=== PATIENT | male | born 1930 | race Caucasian/White ===

== ENCOUNTER → 2016-04-26 | Outpatient (CLI) | payer MEDICARE, BC ==
[2016-04-26 09:35] LABS: Anion Gap 12 mmol/L; Blood Urea Nitrogen 16 mg/dL (9-20); Calcium 9.4 mg/dL (8.4-10.2); Carbon Dioxide 30 mmol/L (22-30); Chloride 104 mmol/L (98-107); Glucose 120 mg/dL (74-99); Non-African American GFR(MDRD) >60 (>60 ml/min/1.73 sqM); Potassium 5.2 mmol/L (3.5-5.1); Sodium 146 mmol/L (137-145)
[2016-04-26 11:04] LABS: Hemoglobin A1C 6.3 % (4.2-6.1)
== END | disposition home or self-care (01) ==
LOC: LABWHC1 08:39
PROVIDERS: ATTEND Internal Medicine
DX: E11.21 Type 2 diabetes mellitus with diabetic nephropathy (principal)
CPT/HCPCS: 36415; 80048; 83036

== ENCOUNTER → 2016-07-25 | Outpatient (CLI) | payer MEDICARE, BC ==
[2016-07-25 07:29] LABS: Anion Gap 8 mmol/L; Blood Urea Nitrogen 13 mg/dL (9-20); Calcium 9.7 mg/dL (8.4-10.2); Carbon Dioxide 33 mmol/L (22-30); Chloride 101 mmol/L (98-107); Glucose 141 mg/dL (74-99); Non-African American GFR(MDRD) >60 (>60 ml/min/1.73 sqM); Potassium 4.8 mmol/L (3.5-5.1); Sodium 142 mmol/L (137-145)
--- NOTE | 2016-07-25 09:24 | CT ---
EXAMINATION TYPE: CT chest w con DATE OF EXAM: 07/25/2016 8:08 AM COMPARISON: 07/31/2012 HISTORY: Pulmonary Nodule CT DLP: 836 mGycm, Automated exposure control for dose reduction was used. CONTRAST: Performed injected with 100 ml mL of Omnipaque 300. TECHNIQUE: Axial images were obtained at 5 mm thick sections. Reconstructed images are reviewed on [employer] computer in the coronal plane. FINDINGS: Portion of the thyroid visualized is normal. No suspicious lung nodules or focal infiltrates are present. Some minimal pleural thickening may be in the posterior right upper lung field. Series 4 image 16. No suspicious focal consolidations are evident. There is a 0.8 cm density within the mid right lung. Se alexis 4 image 30. This measures 154 Hounsfield units and can be calcified granuloma. There is some mi nimal linear opacity along the major fissure adjacent to this calcification. Series 4 image 32. Punct ate nodular density is adjacent. This measures 0.3 cm. These findings were comparison study of 013. Further follow-up of these findings is not required given the stability of greater than [address] chest can be performed for any new or clinical findings. No enlarged mediastinal or hilar adenopathy is evident. The ascending aorta diameter at the level o f the main pulmonary artery is 3.1 cm. The main pulmonary artery diameter at the bifurcation is 3.0 cm. Some coronary artery calcification is noted. Limited CT sections are obtained through the upper abdomen. Abdomen is essentially unremarkable. Gall bladder is surgically absent. The pancreas is somewhat atrophic. IMPRESSIONS: 1. Suspected calcified granuloma right midlung. This was present on the comparison study.
[2016-07-25 12:51] LABS: Hemoglobin A1C 6.7 % (4.2-6.1)
== END | disposition home or self-care (01) ==
LOC: RADCTMAIN 06:44
PROVIDERS: ATTEND Internal Medicine
DX: R91.1 Solitary pulmonary nodule (principal)
CPT/HCPCS: 80048; 83036; 71260; 36415; Q9967

== ENCOUNTER → 2016-08-02 | Outpatient (CLI) | payer MEDICARE, BC ==
--- NOTE | 2016-08-02 09:06 | XR ---
EXAMINATION TYPE: XR foot complete LT DATE OF EXAM: 08/02/2016 8:56 AM CLINICAL HISTORY: pain TECHNIQUE: Frontal, lateral and oblique images of the left foot are obtained. COMPARISON: None. FINDINGS: There is no acute fracture/dislocation evident. The joint spaces appear within normal conway its. The overlying soft tissue appears unremarkable. IMPRESSION: There is no acute fracture or dislocation. ICD 10 NO FRACTURE, INITIAL EVALUATION
== END ==
LOC: RADXRMAIN 08:33
PROVIDERS: ATTEND Internal Medicine
DX: M79.672 Pain in left foot (principal)

== ENCOUNTER → 2016-10-01 | Outpatient (CLI) | payer MEDICARE, BC ==
[2016-10-01 09:37] LABS: Blood Urea Nitrogen 12 mg/dL (9-20); Non-African American GFR(MDRD) >60 (>60 ml/min/1.73 sqM)
--- NOTE | 2016-10-01 11:31 | CT ---
EXAMINATION TYPE: CT abdomen pelvis w con DATE OF EXAM: 10/01/2016 COMPARISON: No prior CT abdomen or CT pelvis. INDICATION: Prostate CA DLP: 1658 mGycm, Automated exposure control for dose reduction was used. CONTRAST: 100 mL of Omnipaque 300. Study performed with Oral Contrast TECHNIQUE: Axial images were obtained from above the diaphragm to the pubic rami in the axial plane a t 5 mm thick sections. Reconstructed images are reviewed on the computer in the coronal plane. FINDINGS: Limited CT sections are obtained the lung bases. The lung bases are clear. Some coronary artery bertram cification is noted within the [id number]. CT ABDOMEN: Liver: Mild diffuse fatty infiltration liver. No discrete masses or cysts are evident. Spleen: Normal Pancreas: Normal Adrenal glands: The adrenal glands are normal. Gallbladder: Surgically absent Kidneys: No masses are evident. No hydronephrosis is present. Small cortical renal cyst on the post erior lateral right mid kidney measuring 1.0 cm. Delayed images were obtained through the kidneys, w hich remain unremarkable. Aorta: Vascular calcification is within the aorta. Inferior vena cava: Normal. CT PELVIS: Loops of bowel within the abdomen and pelvis are normal. There are loops of bowel which are incom pletely distended or lack oral contrast limiting their evaluation. Appendix: Normal as visualized. Urinary bladder: Normal. Genitourinary structures: Prostate appears prominent. Discrete prostate neoplasm reported on the johana ent's history is not clearly evident on CT exam. Osseous structures: No suspicious lytic or sclerotic lesions. There may be bilateral inguinal hernias containing mesenteric fat. No loops of bowel are involved. No free fluid is within the pelvis. No suspicious pelvic adenopathy is evident. IMPRESSIONS: 1. No suspicious changes to suggest metastatic disease from prostate cancer. 2. Right renal cortical cyst.
--- NOTE | 2016-10-01 14:02 | NM ---
EXAMINATION TYPE: NM bone scan whole body DATE OF EXAM: 10/01/2016 COMPARISON: CT scan 10/01/2016 HISTORY: Prostate cancer Delayed whole-body scanning was performed following the injection of mCi Tc 99m MDP. Images acquired 3 hours post injection. FINDINGS: Uptake throughout the thoracic and lumbar vertebral, appears to correlate with CT findings of hypertr ophic spur formation and degenerative disc disease. Photopenic defects involving the knees compatible with previous surgery and abnormal uptake involving both feet likely either on the basis of previous trauma or post arthritic. Faint abnormal uptake involving the hips likely post arthritic. Nonspecific uptake involving the sternoclavicular joints bilaterally. This likely is also post arthri tic. Single sclerotic area of focus involving the T10 vertebral body is nonspecific noted on CT scan appea rs to be in the region of the endplate.. IMPRESSION: 1. The findings appear most likely post arthritic or post degenerative. There is a nonspecific findin g involving the T10 vertebral body with an area of sclerosis seen on CT scan with minimal uptake nucl ear exam. This may be related to endplate changes rather than metastases and could be monitored on a short-term basis.
== END | disposition home or self-care (01) ==
LOC: RADNMMAIN 08:56
PROVIDERS: ATTEND Urology
DX: N28.1 Cyst of kidney, acquired (principal); G95.89 Other specified diseases of spinal cord; R93.8 Abnormal findings on diagnostic imaging of other specified body structures; C61 Malignant neoplasm of prostate
CPT/HCPCS: 82565; 84520; 74177; 36415; 78306; A9503; Q9967

== ENCOUNTER → 2016-10-24 | Outpatient (CLI) | payer MEDICARE, BC ==
[2016-10-24 09:47] LABS: Anion Gap 9 mmol/L; Blood Urea Nitrogen 17 mg/dL (9-20); Carbon Dioxide 33 mmol/L (22-30); Chloride 101 mmol/L (98-107); Glucose 113 mg/dL (74-99); Non-African American GFR(MDRD) >60 (>60 ml/min/1.73 sqM); Potassium 5.2 mmol/L (3.5-5.1); Sodium 143 mmol/L (137-145)
[2016-10-24 14:14] LABS: Hemoglobin A1C 6.6 % (4.2-6.1)
== END | disposition home or self-care (01) ==
LOC: LABWHC1 08:38
PROVIDERS: ATTEND Internal Medicine
DX: E11.65 Type 2 diabetes mellitus with hyperglycemia (principal)
CPT/HCPCS: 36415; 80048; 83036

== ENCOUNTER → 2017-01-22 | Outpatient (CLI) | payer MEDICARE, BC ==
[2017-01-22 10:54] LABS: Anion Gap 10 mmol/L; Blood Urea Nitrogen 15 mg/dL (9-20); Calcium 9.5 mg/dL (8.4-10.2); Carbon Dioxide 27 mmol/L (22-30); Chloride 101 mmol/L (98-107); Glucose 115 mg/dL (74-99); Non-African American GFR(MDRD) >60 (>60 ml/min/1.73 sqM); Potassium 5.5 mmol/L (3.5-5.1); Sodium 138 mmol/L (137-145)
[2017-01-22 13:43] LABS: Hemoglobin A1C 6.6 % (4.2-6.1)
== END | disposition home or self-care (01) ==
LOC: LABWHC1 09:41
PROVIDERS: ATTEND Internal Medicine
DX: E11.21 Type 2 diabetes mellitus with diabetic nephropathy (principal)
CPT/HCPCS: 36415; 80048; 83036

== ENCOUNTER 2017-04-27 10:06 | Inpatient (IN) | payer MEDICARE, BC ==
[2017-04-27] MEDS ORDERED: PANTOPRAZOLE 40 MG/10 ML VIAL IVP STA (10:25)
--- NOTE | 2017-04-27 10:40 | ED ---
General Adult HPI - General Chief complaint: GI Bleed Stated complaint: Poss GI Bleed Time Seen by Provider: 04/27/17 10:11 Source: patient, family, EMS, RN notes reviewed, old records reviewed Mode of arrival: EMS Limitations: no limitations - History of Present Illness Initial comments: Complaint and history of present illness is an 86-year-old male here with family. The patient has not been feeling well since last night. The patient noticed on 3 occasions black tarry stool. Guaiac positive at bedside. Patient doesn't past history of stomach ulcers approximately 10 years ago. He's also on Coumadin for A. fib. reports he looked very pale last night he does appear pale today. Complains of abdominal bloating. Denied vomiting. - Related Data Home Medications Medication Instructions Recorded Confirmed Budesonide [Pulmicort] 0.5 mg INHALATION BID 12/08/13 04/11/14 Cetirizine HCl 10 mg PO DAILY 12/08/13 04/11/14 Furosemide [Lasix] 40 mg PO DAILY 12/08/13 04/11/14 Metoprolol Tartrate [Lopressor] 25 mg PO BID 12/08/13 04/11/14 Simvastatin [Zocor] 80 mg PO HS 12/08/13 04/11/14 Warfarin [Coumadin] 5 mg PO SUMOTUTHSA 12/08/13 04/11/14 Montelukast [Singulair] 10 mg PO DAILY 02/27/14 04/11/14 Nitroglycerin Sl Tabs [Nitrostat] 0.4 mg SL DIRECTED 02/27/14 04/11/14 Previous Rx's Medication Instructions Recorded Azithromycin [Zithromax Z-pack] 0 mg PO DIRECTED #6 tab 04/11/14 Oseltamivir [Tamiflu] 75 mg PO Q12HR #10 cap 04/11/14 Allergies Allergy/AdvReac Type Severity Reaction Status Date / Time No Known Allergies Allergy Verified 04/11/14 13:31 Review of Systems ROS Statement: Those systems with pertinent positive or pertinent negative responses have been documented in the HPI. review of systems. Patient denies headache or visual acuity changes he is hard of hearing. Denies any chest pain or heaviness or shortness of breath though he does have history of asthma with a slight wheeze. The patient's abdomen feels bloated mild nausea no vomiting black stool guaiac positive on rectal exam. Mild peripheral pitting edema chronic leg pain. All systems were reviewed.Past medical problems include coronary artery disease patient's never had heart attack but he has had one stent placed recently treated with radiation for prostate cancer. History of hyperlipidemia, peptic ulcer disease 10 years ago. A. fib on Coumadin. Patient's surgeries include cardiac ablation, bladder surgery prostate radiation. Cholecystectomy, heart catheterization with one stent placed. Both knee replacements. Pacemaker the first one was placed and 06 and the battery was changed approximate 3 years ago.patient is a former smoker denies alcohol use. Family history noncontributory. ROS Other: All systems not noted in ROS Statement are negative. Past Medical History Past Medical History: Coronary Artery Disease (CAD), Cancer, Hyperlipidemia Additional Past Medical History / Comment(s): PUD History of Any Multi-Drug Resistant Organisms: None Reported Past Surgical History: Ablation, Bladder Surgery, Cholecystectomy, Heart Catheterization With Stent, Joint Replacement, Orthopedic Surgery, Pacemaker Additional Past Surgical History / Comment(s): pacemaker 2013, cataract Past Anesthesia/Blood Transfusion Reactions: No Reported Reaction Date of Last Stent Placement:: 2001 Past Psychological History: No Psychological Hx Reported Smoking Status: Former smoker Past Alcohol Use History: None Reported Past Drug Use History: None Reported General Exam - General Exam Comments Initial Comments: General: The patient is awake and alert, here because he feels weak, large amount of black tarry stool for the past 18 hours. Vital signs are temperature 97.7 pulse 60 respiratory rate 16 pulse ox on percent on 2 L. Blood pressure 113/53 Eye: Pupils are equal, round and reactive to light, extra-ocular movements are intact ; pale palpebral conjunctiva. No icterus. Ears, nose, mouth and throat: There are moist mucous membranes and no oral lesions. Neck: The neck is supple, there is no tenderness . Cardiovascular: There is a regular rate and rhythm. No murmur, rub or gallop is appreciated. Respiratory: faint wheezing bilaterally, patient does not complain of shortness of breath. History of asthma. Gastrointestinal: no pain with deep palpation, patient feels bloated. Rectal examination no masses palpable but the stool is tarry black and guaiac positive. Active bowel sounds. No palpable masses, no bruit. Back: There is no tenderness to palpation in the midline. There is no obvious deformity. No rashes noted. Musculoskeletal: mild pitting edema bilaterally lower extremities, Neurological: no complaint of any evidence of any neuro deficits, no focal or lateralizing findings. Skin: some bruising noted secondary to Coumadin use and generally pale. Psychiatric: denies any problems of being depressed. Limitations: no limitations Course Vital Signs 04/27/17 04/27/17 10:21 11:40 Temperature 97.7 F Pulse Rate 60 60 Respiratory 16 16 Rate Blood Pressure 113/53 133/65 O2 Sat by Pulse 100 97 Oximetry EKG Findings - EKG Comments: EKG Findings:: EKG was done and reviewed at 1013 showing ventricular pacing, rate 60. due to the pacemaker activity no other interpretation. Dr. Evans Medical Decision Making - Medical Decision Making Medical decision making; this is an 86-year-old male here with family. The patient didn't start feeling well until last night. Muscle aches and pains and black stool. Patient's past history includes chronic A. fib with ablation secondarily now with Coumadin and pacemaker. Patient had a bloated sensation in his stomach. He's had 2 large black bowel movements since last night. Guaiac positive. Significant labs show an elevated INR 7.7 which the patient is getting vitamin K IV as well as 2 units of fresh frozen plasma. His hemoglobin 7.4. Don't have any old numbers for hemoglobin but he is having 2 units typed and crossed for use. Kidney function shows BUN 16 creatinine 0.79 and GFR greater than 60. Lipase is getting fluids at this time. His influenza A was reported to be positive. He is also receiving Tamiflu's 75 mg by mouth in emergency room. Also slight wheezing so the patient is receiving DuoNeb. I discussed the findings and significance with patient and at bedside. I discussed the case with Dr. Malik on-call for Dr. pathak. patient be admitted hospital currently no beds are available in the ICU he'll be sent to telemetry. - Lab Data Result diagrams: 04/27/17 10:43 04/27/17 10:43 Lab Results 04/27/17 04/27/17 04/27/17 Range/Units 10:30 10:39 10:39 WBC (3.8-10.6) k/uL RBC (4.30-5.90) m/uL Hgb (13.0-17.5) gm/dL Hct (39.0-53.0) % MCV (80.0-100.0) fL MCH (25.0-35.0) pg MCHC (31.0-37.0) g/dL RDW (11.5-15.5) % Plt Count (150-450) k/uL Neutrophils % % Lymphocytes % % Monocytes % % Eosinophils % % Basophils % % Neutrophils # (1.3-7.7) k/uL Lymphocytes # (1.0-4.8) k/uL Monocytes # (0-1.0) k/uL Eosinophils # (0-0.7) k/uL Basophils # (0-0.2) k/uL PT (9.0-12.0) sec INR (<1.2) APTT (22.0-30.0) sec Sodium (137-145) mmol/L Potassium (3.5-5.1) mmol/L Chloride (98-107) mmol/L Carbon Dioxide (22-30) mmol/L Anion Gap mmol/L BUN (9-20) mg/dL Creatinine (0.66-1.25) mg/dL Est GFR (MDRD) Af Amer (>60 ml/min/1.73 sqM) Est GFR (MDRD) Non-Af (>60 ml/min/1.73 sqM) Glucose (74-99) mg/dL Plasma Lactic Acid Jose (0.7-2.0) mmol/L Calcium (8.4-10.2) mg/dL Total Bilirubin (0.2-1.3) mg/dL AST (17-59) U/L ALT (21-72) U/L Alkaline Phosphatase (38-126) U/L Total Creatine Kinase 58 (55-170) U/L CK-MB (CK-2) 2.2 (0.0-2.4) ng/mL CK-MB (CK-2) Rel Index 3.8 Troponin I 0.057 H* (0.000-0.034) ng/mL Total Protein (6.3-8.2) g/dL Albumin (3.5-5.0) g/dL Lipase (23-300) U/L Stool Occult Blood Positive (Negative) Blood Type O Positive Blood Type Recheck No Antibody Screen NEGATIVE Crossmatch See Detail Spec Expiration Date 04/30/2017 - 2330 04/27/17 04/27/17 04/27/17 Range/Units 10:43 10:43 10:43 WBC 12.3 H (3.8-10.6) k/uL RBC 2.42 L (4.30-5.90) m/uL Hgb 7.4 L (13.0-17.5) gm/dL Hct 23.3 L (39.0-53.0) % MCV 96.2 (80.0-100.0) fL MCH 30.5 (25.0-35.0) pg MCHC 31.7 (31.0-37.0) g/dL RDW 13.5 (11.5-15.5) % Plt Count 231 (150-450) k/uL Neutrophils % 85 % Lymphocytes % 8 % Monocytes % 4 % Eosinophils % 2 % Basophils % 0 % Neutrophils # 10.5 H (1.3-7.7) k/uL Lymphocytes # 1.0 (1.0-4.8) k/uL Monocytes # 0.4 (0-1.0) k/uL Eosinophils # 0.2 (0-0.7) k/uL Basophils # 0.0 (0-0.2) k/uL PT (9.0-12.0) sec INR (<1.2) APTT (22.0-30.0) sec Sodium 136 L (137-145) mmol/L Potassium 4.6 (3.5-5.1) mmol/L Chloride 96 L (98-107) mmol/L Carbon Dioxide 35 H (22-30) mmol/L Anion Gap 5 mmol/L BUN 60 H (9-20) mg/dL Creatinine 0.79 (0.66-1.25) mg/dL Est GFR (MDRD) Af Amer >60 (>60 ml/min/1.73 sqM) Est GFR (MDRD) Non-Af >60 (>60 ml/min/1.73 sqM) Glucose 188 H (74-99) mg/dL Plasma Lactic Acid Jose 1.2 (0.7-2.0) mmol/L Calcium 8.9 (8.4-10.2) mg/dL Total Bilirubin 0.5 (0.2-1.3) mg/dL AST 34 (17-59) U/L ALT 56 (21-72) U/L Alkaline Phosphatase 101 (38-126) U/L Total Creatine Kinase (55-170) U/L CK-MB (CK-2) (0.0-2.4) ng/mL CK-MB (CK-2) Rel Index Troponin I (0.000-0.034) ng/mL Total Protein 4.7 L (6.3-8.2) g/dL Albumin 2.6 L (3.5-5.0) g/dL Lipase 58 (23-300) U/L Stool Occult Blood (Negative) Blood Type Blood Type Recheck Antibody Screen Crossmatch Spec Expiration Date 04/27/17 Range/Units 10:43 WBC (3.8-10.6) k/uL RBC (4.30-5.90) m/uL Hgb (13.0-17.5) gm/dL Hct (39.0-53.0) % MCV (80.0-100.0) fL MCH (25.0-35.0) pg MCHC (31.0-37.0) g/dL RDW (11.5-15.5) % Plt Count (150-450) k/uL Neutrophils % % Lymphocytes % % Monocytes % % Eosinophils % % Basophils % % Neutrophils # (1.3-7.7) k/uL Lymphocytes # (1.0-4.8) k/uL Monocytes # (0-1.0) k/uL Eosinophils # (0-0.7) k/uL Basophils # (0-0.2) k/uL PT 71.5 H (9.0-12.0) sec INR 7.7 H* (<1.2) APTT 30.3 H (22.0-30.0) sec Sodium (137-145) mmol/L Potassium (3.5-5.1) mmol/L Chloride (98-107) mmol/L Carbon Dioxide (22-30) mmol/L Anion Gap mmol/L BUN (9-20) mg/dL Creatinine (0.66-1.25) mg/dL Est GFR (MDRD) Af Amer (>60 ml/min/1.73 sqM) Est GFR (MDRD) Non-Af (>60 ml/min/1.73 sqM) Glucose (74-99) mg/dL Plasma Lactic Acid Jose (0.7-2.0) mmol/L Calcium (8.4-10.2) mg/dL Total Bilirubin (0.2-1.3) mg/dL AST (17-59) U/L ALT (21-72) U/L Alkaline Phosphatase (38-126) U/L Total Creatine Kinase (55-170) U/L CK-MB (CK-2) (0.0-2.4) ng/mL CK-MB (CK-2) Rel Index Troponin I (0.000-0.034) ng/mL Total Protein (6.3-8.2) g/dL Albumin (3.5-5.0) g/dL Lipase (23-300) U/L Stool Occult Blood (Negative) Blood Type Blood Type Recheck Antibody Screen Crossmatch Spec Expiration Date Disposition Clinical Impression: Upper gastrointestinal bleed, Influenza A, Dehydration, Asthma attack, Bleeding on Coumadin Disposition: ADMITTED IP TO THIS [facility] Condition: Serious Referrals: Rodger Pathak MD [Primary Care Provider] - 1-2 days
[2017-04-27 10:56] LABS: Basophils % (A) 0 %; Eosinophils # (A) 0.2 k/uL (0-0.7); Eosinophils % (A) 2 %; HCT 23.3 % (39.0-53.0); HGB 7.4 gm/dL (13.0-17.5); Lymphocytes % (A) 8 %; MCH 30.5 pg (25.0-35.0); MCHC 31.7 g/dL (31.0-37.0); MCV 96.2 fL (80.0-100.0); Mean Platelet Volume 7.9; Monocytes # (A) 0.4 k/uL (0-1.0); Monocytes % (A) 4 %; Neutrophils # (A) 10.5 k/uL (1.3-7.7); Neutrophils % (A) 85 %; Platelet Count 231 k/uL (150-450); RBC 2.42 m/uL (4.30-5.90); RDW 13.5 % (11.5-15.5); WBC 12.3 k/uL (3.8-10.6)
[2017-04-27 11:02] LABS: Partial Thromboplastin Time 30.3 sec (22.0-30.0); Prothrombin Time 71.5 sec (9.0-12.0)
[2017-04-27 11:04] LABS: ALT 56 U/L (21-72); AST 34 U/L (17-59); Albumin 2.6 g/dL (3.5-5.0); Alkaline Phosphatase 101 U/L (38-126); Anion Gap 5 mmol/L; Blood Urea Nitrogen 60 mg/dL (9-20); Calcium 8.9 mg/dL (8.4-10.2); Carbon Dioxide 35 mmol/L (22-30); Chloride 96 mmol/L (98-107); Glucose 188 mg/dL (74-99); Lipase 58 U/L (23-300); Potassium 4.6 mmol/L (3.5-5.1); Sodium 136 mmol/L (137-145); Total Bilirubin 0.5 mg/dL (0.2-1.3); Total Protein 4.7 g/dL (6.3-8.2)
[2017-04-27 11:05] LABS: INR 7.7 (<1.2)
[2017-04-27 11:25] LABS: Creatine Kinase MB 2.2 ng/mL (0.0-2.4)
[2017-04-27] MEDS ORDERED: SODIUM CHLORIDE 0.9% 1,000 ML IV ONE (11:27)
[2017-04-27] MEDS ORDERED: PHYTONADIONE 5 MG in SODIUM CHLORIDE 0.9% 50 ML IVPB STA (11:27)
[2017-04-27 11:28] LABS: Troponin I 0.057 ng/mL (0.000-0.034)
[2017-04-27] MEDS ORDERED: IPRATROPIUM-ALBUTEROL 3 ML NEB INHALATION STA (11:52)
[2017-04-27] MEDS ORDERED: OSELTAMIVIR 75 MG CAP PO STA (11:53)
[2017-04-27] MEDS ORDERED: NALOXONE 0.4 MG/ML 1 ML VIAL IV PRN ×2 (12:04→12:38)
[2017-04-27] MEDS ORDERED: ACETAMINOPHEN TAB 325 MG TAB PO PRN (12:38)
[2017-04-27] MEDS ORDERED: ONDANSETRON 4 MG/2 ML VIAL IVP PRN (12:38)
[2017-04-27] MEDS ORDERED: traMADol 50 MG TAB PO PRN (12:38)
[2017-04-27] MEDS ORDERED: oxyCODONE-APAP 5-325MG 1 EACH TAB PO PRN (12:38)
[2017-04-27] MEDS ORDERED: predniSONE 20 MG TAB PO STA (12:44)
[2017-04-27] MEDS ORDERED: IPRATROPIUM-ALBUTEROL 3 ML NEB INHALATION PRN (12:46)
--- NOTE | 2017-04-27 12:57 | P.HPIM ---
History of Present Illness H&P Date: 04/27/17 Chief Complaint: shortness of airweakness and fatigue the patient is a 86-year-old morbidly obese male the past medical history of atrial fibrillation status post pacemaker on chronic Coumadin therapy , coronary artery disease with stenting, and asthma who presents to the ER with chief complaint of not feeling well since last night, the patient describes a mild to moderate generalized abdominal pain, reports 3 occasions of dark tarry stools, he denies any associated nausea vomiting but reports a history of constipation, he reports a history of stomach ulcers and had a bleed approximately 10 years ago. Over the last 10 days the patient has been short of breath and wheezing and [facility] and was prescribed a course of antibiotics with Levaquin and prednisone. The patient reports he was initially feeling better but began wheezing over the last 2 days. He denies any chest pain, denies subjective fevers and chills, denies any runny nose sore throat or cough. In the ER the patient was noted to be quiet positive, with a hemoglobin of 7.4 and a supratherapeutic INR of 7.7. He was recommended for admission for possible GI bleed. Past Medical History Past Medical History: Coronary Artery Disease (CAD), Cancer, Hyperlipidemia Additional Past Medical History / Comment(s): PUD History of Any Multi-Drug Resistant Organisms: None Reported Past Surgical History: Ablation, Bladder Surgery, Cholecystectomy, Heart Catheterization With Stent, Joint Replacement, Orthopedic Surgery, Pacemaker Additional Past Surgical History / Comment(s): pacemaker 2013, cataract Past Anesthesia/Blood Transfusion Reactions: No Reported Reaction Date of Last Stent Placement:: 2001 Past Psychological History: No Psychological Hx Reported Smoking Status: Former smoker Past Alcohol Use History: None Reported Past Drug Use History: None Reported - Past Family History Mother History Unknown: Yes Family Medical History: Cancer Additional Family Medical History / Comment(s): Family believes liver cancer Father History Unknown: Yes Family Medical History: Cancer Additional Family Medical History / Comment(s): Stomach cancer Medications and Allergies Home Medications Medication Instructions Recorded Confirmed Type Budesonide [Pulmicort] 0.5 mg INHALATION RT-BID 12/08/13 04/27/17 History Cetirizine HCl 10 mg PO DAILY 12/08/13 04/27/17 History Furosemide [Lasix] 40 mg PO DAILY 12/08/13 04/27/17 History Metoprolol Tartrate [Lopressor] 25 mg PO BID 12/08/13 04/27/17 History Simvastatin [Zocor] 80 mg PO HS 12/08/13 04/27/17 History Warfarin [Coumadin] 5 mg PO SUMOTUWEFR 12/08/13 04/27/17 History Nitroglycerin Sl Tabs [Nitrostat] 0.4 mg SL Q5M PRN 02/27/14 04/27/17 History Albuterol Nebulized [Ventolin 2.5 mg INHALATION RT-Q6H PRN 04/27/17 04/27/17 History Nebulized] Bicalutamide [Casodex] 50 mg PO DAILY 04/27/17 04/27/17 History Calcium Carbonate [Calcium] 600 mg PO BID 04/27/17 04/27/17 History Cholecalciferol [Vitamin D3] 400 unit PO DAILY 04/27/17 04/27/17 History Wharton-3/Dha/Epa/Fish Oil [Fish Oil 1 cap PO DAILY 04/27/17 04/27/17 History 500 mg Softgel] Warfarin [Coumadin] 2.5 mg PO THSA 04/27/17 04/27/17 History Allergies Allergy/AdvReac Type Severity Reaction Status Date / Time No Known Allergies Allergy Verified 04/27/17 12:16 Physical Exam Vitals: Vital Signs Temp Pulse Resp BP Pulse Ox 04/27/17 12:10 65 04/27/17 12:05 62 04/27/17 11:40 60 16 133/65 97 04/27/17 10:21 97.7 F 60 16 113/53 100 Intake and Output 04/26/17 04/27/17 04/27/17 22:59 06:59 14:59 Other: Weight 121.563 kg Patient Weight 04/28/17 06:59 Weight 121.563 kg Constitutional: No acute distress, conversant, pleasant Eyes: Anicteric sclerae, moist conjunctiva, no lid-lag, PERRLA ENMT: NC/AT,Oropharynx clear, no erythema, exudates Neck:Supple, FROM, no masses, or JVD, No carotid bruits; No thyromegaly Lungs: diffuse wheezes, moderate aeration, unlabored on 2 L nasal cannula Cardiovascular: Heart regular in rate and rhythm, No murmurs, gallops, or rubs no peripheral edema Abdominal:obese abdomen, Soft mildly tender on deep palpation diffusely, nom distended, no guarding, no rebound or rigidity, Normoactive bowel sounds No hepatomegaly, No splenomegaly, No palpable mass No abdominal wall hernia noted Skin: Normal temperature, tone, texture, turgor, No induration No subcutaneous nodules, No rash, lesions, No ulcers Extremities:No digital cyanosis No clubbing, Pedal pulses intact and symmetrical Radial pulses intact and symmetrical Normal gait and station, No calf tenderness Psychiatric: Alert and oriented to person, place and time, Appropriate affect Intact judgement Neuro: Muscles Strength 5/5 in all 4 extremities, Sensation to light touch grossly present throughout, Cranial nerves II-XII grossly intact. No focal sensory deficits Results CBC & Chem 7: 04/28/17 05:57 04/27/17 10:43 Labs: Abnormal Lab Results - Last 24 Hours (Table) 04/27/17 04/27/17 04/27/17 Range/Units 10:39 10:39 10:43 WBC 12.3 H (3.8-10.6) k/uL RBC 2.42 L (4.30-5.90) m/uL Hgb 7.4 L (13.0-17.5) gm/dL Hct 23.3 L (39.0-53.0) % Neutrophils # 10.5 H (1.3-7.7) k/uL PT (9.0-12.0) sec INR (<1.2) APTT (22.0-30.0) sec Sodium (137-145) mmol/L Chloride (98-107) mmol/L Carbon Dioxide (22-30) mmol/L BUN (9-20) mg/dL Glucose (74-99) mg/dL Troponin I 0.057 H* (0.000-0.034) ng/mL Total Protein (6.3-8.2) g/dL Albumin (3.5-5.0) g/dL Crossmatch See Detail 04/27/17 04/27/17 Range/Units 10:43 10:43 WBC (3.8-10.6) k/uL RBC (4.30-5.90) m/uL Hgb (13.0-17.5) gm/dL Hct (39.0-53.0) % Neutrophils # (1.3-7.7) k/uL PT 71.5 H (9.0-12.0) sec INR 7.7 H* (<1.2) APTT 30.3 H (22.0-30.0) sec Sodium 136 L (137-145) mmol/L Chloride 96 L (98-107) mmol/L Carbon Dioxide 35 H (22-30) mmol/L BUN 60 H (9-20) mg/dL Glucose 188 H (74-99) mg/dL Troponin I (0.000-0.034) ng/mL Total Protein 4.7 L (6.3-8.2) g/dL Albumin 2.6 L (3.5-5.0) g/dL Crossmatch Assessment and Plan (1) Upper gastrointestinal bleed Current Visit: Yes Status: Acute Code(s): K92.2 - GASTROINTESTINAL HEMORRHAGE, UNSPECIFIED SNOMED Code(s): 41907103 (2) Acute blood loss anemia Current Visit: Yes Status: Acute Code(s): D62 - ACUTE POSTHEMORRHAGIC ANEMIA SNOMED Code(s): 098252454 (3) Warfarin-induced coagulopathy Current Visit: Yes Status: Acute Code(s): D68.9 - COAGULATION DEFECT, UNSPECIFIED; T45.515A - ADVERSE EFFECT OF ANTICOAGULANTS, INITIAL ENCOUNTER SNOMED Code(s): 47896839 (4) Acute asthma exacerbation Current Visit: Yes Status: Acute Code(s): J45.901 - UNSPECIFIED ASTHMA WITH (ACUTE) EXACERBATION SNOMED Code(s): 621322304 (5) History of chronic atrial fibrillation Current Visit: Yes Status: Acute Code(s): Z86.79 - PERSONAL HISTORY OF OTHER DISEASES OF THE CIRCULATORY SYSTEM SNOMED Code(s): 084546634 (6) History of peptic ulcer disease Current Visit: Yes Status: Acute Code(s): Z87.11 - PERSONAL HISTORY OF PEPTIC ULCER DISEASE SNOMED Code(s): 146428355 (7) Elevated troponin Current Visit: Yes Status: Acute Code(s): R74.8 - ABNORMAL LEVELS OF OTHER SERUM ENZYMES SNOMED Code(s): 148918767 Plan: the patient is admitted anticipate a greater than 2 midnight stay for upper GI bleed and severe anemia, he is and crossed and transfused 2 units total of packed RBCs with 2 units of FFP to reverse warfarin-induced coagulopathy after being given vitamin K in the ED. we'll continue to trend his blood counts to make sure it stabilizes. GI was consulted for further recommendations, evaluate for EGD and patient with history of peptic ulcer disease, initiated on IV PPI therapy. we'll order a chest x-ray and CT abdomen and pelvis. Warfarin induced coagulopathy likely precipitated by recent antibiotic use for treatment of acute bronchitis and asthma exacerbation. We'll consult cardiology regarding patient's elevated troponin which I suspect may be due to demand ischemia from his anemia. We'll continue with steroid therapy with prednisone and scheduled and when necessary breathing treatments. Continue to monitor patient's clinical course
--- NOTE | 2017-04-27 14:13 | CT ---
EXAMINATION TYPE: CT abdomen pelvis wo con DATE OF EXAM: 04/27/2017 COMPARISON: Previous study dated 10/01/2016 HISTORY: GI bleed CT DLP: 1402 mGycm Automated exposure control for dose reduction was used. FINDINGS: There is mild dependent atelectasis at the lung bases. There is a questionable 6.8 mm nodul e in the posterior basal segment of the left lower lobe best seen on image 1. There is no pleural or pericardial fluid. The heart is mildly enlarged. There is a pacemaker in place. Within the abdomen, the gallbladder is been removed. Liver and spleen are unremarkable. Both adrenal glands are normal. There is no evidence of nephrolithiasis or hydronephrosis. The pancreas is unremarkable. There is moderate atheromatous calcification of the visualized arterial tree. The bladder is unremarkable. There are scattered diverticula in the sigmoid region without radiographic evidence of diverticulitis . The appendix is normal. Small bowel loops are normal in caliber. No free fluid and no free air is seen. There is hypertrophic spondylosis within the spine. No bony destructive lesion is seen. IMPRESSION: 1. SOLITARY, 6.8 MM LEFT LOWER LOBE PULMONARY NODULE. 2. MILD CARDIOMEGALY. 3. MINIMAL DIVERTICULOSIS OF THE SIGMOID COLON. 4. DEGENERATIVE CHANGE WITHIN THE SPINE.
[2017-04-27] MEDS: SODIUM CHLORIDE 0.9% 1,000 ML IV SCH (14:16)
[2017-04-27] MEDS: IPRATROPIUM-ALBUTEROL 3 ML NEB INHALATION SCH ×2 (14:30→19:40)
--- NOTE | 2017-04-27 14:52 | XR ---
EXAMINATION TYPE: XR chest 2V DATE OF EXAM: 04/27/2017 COMPARISON: CT chest July 25, 2016 HISTORY: Asthma and shortness of breath TECHNIQUE: Frontal and lateral views of the chest are obtained. FINDINGS: Calcified nodule right lateral mid lung is redemonstrated There is no focal air space opaci ty, pleural effusion, or pneumothorax seen. The cardiac silhouette size is enlarged with dual lead p acemaker redemonstrated. Degenerative changes in spine and both shoulders is again seen. IMPRESSION: Cardiomegaly without acute pulmonary process. No significant change from prior.
[2017-04-27 16:18] VITALS: BMI 42.0
[2017-04-27 17:33] LABS: Creatine Kinase MB 2.2 ng/mL (0.0-2.4)
[2017-04-27 17:35] LABS: Troponin I 0.063 ng/mL (0.000-0.034)
[2017-04-27] MEDS: CALCIUM CARBONATE 500 MG CHEWABLE PO SCH (18:37)
[2017-04-27] MEDS: BUDESONIDE 0.5 MG/2 ML NEBU INHALATION SCH (19:40)
[2017-04-27] MEDS: OSELTAMIVIR 75 MG CAP PO SCH (21:06)
[2017-04-27] MEDS: ATORVASTATIN 40 MG TAB PO SCH (21:06)
[2017-04-27] MEDS: METOPROLOL TARTRATE 25 MG TAB PO SCH (21:06)
[2017-04-27] MEDS: PANTOPRAZOLE 40 MG/10 ML VIAL IV SCH (21:07)
[2017-04-27 22:15] LABS: Basophils % (A) 0 %; Eosinophils % (A) 0 %; HCT 23.8 % (39.0-53.0); HGB 7.6 gm/dL (13.0-17.5); Lymphocytes # (A) 0.3 k/uL (1.0-4.8); Lymphocytes % (A) 3 %; MCH 30.4 pg (25.0-35.0); MCV 95.1 fL (80.0-100.0); Mean Platelet Volume 8.7; Monocytes # (A) 0.2 k/uL (0-1.0); Monocytes % (A) 2 %; Neutrophils # (A) 9.2 k/uL (1.3-7.7); Neutrophils % (A) 94 %; Platelet Count 151 k/uL (150-450); RDW 14.7 % (11.5-15.5); WBC 9.8 k/uL (3.8-10.6)
[2017-04-27 22:59] LABS: Creatine Kinase MB 1.8 ng/mL (0.0-2.4)
[2017-04-27 23:03] LABS: Troponin I 0.053 ng/mL (0.000-0.034)
[2017-04-28 06:27] LABS: Anisocytosis Slight; Basophils % (A) 0 %; Eosinophils % (A) 0 %; HCT 23.1 % (39.0-53.0); HGB 7.3 gm/dL (13.0-17.5); Hypochromasia Slight; Lymphocytes # (A) 0.6 k/uL (1.0-4.8); Lymphocytes % (A) 6 %; MCHC 31.5 g/dL (31.0-37.0); Monocytes # (A) 0.4 k/uL (0-1.0); Monocytes % (A) 3 %; Neutrophils # (A) 9.5 k/uL (1.3-7.7); Neutrophils % (A) 90 %; Platelet Count 165 k/uL (150-450); RBC 2.43 m/uL (4.30-5.90); RDW 16.2 % (11.5-15.5); WBC 10.6 k/uL (3.8-10.6)
[2017-04-28 06:28] LABS: INR 1.4 (<1.2); Prothrombin Time 13.2 sec (9.0-12.0)
[2017-04-28] MEDS: CALCIUM CARBONATE 500 MG CHEWABLE PO SCH ×2 (06:58→17:48)
[2017-04-28] MEDS: SODIUM CHLORIDE 0.9% 1,000 ML IV SCH ×3 (07:04→23:47)
[2017-04-28] MEDS ORDERED: FUROSEMIDE 10 MG/ML 2 ML VIAL IV ONE (07:12)
[2017-04-28] MEDS: BUDESONIDE 0.5 MG/2 ML NEBU INHALATION SCH ×2 (08:00→21:03)
[2017-04-28] MEDS: IPRATROPIUM-ALBUTEROL 3 ML NEB INHALATION SCH ×4 (08:00→21:03)
[2017-04-28] MEDS ORDERED: PANTOPRAZOLE 40 MG/10 ML VIAL IV SCH (09:00)
[2017-04-28] MEDS: predniSONE 20 MG TAB PO SCH (09:11)
[2017-04-28] MEDS: BICALUTAMIDE 50 MG TAB PO SCH (09:11)
[2017-04-28] MEDS: PANTOPRAZOLE 40 MG/10 ML VIAL IV SCH ×2 (09:11→21:02)
[2017-04-28] MEDS: FUROSEMIDE 40 MG TAB PO SCH (09:11)
[2017-04-28] MEDS: CHOLECALCIFEROL 400 UNIT TAB PO SCH (09:11)
[2017-04-28] MEDS: METOPROLOL TARTRATE 25 MG TAB PO SCH ×2 (09:11→21:02)
[2017-04-28] MEDS: LORATADINE 10 MG TAB PO SCH (09:12)
--- NOTE | 2017-04-28 11:26 | P.PN ---
Subjective Progress Note Date: 04/28/17 The patient reports feeling much better today, eating sandwiches entered the room. Patient instructed to stop eating, apparently nursing decided to give the patient this morning. The patient received 2 units of packed RBCs and hemoglobin only up to 7.3. Patient hemodynamically stable Objective - Vital Signs Vital signs: Vital Signs Temp 96.9 F L 04/28/17 10:19 Pulse 63 04/28/17 10:19 Resp 12 04/28/17 10:19 BP 152/69 04/28/17 10:19 Pulse Ox 96 04/28/17 10:19 Intake & Output 04/27/17 04/28/17 04/28/17 18:59 06:59 18:59 Intake Total 1288 310 480 Output Total 150 4 Balance 1138 306 480 Weight 121.563 kg 123.1 kg Intake: Oral 480 480 Blood Product 808 310 0 Ffp 24 Cp2d Unit 199 [id number] Ffp 24 Cpd Unit 299 [id number] Rc As-1 Unit 0 310 [id number] Rc Pheresis As-3 Unit 0 [id number] Rc Pheresis As-3 Unit 310 [id number] Output: Urine 150 Urine/Stool Mix 4 Other: Voiding Method Toilet Toilet # Voids 1 1 # Bowel Movements 1 1 - Exam Constitutional: No acute distress, conversant, pleasant Eyes: Anicteric sclerae, moist conjunctiva, no lid-lag, PERRLA ENMT: NC/AT,Oropharynx clear, no erythema, exudates Neck:Supple, FROM, no masses, or JVD, No carotid bruits; No thyromegaly Lungs: Clear to auscultation, Clear to percussion, Normal respiratory effort, no accessory muscle use Cardiovascular: Heart regular in rate and rhythm, No murmurs, gallops, or rubs no peripheral edema Abdominal: Soft Nontender, nom distended, no guarding, no rebound or rigidity, Normoactive bowel sounds No hepatomegaly, No splenomegaly, No palpable mass No abdominal wall hernia noted Skin: Normal temperature, tone, texture, turgor, No induration No subcutaneous nodules, No rash, lesions, No ulcers Extremities:No digital cyanosis No clubbing, Pedal pulses intact and symmetrical Radial pulses intact and symmetrical Normal gait and station, No calf tenderness Psychiatric: Alert and oriented to person, place and time, Appropriate affect Intact judgement Neuro: Muscles Strength 5/5 in all 4 extremities, Sensation to light touch grossly present throughout, Cranial nerves II-XII grossly intact. No focal sensory deficits - Labs CBC & Chem 7: 04/28/17 05:57 04/27/17 10:43 Labs: Abnormal Lab Results - Last 24 Hours (Table) 04/27/17 04/27/17 04/27/17 Range/Units 10:39 10:39 16:46 RBC (4.30-5.90) m/uL Hgb (13.0-17.5) gm/dL Hct (39.0-53.0) % RDW (11.5-15.5) % Neutrophils # (1.3-7.7) k/uL Lymphocytes # (1.0-4.8) k/uL PT (9.0-12.0) sec INR (<1.2) Troponin I 0.057 H* 0.063 H* (0.000-0.034) ng/mL Crossmatch See Detail 04/27/17 04/27/17 04/28/17 Range/Units 22:00 22:00 05:57 RBC 2.50 L (4.30-5.90) m/uL Hgb 7.6 L (13.0-17.5) gm/dL Hct 23.8 L (39.0-53.0) % RDW (11.5-15.5) % Neutrophils # 9.2 H (1.3-7.7) k/uL Lymphocytes # 0.3 L (1.0-4.8) k/uL PT 13.2 H (9.0-12.0) sec INR 1.4 H (<1.2) Troponin I 0.053 H* (0.000-0.034) ng/mL Crossmatch 04/28/17 Range/Units 05:57 RBC 2.43 L (4.30-5.90) m/uL Hgb 7.3 L (13.0-17.5) gm/dL Hct 23.1 L (39.0-53.0) % RDW 16.2 H (11.5-15.5) % Neutrophils # 9.5 H (1.3-7.7) k/uL Lymphocytes # 0.6 L (1.0-4.8) k/uL PT (9.0-12.0) sec INR (<1.2) Troponin I (0.000-0.034) ng/mL Crossmatch Assessment and Plan (1) Upper gastrointestinal bleed Narrative/Plan: * Continue with nothing by mouth status * Status post 2 units packed RBCs hemoglobin only at 7.3g we'll order 2 more units today and recheck his CBC * Hemodynamically stable, INR much improved today after receiving 2 units of FFP going from 7.7-1.7 * Continue with PPI therapy and IV fluids * GI consulted Dr. Kerr following Current Visit: Yes Status: Acute Code(s): K92.2 - GASTROINTESTINAL HEMORRHAGE, UNSPECIFIED SNOMED Code(s): 04054699 (2) Acute blood loss anemia Narrative/Plan: * Treatment as above Current Visit: Yes Status: Acute Code(s): D62 - ACUTE POSTHEMORRHAGIC ANEMIA SNOMED Code(s): 847069118 (3) Warfarin-induced coagulopathy Narrative/Plan: * Treatment as above Current Visit: Yes Status: Acute Code(s): D68.9 - COAGULATION DEFECT, UNSPECIFIED; T45.515A - ADVERSE EFFECT OF ANTICOAGULANTS, INITIAL ENCOUNTER SNOMED Code(s): 42629316 (4) Acute asthma exacerbation Narrative/Plan: * Continue with prednisone and breathing treatments Current Visit: Yes Status: Acute Code(s): J45.901 - UNSPECIFIED ASTHMA WITH (ACUTE) EXACERBATION SNOMED Code(s): 145963883 (5) History of chronic atrial fibrillation Current Visit: Yes Status: Acute Code(s): Z86.79 - PERSONAL HISTORY OF OTHER DISEASES OF THE CIRCULATORY SYSTEM SNOMED Code(s): 638560940 (6) History of peptic ulcer disease Current Visit: Yes Status: Acute Code(s): Z87.11 - PERSONAL HISTORY OF PEPTIC ULCER DISEASE SNOMED Code(s): 312040433 (7) Elevated troponin Narrative/Plan: * Cardiology consultation due elevated troponins, suspect this may be demand ischemia due to being severely anemic with acute GI bleed Current Visit: Yes Status: Acute Code(s): R74.8 - ABNORMAL LEVELS OF OTHER SERUM ENZYMES SNOMED Code(s): 228524988
--- NOTE | 2017-04-28 13:05 | CONS ---
CONSULTATION ATTENDING: Dr. Pathak Mr. Griffith is an 86-year-old male with a known history of heart disease, status post stenting, history of permanent pacemaker implantation, and chronic persistent atrial fibrillation, who presented with evidence of lower GI bleeding with dark tarry stool. The patient had recently underwent radiation therapy for prostate cancer. For the last few days he has noted dark tarry stool and came into the emergency room and subsequently admitted. He was dyspneic. He had no chest pain. No dizziness. He has some peripheral edema that is chronic. No clear PND nor orthopnea. He has chronic dyspnea on exertion with no significant changes. On presentation, his troponin was minimally elevated, but he had no associated symptoms. MEDICATION: His medications at home included Coumadin, metoprolol tartrate 25 mg twice a day, Lasix 40 mg daily. Simvastatin 80 mg daily. Pulmicort, fish oil, Ventolin, Casodex, calcium, vitamin, and Nitrostat. His coronary risk factors are remarkable for hyperlipidemia and hypertension. He is a nonsmoker. REVIEW OF SYSTEMS: RESPIRATORY SYSTEM: He has history of bronchial asthma and had recent exacerbation. GI SYSTEM: He has prior history of peptic ulcer disease and prior bleeding few years ago. SYSTEM: He had history of prostate cancer, has been followed by Dr. Vogt and has received hormonal treatment as well as radiation. NERVOUS SYSTEM: No history of seizure. PHYSICAL EXAMINATION: He is an 86-year-old male, alert, oriented, in no apparent distress. Blood pressure running in the one teens to 140s with a heart in 60s. HEAD: Normocephalic. EYES: Sclerae anicteric. NECK: Good upstroke. No bruit. LUNGS: With mild decrease in the breath sounds. No wheezes. HEART: Irregular regular, S1, S2. No S3 with systolic murmur heard at the base. No diastolic murmur. No rub. ABDOMEN: Soft, nontender, obese. EXTREMITIES: Trace to 1+ edema bilaterally. LAB DATA: Revealed on admission, hemoglobin of 7.4. His INR was 7.7, BUN and creatinine 16 and 0.79. Troponin 0.057, 0.063 and 0.053. EKG reveals atrial fibrillation with a pacemaker activity. Chest x-ray revealed no evidence of infiltrate. IMPRESSION: 1. Evidence of GI bleeding with coagulopathy related to the Coumadin. The bleeding could be exacerbated from the recent radiation therapy for his prostate cancer. 2. Chronic atrial fibrillation. He was anticoagulated in the past. 3. Status post permanent pacemaker implantation. 4. Mild troponin elevation most likely related to a type 2 event. There is no evidence of primary ischemic event. 5. Status post stenting, stable. 6. History of hyperlipidemia. 7. History of prostate cancer. RECOMMENDATION: From the cardiac standpoint, the patient has been resumed on his medication. His anticoagulation is on hold. He had a recent echocardiogram and stress test done in the office and will obtain those tomorrow. Otherwise, we will continue present therapy. At this time, I see no evidence to suggest active ischemic event. Thank you for this consult. We will follow with you. JOSESITOL / IJN: [id number] /
[2017-04-28 17:32] LABS: Anisocytosis Slight; Basophils % (A) 0 %; Eosinophils % (A) 0 %; HCT 31.1 % (39.0-53.0); Hypochromasia Slight; Lymphocytes # (A) 0.6 k/uL (1.0-4.8); Lymphocytes % (A) 5 %; MCH 29.4 pg (25.0-35.0); MCHC 30.8 g/dL (31.0-37.0); MCV 95.3 fL (80.0-100.0); Mean Platelet Volume 8.4; Monocytes # (A) 0.2 k/uL (0-1.0); Monocytes % (A) 2 %; Neutrophils # (A) 10.5 k/uL (1.3-7.7); Neutrophils % (A) 92 %; Platelet Count 167 k/uL (150-450); Poikilocytosis Slight; RBC 3.26 m/uL (4.30-5.90); RDW 17.1 % (11.5-15.5); WBC 11.5 k/uL (3.8-10.6)
[2017-04-28] MEDS ORDERED: ZOLPIDEM 10 MG TAB PO PRN (17:53)
[2017-04-28] MEDS: OSELTAMIVIR 75 MG CAP PO SCH (20:49)
[2017-04-28] MEDS: ATORVASTATIN 40 MG TAB PO SCH (21:02)
[2017-04-28 22:22] LABS: HGB 9.6 gm/dL (13.0-17.5)
[2017-04-29] MEDS ORDERED: LORazepam 2 MG/ML INJ IV PRN ×2 (02:15→02:17)
[2017-04-29] MEDS: SODIUM CHLORIDE 0.9% 1,000 ML IV SCH ×2 (06:08→15:17)
[2017-04-29 06:42] LABS: Anisocytosis Slight; Basophils % (A) 0 %; Eosinophils % (A) 0 %; HCT 27.9 % (39.0-53.0); HGB 9.3 gm/dL (13.0-17.5); Hypochromasia Slight; Lymphocytes # (A) 0.5 k/uL (1.0-4.8); Lymphocytes % (A) 5 %; MCH 31.1 pg (25.0-35.0); MCHC 33.3 g/dL (31.0-37.0); MCV 93.5 fL (80.0-100.0); Monocytes # (A) 0.4 k/uL (0-1.0); Monocytes % (A) 3 %; Neutrophils # (A) 9.5 k/uL (1.3-7.7); Neutrophils % (A) 90 %; Platelet Count 187 k/uL (150-450); RBC 2.98 m/uL (4.30-5.90); RDW 17.6 % (11.5-15.5); WBC 10.5 k/uL (3.8-10.6)
[2017-04-29] MEDS: CALCIUM CARBONATE 500 MG CHEWABLE PO SCH ×2 (06:43→17:50)
[2017-04-29 06:51] LABS: INR 1.6 (<1.2); Prothrombin Time 14.6 sec (9.0-12.0)
[2017-04-29 06:53] LABS: Anion Gap 8 mmol/L; Blood Urea Nitrogen 26 mg/dL (9-20); Calcium 9.2 mg/dL (8.4-10.2); Carbon Dioxide 29 mmol/L (22-30); Chloride 102 mmol/L (98-107); Glucose 187 mg/dL (74-99); Sodium 139 mmol/L (137-145)
--- NOTE | 2017-04-29 07:37 | P.CONS ---
History of Present Illness - Reason for Consult Consult date: 04/28/17 GI bleeding - History of Present Illness The patient is an 86-year-old male who presented to the emergency room with the complaint of not feeling well. He reported passing through the dark bowel movements which in the emergency room tested occult positive for blood. The patient is on Coumadin and was found to have supratherapeutic INR level. He was admitted for GI bleeding and anemia. Patient has history of peptic ulcer disease. Review of Systems 12 point review of systems is, otherwise, not revealing. Past Medical History Past Medical History: Atrial Fibrillation, Asthma, Coronary Artery Disease (CAD) , Cancer, Hyperlipidemia, Sleep Apnea/CPAP/BIPAP Additional Past Medical History / Comment(s): PUD, Prostate CA diagnosed in, last radiation therapy in January/pt has gone through 44 treatments. Pt has CPAP machine at home but not always compliant at home. History of Any Multi-Drug Resistant Organisms: None Reported Past Surgical History: Ablation, Bladder Surgery, Cholecystectomy, Heart Catheterization With Stent, Joint Replacement, Orthopedic Surgery, Pacemaker Additional Past Surgical History / Comment(s): pacemaker 2013, bilateral cataract removal, bilateral knee replacement, rotor cuff left surgery Jan 2007 Past Anesthesia/Blood Transfusion Reactions: No Reported Reaction Date of Last Stent Placement:: 2001 Type of Cardiac Device: Unknown Device Placement Date:: 2013 Past Psychological History: No Psychological Hx Reported Smoking Status: Former smoker Past Alcohol Use History: None Reported Past Drug Use History: None Reported - Past Family History Mother History Unknown: Yes Family Medical History: Cancer Additional Family Medical History / Comment(s): Family believes liver cancer Father History Unknown: Yes Family Medical History: Cancer Additional Family Medical History / Comment(s): Stomach cancer Medications and Allergies Home Medications Medication Instructions Recorded Confirmed Type Budesonide [Pulmicort] 0.5 mg INHALATION RT-BID 12/08/13 04/27/17 History Cetirizine HCl 10 mg PO DAILY 12/08/13 04/27/17 History Furosemide [Lasix] 40 mg PO DAILY 12/08/13 04/27/17 History Metoprolol Tartrate [Lopressor] 25 mg PO BID 12/08/13 04/27/17 History Simvastatin [Zocor] 80 mg PO HS 12/08/13 04/27/17 History Warfarin [Coumadin] 5 mg PO SUMOTUWEFR 12/08/13 04/27/17 History Nitroglycerin Sl Tabs [Nitrostat] 0.4 mg SL Q5M PRN 02/27/14 04/27/17 History Albuterol Nebulized [Ventolin 2.5 mg INHALATION RT-Q6H PRN 04/27/17 04/27/17 History Nebulized] Bicalutamide [Casodex] 50 mg PO DAILY 04/27/17 04/27/17 History Calcium Carbonate [Calcium] 600 mg PO BID 04/27/17 04/27/17 History Cholecalciferol [Vitamin D3] 400 unit PO DAILY 04/27/17 04/27/17 History [place]-3/Dha/Epa/Fish Oil [Fish Oil 1 cap PO DAILY 04/27/17 04/27/17 History 500 mg Softgel] Warfarin [Coumadin] 2.5 mg PO THSA 04/27/17 04/27/17 History Allergies Allergy/AdvReac Type Severity Reaction Status Date / Time zolpidem [From Ambien] AdvReac Hallucinati Verified 04/29/17 07:16 ons Physical Exam Vitals: Vital Signs Temp Pulse Pulse Resp BP BP Pulse Ox 04/28/17 09:49 97 F L 60 12 116/58 97 04/28/17 09:39 97.5 F L 60 16 135/62 95 04/28/17 09:10 12 04/28/17 08:18 64 04/28/17 08:03 60 04/28/17 04:10 97.9 F 61 18 110/63 95 04/27/17 23:40 96.3 F L 62 18 107/53 96 04/27/17 20:50 96.1 F L 67 20 125/87 99 04/27/17 20:45 96.1 F L 67 18 125/87 99 04/27/17 20:03 62 04/27/17 19:44 62 04/27/17 18:29 97.4 F L 60 16 116/53 95 04/27/17 17:59 97.4 F L 60 16 100/51 96 04/27/17 17:49 97.5 F L 60 16 121/70 100 04/27/17 16:55 97.5 F L 60 16 121/70 100 04/27/17 16:00 97.1 F L 65 16 125/48 100 04/27/17 15:34 97.6 F 64 16 141/63 100 04/27/17 15:04 97.6 F 63 16 138/65 97 04/27/17 14:54 97.9 F 60 16 127/57 98 04/27/17 14:44 97.8 F 60 16 127/63 98 04/27/17 14:36 61 04/27/17 14:31 63 04/27/17 14:14 97.4 F L 65 16 118/54 99 04/27/17 14:04 60 18 109/58 99 04/27/17 13:55 97.7 F 63 18 119/58 96 04/27/17 13:23 97.5 F L 62 18 133/63 98 04/27/17 12:53 97.4 F L 60 16 149/63 100 04/27/17 12:43 97.1 F L 60 18 123/58 98 04/27/17 12:10 65 04/27/17 12:05 62 04/27/17 11:40 60 16 133/65 97 Intake and Output 04/27/17 04/28/17 04/28/17 22:59 06:59 14:59 Intake Total 1100 480 Output Total 151 3 Balance 949 -3 480 Intake: Oral 480 480 Blood Product 620 0 Ffp 24 Cp2d Unit 0 [id number] Rc As-1 Unit 310 [id number] Rc Pheresis As-3 Unit 0 [id number] Rc Pheresis As-3 Unit 310 [id number] Output: Urine 150 Urine/Stool Mix 1 3 Other: Voiding Method Toilet Toilet Toilet # Voids 1 # Bowel Movements 1 Weight 121.563 kg 123.1 kg General: Appeared stated age, very pleasant, in no acute distress Head and neck: Normocephalic and atraumatic. Conjunctivae pink and sclerae not icteric. Mucous membranes moist and pink. No masses in the neck or tracheal shifts Lungs: Clear to auscultation with no dullness to percussion Heart: Irregular, no abnormal sounds, murmurs, gallops or friction rubs Abdomen: Soft, no masses, organomegalies or tenderness, bowel sounds present Extremities: No clubbing, cyanosis or edema Neurologic: Alert and oriented 3. Cranial nerves grossly intact. No gross sensory or motor abnormalities Results CBC & Chem 7: 04/29/17 05:58 04/29/17 05:58 Labs: Abnormal Lab Results - Last 24 Hours (Table) 04/27/17 04/27/17 04/27/17 Range/Units 10:39 10:39 10:43 WBC 12.3 H (3.8-10.6) k/uL RBC 2.42 L (4.30-5.90) m/uL Hgb 7.4 L (13.0-17.5) gm/dL Hct 23.3 L (39.0-53.0) % RDW (11.5-15.5) % Neutrophils # 10.5 H (1.3-7.7) k/uL Lymphocytes # (1.0-4.8) k/uL PT (9.0-12.0) sec INR (<1.2) APTT (22.0-30.0) sec Sodium (137-145) mmol/L Chloride (98-107) mmol/L Carbon Dioxide (22-30) mmol/L BUN (9-20) mg/dL Glucose (74-99) mg/dL Troponin I 0.057 H* (0.000-0.034) ng/mL Total Protein (6.3-8.2) g/dL Albumin (3.5-5.0) g/dL Crossmatch See Detail 04/27/17 04/27/17 04/27/17 Range/Units 10:43 10:43 16:46 WBC (3.8-10.6) k/uL RBC (4.30-5.90) m/uL Hgb (13.0-17.5) gm/dL Hct (39.0-53.0) % RDW (11.5-15.5) % Neutrophils # (1.3-7.7) k/uL Lymphocytes # (1.0-4.8) k/uL PT 71.5 H (9.0-12.0) sec INR 7.7 H* (<1.2) APTT 30.3 H (22.0-30.0) sec Sodium 136 L (137-145) mmol/L Chloride 96 L (98-107) mmol/L Carbon Dioxide 35 H (22-30) mmol/L BUN 60 H (9-20) mg/dL Glucose 188 H (74-99) mg/dL Troponin I 0.063 H* (0.000-0.034) ng/mL Total Protein 4.7 L (6.3-8.2) g/dL Albumin 2.6 L (3.5-5.0) g/dL Crossmatch 04/27/17 04/27/17 04/28/17 Range/Units 22:00 22:00 05:57 WBC (3.8-10.6) k/uL RBC 2.50 L (4.30-5.90) m/uL Hgb 7.6 L (13.0-17.5) gm/dL Hct 23.8 L (39.0-53.0) % RDW (11.5-15.5) % Neutrophils # 9.2 H (1.3-7.7) k/uL Lymphocytes # 0.3 L (1.0-4.8) k/uL PT 13.2 H (9.0-12.0) sec INR 1.4 H (<1.2) APTT (22.0-30.0) sec Sodium (137-145) mmol/L Chloride (98-107) mmol/L Carbon Dioxide (22-30) mmol/L BUN (9-20) mg/dL Glucose (74-99) mg/dL Troponin I 0.053 H* (0.000-0.034) ng/mL Total Protein (6.3-8.2) g/dL Albumin (3.5-5.0) g/dL Crossmatch 04/28/17 Range/Units 05:57 WBC (3.8-10.6) k/uL RBC 2.43 L (4.30-5.90) m/uL Hgb 7.3 L (13.0-17.5) gm/dL Hct 23.1 L (39.0-53.0) % RDW 16.2 H (11.5-15.5) % Neutrophils # 9.5 H (1.3-7.7) k/uL Lymphocytes # 0.6 L (1.0-4.8) k/uL PT (9.0-12.0) sec INR (<1.2) APTT (22.0-30.0) sec Sodium (137-145) mmol/L Chloride (98-107) mmol/L Carbon Dioxide (22-30) mmol/L BUN (9-20) mg/dL Glucose (74-99) mg/dL Troponin I (0.000-0.034) ng/mL Total Protein (6.3-8.2) g/dL Albumin (3.5-5.0) g/dL Crossmatch Assessment and Plan Assessment: GI bleeding and anemia likely related to an upper GI source made worse with coagulopathy. His INR is now corrected to 1.4. Plan: Agree with her current management. Since he was given breakfast this morning inadvertently, I would proceed with his upper endoscopy tomorrow morning. Further plans based on the findings.
[2017-04-29] MEDS: BUDESONIDE 0.5 MG/2 ML NEBU INHALATION SCH ×2 (08:23→19:43)
[2017-04-29] MEDS: IPRATROPIUM-ALBUTEROL 3 ML NEB INHALATION SCH ×4 (08:23→19:43)
[2017-04-29] MEDS: PANTOPRAZOLE 40 MG/10 ML VIAL IV SCH ×2 (09:12→21:49)
--- NOTE | 2017-04-29 09:12 | P.PN ---
Subjective Progress Note Date: 04/29/17 Principal diagnosis: GI bleed this 86 year old male with a past medical history of atrial fibrillation status post pacemaker on chronic Coumadin therapy, coronary artery disease with stenting, and asthmawho presented to the ER with complaints of dark tarry stools. In the ER he underwent an extensive evaluation. On arrival his vital signs were within normal limits. Initial laboratory analysis revealed a significant anemia with a hemoglobin of 7.6 and an elevated INR of 7.7.he was made nothing by mouth and started on IV Protonix. He was admitted to the selective care unit for further monitoring. He was seen by cardiology who feels that his slight troponin release was secondary to demand ischemia. He's been seen by GI who was concerned for possible ulcer. Plans were made for EGD on the morning of 04/28 however the patient inadvertently ate and this had to be delayed. He was given a dose of Ambien on the evening of 04/28 and had significant hallucinations and agitation with this. Plan is for EGD 04/29. Patient seen and examined at bedside. He is now alert and oriented 3 but still intermittently confused. He denies any chest pain, nausea, vomiting, or shortness of breath. He denies any recurrent dark tarry stools. is at bedside and was made aware of the plan of care. We did discuss that with anesthesia on top of his adverse reaction to Ambien last night he may be more confused again after anesthesia. She is aware of this, and would like to proceed with EGD if GI is okay with this. Objective - Vital Signs Vital signs: Vital Signs Temp 97.4 F L 04/29/17 08:00 Pulse 82 04/29/17 08:39 Resp 16 04/29/17 08:00 BP 136/63 04/29/17 08:00 Pulse Ox 96 04/29/17 08:00 Intake & Output 04/28/17 04/29/17 04/29/17 18:59 06:59 18:59 Intake Total 1760 Output Total 500 500 Balance 1260 -500 Intake: Oral 1200 Blood Product 560 Rc Cpda-1 Unit 250 [id number] Rc Pheresis As-3 Unit 310 [id number] Output: Urine 500 500 Other: Voiding Method Toilet Urinal # Voids 1 1 # Bowel Movements 1 - Exam General: non toxic, no distress, appears at stated age Derm: warm, dry Head: atraumatic, normocephalic, symmetric Eyes: EOMI, no lid lag, anicteric sclera Mouth: no lip lesion, mucus membranes moist Cardiovascular: S1S2 reg, no murmur, positive posterior tibial pulse bilateral, Lungs: CTA bilateral, no rhonchi, no rales , no accessory muscle use Abdominal: soft, nontender to palpation, no guarding, no appreciable organomegaly Ext: no gross muscle atrophy, no edema, no contractures Neuro: CN II-XI grossly intact, no focal neuro deficits Psych: Alert, oriented, but ocnfused at times, appropriate affect - Labs CBC & Chem 7: 04/29/17 12:22 04/29/17 05:58 Labs: Abnormal Lab Results - Last 24 Hours (Table) 04/27/17 04/28/17 04/29/17 Range/Units 10:39 17:17 05:58 WBC 11.5 H (3.8-10.6) k/uL RBC 3.26 L (4.30-5.90) m/uL Hgb 9.6 L D (13.0-17.5) gm/dL Hct 31.1 L (39.0-53.0) % MCHC 30.8 L (31.0-37.0) g/dL RDW 17.1 H (11.5-15.5) % Neutrophils # 10.5 H (1.3-7.7) k/uL Lymphocytes # 0.6 L (1.0-4.8) k/uL PT 14.6 H (9.0-12.0) sec INR 1.6 H (<1.2) BUN (9-20) mg/dL Glucose (74-99) mg/dL Crossmatch See Detail 04/29/17 04/29/17 Range/Units 05:58 05:58 WBC (3.8-10.6) k/uL RBC 2.98 L (4.30-5.90) m/uL Hgb 9.3 L (13.0-17.5) gm/dL Hct 27.9 L (39.0-53.0) % MCHC (31.0-37.0) g/dL RDW 17.6 H (11.5-15.5) % Neutrophils # 9.5 H (1.3-7.7) k/uL Lymphocytes # 0.5 L (1.0-4.8) k/uL PT (9.0-12.0) sec INR (<1.2) BUN 26 H (9-20) mg/dL Glucose 187 H (74-99) mg/dL Crossmatch Assessment and Plan Assessment: Acute toxic encephalopathy, improving - due to ambien dose - avoid medication in the future - supportive care Acute lower GI bleed - S/P 4 untis of pRBC - INR improved - EGD today without definitive source of bleeding. - GI recs Acute symptomatic anemia - HgB stable - follow CBC daily - will need further iron studies once further from transfusion Prostate Ca - s/p radiation Coumadin Coagulopathy - follow INR - stay of anticoagulation for the time being Acute asthma exacerbation - steroids - bronchodilators Chronic A. Fib - tele - lopressor Hx of peptic ulcer disease - PPI Elevated troponin - stress induced - cardio recs appreciated - no further testing necessary DVT prophylaxis: SCDs Discussed with: Patient, family, nursing Anticipated discharge: [address]: Home A total of 35 minutes was spent on the care of this complex patient more than 50 % of the time was spent in counseling and care coordination.
[2017-04-29 13:00] LABS: Anisocytosis Slight; HGB 8.8 gm/dL (13.0-17.5); Hypochromasia Slight; MCH 29.9 pg (25.0-35.0); MCHC 31.3 g/dL (31.0-37.0); MCV 95.7 fL (80.0-100.0); Macrocytosis Slight; Mean Platelet Volume 7.7; Platelet Count 161 k/uL (150-450); RBC 2.93 m/uL (4.30-5.90); RDW 17.8 % (11.5-15.5)
[2017-04-29] MEDS ORDERED: PROPOFOL 10 MG/ML 20 ML VIAL IV ONE (13:24)
[2017-04-29] MEDS ORDERED: KETAMINE 10 MG/ML 20 ML VIAL ONE (13:24)
[2017-04-29] MEDS ORDERED: LIDOCAINE 1% INJ 10MG/ML (20 ML MDV) ONE (13:24)
[2017-04-29] MEDS ORDERED: IV FLUID CONTINUATION 600 ML IV ONE (13:34)
--- NOTE | 2017-04-29 13:35 | P.PN ---
Subjective Progress Note Date: 04/29/17 Principal diagnosis: GI bleed This is an 86-year-old gentleman with history of coronary artery disease and prior PCI, prior pacemaker implantation, chronic persistent atrial fibrillation , hyperlipidemia, hypertension, who presented to the hospital with lower GI bleeding and dark tarry stools. Patient had recently underwent radiation therapy for prostate cancer. His anticoagulation was placed on hold. He was seen and examined today, is scheduled to undergo endoscopy. Objective - Vital Signs Vital signs: Vital Signs Temp 97.2 F L 04/29/17 12:00 Pulse 78 04/29/17 12:31 Resp 16 04/29/17 12:00 BP 128/59 04/29/17 12:00 Pulse Ox 95 04/29/17 12:00 Intake & Output 04/28/17 04/29/17 04/29/17 18:59 06:59 18:59 Intake Total 1760 300 Output Total 500 500 Balance 1260 -500 300 Intake: Intake, IV Titration 300 Amount Sodium Chloride 0.9% 1, 300 000 ml @ 100 mls/hr IV . Q10H [facility] Rx#:[id number] Oral 1200 Blood Product 560 Rc Cpda-1 Unit 250 [id number] Rc Pheresis As-3 Unit 310 [id number] Output: Urine 500 500 Other: Voiding Method Toilet Urinal # Voids 1 1 1 # Bowel Movements 1 - Exam PHYSICAL EXAMINATION: HEENT: Head is atraumatic, normocephalic. Pupils equal, round. Neck is supple. There is no elevated jugular venous pressure. HEART EXAMINATION: Heart S1 and S2 irregularly irregular a systolic murmur is heard. CHEST EXAMINATION: Lungs are clear to auscultation and precussion. No chest wall tenderness is noted on palpation or with deep breathing. ABDOMEN: Soft, nontender. Bowel sounds are heard. No organomegaly noted. EXTREMITIES: 2+ peripheral pulses with no evidence of peripheral edema and no calf tenderness noted. NEUROLOGIC patient is awake, alert and oriented -3. . - Labs CBC & Chem 7: 04/29/17 05:58 04/29/17 05:58 Labs: Abnormal Lab Results - Last 24 Hours (Table) 04/27/17 04/28/17 04/29/17 Range/Units 10:39 17:17 05:58 WBC 11.5 H (3.8-10.6) k/uL RBC 3.26 L (4.30-5.90) m/uL Hgb 9.6 L D (13.0-17.5) gm/dL Hct 31.1 L (39.0-53.0) % MCHC 30.8 L (31.0-37.0) g/dL RDW 17.1 H (11.5-15.5) % Neutrophils # 10.5 H (1.3-7.7) k/uL Lymphocytes # 0.6 L (1.0-4.8) k/uL PT 14.6 H (9.0-12.0) sec INR 1.6 H (<1.2) BUN (9-20) mg/dL Glucose (74-99) mg/dL Crossmatch See Detail 04/29/17 04/29/17 Range/Units 05:58 05:58 WBC (3.8-10.6) k/uL RBC 2.98 L (4.30-5.90) m/uL Hgb 9.3 L (13.0-17.5) gm/dL Hct 27.9 L (39.0-53.0) % MCHC (31.0-37.0) g/dL RDW 17.6 H (11.5-15.5) % Neutrophils # 9.5 H (1.3-7.7) k/uL Lymphocytes # 0.5 L (1.0-4.8) k/uL PT (9.0-12.0) sec INR (<1.2) BUN 26 H (9-20) mg/dL Glucose 187 H (74-99) mg/dL Crossmatch Assessment and Plan Plan: Assessment and plan #1 evidence of GI bleeding with coagulopathy related to Coumadin. Bleeding could be exacerbated from recent radiation for his prostate cancer #2 chronic persistent atrial fibrillation #3 status post pacemaker implantation #4 hypertension #5 hyperlipidemia #6 Coronary artery disease with prior PCI #7 history of prostate cancer #8 mild troponin abnormality, likely secondary to type II event Plan We will continue to hold the patient's anticoagulation. Await results of EGD and further recommendations from GI service. DNP note has been reviewed, I agree with a documented findings and plan of care. Patient was seen and examined.
--- NOTE | 2017-04-29 14:27 | P.PCN ---
Date of Procedure: 04/29/17 Procedure(s) Performed: Procedure: Esophagogastroduodenoscopy Preoperative diagnosis: GI bleeding and anemia. Postoperative diagnosis: 1. Hiatal hernia with no obvious esophagitis or complicated reflux disease. 2. No abnormalities in the stomach and duodenum or any evidence of active bleeding. Preparation and sedation: Was provided by anesthesia. Brief clinical history: The patient is an 86-year-old male who presented to the emergency room with the complaint of not feeling well. He reported passing three dark bowel movements which in the emergency room tested occult positive for blood. The patient is on Coumadin and was found to have supratherapeutic INR level at 7.7. The patient was on antibiotics for bronchitis/pneumonia and its possible that that has affected his INR as per his . Today his INR is 1.6. His last hemoglobin was 7.3 and he has been transfused. His hemoglobin today is 8.8. Patient has history of peptic ulcer disease. This evaluation is to assess for peptic ulcer disease or other pathology. The details are summarized in the history and physical and dictated consultations and progress notes. Procedure: With the patient on his left lateral decubitus position and after informed consent and adequate sedation, I passed the Olympus-GIF 160 video upper endoscope through the cricopharyngeus down the esophagus. GE junction was around 40-41 cm from the incisors and there was a small sliding hiatal hernia. The esophagus did not show any obvious esophagitis or complicated reflux disease. There were no mucosal tears, varices or bleeding. The endoscope was then passed into the stomach which was insufflated with air and inspected in detail including the retroflex view in the cardia. No obvious abnormalities or bleeding was noted. Pyloric channel, duodenal bulb, post bulbar area and descending duodenum appeared within normal limits. No evidence of bleeding was noted on this exam today. No biopsies were indicated. The patient tolerated the procedure well. Plan: The patient was reassured and I discussed the findings with his . Will allow diet as tolerated. I did not schedule lower endoscopy at this time as the patient has had 2 prior colonoscopies in the past and is unlikely that we are dealing with a colonic source of bleeding at this time. I will discuss with you and would be happy to see the patient after discharge and consider colonoscopy if needed.
[2017-04-29] MEDS: CHOLECALCIFEROL 400 UNIT TAB PO SCH (15:16)
[2017-04-29] MEDS: FUROSEMIDE 40 MG TAB PO SCH (15:16)
[2017-04-29] MEDS: predniSONE 20 MG TAB PO SCH (15:16)
[2017-04-29] MEDS: METOPROLOL TARTRATE 25 MG TAB PO SCH ×2 (15:16→21:49)
[2017-04-29] MEDS: LORATADINE 10 MG TAB PO SCH (15:16)
[2017-04-29] MEDS: BICALUTAMIDE 50 MG TAB PO SCH (15:16)
[2017-04-29 16:12] LABS: Anisocytosis Slight; Basophils % (A) 0 %; Eosinophils # (A) 0.1 k/uL (0-0.7); Eosinophils % (A) 2 %; HCT 30.1 % (39.0-53.0); HGB 9.7 gm/dL (13.0-17.5); Hypochromasia Slight; Lymphocytes # (A) 0.8 k/uL (1.0-4.8); Lymphocytes % (A) 8 %; MCH 30.3 pg (25.0-35.0); MCHC 32.3 g/dL (31.0-37.0); MCV 93.9 fL (80.0-100.0); Mean Platelet Volume 7.9; Monocytes # (A) 0.3 k/uL (0-1.0); Monocytes % (A) 4 %; Neutrophils # (A) 8.4 k/uL (1.3-7.7); Neutrophils % (A) 86 %; Platelet Count 186 k/uL (150-450); RDW 17.7 % (11.5-15.5); WBC 9.8 k/uL (3.8-10.6)
[2017-04-29] MEDS: ATORVASTATIN 40 MG TAB PO SCH (21:49)
[2017-04-30] MEDS: SODIUM CHLORIDE 0.9% 1,000 ML IV SCH (04:28)
[2017-04-30 07:55] VITALS: BP 144/79; TEMP 97
[2017-04-30] MEDS: BUDESONIDE 0.5 MG/2 ML NEBU INHALATION SCH (08:03)
[2017-04-30] MEDS: IPRATROPIUM-ALBUTEROL 3 ML NEB INHALATION SCH ×2 (08:03→12:08)
[2017-04-30 08:08] VITALS: RESP 16
[2017-04-30 08:20] VITALS: PULSE 72
[2017-04-30 09:10] LABS: Anisocytosis Slight; HCT 27.8 % (39.0-53.0); HGB 8.9 gm/dL (13.0-17.5); Hypochromasia Slight; MCH 30.1 pg (25.0-35.0); MCHC 31.9 g/dL (31.0-37.0); MCV 94.6 fL (80.0-100.0); Mean Platelet Volume 7.9; Platelet Count 161 k/uL (150-450); RBC 2.94 m/uL (4.30-5.90); RDW 17.5 % (11.5-15.5); WBC 11.7 k/uL (3.8-10.6)
[2017-04-30 09:28] LABS: INR 1.7 (<1.2); Prothrombin Time 15.9 sec (9.0-12.0)
[2017-04-30] MEDS: predniSONE 20 MG TAB PO SCH (09:29)
[2017-04-30] MEDS: LORATADINE 10 MG TAB PO SCH (09:30)
[2017-04-30] MEDS: CALCIUM CARBONATE 500 MG CHEWABLE PO SCH (09:30)
[2017-04-30] MEDS: BICALUTAMIDE 50 MG TAB PO SCH (09:30)
[2017-04-30 09:31] LABS: ALT 54 U/L (21-72); AST 31 U/L (17-59); Albumin 3.1 g/dL (3.5-5.0); Alkaline Phosphatase 150 U/L (38-126); Anion Gap 7 mmol/L; Blood Urea Nitrogen 20 mg/dL (9-20); Calcium 9.1 mg/dL (8.4-10.2); Carbon Dioxide 30 mmol/L (22-30); Chloride 101 mmol/L (98-107); Glucose 225 mg/dL (74-99); Potassium 4.5 mmol/L (3.5-5.1); Sodium 138 mmol/L (137-145); Total Bilirubin 0.8 mg/dL (0.2-1.3); Total Protein 5.4 g/dL (6.3-8.2)
[2017-04-30] MEDS: FUROSEMIDE 40 MG TAB PO SCH (09:31)
[2017-04-30] MEDS: METOPROLOL TARTRATE 25 MG TAB PO SCH (09:31)
[2017-04-30] MEDS: PANTOPRAZOLE 40 MG/10 ML VIAL IV SCH (09:33)
--- NOTE | 2017-04-30 10:30 | P.DS ---
Providers Date of admission: 04/27/17 12:04 Expected date of discharge: 04/30/17 Attending physician: Omero Maynard MD Consults: 04/28/17 11:12 Consult Physician Routine Consulting Provider: Iva Salvador Consult Reason/Comments: Elevated troponin Do you want consulting provider notified?: Yes Primary care physician: Rodger Pathak - Discharge Diagnosis(es) (1) GI bleed Status: Acute (2) Acute blood loss anemia Status: Acute (3) Elevated troponin Status: Acute (4) Acute encephalopathy Status: Acute (5) Acute asthma exacerbation Status: Acute (6) Bleeding on Coumadin Status: Acute (7) History of chronic atrial fibrillation Status: Acute Hospital Course: Patient is an 86 year old male with a past medical history of atrial fibrillation status post pacemaker on chronic Coumadin therapy, coronary artery disease with stenting, and asthma who presented to the ER with complaints of dark tarry stools. In the ER he underwent an extensive evaluation. On arrival his vital signs were within normal limits. Initial laboratory analysis revealed a significant anemia with a hemoglobin of 7.6 and an elevated INR of 7.7. He was transfused 2 units of pRBC and 1 units of FFP. He was made nothing by mouth and started on IV Protonix. He was admitted to the selective care unit for further monitoring. He was seen by cardiology who feels that his slight troponin release was secondary to demand ischemia and did not necessitate further evaluation at this point in time. His hemoglobin remain unchanged after 2 units of blood and an additional 2 units were ordered. He was seen by GI who was concerned for possible ulcer. Plans were made for EGD on the morning of 04/28 however the patient inadvertently ate and this had to be delayed. He was given a dose of Ambien on the evening of 04/28 and had significant hallucinations and agitation, which self resolved. He underwent EGD on 04/29 which showed hiatal hernia but no source of bleeding. His hemoglobin remained stable and his INR was stable at 1.7. He had been on levaquin when his INR elevated. His hemoglobin remained stable and he was able to tolerate a diet. He was determined stable for discharge home. He will follow-up with Dr. Kerr on 05/13 to ensure no recurrent bleeding and that he is not having severe constipation. He will follow-up with Dr. Bose on 05/07 and have his INR drawn there. He will resume his coumadin at 2.5 mg on 05/01 and 05/02. He will then resume his prior regiment of Coumadin 5 mg daily wit the exception of and Saturday when he will take 2.5 mg. His INR will be obtained on Saturday at 05/03 at the cardiology office. he will also complete a prednisone taper as an outpatient for his acute exacerbation of asthma. Patient seen and examined at bedside.he denies any chest pain, shortness of breath, nausea, or vomiting. He isn't tolerating his diet. He has not had a bowel movement in the last couple days. He does complain of slight swelling in his bilateral hands. at bedside and all questions answered. We did discuss that if he has recurrent bleeding he may need a colonoscopy for possible capsule endoscopy as an outpatient. He is aware of the importance of following up with Dr. Rothman. We also had a long discussion regarding the fact that his INR likely elevated due to Levaquin use. I've told him to remain vigilant that if he is prescribed this medication again as he may need frequent INR checks. Vital signs reviewed and stable. General: non toxic, no distress, appears at stated age Derm: warm, dry Head: atraumatic, normocephalic, symmetric Eyes: EOMI, no lid lag, anicteric sclera Mouth: no lip lesion, mucus membranes moist Cardiovascular: S1S2 reg, no murmur, positive posterior tibial pulse bilateral, Lungs: CTA bilateral, no rhonchi, no rales , no accessory muscle use Abdominal: soft, nontender to palpation, no guarding, no appreciable organomegaly Ext: no gross muscle atrophy, no edema, no contractures Neuro: CN II-XI grossly intact, no focal neuro deficits Psych: Alert, oriented, appropriate affect A total of 45 minutes of time were spent preparing this complex discharge summary . Pertinent Studies: CT abdomen and pelvis-solitary 6.8 mm left lower lobe pulmonary nodule, mild cardiomegaly, mild diverticulosis Procedures: EGD 04/30 hiatal hernia with no obvious esophagitis or complicated reflux disease , no abnormalities in the stomach or to watch him Patient Condition at Discharge: Serious Plan - Discharge Summary Discharge Rx Participant: Yes New Discharge Prescriptions: New predniSONE 0 mg PO DIRECTED #20 tab Continue Budesonide [Pulmicort] 0.5 mg INHALATION RT-BID Warfarin [Coumadin] 5 mg PO SUMOTUWEFR Simvastatin [Zocor] 80 mg PO HS Metoprolol Tartrate [Lopressor] 25 mg PO BID Furosemide [Lasix] 40 mg PO DAILY Cetirizine HCl 10 mg PO DAILY Nitroglycerin Sl Tabs [Nitrostat] 0.4 mg SL Q5M PRN PRN Reason: Chest Pain Cholecalciferol [Vitamin D3] 400 unit PO DAILY Calcium Carbonate [Calcium] 600 mg PO BID Bicalutamide [Casodex] 50 mg PO DAILY Albuterol Nebulized [Ventolin Nebulized] 2.5 mg INHALATION RT-Q6H PRN PRN Reason: Shortness Of Breath [place]-3/Dha/Epa/Fish Oil [Fish Oil 500 mg Softgel] 1 cap PO DAILY Warfarin [Coumadin] 2.5 mg PO THSA Discharge Medication List Budesonide [Pulmicort] 0.5 mg INHALATION RT-BID 12/08/13 [History] Cetirizine HCl 10 mg PO DAILY 12/08/13 [History] Furosemide [Lasix] 40 mg PO DAILY 12/08/13 [History] Metoprolol Tartrate [Lopressor] 25 mg PO BID 12/08/13 [History] Simvastatin [Zocor] 80 mg PO HS 12/08/13 [History] Warfarin [Coumadin] 5 mg PO SUMOTUWEFR 12/08/13 [History] Nitroglycerin Sl Tabs [Nitrostat] 0.4 mg SL Q5M PRN 02/27/14 [History] Albuterol Nebulized [Ventolin Nebulized] 2.5 mg INHALATION RT-Q6H PRN 04/27/17 [ History] Bicalutamide [Casodex] 50 mg PO DAILY 04/27/17 [History] Calcium Carbonate [Calcium] 600 mg PO BID 04/27/17 [History] Cholecalciferol [Vitamin D3] 400 unit PO DAILY 04/27/17 [History] [place]-3/Dha/Epa/Fish Oil [Fish Oil 500 mg Softgel] 1 cap PO DAILY 04/27/17 [ History] Warfarin [Coumadin] 2.5 mg PO THSA 04/27/17 [History] predniSONE 0 mg PO DIRECTED #20 tab 04/30/17 [Rx] Follow up Appointment(s)/Referral(s): Len Kerr MD [STAFF PHYSICIAN] - 05/13/17 3:00 pm Rodger Pathak MD [Primary Care Provider] - 05/07/17 11:00 am Edvin Bose MD [STAFF PHYSICIAN] - 05/07/17 2:30 pm (follow up on INR level) Ambulatory/Diagnostic Orders: Prothrombin Time INR [LAB.AMB] Location: Determined By Patient Patient Instructions/Handouts: Hiatal Hernia (DC), Hypercoagulation (DC) Activity/Diet/Wound Care/Special Instructions: Heart health diet Activity as tolerated Please take coumadin 2.5 mg 05/01 and and 2.5 mg 05/02 and resume your normal schedule Discharge Disposition: HOME SELF-CARE
[2017-04-30] MEDS ORDERED: WARFARIN 5 MG TAB PO SCH (18:00)
[2017-05-02] MEDS ORDERED: WARFARIN 2.5 MG TAB PO SCH (18:00)
== END 2017-04-30 12:28 | disposition home or self-care (01) | DRG 377 ==
LOC: EC 10:06 → 6SEL 12:04 → 4MS4W 04-29 21:21
PROVIDERS: ADMIT Family Medicine; ATTEND Family Medicine
PROC: 30233K1 Transfusion of Nonautologous Frozen Plasma into Peripheral Vein, Percutaneous Approach (ICD-10-PCS; principal; 2017-04-27)
PROC: 30233N1 Transfusion of Nonautologous Red Blood Cells into Peripheral Vein, Percutaneous Approach (ICD-10-PCS; 2017-04-27)
PROC: 0DJ08ZZ Inspection of Upper Intestinal Tract, Via Natural or Artificial Opening Endoscopic (ICD-10-PCS; 2017-04-29)
DX: K92.2 Gastrointestinal hemorrhage, unspecified (principal); G92 Toxic encephalopathy; D68.32 Hemorrhagic disorder due to extrinsic circulating anticoagulants; I48.1 Persistent atrial fibrillation; J45.901 Unspecified asthma with (acute) exacerbation; E66.01 Morbid (severe) obesity due to excess calories; D62 Acute posthemorrhagic anemia; Z68.41 Body mass index [BMI] 40.0-44.9, adult; J20.9 Acute bronchitis, unspecified; T45.515A Adverse effect of anticoagulants, initial encounter; I25.10 Atherosclerotic heart disease of native coronary artery without angina pectoris; I10 Essential (primary) hypertension; K44.9 Diaphragmatic hernia without obstruction or gangrene; T42.6X5A Adverse effect of other antiepileptic and sedative-hypnotic drugs, initial encounter; G47.30 Sleep apnea, unspecified; E78.5 Hyperlipidemia, unspecified; Z79.01 Long term (current) use of anticoagulants; K59.00 Constipation, unspecified; Z79.51 Long term (current) use of inhaled steroids; Z79.899 Other long term (current) drug therapy; Z92.3 Personal history of irradiation; Z85.46 Personal history of malignant neoplasm of prostate; Z87.11 Personal history of peptic ulcer disease; Z95.0 Presence of cardiac pacemaker; Z95.5 Presence of coronary angioplasty implant and graft; Z90.49 Acquired absence of other specified parts of digestive tract; Z96.653 Presence of artificial knee joint, bilateral; Z98.42 Cataract extraction status, left eye; Z98.41 Cataract extraction status, right eye; Z87.891 Personal history of nicotine dependence; Z88.8 Allergy status to other drugs, medicaments and biological substances; Y92.230 Patient room in hospital as the place of occurrence of the external cause; Y92.009 Unspecified place in unspecified non-institutional (private) residence as the place of occurrence of the external cause; Z80.0 Family history of malignant neoplasm of digestive organs
CPT/HCPCS: 36415; 43239; 71046; 74176; 80048; 80053; 82272; 82550; 82553; 83605; 83690; 84484; 85025; 85027; 85610; 85730; 86850; 86900; 86901; 86920; 93005; 94640; 94760; 96361; 96365; 96375; 99285

== ENCOUNTER → 2017-05-07 | Outpatient (CLI) | payer MEDICARE, BC ==
[2017-05-07 14:59] LABS: INR 2.9 (<1.2); Prothrombin Time 26.1 sec (9.0-12.0)
== END | disposition home or self-care (01) ==
LOC: LABWHC1 14:17
PROVIDERS: ATTEND Internal Medicine Cardiovascular Disease
DX: I48.2 Chronic atrial fibrillation (principal)
CPT/HCPCS: 36415; 85610

== ENCOUNTER → 2017-05-16 | Outpatient (CLI) | payer MEDICARE, BC ==
[2017-05-16 10:39] LABS: Anion Gap 10 mmol/L; Blood Urea Nitrogen 13 mg/dL (9-20); Calcium 9.4 mg/dL (8.4-10.2); Carbon Dioxide 30 mmol/L (22-30); Chloride 98 mmol/L (98-107); Glucose 202 mg/dL (74-99); HCT 35.1 % (39.0-53.0); Hypochromasia Slight; MCH 30.3 pg (25.0-35.0); MCHC 31.3 g/dL (31.0-37.0); MCV 96.7 fL (80.0-100.0); Mean Platelet Volume 6.8; Platelet Count 246 k/uL (150-450); Potassium 4.4 mmol/L (3.5-5.1); RBC 3.63 m/uL (4.30-5.90); RDW 14.6 % (11.5-15.5); Sodium 138 mmol/L (137-145); WBC 5.4 k/uL (3.8-10.6)
== END | disposition home or self-care (01) ==
LOC: LABWHC1 10:00
PROVIDERS: ATTEND Internal Medicine Cardiovascular Disease
DX: I50.9 Heart failure, unspecified (principal)
CPT/HCPCS: 36415; 80048; 85027

== ENCOUNTER → 2017-10-14 | Outpatient (CLI) | payer MEDICARE, BC ==
[2017-10-14 07:50] LABS: INR 1.3 (<1.2); Prothrombin Time 12.1 sec (9.0-12.0)
== END | disposition home or self-care (01) ==
LOC: LABWHC1 07:18
PROVIDERS: ATTEND Dentist Oral and Maxillofacial Surgery
DX: D68.9 Coagulation defect, unspecified (principal)
CPT/HCPCS: 36415; 85610

== ENCOUNTER 2019-01-24 17:57 | Emergency (ER) | payer MEDICARE, BC ==
[2019-01-24 18:12] VITALS: RESP 18
[2019-01-24] MEDS ORDERED: LIDOCAINE 1% INJ 10MG/ML (20 ML MDV) SQ STA (18:20)
[2019-01-24] MEDS ORDERED: DIPH,PERTUS(ACELL)TETVAC-LF 0.5 ML VIAL IM ONE (18:21)
--- NOTE | 2019-01-24 18:24 | ED ---
General Adult HPI - General Chief complaint: Wound/Laceration Stated complaint: L Leg Injury Time Seen by Provider: 01/24/19 18:01 Source: patient, EMS Mode of arrival: EMS Limitations: no limitations - History of Present Illness Initial comments: Patient presents to the ED by ambulance for evaluation with his and son-in-law at bedside. Patient states that the hitch of his trailer accidentally lacerated his left henriquez just prior to arrival to the ED today. Patient states that he is on warfarin anticoagulation therapy. Patient denies any other injury or site of pain. Patient denies chest pain, dyspnea, dizziness, nausea or vomiting, focal neuro deficit, or any other symptoms or complaints. Patient states that he is unsure of his last tetanus shot. - Related Data Home Medications Medication Instructions Recorded Confirmed Budesonide [Pulmicort] 0.5 mg INHALATION RT-BID 12/08/13 01/24/19 Cetirizine HCl 10 mg PO DAILY 12/08/13 01/24/19 Furosemide [Lasix] 40 mg PO DAILY 12/08/13 01/24/19 Metoprolol Tartrate [Lopressor] 25 mg PO BID 12/08/13 01/24/19 Simvastatin [Zocor] 80 mg PO HS 12/08/13 01/24/19 Warfarin [Coumadin] 5 mg PO MOFRSA 12/08/13 01/24/19 Nitroglycerin Sl Tabs [Nitrostat] 0.4 mg SL Q5M PRN 02/27/14 01/24/19 Albuterol Nebulized [Ventolin 2.5 mg INHALATION RT-QID PRN 04/27/17 01/24/19 Nebulized] Calcium Carbonate [Calcium] 600 mg PO BID 04/27/17 01/24/19 [place]-3/Dha/Epa/Fish Oil [Fish Oil 1 cap PO DAILY 04/27/17 01/24/19 500 mg Softgel] Montelukast [Singulair] 10 mg PO DAILY 01/24/19 01/24/19 Spironolactone [Aldactone] 12.5 mg PO DAILY 01/24/19 01/24/19 Warfarin [Coumadin] 2.5 mg PO SUTUWETH 01/24/19 01/24/19 Previous Rx's Medication Instructions Recorded Cephalexin [Keflex] 500 mg PO QID #40 cap 01/24/19 Hydrocodone/Acetaminophen [[place] 1 each PO Q4HR PRN #12 tab 01/24/19 5-325] Allergies Allergy/AdvReac Type Severity Reaction Status Date / Time zolpidem [From Ambien] AdvReac Hallucinati Verified 01/24/19 18:43 ons Review of Systems ROS Statement: Those systems with pertinent positive or pertinent negative responses have been documented in the HPI. ROS Other: All systems not noted in ROS Statement are negative. Past Medical History Past Medical History: Atrial Fibrillation, Asthma, Coronary Artery Disease (CAD), Cancer, Hyperlipidemia, Sleep Apnea/CPAP/BIPAP Additional Past Medical History / Comment(s): PUD, Prostate CA diagnosed in, last radiation therapy in January/pt has gone through 44 treatments. Pt has CPAP machine at home but not always compliant at home. History of Any Multi-Drug Resistant Organisms: None Reported Past Surgical History: Ablation, Bladder Surgery, Cholecystectomy, Heart Catheterization With Stent, Joint Replacement, Orthopedic Surgery, Pacemaker Additional Past Surgical History / Comment(s): pacemaker 2013, bilateral cataract removal, bilateral knee replacement, rotor cuff left surgery Jan 2007 Past Anesthesia/Blood Transfusion Reactions: No Reported Reaction Date of Last Stent Placement:: 2001 Type of Cardiac Device: Unknown Device Placement Date:: 2013 Past Psychological History: No Psychological Hx Reported Smoking Status: Former smoker Past Alcohol Use History: None Reported Past Drug Use History: None Reported - Past Family History Mother History Unknown: Yes Family Medical History: Cancer Additional Family Medical History / Comment(s): Family believes liver cancer Father History Unknown: Yes Family Medical History: Cancer Additional Family Medical History / Comment(s): Stomach cancer General Exam Limitations: no limitations General appearance: alert, in no apparent distress Head exam: Present: atraumatic, normocephalic Eye exam: Present: normal appearance, EOMI ENT exam: Present: mucous membranes moist Respiratory exam: Present: normal lung sounds bilaterally. Absent: respiratory distress, wheezes, rales, rhonchi Cardiovascular Exam: Present: regular rate, normal rhythm, normal heart sounds, other (Normal left dorsalis pedis pulse) GI/Abdominal exam: Present: soft. Absent: tenderness Extremities exam: Present: other (A 7 cm flap laceration is noted to the patient's left anterior henriquez with the apex pointing superiorly; the laceration extends down to the fascial layer; there is no active bleeding noted at this time; patient is neurovascularly intact in his left lower extremity distal to the laceration; no deformity is appreciated) Neurological exam: Present: alert, oriented X3. Absent: motor sensory deficit Psychiatric exam: Present: normal affect, normal mood Skin exam: Present: warm, dry, normal color Course Vital Signs 01/24/19 01/24/19 18:07 20:37 Temperature 97.2 F L 98 F Pulse Rate 60 74 Respiratory 18 18 Rate Blood Pressure 124/80 133/77 O2 Sat by Pulse 97 98 Oximetry Procedures - Laceration Laceration #1 Consent Obtained: verbal consent Indication: laceration Site: other (left anterior henriquez) Description: flap Depth: simple, single layer Anesthetic Used: lidocaine 1% Anesthesia Technique: local infiltration Amount (mls): 5 Pre-repair: irrigated extensively, deep structures intact Type of Sutures: nylon Size of Sutures: 4-0 Number of Sutures: 18 Technique: simple, interrupted Patient Tolerated Procedure: well, no complications Medical Decision Making - Medical Decision Making Patient's laceration was repaired myself in the ED. Patient's left tib/fib x- rays are negative. Will discharge patient home with his family at this time with a prescription for a ten-day course of Keflex, as well as a few pills of [place] for his pain. - Lab Data Result diagrams: 01/24/19 18:20 Lab Results 01/24/19 01/24/19 Range/Units 18:20 18:20 WBC 7.4 (3.8-10.6) k/uL RBC 3.52 L (4.30-5.90) m/uL Hgb 10.6 L (13.0-17.5) gm/dL Hct 34.0 L (39.0-53.0) % MCV 96.7 (80.0-100.0) fL MCH 30.2 (25.0-35.0) pg MCHC 31.3 (31.0-37.0) g/dL RDW 13.4 (11.5-15.5) % Plt Count 194 (150-450) k/uL Neutrophils % 84 % Lymphocytes % 9 % Monocytes % 5 % Eosinophils % 1 % Basophils % 0 % Neutrophils # 6.3 (1.3-7.7) k/uL Lymphocytes # 0.7 L (1.0-4.8) k/uL Monocytes # 0.4 (0-1.0) k/uL Eosinophils # 0.1 (0-0.7) k/uL Basophils # 0.0 (0-0.2) k/uL PT 27.7 H (9.0-12.0) sec INR 2.9 H (<1.2) - Radiology Data Radiology results: image reviewed (Left tib/fib x-rays are negative) Disposition Clinical Impression: Laceration of left lower extremity Disposition: HOME SELF-CARE Condition: Stable Instructions (If sedation given, give patient instructions): Laceration (ED) Additional Instructions: Return to the ER immediately should you develop new or worsening pain, a fever, shortness of breath, feeling dizzy or faint, drainage of pus from your wound, redness around her wound, excessive bleeding from your wound, or new or worsening symptoms. Follow up closely with your primary care provider, and in 2 weeks for suture removal. Is patient prescribed a controlled substance at d/c from ED?: Yes Referrals: Rodger Pathak MD [Primary Care Provider] - 1-2 days Time of Disposition: 21:32
[2019-01-24 18:31] LABS: Basophils % (A) 0 %; Eosinophils # (A) 0.1 k/uL (0-0.7); Eosinophils % (A) 1 %; HGB 10.6 gm/dL (13.0-17.5); Lymphocytes # (A) 0.7 k/uL (1.0-4.8); Lymphocytes % (A) 9 %; MCH 30.2 pg (25.0-35.0); MCHC 31.3 g/dL (31.0-37.0); MCV 96.7 fL (80.0-100.0); Mean Platelet Volume 6.7; Monocytes # (A) 0.4 k/uL (0-1.0); Monocytes % (A) 5 %; Neutrophils # (A) 6.3 k/uL (1.3-7.7); Neutrophils % (A) 84 %; Platelet Count 194 k/uL (150-450); RBC 3.52 m/uL (4.30-5.90); RDW 13.4 % (11.5-15.5); WBC 7.4 k/uL (3.8-10.6)
[2019-01-24 18:45] LABS: INR 2.9 (<1.2); Prothrombin Time 27.7 sec (9.0-12.0)
[2019-01-24] MEDS ORDERED: CEPHALEXIN 500 MG CAP PO STA (20:26)
[2019-01-24 20:38] VITALS: BP 133/77; PULSE 74; TEMP 98
--- NOTE | 2019-01-24 21:15 | XR ---
EXAMINATION TYPE: XR tibia fibula LT DATE OF EXAM: 01/24/2019 COMPARISON: NONE HISTORY: Laceration. Pain TECHNIQUE: 4 views FINDINGS: There are plantar and Achilles calcaneal spurs. I see no fracture nor dislocation. There is left knee prosthesis. Components appear in good position. There is vascular calcification. IMPRESSION: No acute abnormality of the left tibia and fibula.
== END 2019-01-24 22:10 | disposition home or self-care (01) ==
LOC: EC 17:57
DX: S81.812A Laceration without foreign body, left lower leg, initial encounter (principal); Z23 Encounter for immunization; I48.91 Unspecified atrial fibrillation; I25.10 Atherosclerotic heart disease of native coronary artery without angina pectoris; G47.30 Sleep apnea, unspecified; J45.909 Unspecified asthma, uncomplicated; E78.5 Hyperlipidemia, unspecified; Z79.01 Long term (current) use of anticoagulants; Z79.51 Long term (current) use of inhaled steroids; Z79.899 Other long term (current) drug therapy; Z88.8 Allergy status to other drugs, medicaments and biological substances; Z95.0 Presence of cardiac pacemaker; Z95.5 Presence of coronary angioplasty implant and graft; Z96.653 Presence of artificial knee joint, bilateral; Z87.891 Personal history of nicotine dependence; Z85.46 Personal history of malignant neoplasm of prostate; Z92.3 Personal history of irradiation; W20.8XXA Other cause of strike by thrown, projected or falling object, initial encounter
CPT/HCPCS: 36415; 85025; 85610; 73590; 90715; 99284; 12002; 90471; J2001

== ENCOUNTER 2019-01-25 14:00 | Emergency (ER) | payer MEDICARE, BC ==
[2019-01-25 14:08] VITALS: RESP 18
[2019-01-25] MEDS ORDERED: LIDOCAINE 1%-EPI 1:100,000 20 ML VIAL SQ STA (14:49)
--- NOTE | 2019-01-25 14:59 | ED ---
Wound/Laceration HPI - General Chief Complaint: Wound/Laceration Stated Complaint: lac-revisit Time Seen by Provider: 01/25/19 14:45 Source: patient, family, EMS, RN notes reviewed Mode of arrival: EMS Limitations: no limitations - History of Present Illness Initial Comments: 88-year-old male presents emergency Department chief complaint of left leg lac eration. Patient states it was closed last night in the emergency Department but he states it started bleeding. Patient states that he did not take his Coumadin last night or today. Patient's INR was 2.9 yesterday. He denies feeling lightheaded, dizzy, chest pain or shortness of breath. Patient was just concerned as to bleeding and was advised to return the emergency Department. - Related Data Home Medications Medication Instructions Recorded Confirmed Budesonide [Pulmicort] 0.5 mg INHALATION RT-BID 12/08/13 01/24/19 Cetirizine HCl 10 mg PO DAILY 12/08/13 01/24/19 Furosemide [Lasix] 40 mg PO DAILY 12/08/13 01/24/19 Metoprolol Tartrate [Lopressor] 25 mg PO BID 12/08/13 01/24/19 Simvastatin [Zocor] 80 mg PO HS 12/08/13 01/24/19 Warfarin [Coumadin] 5 mg PO MOFRSA 12/08/13 01/24/19 Nitroglycerin Sl Tabs [Nitrostat] 0.4 mg SL Q5M PRN 02/27/14 01/24/19 Albuterol Nebulized [Ventolin 2.5 mg INHALATION RT-QID PRN 04/27/17 01/24/19 Nebulized] Calcium Carbonate [Calcium] 600 mg PO BID 04/27/17 01/24/19 [place]-3/Dha/Epa/Fish Oil [Fish Oil 1 cap PO DAILY 04/27/17 01/24/19 500 mg Softgel] Montelukast [Singulair] 10 mg PO DAILY 01/24/19 01/24/19 Spironolactone [Aldactone] 12.5 mg PO DAILY 01/24/19 01/24/19 Warfarin [Coumadin] 2.5 mg PO SUTUWETH 01/24/19 01/24/19 Previous Rx's Medication Instructions Recorded Cephalexin [Keflex] 500 mg PO QID #40 cap 01/24/19 Hydrocodone/Acetaminophen [[place] 1 each PO Q4HR PRN #12 tab 01/24/19 5-325] Allergies Allergy/AdvReac Type Severity Reaction Status Date / Time zolpidem [From Ambien] AdvReac Hallucinati Verified 01/25/19 14:08 ons Review of Systems ROS Statement: Those systems with pertinent positive or pertinent negative responses have been documented in the HPI. ROS Other: All systems not noted in ROS Statement are negative. Past Medical History Past Medical History: Atrial Fibrillation, Asthma, Coronary Artery Disease (CAD), Cancer, Hyperlipidemia, Sleep Apnea/CPAP/BIPAP Additional Past Medical History / Comment(s): PUD, Prostate CA diagnosed in, last radiation therapy in January/pt has gone through 44 treatments. Pt has CPAP machine at home but not always compliant at home. History of Any Multi-Drug Resistant Organisms: None Reported Past Surgical History: Ablation, Bladder Surgery, Cholecystectomy, Heart Catheterization With Stent, Joint Replacement, Orthopedic Surgery, Pacemaker Additional Past Surgical History / Comment(s): pacemaker 2013, bilateral cataract removal, bilateral knee replacement, rotor cuff left surgery Jan 2007 Past Anesthesia/Blood Transfusion Reactions: No Reported Reaction Date of Last Stent Placement:: 2001 Type of Cardiac Device: Unknown Device Placement Date:: 2013 Past Psychological History: No Psychological Hx Reported Smoking Status: Former smoker Past Alcohol Use History: None Reported Past Drug Use History: None Reported - Past Family History Mother History Unknown: Yes Family Medical History: Cancer Additional Family Medical History / Comment(s): Family believes liver cancer Father History Unknown: Yes Family Medical History: Cancer Additional Family Medical History / Comment(s): Stomach cancer General Exam Limitations: no limitations General appearance: alert, in no apparent distress Respiratory exam: Present: normal lung sounds bilaterally. Absent: respiratory distress, wheezes, rales, rhonchi, stridor Cardiovascular Exam: Present: regular rate, normal rhythm, normal heart sounds. Absent: systolic murmur, diastolic murmur, rubs, gallop, clicks Extremities exam: Present: other (Left lower extremity there is extensive laceration with sutures in place as a mild ooze noted to lateral portion) Course Vital Signs 01/25/19 14:03 Temperature 96.4 F L Pulse Rate 61 Respiratory 18 Rate Blood Pressure 131/64 O2 Sat by Pulse 96 Oximetry Procedures - Laceration Laceration #1 Indication: laceration Size (cm): 8 Description: irregular Depth: simple, single layer Anesthetic Used: lidocaine 1%, with epi Anesthesia Technique: local infiltration Amount (mls): 8 Type of Sutures: nylon Size of Sutures: 4-0 Number of Sutures: 3 (3 sutures were added to the laceration site) Medical Decision Making - Medical Decision Making Patient did have noted continued bleeding upon reevaluation. Area was injected with lidocaine with epinephrine, 3 sutures were placed patient had minimal bleeding after family comfortable with being discharged with pressure dressing and return parameters were discussed. Disposition Clinical Impression: Laceration, Encounter for wound re-check Disposition: HOME SELF-CARE Condition: Stable Instructions (If sedation given, give patient instructions): Laceration (ED) Additional Instructions: Please return to the Emergency Department if symptoms worsen or any other concerns. Is patient prescribed a controlled substance at d/c from ED?: No Referrals: Rodger Pathak MD [Primary Care Provider] - 1-2 days Time of Disposition: 15:48
[2019-01-25 16:01] VITALS: BP 128/66; PULSE 65; TEMP 97
== END 2019-01-25 16:07 | disposition home or self-care (01) ==
LOC: EC 14:00
DX: Z48.01 Encounter for change or removal of surgical wound dressing (principal); S81.812D Laceration without foreign body, left lower leg, subsequent encounter; I48.91 Unspecified atrial fibrillation; J45.909 Unspecified asthma, uncomplicated; I25.10 Atherosclerotic heart disease of native coronary artery without angina pectoris; E78.5 Hyperlipidemia, unspecified; G47.30 Sleep apnea, unspecified; Z79.01 Long term (current) use of anticoagulants; Z79.51 Long term (current) use of inhaled steroids; Z79.899 Other long term (current) drug therapy; Z88.8 Allergy status to other drugs, medicaments and biological substances; Z87.891 Personal history of nicotine dependence; Z95.0 Presence of cardiac pacemaker; Z95.5 Presence of coronary angioplasty implant and graft; Z96.653 Presence of artificial knee joint, bilateral; Z85.46 Personal history of malignant neoplasm of prostate; Z92.3 Personal history of irradiation; X58.XXXD Exposure to other specified factors, subsequent encounter; Y92.009 Unspecified place in unspecified non-institutional (private) residence as the place of occurrence of the external cause
CPT/HCPCS: 12004; 99283

== ENCOUNTER 2019-06-22 10:47 | Inpatient (IN) | payer MEDICARE, BC ==
--- NOTE | 2019-06-22 11:14 | ED ---
General Adult HPI - General Chief complaint: Dizziness Stated complaint: dizziness/lightheaded Time Seen by Provider: 06/22/19 10:50 Source: patient, EMS, RN notes reviewed, old records reviewed Mode of arrival: EMS Limitations: no limitations - History of Present Illness Initial comments: This is an 89-year-old male who presents emergency Department feeling weak and lightheaded patient states for one month. Patient states he also had black stools on and off for the last month. Patient states he recently had a colonoscopy on and they did not find anything. Patient states the weakness and lightheadedness continuously decided come to the emergency department. Patient states he also is mildly short of breath per patient denies any headache patient denies any numbness or focal weakness. Patient denies any chest pain palpitations. Patient denies any abdominal pain patient denies nausea vomiting or diarrhea patient denies any recent injury or fall. Patient denies any increased want to the legs. - Related Data Home Medications Medication Instructions Recorded Confirmed Budesonide [Pulmicort] 0.5 mg INHALATION RT-BID 12/08/13 06/22/19 Cetirizine HCl 10 mg PO DAILY PRN 12/08/13 06/22/19 Furosemide [Lasix] 40 mg PO DAILY 12/08/13 06/22/19 Metoprolol Tartrate [Lopressor] 25 mg PO BID 12/08/13 06/22/19 Simvastatin [Zocor] 80 mg PO HS 12/08/13 06/22/19 Warfarin [Coumadin] 5 mg PO MOWEFRSA 12/08/13 06/22/19 Nitroglycerin Sl Tabs [Nitrostat] 0.4 mg SL Q5M PRN 02/27/14 06/22/19 Albuterol Nebulized [Ventolin 2.5 mg INHALATION RT-QID PRN 04/27/17 06/22/19 Nebulized] Calcium Carbonate [Calcium] 600 mg PO BID 04/27/17 06/22/19 [place]-3/Dha/Epa/Fish Oil [Fish Oil 1 cap PO DAILY 04/27/17 06/22/19 500 mg Softgel] Montelukast [Singulair] 10 mg PO DAILY 01/24/19 06/22/19 Spironolactone [Aldactone] 12.5 mg PO DAILY 01/24/19 06/22/19 Warfarin [Coumadin] 2.5 mg PO SUTUTH 01/24/19 06/22/19 Benralizumab [Fasenra] 30 mg SQ Q60D 06/22/19 06/22/19 Omeprazole [PriLOSEC] 40 mg PO DAILY 06/22/19 06/22/19 Pantoprazole Sodium [Protonix] 40 mg PO DAILY 06/22/19 06/22/19 Allergies Allergy/AdvReac Type Severity Reaction Status Date / Time zolpidem [From Ambien] AdvReac Hallucinati Verified 06/22/19 12:49 ons Review of Systems ROS Statement: Those systems with pertinent positive or pertinent negative responses have been documented in the HPI. ROS Other: All systems not noted in ROS Statement are negative. Past Medical History Past Medical History: Atrial Fibrillation, Asthma, Coronary Artery Disease (CAD), Cancer, Hyperlipidemia, Sleep Apnea/CPAP/BIPAP Additional Past Medical History / Comment(s): PUD, Prostate CA diagnosed in, last radiation therapy in January/pt has gone through 44 treatments. Pt has CPAP machine at home but not always compliant at home. History of Any Multi-Drug Resistant Organisms: None Reported Past Surgical History: Ablation, Bladder Surgery, Cholecystectomy, Heart Catheterization With Stent, Joint Replacement, Orthopedic Surgery, Pacemaker Additional Past Surgical History / Comment(s): pacemaker 2013, bilateral cataract removal, bilateral knee replacement, rotor cuff left surgery Jan 2007 Past Anesthesia/Blood Transfusion Reactions: No Reported Reaction Date of Last Stent Placement:: 2001 Type of Cardiac Device: Unknown Device Placement Date:: 2013 Past Psychological History: No Psychological Hx Reported Smoking Status: Former smoker Past Alcohol Use History: None Reported Past Drug Use History: None Reported - Past Family History Mother History Unknown: Yes Family Medical History: Cancer Additional Family Medical History / Comment(s): Family believes liver cancer Father History Unknown: Yes Family Medical History: Cancer Additional Family Medical History / Comment(s): Stomach cancer General Exam - General Exam Comments Initial Comments: GENERAL: Patient is well-developed and well-nourished. Patient is nontoxic and well- hydrated and is in mild distress. ENT: Neck is soft and supple. No significant lymphadenopathy is noted. Oropharynx is clear. Moist mucous membranes. Neck has full range of motion without eliciting any pain. EYES: The sclera were anicteric and conjunctiva were pink and moist. Extraocular movements were intact and pupils were equal round and reactive to light. Eyelids were unremarkable. PULMONARY: Unlabored respirations. Good breath sounds bilaterally. No audible rales rhonchi or wheezing was noted. CARDIOVASCULAR: There is a regular rate and rhythm without any murmurs gallops or rubs. ABDOMEN: Soft and nontender with normal bowel sounds. SKIN: Skin is clear with no lesions or rashes and otherwise unremarkable. RECTAL: Stool on rectal exam was dark NEUROLOGIC: Patient is alert and oriented x3. Cranial nerves II through XII are grossly intact. Motor and sensory are also intact. Normal speech, volume and content. Symmetrical smile. MUSCULOSKELETAL: Normal extremities with adequate strength and full range of motion. No lower extremity swelling or edema. No calf tenderness. LYMPHATICS: No significant lymphadenopathy is noted PSYCHIATRIC: Normal psychiatric evaluation. Limitations: no limitations Course Vital Signs 06/22/19 06/22/19 06/22/19 10:49 11:01 11:43 Temperature 98.0 F Pulse Rate 60 74 Respiratory 16 22 18 Rate Blood Pressure 121/47 164/73 O2 Sat by Pulse 97 98 Oximetry 06/22/19 12:35 Temperature Pulse Rate 59 L Respiratory 18 Rate Blood Pressure 142/86 O2 Sat by Pulse 96 Oximetry Medical Decision Making - Medical Decision Making EKG shows a ventricular paced rhythm at 61 bpm QRS is 200 QT interval 5:30 QTC is 533. Patient's got a paced rhythm Chest x-ray shows no acute abnormality. I spoke with Dr. Perez he agreed to admit the patient admitted the patient I consult to GI. I continued repeating CBCs every 6 hours. I give the patient vitamin K because of his elevated INR and the fact that he is still on Coumadin. - Lab Data Result diagrams: 06/22/19 11:04 06/22/19 11:04 Lab Results 06/22/19 06/22/19 06/22/19 Range/Units 11:04 11:04 11:04 WBC 5.9 (3.8-10.6) k/uL RBC 2.41 L (4.30-5.90) m/uL Hgb 7.2 L D (13.0-17.5) gm/dL Hct 23.1 L (39.0-53.0) % MCV 95.7 (80.0-100.0) fL MCH 29.9 (25.0-35.0) pg MCHC 31.3 (31.0-37.0) g/dL RDW 15.3 (11.5-15.5) % Plt Count 267 (150-450) k/uL Neutrophils % 73 % Lymphocytes % 15 % Monocytes % 9 % Eosinophils % 0 % Basophils % 0 % Neutrophils # 4.3 (1.3-7.7) k/uL Lymphocytes # 0.9 L (1.0-4.8) k/uL Monocytes # 0.5 (0-1.0) k/uL Eosinophils # 0.0 (0-0.7) k/uL Basophils # 0.0 (0-0.2) k/uL Hypochromasia Moderate PT (9.0-12.0) sec INR (<1.2) APTT (22.0-30.0) sec Sodium (137-145) mmol/L Potassium (3.5-5.1) mmol/L Chloride (98-107) mmol/L Carbon Dioxide (22-30) mmol/L Anion Gap mmol/L BUN (9-20) mg/dL Creatinine (0.66-1.25) mg/dL Est GFR (CKD-EPI)AfAm (>60 ml/min/1.73 sqM) Est GFR (CKD-EPI)NonAf (>60 ml/min/1.73 sqM) Glucose (74-99) mg/dL Calcium (8.4-10.2) mg/dL Total Bilirubin (0.2-1.3) mg/dL AST (17-59) U/L ALT (4-49) U/L Alkaline Phosphatase (38-126) U/L Troponin I (0.000-0.034) ng/mL Total Protein (6.3-8.2) g/dL Albumin (3.5-5.0) g/dL Stool Occult Blood Positive (Negative) Blood Type O Positive Blood Type Recheck O Pos Bld Type Recheck Status No Antibody Screen NEGATIVE Spec Expiration Date 06/25/2019 - 230306/22/19 06/22/19 06/22/19 Range/Units 11:04 11:04 11:04 WBC (3.8-10.6) k/uL RBC (4.30-5.90) m/uL Hgb (13.0-17.5) gm/dL Hct (39.0-53.0) % MCV (80.0-100.0) fL MCH (25.0-35.0) pg MCHC (31.0-37.0) g/dL RDW (11.5-15.5) % Plt Count (150-450) k/uL Neutrophils % % Lymphocytes % % Monocytes % % Eosinophils % % Basophils % % Neutrophils # (1.3-7.7) k/uL Lymphocytes # (1.0-4.8) k/uL Monocytes # (0-1.0) k/uL Eosinophils # (0-0.7) k/uL Basophils # (0-0.2) k/uL Hypochromasia PT 16.8 H (9.0-12.0) sec INR 1.7 H (<1.2) APTT 24.9 (22.0-30.0) sec Sodium 138 (137-145) mmol/L Potassium 3.9 (3.5-5.1) mmol/L Chloride 101 (98-107) mmol/L Carbon Dioxide 29 (22-30) mmol/L Anion Gap 8 mmol/L BUN 22 H (9-20) mg/dL Creatinine 1.24 (0.66-1.25) mg/dL Est GFR (CKD-EPI)AfAm 60 (>60 ml/min/1.73 sqM) Est GFR (CKD-EPI)NonAf 52 (>60 ml/min/1.73 sqM) Glucose 171 H (74-99) mg/dL Calcium 8.9 (8.4-10.2) mg/dL Total Bilirubin 0.6 (0.2-1.3) mg/dL AST 25 (17-59) U/L ALT 10 (4-49) U/L Alkaline Phosphatase 93 (38-126) U/L Troponin I 0.065 H* (0.000-0.034) ng/mL Total Protein 5.9 L (6.3-8.2) g/dL Albumin 3.6 (3.5-5.0) g/dL Stool Occult Blood (Negative) Blood Type Blood Type Recheck Bld Type Recheck Status Antibody Screen Spec Expiration Date Critical Care Time Critical Care Time: Yes Total Critical Care Time: 35 Disposition Clinical Impression: GI bleed, Anemia Disposition: ADMITTED IP TO THIS HOSP Referrals: Rodger Pathak MD [Primary Care Provider] - 1-2 days Time of Disposition: 13:09
[2019-06-22 11:35] LABS: Albumin 3.6 g/dL (3.5-5.0); Calcium 8.9 mg/dL (8.4-10.2); Potassium 3.9 mmol/L (3.5-5.1); Total Bilirubin 0.6 mg/dL (0.2-1.3); Total Protein 5.9 g/dL (6.3-8.2)
[2019-06-22 11:38] LABS: Basophils % (A) 0 %; Eosinophils % (A) 0 %; HCT 23.1 % (39.0-53.0); Hypochromasia Moderate; Lymphocytes # (A) 0.9 k/uL (1.0-4.8); Lymphocytes % (A) 15 %; MCH 29.9 pg (25.0-35.0); MCHC 31.3 g/dL (31.0-37.0); MCV 95.7 fL (80.0-100.0); Mean Platelet Volume 7.6; Monocytes # (A) 0.5 k/uL (0-1.0); Monocytes % (A) 9 %; Neutrophils # (A) 4.3 k/uL (1.3-7.7); Neutrophils % (A) 73 %; Platelet Count 267 k/uL (150-450); RBC 2.41 m/uL (4.30-5.90); RDW 15.3 % (11.5-15.5); WBC 5.9 k/uL (3.8-10.6)
[2019-06-22 11:40] LABS: HGB 7.2 gm/dL (13.0-17.5)
[2019-06-22 12:00] LABS: INR 1.7 (<1.2); Partial Thromboplastin Time 24.9 sec (22.0-30.0); Prothrombin Time 16.8 sec (9.0-12.0)
[2019-06-22] MEDS ORDERED: SODIUM CHLORIDE 0.9% 1,000 ML IV ONE (13:10)
[2019-06-22] MEDS ORDERED: PHYTONADIONE ORAL 5 MG/5 ML ORAL.SYRG PO STA (13:11)
[2019-06-22] MEDS ORDERED: NALOXONE 0.4 MG/ML 1 ML VIAL IV PRN (15:00)
[2019-06-22] MEDS ORDERED: NITROGLYCERIN SL TABS 0.4 MG TAB SUBLINGUAL PRN (15:05)
[2019-06-22] MEDS ORDERED: LORATADINE 10 MG TAB PO PRN (15:05)
--- NOTE | 2019-06-22 15:13 | P.HPIM ---
History of Present Illness H&P Date: 06/22/19 Chief Complaint: GI bleeding 89-year-old male with hx of asthma, afib on coumadin, CAD s/p stenting, GI bleeding who presents to ER because of feeling weak and lightheaded for one month. Patient states he has been having black stools for the last month. Patient states he recently had an EGD on and they did not find anything. Patient is also feeling mildly short of breath. No headache, fevers, chills, no numbness or focal weakness. Patient denies any chest pain or palpitations. Patient denies any abdominal pain. No nausea, vomiting or diarrhea patient denies any recent injury or fall. In the emergency department his hemoglobin was found to be low at 7.2, INR was elevated at 1.7. He continues to take Coumadin for A. fib. He received 5 mg of vitamin K in the emergency department. Due to suspected GI bleeding he was admitted to the hospital for further evaluation and management. Review of Systems Complete review of system performed, pertinent positives per HPI, otherwise negative Past Medical History Past Medical History: Atrial Fibrillation, Asthma, Coronary Artery Disease (CAD), Cancer, Hyperlipidemia, Sleep Apnea/CPAP/BIPAP Additional Past Medical History / Comment(s): PUD, Prostate CA diagnosed in, last radiation therapy in January/pt has gone through 44 treatments. Pt has CPAP machine at home but not always compliant at home. History of Any Multi-Drug Resistant Organisms: None Reported Past Surgical History: Ablation, Bladder Surgery, Cholecystectomy, Heart Catheterization With Stent, Joint Replacement, Orthopedic Surgery, Pacemaker Additional Past Surgical History / Comment(s): pacemaker 2013, bilateral cataract removal, bilateral knee replacement, rotor cuff left surgery Jan 2007 Past Anesthesia/Blood Transfusion Reactions: No Reported Reaction Date of Last Stent Placement:: 2001 Type of Cardiac Device: Unknown Device Placement Date:: 2013 Past Psychological History: No Psychological Hx Reported Smoking Status: Former smoker Past Alcohol Use History: None Reported Past Drug Use History: None Reported - Past Family History Mother History Unknown: Yes Family Medical History: Cancer Additional Family Medical History / Comment(s): Family believes liver cancer Father History Unknown: Yes Family Medical History: Cancer Additional Family Medical History / Comment(s): Stomach cancer Medications and Allergies Home Medications Medication Instructions Recorded Confirmed Type Budesonide [Pulmicort] 0.5 mg INHALATION RT-BID 12/08/13 06/22/19 History Cetirizine HCl 10 mg PO DAILY PRN 12/08/13 06/22/19 History Furosemide [Lasix] 40 mg PO DAILY 12/08/13 06/22/19 History Metoprolol Tartrate [Lopressor] 25 mg PO BID 12/08/13 06/22/19 History Simvastatin [Zocor] 80 mg PO HS 12/08/13 06/22/19 History Warfarin [Coumadin] 5 mg PO MOWEFRSA 12/08/13 06/22/19 History Nitroglycerin Sl Tabs [Nitrostat] 0.4 mg SL Q5M PRN 02/27/14 06/22/19 History Albuterol Nebulized [Ventolin 2.5 mg INHALATION RT-QID PRN 04/27/17 06/22/19 History Nebulized] Calcium Carbonate [Calcium] 600 mg PO BID 04/27/17 06/22/19 History [place]-3/Dha/Epa/Fish Oil [Fish Oil 1 cap PO DAILY 04/27/17 06/22/19 History 500 mg Softgel] Montelukast [Singulair] 10 mg PO DAILY 01/24/19 06/22/19 History Spironolactone [Aldactone] 12.5 mg PO DAILY 01/24/19 06/22/19 History Warfarin [Coumadin] 2.5 mg PO SUTUTH 01/24/19 06/22/19 History Benralizumab [Fasenra] 30 mg SQ Q60D 06/22/19 06/22/19 History Omeprazole [PriLOSEC] 40 mg PO DAILY 06/22/19 06/22/19 History Pantoprazole Sodium [Protonix] 40 mg PO DAILY 06/22/19 06/22/19 History Allergies Allergy/AdvReac Type Severity Reaction Status Date / Time zolpidem [From Ambien] AdvReac Hallucinati Verified 06/22/19 12:49 ons Physical Exam Vitals: Vital Signs Temp Pulse Resp BP Pulse Ox 06/22/19 13:28 62 18 116/55 100 06/22/19 12:35 59 L 18 142/86 96 06/22/19 11:43 74 18 164/73 98 06/22/19 11:01 22 06/22/19 10:49 98.0 F 60 16 121/47 97 Intake and Output 06/21/19 06/22/19 06/22/19 22:59 06:59 14:59 Other: Weight 120.202 kg Constitutional: No acute distress, conversant, pleasant. Looks pale Eyes:Anicteric sclerae, moist conjunctiva, no lid-lag, PERRLA, ENMT: Oropharynx clear, no erythema, exudates Neck: Supple, FROM, no masses, or JVD, No carotid bruits, No thyromegaly Lungs: Clear to auscultation, Clear to percussion, Normal respiratory effort, no accessory muscle use Cardiovascular: Heart regular in rate and rhythm, No murmurs, gallops, or rubs, No peripheral edema Abdominal: Soft, slightly tender in the lower abdomen, no guarding, rebound or rigidity, Normoactive bowel sounds, No hepatomegaly, No splenomegaly, No palpable mass Skin: Normal temperature, tone, texture, turgor, no induration, No subcutaneous nodules, No rash, lesions, No ulcers Extremities: No digital cyanosis, No clubbing, Pedal pulses intact and symmetrical, Radial pulses intact and symmetrical, No calf tenderness Psychiatric: Alert and oriented to person, place and time, appropriate affect, intact judgement Neuro: Muscles Strength 5/5 in all 4 extremities, Sensation to light touch grossly present throughout, Cranial nerves II-XII grossly intact, no focal sensory deficits Results CBC & Chem 7: 06/22/19 11:04 06/22/19 11:04 Labs: Abnormal Lab Results - Last 24 Hours (Table) 06/22/19 06/22/19 06/22/19 Range/Units 11:04 11:04 11:04 RBC 2.41 L (4.30-5.90) m/uL Hgb 7.2 L D (13.0-17.5) gm/dL Hct 23.1 L (39.0-53.0) % Lymphocytes # 0.9 L (1.0-4.8) k/uL PT 16.8 H (9.0-12.0) sec INR 1.7 H (<1.2) BUN 22 H (9-20) mg/dL Glucose 171 H (74-99) mg/dL Troponin I (0.000-0.034) ng/mL Total Protein 5.9 L (6.3-8.2) g/dL 06/22/19 Range/Units 11:04 RBC (4.30-5.90) m/uL Hgb (13.0-17.5) gm/dL Hct (39.0-53.0) % Lymphocytes # (1.0-4.8) k/uL PT (9.0-12.0) sec INR (<1.2) BUN (9-20) mg/dL Glucose (74-99) mg/dL Troponin I 0.065 H* (0.000-0.034) ng/mL Total Protein (6.3-8.2) g/dL Assessment and Plan Plan: GI bleeding EGD done recently, did not find any source of bleeding GI consult for colonoscopy Nothing by mouth Protonix twice a day Transfuse 1 unit of blood Watch CBC Atrial fibrillation Hold Coumadin due to above Chronic Asthma, Coronary Artery Disease (CAD), Hyperlipidemia, Sleep Apnea/CPAP/BIPAP All stable Resume meds Expected length of stay more than 2 midnights Patient will be admitted as inpatient
[2019-06-22] MEDS ORDERED: BENRALIZUMAB 30 MG SQ SCH (15:15)
[2019-06-22] MEDS ORDERED: BISACODYL 5 MG TABLET.DR PO STA (15:36)
[2019-06-22] MEDS ORDERED: PEG 3350-NA SULF,BICARB,CL/KCL 4,000 ML BOTTLE PO ONE (17:00)
[2019-06-22] MEDS: FUROSEMIDE 40 MG TAB PO SCH (19:55)
[2019-06-22] MEDS: PANTOPRAZOLE 40 MG TABLET PO SCH (19:56)
[2019-06-22] MEDS: METOPROLOL TARTRATE 25 MG TAB PO SCH (20:53)
[2019-06-22] MEDS: ATORVASTATIN 40 MG TAB PO SCH (20:53)
[2019-06-22] MEDS: CALCIUM CARBONATE 500 MG CHEWABLE PO SCH (20:53)
[2019-06-22] MEDS: ALBUTEROL NEBULIZED 2.5 MG/3 ML INHALATION PRN (20:56)
[2019-06-22] MEDS: BUDESONIDE 0.5 MG/2 ML NEBU INHALATION SCH (20:56)
[2019-06-22] MEDS ORDERED: PANTOPRAZOLE 40 MG/10 ML VIAL IVP SCH (21:00)
[2019-06-22 23:21] LABS: HCT 26.3 % (39.0-53.0); HGB 8.1 gm/dL (13.0-17.5); Hypochromasia Marked; MCH 29.6 pg (25.0-35.0); MCHC 30.8 g/dL (31.0-37.0); MCV 96.2 fL (80.0-100.0); Mean Platelet Volume 7.4; Platelet Count 259 k/uL (150-450); RBC 2.73 m/uL (4.30-5.90); RDW 14.9 % (11.5-15.5); WBC 6.9 k/uL (3.8-10.6)
[2019-06-23] MEDS: PANTOPRAZOLE 40 MG TABLET PO SCH ×2 (06:47→18:14)
[2019-06-23] MEDS ORDERED: MAGNESIUM CITRATE 296 ML BOTTLE PO STA (06:51)
--- NOTE | 2019-06-23 07:03 | P.CONS ---
History of Present Illness - Reason for Consult Consult date: 06/22/19 Anemia Requesting physician: Abdulaziz Huerta - Chief Complaint Dizzy, lightheaded - History of Present Illness 89-year-old male with a medical history significant for asthma, atrial fibrillation on Coumadin therapy, coronary artery disease status post stenting in the past, who presented to the hospital due to concerns over dizziness, weakness and dark stool. The patient reports symptoms of dizziness and lightheadedness occurring over the past 4 weeks. He reports associated black stools over the past few days. Upon review of the electronic medical record the patient had a hemoglobin noted to be over 9 in the past few weeks and on presentation was found to be 7.2. Patient had an elevated INR at 1.7 and is on current therapy for his atrial fibrillation. He denies any abdominal pain or change in frequency or caliber of bowel movements but has noted black tarry bowel movements as stated. He previously went EGD on 05/2018 significant for esophagitis and had a colonoscopy in 2013 which was normal. Stool testing was positive for blood on presentation. Review of Systems REVIEW OF SYSTEMS: CONSTITUTIONAL: Denies any fevers, chills, weight change or fatigue. CARDIOVASCULAR: Denies any chest pain, palpitations high or low blood pressures RESPIRATORY: Denies any shortness of breath, hemoptysis or cough. GENITOURINARY: No dysuria or hematuria. MUSCULOSKELETAL: No focal weakness reported. SKIN: Denies any new rashes or lesions, jaundice or pallor. PSYCHIATRIC: Denies any depression or anxiety. NEUROLOGY: Denies headache, denies any new focal deficits. EARS/NOSE/THROAT: No recent hearing change, but does have chronic hearing loss at the baseline with no congestion, nasal discharge or sore throat. EYES: No pain in eyes, discharge or change in vision. GASTROINTESTINAL: As per HPI. Past Medical History Past Medical History: Atrial Fibrillation, Asthma, Coronary Artery Disease (CAD), Cancer, Chest Pain / Angina, Pneumonia, Sleep Apnea/CPAP/BIPAP Additional Past Medical History / Comment(s): PUD, lower GI bleed, anemia, pancreatitis onece many years ago, bronchitis, ALPESH does not use device-falls off all the time, prostate cancer with 44 radiation treatments-completed Jan 2018, arthritis bilateral shoulders/arms, finger cramping, History of Any Multi-Drug Resistant Organisms: None Reported Past Surgical History: Ablation, Bladder Surgery, Cholecystectomy, Heart Catheterization, Heart Catheterization With Stent, Joint Replacement, Orthopedic Surgery, Pacemaker Additional Past Surgical History / Comment(s): 06/18/19 EGD at [facility], colonoscopy last one 2013, bilateral total knee arthroplasties, L rotator cuff surgery, 2005 pacemaker and gen change in 2013. Past Anesthesia/Blood Transfusion Reactions: No Reported Reaction Additional Past Anesthesia/Blood Transfusion Reaction / Comm: Pt has received blood in past without reaction. Date of Last Stent Placement:: 2001 Type of Cardiac Device: Unknown Device Placement Date:: 2005 inserted/2013 gen change. Past Psychological History: No Psychological Hx Reported Additional Psychological History / Comment(s): Pt resides with his spouse of 60 yrs. He was in the [employer]. He uses no assistive devices. He drives. He has a nebulizer. Smoking Status: Former smoker Past Alcohol Use History: None Reported Additional Past Alcohol Use History / Comment(s): Pt started smoking in 1951 and quit in the . He drank alcohol socially but quit that in the 1970s too. Past Drug Use History: None Reported - Past Family History Mother History Unknown: Yes Family Medical History: Cancer Additional Family Medical History / Comment(s): Family believes liver cancer Father History Unknown: Yes Family Medical History: Cancer Additional Family Medical History / Comment(s): Stomach cancer Medications and Allergies Home Medications Medication Instructions Recorded Confirmed Type Budesonide [Pulmicort] 0.5 mg INHALATION RT-BID 12/08/13 06/22/19 History Cetirizine HCl 10 mg PO DAILY PRN 12/08/13 06/22/19 History Furosemide [Lasix] 40 mg PO DAILY 12/08/13 06/22/19 History Metoprolol Tartrate [Lopressor] 25 mg PO BID 12/08/13 06/22/19 History Simvastatin [Zocor] 80 mg PO HS 12/08/13 06/22/19 History Warfarin [Coumadin] 5 mg PO MOWEFRSA 12/08/13 06/22/19 History Nitroglycerin Sl Tabs [Nitrostat] 0.4 mg SL Q5M PRN 02/27/14 06/22/19 History Albuterol Nebulized [Ventolin 2.5 mg INHALATION RT-QID PRN 04/27/17 06/22/19 History Nebulized] Calcium Carbonate [Calcium] 600 mg PO BID 04/27/17 06/22/19 History [place]-3/Dha/Epa/Fish Oil [Fish Oil 1 cap PO DAILY 04/27/17 06/22/19 History 500 mg Softgel] Montelukast [Singulair] 10 mg PO DAILY 01/24/19 06/22/19 History Spironolactone [Aldactone] 12.5 mg PO DAILY 01/24/19 06/22/19 History Warfarin [Coumadin] 2.5 mg PO SUTUTH 01/24/19 06/22/19 History Benralizumab [Fasenra] 30 mg SQ Q60D 06/22/19 06/22/19 History Omeprazole [PriLOSEC] 40 mg PO DAILY 06/22/19 06/22/19 History Pantoprazole Sodium [Protonix] 40 mg PO DAILY 06/22/19 06/22/19 History Allergies Allergy/AdvReac Type Severity Reaction Status Date / Time zolpidem [From Ambien] AdvReac Hallucinati Verified 06/22/19 12:49 ons Physical Exam Vitals: Vital Signs Temp Pulse Resp BP Pulse Ox 06/22/19 13:28 62 18 116/55 100 06/22/19 12:35 59 L 18 142/86 96 06/22/19 11:43 74 18 164/73 98 06/22/19 11:01 22 06/22/19 10:49 98.0 F 60 16 121/47 97 Intake and Output 06/22/19 06/22/19 06/22/19 06:59 14:59 22:59 Other: Weight 120.202 kg On physical examination, patient appears comfortable in no apparent distress. HEAD: Normocephalic, atraumatic. EYES: No scleral icterus. No conjunctival injection. MOUTH: No lesions, tongue midline. NECK: Trachea midline, no gross abnormalities. CHEST: Clear to auscultation with no wheezing or rhonchi appreciated. HEART: Regular rate and rhythm. ABDOMEN: Soft, obese. Bowel sounds are positive. No organomegaly. No guarding or rigidity. EXTREMITIES: No pedal edema. SKIN: No rashes, no jaundice. NEUROLOGIC: Alert and oriented x3. No focal deficits. Results CBC & Chem 7: 06/22/19 23:01 06/22/19 11:04 Labs: Abnormal Lab Results - Last 24 Hours (Table) 06/22/19 06/22/19 06/22/19 Range/Units 11:04 11:04 11:04 RBC 2.41 L (4.30-5.90) m/uL Hgb 7.2 L D (13.0-17.5) gm/dL Hct 23.1 L (39.0-53.0) % Lymphocytes # 0.9 L (1.0-4.8) k/uL PT 16.8 H (9.0-12.0) sec INR 1.7 H (<1.2) BUN (9-20) mg/dL Glucose (74-99) mg/dL Troponin I (0.000-0.034) ng/mL Total Protein (6.3-8.2) g/dL Crossmatch See Detail 06/22/19 06/22/19 Range/Units 11:04 11:04 RBC (4.30-5.90) m/uL Hgb (13.0-17.5) gm/dL Hct (39.0-53.0) % Lymphocytes # (1.0-4.8) k/uL PT (9.0-12.0) sec INR (<1.2) BUN 22 H (9-20) mg/dL Glucose 171 H (74-99) mg/dL Troponin I 0.065 H* (0.000-0.034) ng/mL Total Protein 5.9 L (6.3-8.2) g/dL Crossmatch Assessment and Plan (1) GI bleed Narrative/Plan: 89-year-old male who presents to the hospital due to dizziness, weakness for the past 4 weeks with associated dark-colored stool. Patient has a known history of atrial fibrillation on Coumadin therapy. He previously underwent endoscopic evaluation on 05/2018 with findings of esophagitis and has previous history of peptic ulcer disease. Colonoscopy in 2013 was normal. Stool testing on presentation was significant for occult blood. The patient had a 2 g drop in hemoglobin over the past few weeks. He denies any change in the caliber of stool. Unknown etiology of symptoms maybe related to upper GI bleed with differential including peptic ulcer disease, AVM, esophagitis/gastritis or other etiology, small bowel bleed or other etiology. Current Visit: Yes Status: Acute Code(s): K92.2 - GASTROINTESTINAL HEMORRHAGE, UNSPECIFIED SNOMED Code(s): 30190078 (2) Acute blood loss anemia Current Visit: No Status: Acute Code(s): D62 - ACUTE POSTHEMORRHAGIC ANEMIA SNOMED Code(s): 394991676 Plan: Supportive care Okay for liquid diet Nothing by mouth after midnight Bowel prep ordered Plan for EGD and colonoscopy with possible video capsule endoscopy tomorrow for further investigation Continue to hold anticoagulation therapy Vitamin K given in the emergency department Will plan to recheck INR Continue Protonix twice a day Thank you for allowing us to participate in the care of the patient we will continue to follow
[2019-06-23 07:10] LABS: HCT 24.8 % (39.0-53.0); HGB 7.7 gm/dL (13.0-17.5); Hypochromasia Moderate; MCH 29.9 pg (25.0-35.0); MCHC 31.2 g/dL (31.0-37.0); Mean Platelet Volume 7.5; Platelet Count 231 k/uL (150-450); RBC 2.58 m/uL (4.30-5.90); RDW 15.1 % (11.5-15.5); WBC 6.2 k/uL (3.8-10.6)
[2019-06-23] MEDS: ALBUTEROL NEBULIZED 2.5 MG/3 ML INHALATION PRN ×2 (07:11→20:39)
[2019-06-23] MEDS: BUDESONIDE 0.5 MG/2 ML NEBU INHALATION SCH ×2 (07:11→20:38)
[2019-06-23 07:23] LABS: Calcium 9.1 mg/dL (8.4-10.2); Magnesium 1.6 mg/dL (1.6-2.3); Phosphorus 3.3 mg/dL (2.5-4.5); Potassium 4.2 mmol/L (3.5-5.1)
[2019-06-23 08:18] LABS: INR 1.3 (<1.2); Prothrombin Time 13.4 sec (9.0-12.0)
[2019-06-23] MEDS: FUROSEMIDE 40 MG TAB PO SCH (09:15)
[2019-06-23] MEDS: CALCIUM CARBONATE 500 MG CHEWABLE PO SCH ×2 (09:15→20:47)
[2019-06-23] MEDS: METOPROLOL TARTRATE 25 MG TAB PO SCH ×2 (09:15→20:47)
[2019-06-23] MEDS: MONTELUKAST 10 MG TAB PO SCH (09:15)
[2019-06-23] MEDS: SPIRONOLACTONE 25 MG TAB PO SCH (09:15)
[2019-06-23] MEDS ORDERED: LIDOCAINE 1% INJ 10MG/ML (20 ML MDV) ONE (11:50)
[2019-06-23] MEDS ORDERED: PROPOFOL 10 MG/ML 20 ML VIAL IV ONE (11:50)
[2019-06-23] MEDS ORDERED: IV FLUID CONTINUATION 1,000 ML IV ONE (11:53)
[2019-06-23] MEDS ORDERED: SODIUM CHLORIDE 0.9% 500 ML 500 ML IV ONE ×2 (12:46)
--- NOTE | 2019-06-23 13:07 | P.PCN ---
Date of Procedure: 06/23/19 Description of Procedure: Brief history: 89-year-old male with a medical history significant for asthma, atrial fibrillation on Coumadin therapy, coronary artery disease status post stenting in the past, who presented to the hospital due to concerns over dizziness, weakness and dark stool. The patient reports symptoms of dizziness and lightheadedness occurring over the past 4 weeks. He reports associated black stools over the past few days. Upon review of the electronic medical record the patient had a hemoglobin noted to be over 9 in the past few weeks and on presentation was found to be 7.2. Patient had an elevated INR at 1.7 and is on current therapy for his atrial fibrillation. He denies any abdominal pain or change in frequency or caliber of bowel movements but has noted black tarry bowel movements as stated. He previously went EGD on 05/2018 significant for esophagitis and had a colonoscopy in 2013 which was normal. Stool testing was positive for blood on presentation. Procedure performed: Esophagogastroduodenoscopy with biopsy Colonoscopy with polypectomy Estimated blood loss: Minimal. Preoperative diagnosis: Anemia of acute blood loss, melena Anesthesia: MAC Procedure: After informed consent was obtained from the patient was brought into the end oscopy unit and IV sedation was administered by anesthesia under continuous monitoring. Initially upper endoscopy was done. The Olympus GF 190 video endoscope was inserted into the mouth and esophagus intubated without any difficulty and was gradually advanced into the stomach and duodenum and carefully examined. The bulb and second part of the duodenum grossly normal, however biopsies were taken of the second portion of the duodenum to rule out celiac sprue. There is also a nonbleeding 3 mm ulcer in the duodenal bulb without high risk stigmata for rebleeding. The scope was then withdrawn into the stomach adequately insufflated with air and upon careful examination the antrum and body, cardia and fundus appeared normal, with biopsies taken of the antrum and body to rule out Helicobacter pylori. The scope was then withdrawn into the esophagus. The GE junction was located at 42 cm to the incisors and appeared somewhat irregular with a 2 cm hiatal hernia noted. It appeared regul ar with no erythema erosions or ulcerations. Rest of the esophagus appeared normal. Patient tolerated the procedure well. At this time the patient continued to remain sedation. Initial digital rectal examination was normal, nonthrombosed external hemorrhoids. Olympus CF 190 video colonoscope was then inserted into the rectum and gradually advanced to the cecum without any difficulty. Careful examination was performed as the scope was gradually being withdrawn. The prep was excellent. The cecum, ascending colon, transverse colon, descending colon, sigmoid colon and rectum appeared normal. Diminutive 2 mm ascending colon polyp removed with cold forcep polypectomy. Retroflexion was performed in the rectum and no lesions were noted, low-grade internal hemorrhoids noted. Patient tolerated the procedure well. Impression: 1. Small nonbleeding duodenal bulb ulcer without high-risk stigmata for rebleeding. Biopsies of the duodenum, antrum and body. Small hiatal hernia. 2. Diminutive ascending colon polyp removed with cold forceps. Low-grade internal hemorrhoids and nonthrombosed external hemorrhoids. Recommendations: Findings of this examination were discussed with the patient as well as his and daughter. Okay to resume diet. Okay to resume medications. Hold Coumadin for an additional 48 hours. Patient should remain on Protonix 40 mg twice daily. No plans for video capsule endoscopy at this time, however if further fall in bleeding will consider at that time.
--- NOTE | 2019-06-23 20:05 | P.PN ---
Subjective Progress Note Date: 06/23/19 (delayed charting seen at 1500) Principal diagnosis: GI bleed Patient is an 89-year-old male with past medical history of atrial fibrillation on Coumadin therapy, coronary artery disease status post stenting, prior GI bleed secondary to peptic ulcer disease due to medications, and asthma who presented to the emergency department secondary to dizziness, weakness, and dark stools. On arrival to the ER he was noted to have anemia with a hemoglobin of 7.2. Initial troponin was positive at 0.65 and was felt to be secondary to his anemia. His INR was subtherapeutic at 1.7. His initial vital signs were within normal limits. He is admitted for further monitoring of his GI bleed. He received 5 mg of oral vitamin K. He received 1 unit of packed red blood cells. His hemoglobin increased to 8.1. Of note he had recently been at [facility] secondary to dark stools and had an EGD done which showed gastritis but no active bleeding. GI was consulted. His INR normalized to 1.3. He underwent EGD and colonoscopy which showed a duodenal ulcer without any evidence of active bleeding. His troponins remained flat and was thought to be reflective of his anemia. He was taken off of his Coumadin. Patient seen and examined at bedside with family present. He complains of feeling slightly bloated and distended. He denies any chest pain, shortness breath, nausea, or vomiting. Of note he has had several recent episodes of falling and dizziness. He reports easy bruising and bleeding secondary to Coumadin use. This is his third episode of GI bleed since starting Coumadin approximately 10 years ago. He reports that he was noted to have some bleeding at [facility] and had an EGD which didn't show any active bleeding. He states he restarted his Coumadin therapy and noted black stools within 24-48 hours of restarting his Coumadin. We had a lengthy discussion about benefits and risks of anticoagulation. Objective - Vital Signs Vital signs: Vital Signs Temp 97.6 F 06/23/19 15:15 Pulse 62 06/23/19 17:45 Resp 16 06/23/19 17:35 BP 139/57 06/23/19 17:45 Pulse Ox 94 L 06/23/19 17:35 Intake & Output 06/23/19 06/23/19 06/24/19 06:59 18:59 06:59 Intake Total 850 Output Total 300 Balance 550 Weight 123.8 kg Intake: IV 370 Invasive Line 1 20 Oral 480 Output: Urine 300 Other: Voiding Method Bedside Commode Bedside Commode # Voids 120 # Bowel Movements 7 2 - Exam General: non toxic, no distress, appears at stated age Derm: warm, dry Head: atraumatic, normocephalic, symmetric Eyes: EOMI, no lid lag, anicteric sclera Mouth: no lip lesion, mucus membranes moist Cardiovascular: S1S2 irreg, no murmur, positive posterior tibial pulse bilateral, Lungs: CTA bilateral, no rhonchi, no rales , no accessory muscle use Abdominal: soft, nontender to palpation, no guarding, no appreciable organomegaly Ext: no gross muscle atrophy, no edema, no contractures Neuro: CN II-XI grossly intact, no focal neuro deficits Psych: Alert, oriented, appropriate affect - Labs CBC & Chem 7: 06/23/19 05:53 06/23/19 05:53 Labs: Abnormal Lab Results - Last 24 Hours (Table) 06/22/19 06/22/19 06/22/19 Range/Units 11:04 23:01 23:01 RBC 2.73 L (4.30-5.90) m/uL Hgb 8.1 L (13.0-17.5) gm/dL Hct 26.3 L (39.0-53.0) % MCHC 30.8 L (31.0-37.0) g/dL PT (9.0-12.0) sec INR (<1.2) Glucose (74-99) mg/dL Troponin I 0.072 H* (0.000-0.034) ng/mL Crossmatch See Detail 06/23/19 06/23/19 06/23/19 Range/Units 05:53 05:53 07:53 RBC 2.58 L (4.30-5.90) m/uL Hgb 7.7 L (13.0-17.5) gm/dL Hct 24.8 L (39.0-53.0) % MCHC (31.0-37.0) g/dL PT 13.4 H (9.0-12.0) sec INR 1.3 H (<1.2) Glucose 142 H (74-99) mg/dL Troponin I (0.000-0.034) ng/mL Crossmatch Assessment and Plan Assessment: Acute blood loss anemia secondary to GI bleed likely due to duodenal ulcer -GI recommendations appreciated: Off anticoagulation for another 48 hours at a minimum, twice a day PPI -Follow CBC -CHADS VASc 3, HAS BLED 3: out patient discussion with Dr. Mijares about continued anticoagulation, patient denies hx of CHF P. A fib - tele - off coumadin due to bleeding - continue BB Elevated troponin due to anemia - Acute event ruled out ASCAD - lopressor, statin Morbid obesity - structured outpatient weight loss DVT prophylaxis: SCDs Discussed with: patient and family Anticipated discharge: 1-[address]: home A total of 45 minutes was spent on the care of this complex patient more than 50% of the time was spent in counseling and care coordination.
[2019-06-23] MEDS: ATORVASTATIN 40 MG TAB PO SCH (20:47)
[2019-06-24 06:06] LABS: HCT 25.2 % (39.0-53.0); HGB 7.8 gm/dL (13.0-17.5); Hypochromasia Marked; MCH 29.5 pg (25.0-35.0); MCHC 30.8 g/dL (31.0-37.0); MCV 95.8 fL (80.0-100.0); Mean Platelet Volume 7.9; Platelet Count 245 k/uL (150-450); RBC 2.63 m/uL (4.30-5.90); WBC 6.2 k/uL (3.8-10.6)
[2019-06-24 06:24] LABS: Calcium 9.4 mg/dL (8.4-10.2); Potassium 4.2 mmol/L (3.5-5.1)
[2019-06-24] MEDS: PANTOPRAZOLE 40 MG TABLET PO SCH ×2 (06:52→16:48)
[2019-06-24] MEDS: ALBUTEROL NEBULIZED 2.5 MG/3 ML INHALATION PRN ×2 (07:25→20:52)
[2019-06-24] MEDS: BUDESONIDE 0.5 MG/2 ML NEBU INHALATION SCH ×2 (07:25→20:52)
[2019-06-24] MEDS: SPIRONOLACTONE 25 MG TAB PO SCH (08:06)
[2019-06-24] MEDS: METOPROLOL TARTRATE 25 MG TAB PO SCH ×2 (08:06→20:57)
[2019-06-24] MEDS: FUROSEMIDE 40 MG TAB PO SCH (08:06)
[2019-06-24] MEDS: MONTELUKAST 10 MG TAB PO SCH (08:06)
[2019-06-24] MEDS: CALCIUM CARBONATE 500 MG CHEWABLE PO SCH ×2 (08:09→20:57)
[2019-06-24] MEDS ORDERED: FUROSEMIDE 10 MG/ML 4 ML VIAL IV STA (08:52)
[2019-06-24] MEDS ORDERED: SENNOSIDES 8.6 MG TAB PO PRN (08:57)
[2019-06-24] MEDS ORDERED: SODIUM FERRIC GLUCONAT-SUCROSE 125 MG in SODIUM CHLORIDE 0.9% 100 ML IVPB ONE (09:00)
--- NOTE | 2019-06-24 15:36 | P.PN ---
Subjective Progress Note Date: 06/24/19 (delayed charting seen at 0900 and 1410) Principal diagnosis: GI bleed Patient is an 89-year-old male with past medical history of atrial fibrillation on Coumadin therapy, coronary artery disease status post stenting, prior GI bleed secondary to peptic ulcer disease due to medications, and asthma who presented to the emergency department secondary to dizziness, weakness, and dark stools. On arrival to the ER he was noted to have anemia with a hemoglobin of 7.2. Initial troponin was positive at 0.65 and was felt to be secondary to his anemia. His INR was subtherapeutic at 1.7. His initial vital signs were within normal limits. He is admitted for further monitoring of his GI bleed. He received 5 mg of oral vitamin K. He received 1 unit of packed red blood cells. His hemoglobin increased to 8.1. Of note he had recently been at [facility] secondary to dark stools and had an EGD done which showed gastritis but no active bleeding. GI was consulted. His INR normalized to 1.3. He underwent EGD and colonoscopy which showed a duodenal ulcer without any evidence of active bleeding. His troponins remained flat and was thought to be reflective of his anemia. He was taken off of his Coumadin. He will stay off coumadin for 7 days and follow with cardiology associates for his coumadin dosing. Patient seen and examined at bedside with family present. He states that his dizziness is resolved. Having shortness of breath was worse with exertion. Reports worsening lower extremity edema. No nausea or vomiting. No bowel movement today. No chest pain. Objective - Vital Signs Vital signs: Vital Signs Temp 97.6 F 06/24/19 12:07 Pulse 64 06/24/19 12:07 Resp 18 06/24/19 12:07 BP 122/67 06/24/19 12:07 Pulse Ox 97 06/24/19 12:07 Intake & Output 06/23/19 06/24/19 06/24/19 18:59 06:59 18:59 Intake Total 850 480 Output Total 300 650 Balance 550 -650 480 Weight 125 kg Intake: IV 370 20 Invasive Line 1 20 20 Oral 480 460 Output: Urine 300 650 Other: Voiding Method Bedside Commode Bedside Commode Bedside Commode # Voids 120 2 # Bowel Movements 2 - Exam General: non toxic, no distress, appears at stated age, obese Derm: Multiple areas of ecchymoses in various stages of healing warm, dry Head: atraumatic, normocephalic, symmetric Eyes: EOMI, no lid lag, anicteric sclera Mouth: no lip lesion, mucus membranes moist Cardiovascular: S1S2 irreg, no murmur, positive posterior tibial pulse bilateral, Lungs: CTA bilateral, no rhonchi, no rales , no accessory muscle use Abdominal: soft, nontender to palpation, no guarding, no appreciable organomegaly Ext: no gross muscle atrophy, 2+ edema, no contractures Neuro: CN II-XI grossly intact, no focal neuro deficits Psych: Alert, oriented, appropriate affect - Labs CBC & Chem 7: 06/24/19 05:44 06/24/19 05:44 Labs: Abnormal Lab Results - Last 24 Hours (Table) 06/24/19 06/24/19 Range/Units 05:44 05:44 RBC 2.63 L (4.30-5.90) m/uL Hgb 7.8 L (13.0-17.5) gm/dL Hct 25.2 L (39.0-53.0) % MCHC 30.8 L (31.0-37.0) g/dL Sodium 134 L (137-145) mmol/L Glucose 150 H (74-99) mg/dL Assessment and Plan Assessment: Acute blood loss anemia with iron deficiency anemia secondary to GI bleed likely due to duodenal ulcer -GI recommendations appreciated: Off anticoagulation for another 48 hours at a minimum ( I am recommending 7 days (resuming 06/29/19) as patient was taken off for 48 hours recently and then had bleeding start again), twice a day PPI -Follow CBC -CHADS VASc 3, HAS BLED 3: out patient discussion with Dr. Quarles about continued anticoagulation, patient denies hx of CHF - IV FE X 1 and then oral QOD Constipation - miralax at home Fluid overload - IV lasix X 2 today, if improved then continue on orals -Likely due to missing his lasix and aldactone for 2 days. P. A fib - tele - off coumadin due to bleeding - continue BB Elevated troponin due to anemia - Acute event ruled out ASCAD - lopressor, statin Morbid obesity - structured outpatient weight loss DVT prophylaxis: SCDs Discussed with: patient and family Anticipated discharge: in AM Anticipated discharge place: home, patient refused home health A total of 25 minutes was spent on the care of this complex patient more than 50% of the time was spent in counseling and care coordination. r
[2019-06-24] MEDS: POLYETHYLENE GLYCOL 3350 17 GM POWD.PACK PO SCH (16:48)
[2019-06-24] MEDS ORDERED: FUROSEMIDE 10 MG/ML 4 ML VIAL IV ONE (17:00)
--- NOTE | 2019-06-24 18:46 | P.PN ---
Subjective Progress Note Date: 06/24/19 Principal diagnosis: Anemia acute blood loss, duodenal ulcer Patient is seen lying in bed reporting he tolerated his diet. No signs or symptoms of GI bleeding. No abdominal pain. Objective - Vital Signs Vital signs: Vital Signs Temp 97.7 F 06/24/19 15:20 Pulse 64 06/24/19 15:45 Resp 18 06/24/19 15:45 BP 103/50 06/24/19 15:20 Pulse Ox 96 06/24/19 15:20 Intake & Output 06/23/19 06/24/19 06/24/19 18:59 06:59 18:59 Intake Total 850 1700 Output Total 300 650 800 Balance 550 -650 900 Weight 125 kg Intake: IV 370 120 Invasive Line 1 20 20 Sodium Ferric Gluconat- 100 Sucrose 125 mg In Sodium Chloride 0.9% 100 ml @ 100 mls/hr IVPB ONCE ONE Rx#:[id number] Oral 480 1580 Output: Urine 300 650 800 Other: Voiding Method Bedside Commode Bedside Commode Bedside Commode # Voids 120 2 # Bowel Movements 2 - Exam On physical examination, patient appears comfortable in no apparent distress. HEAD: Normocephalic, atraumatic. EYES: No scleral icterus. No conjunctival injection. MOUTH: No lesions, tongue midline. NECK: Trachea midline, no gross abnormalities. ABDOMEN: Soft, obese. Bowel sounds are positive. No organomegaly. No guarding or rigidity. EXTREMITIES: No pedal edema. SKIN: No rashes, no jaundice. NEUROLOGIC: Alert and oriented. - Labs CBC & Chem 7: 06/24/19 05:44 06/24/19 05:44 Labs: Abnormal Lab Results - Last 24 Hours (Table) 06/24/19 06/24/19 Range/Units 05:44 05:44 RBC 2.63 L (4.30-5.90) m/uL Hgb 7.8 L (13.0-17.5) gm/dL Hct 25.2 L (39.0-53.0) % MCHC 30.8 L (31.0-37.0) g/dL Sodium 134 L (137-145) mmol/L Glucose 150 H (74-99) mg/dL Assessment and Plan (1) GI bleed Narrative/Plan: 89-year-old male who presents to the hospital due to dizziness, weakness for the past 4 weeks with associated dark-colored stool. Patient has a known history of atrial fibrillation on Coumadin therapy. He previously underwent endoscopic evaluation on 05/2018 with findings of esophagitis and has previous history of peptic ulcer disease. Colonoscopy in 2013 was normal. Stool testing on presentation was significant for occult blood. The patient had a 2 g drop in hemoglobin over the past few weeks. He denies any change in the caliber of stool. EGD and colonoscopy performed yesterday with findings of a nonbleeding duodenal ulcer, diverticulosis, small polyp which was resected and hemorrhoids. Current Visit: Yes Status: Acute Code(s): K92.2 - GASTROINTESTINAL HEMORRHAGE, UNSPECIFIED SNOMED Code(s): 91612939 (2) Acute blood loss anemia Current Visit: No Status: Acute Code(s): D62 - ACUTE POSTHEMORRHAGIC ANEMIA SNOMED Code(s): 645095250 Plan: Supportive care Okay for diet as tolerated EGD and colonoscopy Continue to hold anticoagulation therapy, with the plan for patient follow-up in one week with cardiology to discuss anticoagulation therapy Continue Protonix twice a day Thank you for allowing us to participate in the care of the patient, the GI service will stand by, please call us back with any questions or concerns
[2019-06-24] MEDS: ATORVASTATIN 40 MG TAB PO SCH (20:57)
[2019-06-25 05:24] VITALS: BP 126/52; RESP 16; TEMP 97.5
[2019-06-25] MEDS: BUDESONIDE 0.5 MG/2 ML NEBU INHALATION SCH (08:32)
[2019-06-25 08:46] VITALS: PULSE 69
[2019-06-25] MEDS ORDERED: FUROSEMIDE 10 MG/ML 4 ML VIAL IV STA (09:12)
[2019-06-25] MEDS: SPIRONOLACTONE 25 MG TAB PO SCH (09:18)
[2019-06-25] MEDS: METOPROLOL TARTRATE 25 MG TAB PO SCH (09:18)
[2019-06-25] MEDS: CALCIUM CARBONATE 500 MG CHEWABLE PO SCH (09:18)
[2019-06-25] MEDS: MONTELUKAST 10 MG TAB PO SCH (09:18)
[2019-06-25] MEDS: PANTOPRAZOLE 40 MG TABLET PO SCH (09:19)
[2019-06-25] MEDS: FUROSEMIDE 40 MG TAB PO SCH (09:19)
[2019-06-25] MEDS: POLYETHYLENE GLYCOL 3350 17 GM POWD.PACK PO SCH (09:20)
[2019-06-25 10:14] LABS: HGB 7.7 gm/dL (13.0-17.5); Hypochromasia Moderate; MCH 29.6 pg (25.0-35.0); MCHC 30.7 g/dL (31.0-37.0); MCV 96.3 fL (80.0-100.0); Mean Platelet Volume 7.4; Platelet Count 217 k/uL (150-450); RBC 2.59 m/uL (4.30-5.90); RDW 15.3 % (11.5-15.5); WBC 5.8 k/uL (3.8-10.6)
[2019-06-25 10:24] LABS: Calcium 9.3 mg/dL (8.4-10.2); Magnesium 1.8 mg/dL (1.6-2.3)
[2019-06-25 10:37] LABS: Prothrombin Time 10.1 sec (9.0-12.0)
--- NOTE | 2019-06-25 10:42 | P.DS ---
Providers Date of admission: 06/22/19 15:00 Expected date of discharge: 06/25/19 Attending physician: Abdulaziz Huerta MD Primary care physician: Rodger Pathak Hospital Course: Discharge Diagnosis: Acute blood loss anemia superimposed on iron deficiency anemia GI bleed Duodenal ulcer Constipation Fluid overload due to treatment Elevated troponin due to acute blood loss anemia ASCAD Morbid obesity BMI 43.2 Hospital Course: Patient is an 89-year-old male with past medical history of atrial fibrillation on Coumadin therapy, coronary artery disease status post stenting, prior GI bleed secondary to peptic ulcer disease due to medications, and asthma who presented to the emergency department secondary to dizziness, weakness, and dark stools. On arrival to the ER he was noted to have anemia with a hemoglobin of 7.2. Initial troponin was positive at 0.65 and was felt to be secondary to his anemia. His INR was subtherapeutic at 1.7. His initial vital signs were within normal limits. He is admitted for further monitoring of his GI bleed. He received 5 mg of oral vitamin K. He received 1 unit of packed red blood cells. His hemoglobin increased to 8.1. Of note he had recently been at [facility] secondary to dark stools and had an EGD done which showed gastritis but no active bleeding. GI was consulted. His INR normalized to 1.3. He underwent EGD and colonoscopy which showed a duodenal ulcer without any evidence of active bleeding. His troponins remained flat and was thought to be reflective of his anemia. He was taken off of his Coumadin. He will stay off coumadin for 7 days and follow with cardiology associates for his coumadin dosing. He was found to have iron deficeincy anemia and was given one dose of IV iron, he will take oral iron everyother day. He did develop some fluid overload as he did not have his oral diuretics while NPO, this resolved with IV lasix. He was tolerating a diet and hemoglobin was stable he was determined stable for dishcarge. Follow with Dr. Pathak or Samia, Follow with Dr. Dave Recommneded repeat Ferritin in [address] [facility] cardiology as to if benefits>risks of coumadin Repeat CBC in 5 days Resume coumadin on 06/29/2019 and INR draw on 07/01/2019 Patient seen and examined at bedside. Feeling better, dizziness resolved, SOB resolved, edema improved, no blood in stool. Vital signs reviewed and stable. General: non toxic, no distress, appears at stated age Derm: warm, dry Head: atraumatic, normocephalic, symmetric Eyes: EOMI, no lid lag, anicteric sclera Mouth: no lip lesion, mucus membranes moist Cardiovascular: S1S2 reg, no murmur, positive posterior tibial pulse bilateral, Lungs: CTA bilateral, no rhonchi, no rales , no accessory muscle use Abdominal: soft, nontender to palpation, no guarding, no appreciable organomegaly Ext: no gross muscle atrophy, no edema, no contractures Neuro: CN II-XI grossly intact, no focal neuro deficits Psych: Alert, oriented, appropriate affect A total of 35 minutes of time were spent preparing this complex discharge summary . Patient Condition at Discharge: Stable Plan - Discharge Summary Discharge Rx Participant: No New Discharge Prescriptions: New Polyethylene Glycol 3350 [Miralax] 17 gm PO DAILY powd.pack Pantoprazole [Protonix] 40 mg PO AC-BID #180 tablet. Ferrous Sulfate [Slow Release Iron] 250 mg PO DIRECTED #30 tablet.er Continue Budesonide [Pulmicort] 0.5 mg INHALATION RT-BID Simvastatin [Zocor] 80 mg PO HS Metoprolol Tartrate [Lopressor] 25 mg PO BID Furosemide [Lasix] 40 mg PO DAILY Cetirizine HCl 10 mg PO DAILY PRN PRN Reason: Allergy Symptoms Nitroglycerin Sl Tabs [Nitrostat] 0.4 mg SL Q5M PRN PRN Reason: Chest Pain Calcium Carbonate [Calcium] 600 mg PO BID Albuterol Nebulized [Ventolin Nebulized] 2.5 mg INHALATION RT-QID PRN PRN Reason: Shortness Of Breath Gurdon-3/Dha/Epa/Fish Oil [Fish Oil 500 mg Softgel] 1 cap PO DAILY Montelukast [Singulair] 10 mg PO DAILY Warfarin [Coumadin] 2.5 mg PO SUTUTH Spironolactone [Aldactone] 12.5 mg PO DAILY Benralizumab [Fasenra] 30 mg SQ Q60D Warfarin [Coumadin] 5 mg PO MOWEFRSA #0 Discontinued Pantoprazole Sodium [Protonix] 40 mg PO DAILY Omeprazole [PriLOSEC] 40 mg PO DAILY Discharge Medication List Budesonide [Pulmicort] 0.5 mg INHALATION RT-BID 12/08/13 [History] Cetirizine HCl 10 mg PO DAILY PRN 12/08/13 [History] Furosemide [Lasix] 40 mg PO DAILY 12/08/13 [History] Metoprolol Tartrate [Lopressor] 25 mg PO BID 12/08/13 [History] Simvastatin [Zocor] 80 mg PO HS 12/08/13 [History] Nitroglycerin Sl Tabs [Nitrostat] 0.4 mg SL Q5M PRN 02/27/14 [History] Albuterol Nebulized [Ventolin Nebulized] 2.5 mg INHALATION RT-QID PRN 04/27/17 [History] Calcium Carbonate [Calcium] 600 mg PO BID 04/27/17 [History] Gurdon-3/Dha/Epa/Fish Oil [Fish Oil 500 mg Softgel] 1 cap PO DAILY 04/27/17 [History] Montelukast [Singulair] 10 mg PO DAILY 01/24/19 [History] Spironolactone [Aldactone] 12.5 mg PO DAILY 01/24/19 [History] Warfarin [Coumadin] 2.5 mg PO SUTUTH 01/24/19 [History] Benralizumab [Fasenra] 30 mg SQ Q60D 06/22/19 [History] Ferrous Sulfate [Slow Release Iron] 250 mg PO DIRECTED #30 tablet.er 06/25/19 [Rx] Pantoprazole [Protonix] 40 mg PO AC-BID #180 tablet.dr 06/25/19 [Rx] Polyethylene Glycol 3350 [Miralax] 17 gm PO DAILY powd.pack 06/25/19 [Rx] Warfarin [Coumadin] 5 mg PO MOWEFRSA #0 06/25/19 [Rx] Follow up Appointment(s)/Referral(s): Rodger Pathak MD [Primary Care Provider] - 1-2 days Edvin Bose MD [STAFF PHYSICIAN] - 1 Week Nikhil Crawford MD [STAFF PHYSICIAN] - As Needed Ambulatory/Diagnostic Orders: Complete Blood Count w/diff [LAB.AMB] Time Frame: 5 Days, Location: None Selected Activity/Diet/Wound Care/Special Instructions: Activity: as tolerated Diet: heart healthy Special Instructions: INR on 07/01/19 Restart Coumadin on 06/29/19 Monitor stools for recurrent bleeding Iron every other day Over the counter Miralax as needed for constipation Discharge Disposition: HOME SELF-CARE
--- NOTE | 2019-06-29 08:19 | CDI ---
Documentation Clarification Form Date: 06/29/19 From: María Green Phone: If you have a question about this query, please contact Molly Carney, [employer]cery [employer] at [phone] between 8am and 5pm. Admit Date: 06/22/19 Discharge Date: 06/25/19 Patient Name: TAMEKA LUNA Visit Number: [id number] ATTENTION: The Clinical Documentation Specialists (CDI) and [facility] Coding Staff appreciate your assistance in clarifying documentation. Please respond to the clarification below the line at the bottom and electronically sign. The CDI & [facility] Coding staff will review the response and follow-up if needed. Please note: Queries are made part of the Legal Health Record. If you have any questions, please contact the author of this message via ITS. Dear Dr. Ann Mckeon, P. A fib was documented in your 06/22 & 06/23 progress notes. History/Risk Factors: GI bleeding, morbid obesity, hiatal hernia, ALPESH Clinical Indicators: EKG- ventricular paced rhythm at 61 bpm QRS is 200 QT interval 530 QTC is 533. Treatment: On Coumadin for atrial fibrillation. In your opinion, what is P. A fib? Paroxysmal Persistent Other explanation of clinical findings Unable to determine (no explanation for clinical findings) Paroxysmal a fib as listed in progress note MTDD
== END 2019-06-25 11:40 | disposition home or self-care (01) | DRG 378 ==
LOC: EC 10:47 → 3SCARD 13:22 → OBSVTOIN 15:00 → 3SCARD 19:52 → 5NMEDONC 06-24 19:14
PROVIDERS: ADMIT Internal Medicine; ATTEND Internal Medicine
PROC: 30233N1 Transfusion of Nonautologous Red Blood Cells into Peripheral Vein, Percutaneous Approach (ICD-10-PCS; 2019-06-22)
PROC: 0DBK8ZX Excision of Ascending Colon, Via Natural or Artificial Opening Endoscopic, Diagnostic (ICD-10-PCS; principal; 2019-06-23 07:30)
PROC: 0DB98ZX Excision of Duodenum, Via Natural or Artificial Opening Endoscopic, Diagnostic (ICD-10-PCS; principal; 2019-06-23 07:30)
PROC: 0DB78ZX Excision of Stomach, Pylorus, Via Natural or Artificial Opening Endoscopic, Diagnostic (ICD-10-PCS; principal; 2019-06-23 07:30)
DX: K26.4 Chronic or unspecified duodenal ulcer with hemorrhage (principal); D62 Acute posthemorrhagic anemia; D68.32 Hemorrhagic disorder due to extrinsic circulating anticoagulants; Z68.41 Body mass index [BMI] 40.0-44.9, adult; I48.0 Paroxysmal atrial fibrillation; E78.5 Hyperlipidemia, unspecified; E66.01 Morbid (severe) obesity due to excess calories; E87.70 Fluid overload, unspecified; K44.9 Diaphragmatic hernia without obstruction or gangrene; K64.4 Residual hemorrhoidal skin tags; K64.8 Other hemorrhoids; J45.909 Unspecified asthma, uncomplicated; G47.33 Obstructive sleep apnea (adult) (pediatric); K63.5 Polyp of colon; R23.3 Spontaneous ecchymoses; T45.515A Adverse effect of anticoagulants, initial encounter; R29.6 Repeated falls; K59.00 Constipation, unspecified; K57.90 Diverticulosis of intestine, part unspecified, without perforation or abscess without bleeding; I25.10 Atherosclerotic heart disease of native coronary artery without angina pectoris; R79.89 Other specified abnormal findings of blood chemistry; Z79.01 Long term (current) use of anticoagulants; Z79.51 Long term (current) use of inhaled steroids; Z79.899 Other long term (current) drug therapy; Z99.89 Dependence on other enabling machines and devices; Z87.11 Personal history of peptic ulcer disease; Z85.46 Personal history of malignant neoplasm of prostate; Z92.3 Personal history of irradiation; Z90.49 Acquired absence of other specified parts of digestive tract; Z95.5 Presence of coronary angioplasty implant and graft; Z95.0 Presence of cardiac pacemaker; Z96.653 Presence of artificial knee joint, bilateral; Z87.891 Personal history of nicotine dependence; Z87.19 Personal history of other diseases of the digestive system; Z87.01 Personal history of pneumonia (recurrent); Z98.890 Other specified postprocedural states; Z98.42 Cataract extraction status, left eye; Z98.41 Cataract extraction status, right eye; Z88.8 Allergy status to other drugs, medicaments and biological substances; Z80.0 Family history of malignant neoplasm of digestive organs
CPT/HCPCS: 36415; 36430; 43239; 45380; 80048; 80053; 82272; 82728; 83735; 84100; 84484; 85025; 85027; 85610; 85730; 86850; 86900; 86901; 86920; 88305; 93005; 94640; 96360; 96361; 99291

== ENCOUNTER → 2019-07-03 | Outpatient (CLI) | payer MEDICARE, BC ==
[2019-07-03 13:16] LABS: HCT 27.2 % (39.0-53.0); HGB 8.4 gm/dL (13.0-17.5); Hypochromasia Marked; MCH 29.9 pg (25.0-35.0); MCHC 30.8 g/dL (31.0-37.0); MCV 97.1 fL (80.0-100.0); Mean Platelet Volume 7.5; Platelet Count 269 k/uL (150-450); RDW 14.9 % (11.5-15.5); WBC 6.1 k/uL (3.8-10.6)
[2019-07-03 19:56] LABS: African American GFR (CKD) 62.6 (60.0-200.0); Anion Gap 7.2 mmol/L (4.00-12.00); BUN/Creat Ratio 15.83 Ratio (12.00-20.00); Calcium 9.5 mg/dL (8.7-10.3); Carbon Dioxide 33.8 mmol/L (21.6-31.8)
== END | disposition home or self-care (01) ==
LOC: LABWHC1 11:48
PROVIDERS: ATTEND Internal Medicine Cardiovascular Disease
DX: I50.9 Heart failure, unspecified (principal)
CPT/HCPCS: 36415; 80048; 85027

== ENCOUNTER 2019-07-06 16:22 | Inpatient (IN) | payer MEDICARE, BC ==
[2019-07-06] MEDS ORDERED: FUROSEMIDE 10 MG/ML 4 ML VIAL IV STA (16:41)
--- NOTE | 2019-07-06 16:53 | ED ---
General Adult HPI - General Source: patient, RN notes reviewed, old records reviewed Mode of arrival: ambulatory Limitations: no limitations <Augustin Lezama - Last Filed: 07/06/19 18:03> <Augustin Jones - Last Filed: 07/06/19 20:25> - General Chief complaint: Shortness of Breath Stated complaint: fluid retention/SOB Time Seen by Provider: 07/06/19 16:30 - History of Present Illness Initial comments: This is an 89-year-old male who presents emergency Department stating he has a past medical history significant for asthma and CHF. Patient states he has had quite a bit of swelling into his legs as well as his abdomen. Patient states his difficulty breathing is been on and off. Patient states yesterday he felt fine but this morning he woke up he is having hard time breathing and continued throughout the day. Patient decided come to the emergency department this time. Patient denies any fever chills or cough. Patient denies any chest pain or palpitations. Patient denies lightheadedness or dizziness. Patient states he has had abdominal pain intermittently since she's been discharged from the hospital. Patient denies any nausea or vomiting. (Augustin Lezama) - Related Data Home Medications Medication Instructions Recorded Confirmed Budesonide [Pulmicort] 0.5 mg INHALATION RT-BID 12/08/13 07/06/19 Cetirizine HCl 10 mg PO DAILY 12/08/13 07/06/19 Furosemide [Lasix] 40 mg PO DAILY 12/08/13 07/06/19 Metoprolol Tartrate [Lopressor] 25 mg PO BID 12/08/13 07/06/19 Simvastatin [Zocor] 80 mg PO HS 12/08/13 07/06/19 Nitroglycerin Sl Tabs [Nitrostat] 0.4 mg SL Q5M PRN 02/27/14 07/06/19 Albuterol Nebulized [Ventolin 2.5 mg INHALATION RT-QID PRN 04/27/17 07/06/19 Nebulized] Calcium Carbonate [Calcium] 600 mg PO BID 04/27/17 07/06/19 [place]-3/Dha/Epa/Fish Oil [Fish Oil 1 cap PO DAILY 04/27/17 07/06/19 500 mg Softgel] Montelukast [Singulair] 10 mg PO DAILY 10/05/19 03/16/20 Spironolactone [Aldactone] 12.5 mg PO DAILY 01/24/19 07/06/19 Benralizumab [Fasenra] 30 mg SQ Q60D 06/22/19 07/06/19 Aspirin EC [Ecotrin Low Dose] 81 mg PO HS 07/06/19 07/06/19 Ferrous Sulfate [Slow Release Iron] 250 mg PO Q48H 07/06/19 07/06/19 Metolazone [Zaroxolyn] 2.5 mg PO FR 07/06/19 07/06/19 Potassium Chloride ER [K-Dur 10] 10 meq PO DAILY 07/06/19 07/06/19 Previous Rx's Medication Instructions Recorded Pantoprazole [Protonix] 40 mg PO AC-BID #180 tablet. 06/25/19 Polyethylene Glycol 3350 [Miralax] 17 gm PO DAILY powd.pack 06/25/19 Allergies Allergy/AdvReac Type Severity Reaction Status Date / Time zolpidem [From Ambien] AdvReac Hallucinati Verified 07/06/19 17:39 ons Review of Systems ROS Other: All systems not noted in ROS Statement are negative. <Augustin Lezama - Last Filed: 07/06/19 18:03> ROS Other: All systems not noted in ROS Statement are negative. <Augustin Jones - Last Filed: 07/06/19 20:25> ROS Statement: Those systems with pertinent positive or pertinent negative responses have been documented in the HPI. Past Medical History Past Medical History: Atrial Fibrillation, Asthma, Coronary Artery Disease (CAD), Cancer, Chest Pain / Angina, Pneumonia, Sleep Apnea/CPAP/BIPAP Additional Past Medical History / Comment(s): PUD, lower GI bleed, anemia, pancreatitis onece many years ago, bronchitis, ALPESH does not use device-falls off all the time, prostate cancer with 44 radiation treatments-completed Jan 2018, arthritis bilateral shoulders/arms, finger cramping, History of Any Multi-Drug Resistant Organisms: None Reported Past Surgical History: Ablation, Bladder Surgery, Cholecystectomy, Heart Catheterization, Heart Catheterization With Stent, Joint Replacement, Orthopedic Surgery, Pacemaker Additional Past Surgical History / Comment(s): 06/18/19 EGD at [facility], colonoscopy last one 2013, bilateral total knee arthroplasties, L rotator cuff surgery, 2006 pacemaker and gen change in 2013. Past Anesthesia/Blood Transfusion Reactions: No Reported Reaction Additional Past Anesthesia/Blood Transfusion Reaction / Comment(s): Pt has received blood in past without reaction. Date of Last Stent Placement:: 2001 Type of Cardiac Device: Unknown Device Placement Date:: 2005 inserted/2013 gen change. Past Psychological History: No Psychological Hx Reported Smoking Status: Former smoker Past Alcohol Use History: None Reported Past Drug Use History: None Reported - Past Family History Mother History Unknown: Yes Family Medical History: Cancer Additional Family Medical History / Comment(s): Family believes liver cancer Father History Unknown: Yes Family Medical History: Cancer Additional Family Medical History / Comment(s): Stomach cancer <Augustin Lezama - Last Filed: 07/06/19 18:03> General Exam Limitations: no limitations <Augustin Lezama - Last Filed: 07/06/19 18:03> General appearance: alert, in no apparent distress Head exam: Present: atraumatic, normocephalic, normal inspection Eye exam: Present: normal appearance, PERRL, EOMI. Absent: scleral icterus, conjunctival injection, periorbital swelling ENT exam: Present: normal exam, mucous membranes moist Neck exam: Present: normal inspection. Absent: tenderness, meningismus, lymphadenopathy Respiratory exam: Present: normal lung sounds bilaterally. Absent: respiratory distress, wheezes, rales, rhonchi, stridor Cardiovascular Exam: Present: regular rate, normal rhythm, normal heart sounds. Absent: systolic murmur, diastolic murmur, rubs, gallop, clicks GI/Abdominal exam: Present: soft, normal bowel sounds. Absent: distended, tenderness, guarding, rebound, rigid Extremities exam: Present: normal inspection, full ROM, normal capillary refill. Absent: tenderness, pedal edema, joint swelling, calf tenderness Back exam: Present: normal inspection Neurological exam: Present: alert, oriented X3, CN II-XII intact Psychiatric exam: Present: normal affect, normal mood Skin exam: Present: warm, dry, intact, normal color. Absent: rash <Augustin Jones - Last Filed: 07/06/19 20:25> - General Exam Comments Initial Comments: GENERAL: Patient is well-developed and well-nourished. Patient is nontoxic and well- hydrated and is in mild distress. ENT: Neck is soft and supple. No significant lymphadenopathy is noted. Oropharynx is clear. Moist mucous membranes. Neck has full range of motion without eliciting any pain. EYES: The sclera were anicteric and conjunctiva were pink and moist. Extraocular movements were intact and pupils were equal round and reactive to light. Eyelids were unremarkable. PULMONARY: Patient is crackles bilateral bases as well as some expiratory wheezing. CARDIOVASCULAR: There is a regular rate and rhythm without any murmurs gallops or rubs. ABDOMEN: Soft and nontender with normal bowel sounds. No palpable organomegaly was note d. There is no palpable pulsatile mass. SKIN: Skin is clear with no lesions or rashes and otherwise unremarkable. NEUROLOGIC: Patient is alert and oriented x3. Cranial nerves II through XII are grossly intact. Motor and sensory are also intact. Normal speech, volume and content. Symmetrical smile. MUSCULOSKELETAL: Normal extremities with adequate strength and full range of motion. 2+ edema bilaterally LYMPHATICS: No significant lymphadenopathy is noted PSYCHIATRIC: Normal psychiatric evaluation. (Augustin Lezama) Course <Augustin Jones - Last Filed: 07/06/19 20:25> Vital Signs 07/06/19 07/06/19 07/06/19 16:30 18:04 18:11 Temperature 98.2 F Pulse Rate 62 62 60 Respiratory 20 18 Rate Blood Pressure 155/73 124/56 O2 Sat by Pulse 100 99 Oximetry 07/06/19 07/06/19 18:29 19:28 Temperature Pulse Rate 60 59 L Respiratory 22 Rate Blood Pressure 126/57 O2 Sat by Pulse 95 Oximetry - Reevaluation(s) Reevaluation #1: 07/06/19 20:24 Patient remains not feeling well (Augustin Jones) Reevaluation #2: 07/06/19 20:24 Patient states he significantly short of breath (Augustin Jones) Reevaluation #3: 07/06/19 20:24 Patient does still have abdominal pain, patient is informed of results, question s answered, (Augustin Jones) Medical Decision Making - Lab Data Result diagrams: 07/06/19 17:06 07/06/19 17:06 <Augustin Lezama - Last Filed: 07/06/19 18:03> - Lab Data Result diagrams: 07/06/19 17:06 07/06/19 17:06 - Radiology Data Radiology results: report reviewed (Chest x-ray is negative for significant acute disease as well as CT of abdomen and pelvis potential medical little pleural effusion), image reviewed <Augustin Jones - Last Filed: 07/06/19 20:25> - Medical Decision Making EKG shows a paced rhythm at 61 bpm QRS 180 QT intervals 502 QTC is 505. Patient come into the room at 6:00, his abdominal pain and returned. (Augustin Lezama) 89 male presents here for evaluation of abdominal pain. It is shortness of breath mild CHF, anasarca type pain. CT otherwise negative. Patient will be admitted for diuresis and pain control (Augustin Jones) - Lab Data Lab Results 07/06/19 07/06/19 07/06/19 Range/Units 17:06 17:06 17:06 WBC 4.8 (3.8-10.6) k/uL RBC 2.84 L (4.30-5.90) m/uL Hgb 8.4 L (13.0-17.5) gm/dL Hct 26.8 L (39.0-53.0) % MCV 94.4 (80.0-100.0) fL MCH 29.5 (25.0-35.0) pg MCHC 31.3 (31.0-37.0) g/dL RDW 14.8 (11.5-15.5) % Plt Count 268 (150-450) k/uL Neutrophils % 75 % Lymphocytes % 12 % Monocytes % 9 % Eosinophils % 0 % Basophils % 0 % Neutrophils # 3.6 (1.3-7.7) k/uL Lymphocytes # 0.6 L (1.0-4.8) k/uL Monocytes # 0.4 (0-1.0) k/uL Eosinophils # 0.0 (0-0.7) k/uL Basophils # 0.0 (0-0.2) k/uL Hypochromasia Moderate PT 11.0 (9.0-12.0) sec INR 1.1 (<1.2) APTT 23.9 (22.0-30.0) sec Sodium 134 L (137-145) mmol/L Potassium 4.1 (3.5-5.1) mmol/L Chloride 94 L (98-107) mmol/L Carbon Dioxide 32 H (22-30) mmol/L Anion Gap 8 mmol/L BUN 21 H (9-20) mg/dL Creatinine 1.18 (0.66-1.25) mg/dL Est GFR (CKD-EPI)AfAm 64 (>60 ml/min/1.73 sqM) Est GFR (CKD-EPI)NonAf 55 (>60 ml/min/1.73 sqM) Glucose 144 H (74-99) mg/dL Plasma Lactic Acid Jose (0.7-2.0) mmol/L Calcium 9.3 (8.4-10.2) mg/dL Total Bilirubin 0.7 (0.2-1.3) mg/dL AST 29 (17-59) U/L ALT 11 (4-49) U/L Alkaline Phosphatase 126 (38-126) U/L Troponin I (0.000-0.034) ng/mL NT-Pro-B Natriuret Pep pg/mL Total Protein 6.4 (6.3-8.2) g/dL Albumin 4.0 (3.5-5.0) g/dL 07/06/19 07/06/19 07/06/19 Range/Units 17:06 17:06 17:06 WBC (3.8-10.6) k/uL RBC (4.30-5.90) m/uL Hgb (13.0-17.5) gm/dL Hct (39.0-53.0) % MCV (80.0-100.0) fL MCH (25.0-35.0) pg MCHC (31.0-37.0) g/dL RDW (11.5-15.5) % Plt Count (150-450) k/uL Neutrophils % % Lymphocytes % % Monocytes % % Eosinophils % % Basophils % % Neutrophils # (1.3-7.7) k/uL Lymphocytes # (1.0-4.8) k/uL Monocytes # (0-1.0) k/uL Eosinophils # (0-0.7) k/uL Basophils # (0-0.2) k/uL Hypochromasia PT (9.0-12.0) sec INR (<1.2) APTT (22.0-30.0) sec Sodium (137-145) mmol/L Potassium (3.5-5.1) mmol/L Chloride (98-107) mmol/L Carbon Dioxide (22-30) mmol/L Anion Gap mmol/L BUN (9-20) mg/dL Creatinine (0.66-1.25) mg/dL Est GFR (CKD-EPI)AfAm (>60 ml/min/1.73 sqM) Est GFR (CKD-EPI)NonAf (>60 ml/min/1.73 sqM) Glucose (74-99) mg/dL Plasma Lactic Acid Jose 1.2 (0.7-2.0) mmol/L Calcium (8.4-10.2) mg/dL Total Bilirubin (0.2-1.3) mg/dL AST (17-59) U/L ALT (4-49) U/L Alkaline Phosphatase (38-126) U/L Troponin I 0.053 H* (0.000-0.034) ng/mL NT-Pro-B Natriuret Pep 1480 pg/mL Total Protein (6.3-8.2) g/dL Albumin (3.5-5.0) g/dL Disposition <Augustin Lezama - Last Filed: 07/06/19 18:03> Is patient prescribed a controlled substance at d/c from ED?: No <Augustin Jones - Last Filed: 07/06/19 20:25> Clinical Impression: Congestive heart failure, Pleural effusion, Asthma attack, Abdominal pain Disposition: ADMITTED IP TO THIS HOSP Condition: Good Referrals: Rodger Pathak MD [Primary Care Provider] - 1-2 days
[2019-07-06 17:20] LABS: Basophils % (A) 0 %; Eosinophils % (A) 0 %; HCT 26.8 % (39.0-53.0); HGB 8.4 gm/dL (13.0-17.5); Hypochromasia Moderate; Lymphocytes # (A) 0.6 k/uL (1.0-4.8); Lymphocytes % (A) 12 %; MCH 29.5 pg (25.0-35.0); MCHC 31.3 g/dL (31.0-37.0); MCV 94.4 fL (80.0-100.0); Mean Platelet Volume 7.5; Monocytes # (A) 0.4 k/uL (0-1.0); Monocytes % (A) 9 %; Neutrophils # (A) 3.6 k/uL (1.3-7.7); Neutrophils % (A) 75 %; Platelet Count 268 k/uL (150-450); RBC 2.84 m/uL (4.30-5.90); RDW 14.8 % (11.5-15.5); WBC 4.8 k/uL (3.8-10.6)
[2019-07-06 17:38] LABS: Calcium 9.3 mg/dL (8.4-10.2); Potassium 4.1 mmol/L (3.5-5.1); Total Bilirubin 0.7 mg/dL (0.2-1.3); Total Protein 6.4 g/dL (6.3-8.2)
[2019-07-06 17:43] LABS: INR 1.1 (<1.2); Partial Thromboplastin Time 23.9 sec (22.0-30.0)
--- NOTE | 2019-07-06 17:43 | XR ---
EXAMINATION TYPE: XR chest 2V DATE OF EXAM: 07/06/2019 COMPARISON: April 27, 2017 HISTORY: Difficulty breathing TECHNIQUE: FINDINGS: Heart is normal. Lungs are clear of infiltrate. There is calcified granuloma in the right m iddle lobe. There is no pleural effusion. There is a left axillary pacemaker. Bony thorax is intact. There is spurring in the lower thoracic spine. IMPRESSION: No active cardiopulmonary disease. No change.
[2019-07-06] MEDS ORDERED: IPRATROPIUM-ALBUTEROL 3 ML NEB INHALATION STA ×2 (18:04→20:25)
[2019-07-06] MEDS ORDERED: HYDROmorphone 0.5 MG/0.5 ML SYRINGE IVP STA (18:10)
--- NOTE | 2019-07-06 19:09 | CT ---
EXAMINATION TYPE: CT abdomen pelvis w con DATE OF EXAM: 07/06/2019 COMPARISON: 04/27/2017 HISTORY: Abdominal and pelvic pain. CT DLP: 3134.4. mGycm Automated exposure control for dose reduction was used. CONTRAST: Performed with IV Contrast, patient injected with 100ml mL of Isovue 300. There are small pleural effusions. There is patchy atelectasis at the lung bases. Heart is enlarged. There is no pericardial effusion. There are clips from cholecystectomy. Liver spleen stomach pancreas appear normal. Bile ducts are not dilated. There is no adrenal mass. Kidneys show satisfactory contrast opacification. There is no hydronephrosi s. There is 1 cm cortical cyst upper pole right kidney. Ureters are not dilated. There is no retroper itoneal adenopathy. Bladder distends smoothly. There is no inguinal hernia. There is no free fluid in the pelvis. Appendix is normal. There is no mesenteric edema. There is no ascites or free air. There is no sign of a bowel obstructio n. Lumbar spine is intact. Bony pelvis appears intact. IMPRESSION: Small pleural effusions are new compared to old exam. Mild cardiomegaly unchanged. Atelectasis at the lung bases increased compared to old exam. No acute abnormality within the abdomen and pelvis.
[2019-07-06] MEDS ORDERED: MORPHINE SULFATE 4 MG/ML SYRINGE IVP PRN (20:23)
[2019-07-06 20:30] LABS: Appearance,Urine Clear (Clear); Bilirubin,Urine Negative (Negative); Blood,Urine Negative (Negative); Color,Urine Light Yellow; Glucose,Urine (UA) Negative (Negative); Ketones,Urine Negative (Negative); Leukocyte Esterase,Urine Negative (Negative); Nitrite,Urine Negative (Negative); Protein,Urine Negative (Negative); Urobilinogen,Urine <2.0 mg/dL (<2.0)
[2019-07-07] MEDS: FUROSEMIDE 10 MG/ML 4 ML VIAL IV SCH ×4 (00:21→23:37)
--- NOTE | 2019-07-07 01:47 | P.HPIM ---
History of Present Illness H&P Date: 07/07/19 The patient is an 89-year-old male with a PMH of CAD s/p stent, chronic anemia, pacemaker placement, CHF (unknown type), and Afib (previously on Coumadin, stopped due to GIB), and asthma presented to the ED w/ complaints of fluid overload. The patient notes that he has noticed worsening evita LE edema on-going for the past few days to weeks. He notes that the fluid had been gradually increasing despite compliance with his diet and medications. He also reports a diffuse abdominal discomfort which he attributes to the excessive fluid collection which has been making it difficult for him to move about. She reports gaining a total of 40-50 pounds since his previous admission. He reports some shortness of breath along. He denied chest discomfort, fever, chills, chest pain, diarrhea, nausea, vomiting, or dizziness. He underwent an extensive evaluation in the emergency room with an EKG showing a paced rhythm, chest x-ray unremarkable, CT abdomen and pelvis showing small bilateral pleural effusions, laboratory evaluation showing UA unremarkable, lactate 1.2, troponin 0.053, BNP 1480, WBC count 4.8, hemoglobin 8.4, sodium 134, potassium 4.1, BUN 21, and a creatinine of 1.18. Review of Systems Pertinent positives and negatives as discussed in HPI, a complete review of systems was performed and all other systems are negative. Past Medical History Past Medical History: Atrial Fibrillation, Asthma, Coronary Artery Disease (CAD), Cancer, Chest Pain / Angina, Pneumonia, Sleep Apnea/CPAP/BIPAP Additional Past Medical History / Comment(s): PUD, lower GI bleed, anemia, pancreatitis onece many years ago, bronchitis, ALPESH does not use device-falls off all the time, prostate cancer with 44 radiation treatments-completed Jan 2018, arthritis bilateral shoulders/arms, finger cramping, History of Any Multi-Drug Resistant Organisms: None Reported Past Surgical History: Ablation, Bladder Surgery, Cholecystectomy, Heart Catheterization, Heart Catheterization With Stent, Joint Replacement, Orthopedic Surgery, Pacemaker Additional Past Surgical History / Comment(s): 06/18/19 EGD at [facility], colonoscopy last one 2013, bilateral total knee arthroplasties, L rotator cuff surgery, 2006 pacemaker and gen change in 2013. Past Anesthesia/Blood Transfusion Reactions: No Reported Reaction Additional Past Anesthesia/Blood Transfusion Reaction / Comment(s): Pt has received blood in past without reaction. Date of Last Stent Placement:: 2001 Type of Cardiac Device: Unknown Device Placement Date:: 2005 inserted/2013 gen change. Past Psychological History: No Psychological Hx Reported Smoking Status: Former smoker Past Alcohol Use History: None Reported Past Drug Use History: None Reported - Past Family History Mother History Unknown: Yes Family Medical History: Cancer Additional Family Medical History / Comment(s): Family believes liver cancer Father History Unknown: Yes Family Medical History: Cancer Additional Family Medical History / Comment(s): Stomach cancer Medications and Allergies Home Medications Medication Instructions Recorded Confirmed Type Budesonide [Pulmicort] 0.5 mg INHALATION RT-BID 12/08/13 07/06/19 History Cetirizine HCl 10 mg PO DAILY 12/08/13 07/06/19 History Furosemide [Lasix] 40 mg PO DAILY 12/08/13 07/06/19 History Metoprolol Tartrate [Lopressor] 25 mg PO BID 12/08/13 07/06/19 History Simvastatin [Zocor] 80 mg PO HS 12/08/13 07/06/19 History Nitroglycerin Sl Tabs [Nitrostat] 0.4 mg SL Q5M PRN 02/27/14 07/06/19 History Albuterol Nebulized [Ventolin 2.5 mg INHALATION RT-QID PRN 04/27/17 07/06/19 History Nebulized] Calcium Carbonate [Calcium] 600 mg PO BID 04/27/17 07/06/19 History [place]-3/Dha/Epa/Fish Oil [Fish Oil 1 cap PO DAILY 04/27/17 07/06/19 History 500 mg Softgel] Montelukast [Singulair] 10 mg PO DAILY 01/24/19 07/06/19 History Spironolactone [Aldactone] 12.5 mg PO DAILY 01/24/19 07/06/19 History Benralizumab [Fasenra] 30 mg SQ Q60D 06/22/19 07/06/19 History Pantoprazole [Protonix] 40 mg PO AC-BID #180 tablet. 06/25/19 07/06/19 Rx Polyethylene Glycol 3350 [Miralax] 17 gm PO DAILY powd.pack 06/25/19 07/06/19 Rx Aspirin EC [Ecotrin Low Dose] 81 mg PO HS 07/06/19 07/06/19 History Ferrous Sulfate [Slow Release Iron] 250 mg PO Q48H 07/06/19 07/06/19 History Metolazone [Zaroxolyn] 2.5 mg PO FR 07/06/19 07/06/19 History Potassium Chloride ER [K-Dur 10] 10 meq PO DAILY 07/06/19 07/06/19 History Allergies Allergy/AdvReac Type Severity Reaction Status Date / Time zolpidem [From Ambien] AdvReac Hallucinati Verified 07/06/19 17:39 ons Physical Exam Vitals: Vital Signs Temp Pulse Resp BP Pulse Ox 07/06/19 22:31 676 H 16 129/87 99 07/06/19 20:30 58 L 16 126/57 97 07/06/19 19:28 59 L 22 126/57 95 07/06/19 19:00 59 L 16 124/56 96 07/06/19 18:29 60 07/06/19 18:11 60 07/06/19 18:04 62 18 124/56 99 07/06/19 16:30 98.2 F 62 20 155/73 100 Intake and Output 07/06/19 07/06/19 07/07/19 14:59 22:59 06:59 Other: Weight 130.635 kg General: non toxic, no distress, appears at stated age, morbidly obese Derm: no unusual rashes/lesions no unusual ecchymoses, warm, dry Head: atraumatic, normocephalic, symmetric Eyes: EOMI, no lid lag, anicteric sclera, pupils equal round reactive to light ENT: Nose and ears atraumatic, no thrush, no pharyngeal erythema Neck: No thyromegaly, no cervical lymphadenopathy, trachea midline, supple Mouth: no lip lesion, mucus membranes moist Cardiovascular: S1S2 reg, no murmur, positive posterior tibial pulse bilateral, 2+ bilateral lower extremity pitting edema extending to abdomen, capillary refill less than 2 seconds Lungs: Bilateral rales with wheezing appreciated, no rhonchi appreciated, no accessory muscle use Abdominal: soft, nontender to palpation, no guarding, no appreciable organomegaly, normal bowel sounds Ext: no gross muscle atrophy, muscle strength 4 out of 5 in all 4 extremities grossly, no contractures, Neuro: CN II-XI grossly intact, light touch intact all 4 extremities, finger to nose within normal limits, Psych: Alert, oriented, appropriate affect Results CBC & Chem 7: 07/06/19 17:06 07/06/19 17:06 Labs: Abnormal Lab Results - Last 24 Hours (Table) 07/06/19 07/06/19 07/06/19 Range/Units 17:06 17:06 17:06 RBC 2.84 L (4.30-5.90) m/uL Hgb 8.4 L (13.0-17.5) gm/dL Hct 26.8 L (39.0-53.0) % Lymphocytes # 0.6 L (1.0-4.8) k/uL Sodium 134 L (137-145) mmol/L Chloride 94 L (98-107) mmol/L Carbon Dioxide 32 H (22-30) mmol/L BUN 21 H (9-20) mg/dL Glucose 144 H (74-99) mg/dL Troponin I 0.053 H* (0.000-0.034) ng/mL Assessment and Plan Plan: Shortness of breath secondary to Acute CHF exacerbation vs Asthma exacerbation -Echocardiogram -Cardiology consult -Continue with Lasix 40 mg IV push every 8 hourly -Intake and output -Daily weights -Monitor BMP -C/w Duonebs -Troponin elevation - at baseline. Monitor for now Chronic conditions: Chronic anemia, CAD, Afib, HTN, HLD -C/w home meds DVT prophylaxis -Heparin subq The patient is admitted with an anticipated greater than 2 midnight stay for evaluation of CHF exacerbation CODE STATUS: Full Code Discussed with: Patient Anticipated discharge date: 2-[address]: Home A total of 40 minutes was spent on the care of this complex patient more than 50% of the time was spent in counseling and care coordination.
[2019-07-07] MEDS: PANTOPRAZOLE 40 MG TABLET PO SCH ×2 (06:27→17:44)
[2019-07-07] MEDS: MONTELUKAST 10 MG TAB PO SCH (08:19)
[2019-07-07] MEDS: CALCIUM CARBONATE 500 MG CHEWABLE PO SCH ×2 (08:19→20:09)
[2019-07-07] MEDS: HEPARIN SODIUM,PORCINE 5,000 UNIT/ML 1 ML VIAL SQ SCH ×3 (08:19→23:37)
[2019-07-07] MEDS: METOPROLOL TARTRATE 25 MG TAB PO SCH ×2 (08:21→20:09)
[2019-07-07] MEDS ORDERED: SPIRONOLACTONE 25 MG TAB PO SCH (09:00)
[2019-07-07] MEDS: IPRATROPIUM-ALBUTEROL 3 ML NEB INHALATION PRN (09:23)
[2019-07-07] MEDS: BUDESONIDE 0.5 MG/2 ML NEBU INHALATION SCH ×2 (09:23→20:13)
[2019-07-07] MEDS ORDERED: SPIRONOLACTONE 25 MG TAB PO ONE (10:30)
--- NOTE | 2019-07-07 10:45 | CONS ---
CONSULTATION Mr. Griffith is an 89-year-old gentleman who is seen for the cardiac evaluation. The patient's electronic medical records and lab tests were reviewed. This patient came to the hospital with a complaint that he has been having swelling in his legs as well is abdomen with the difficulty in breathing. Patient denies any definite orthopnea or PND, cough with expectoration or chest pain, fever and chills. The patient was seen in the emergency room, had a CT scan of the abdomen which did not show any significant abnormality. No ascites was noted. There was a minimal pleural effusion. The patient has a known history of chronic atrial fibrillation, history of permanent pacemaker. He was recently admitted in the hospital with low hemoglobin and who was treated, underwent an upper GI endoscopy. Patient was found to have a peptic ulcer disease as well as the polyp on the colon which was removed. Patient's Coumadin was discontinued. He does have a past history of GI bleed with Coumadin. Since the discharge from the hospital patient denies any black stools. HOME MEDICATIONS: Include Pulmicort, cetirizine, Lasix 40 mg daily, Lopressor 25 mg b.i.d., Zocor 80 mg daily, calcium, Aldactone 12.5 mg daily, Ecotrin, Zaroxolyn 2.5 mg per oral on Saturday and potassium chloride once a day. PAST MEDICAL HISTORY: Includes a history of stable CAD with a prior history of a stent placement, history of asthma, history of prostate cancer. Past history of ablation, permanent pacemaker, cholecystectomy, orthopedic surgery, and joint replacement. PHYSICAL EXAMINATION: At present reveals 89-year-old obesely-built gentleman who does not appear to be in any acute distress at present. Patient's blood pressure is 107/52 mmHg, heart rate is 60 per minute. HEENT examination is negative. Neck is supple. There is no significant increase in jugular venous pressure. First and second heart sounds are normal. Lungs reveal bilateral scattered rhonchi. Abdomen is distended, but there is no evidence of fluid by CT scan. Extremities there is a 2+ pedal edema. Chest x-ray does not show any significant left ventricular failure. The patient's proBNP level is only 14 80. Patient had 3 troponin which are identical without any significant rise and fall suggestive of chronic myocardial injury. FINAL IMPRESSION: 1. This patient is admitted with a swelling in the legs and abdomen. This could be secondary to venous insufficiency or right-sided heart failure. There is no evidence of any significant pulmonary hypertension by echocardiogram, LV systolic function is 45%-50%. 2. History of chronic atrial fibrillation. 3. Mildly elevated troponin suggestive of chronic myocardial injury without definite evidence of any type 1 myocardial infarction. RECOMMENDATIONS: We recommend to continue the Lasix 40 mg q.8 hourly and Aldactone 25 mg b.i.d. Further adjustment in the diuretic regimen can be made per as necessary. I would recommend to discontinue aspirin and consider treating the patient is with Eliquis 2.5 mg b.i.d. in view of that there is a lower incidence of GI bleed with Eliquis as compared. MMODL / IJN: [id number] /
--- NOTE | 2019-07-07 12:33 | P.PN ---
Subjective Progress Note Date: 07/07/19 Principal diagnosis: CHF exacerbation Patient was seen and examined. No acute events overnight. Patient reports considerable improvement in his breathing continues to complain of shortness of breath especially with exertion. He also reports improvement in his lower extremity edema. He denies any chest pain or palpitations. No nausea or vomiting. No fever or chills. Objective - Vital Signs Vital signs: Vital Signs Temp 97.8 F 07/07/19 11:39 Pulse 68 07/07/19 11:39 Resp 18 07/07/19 11:39 BP 134/74 07/07/19 11:39 Pulse Ox 96 07/07/19 11:39 Intake & Output 07/06/19 07/07/19 07/07/19 18:59 06:59 18:59 Intake Total 460 Output Total 250 400 Balance -250 60 Weight 130.635 kg 129 kg 129 kg Intake: Oral 460 Output: Urine 250 400 Other: Voiding Method Toilet Toilet # Voids 1 - Exam General: [non toxic], [no distress], [appears at stated age] Derm: [warm], [dry] Head: [atraumatic], [normocephalic], [symmetric] Eyes: [EOMI], [no lid lag], [anicteric sclera] Mouth: [no lip lesion], [mucus membranes moist] Cardiovascular: [S1S2 reg], [no murmur], [positive DP pulse bilateral], Lungs: [Decreased breath sounds bilateral], [Rales bilaterally] , [no accessory muscle use] Abdominal: [soft], [ nontender to palpation], [no guarding], [no appreciable organomegaly] Ext: [no gross muscle atrophy], [1+ bilateral lower extremity edema], [no contractures] Neuro: [no focal neuro deficits] Psych: [Alert], [oriented], [appropriate affect] - Labs CBC & Chem 7: 07/06/19 17:06 07/06/19 17:06 Labs: Abnormal Lab Results - Last 24 Hours (Table) 07/06/19 07/06/19 07/06/19 Range/Units 17:06 17:06 17:06 RBC 2.84 L (4.30-5.90) m/uL Hgb 8.4 L (13.0-17.5) gm/dL Hct 26.8 L (39.0-53.0) % Lymphocytes # 0.6 L (1.0-4.8) k/uL Sodium 134 L (137-145) mmol/L Chloride 94 L (98-107) mmol/L Carbon Dioxide 32 H (22-30) mmol/L BUN 21 H (9-20) mg/dL Glucose 144 H (74-99) mg/dL Troponin I 0.053 H* (0.000-0.034) ng/mL 07/06/19 07/07/19 Range/Units 23:49 04:54 RBC (4.30-5.90) m/uL Hgb (13.0-17.5) gm/dL Hct (39.0-53.0) % Lymphocytes # (1.0-4.8) k/uL Sodium (137-145) mmol/L Chloride (98-107) mmol/L Carbon Dioxide (22-30) mmol/L BUN (9-20) mg/dL Glucose (74-99) mg/dL Troponin I 0.060 H* 0.059 H* (0.000-0.034) ng/mL Assessment and Plan Assessment: Acute on chronic CHF exacerbation Troponin elevation with history of CAD Hypochloremic metabolic alkalosis Chronic anemia Atrial fibrillation Hypertension Patient has shown considerable improvement in his breathing with Lasix IV diuresis. He has lost about 1 kg so far. Plans: Continue Lasix 40 mg IV 3 times a day. Strict intake and output takes. Daily weights. Follow cardiology recommendations. Follow-up echocardiogram. Continue metoprolol. Continue Aldactone. Troponin 0.053, 0.06, 0.059 with EKG showing electronic ventricular pacemaker. Likely troponin leak from CHF. Plans: ACS ruled out. Continue aspirin and Lipitor. Continue beta lucian. Telemetry monitoring. Follow cardiology recommendations. Chloride 94, bicarbonate 32. Likely related to forced diuresis. Plans: Repeat BMP tomorrow morning. Hemoglobin 8.4, normocytic. Appears at baseline. No signs of bleeding. Likely from GI bleed from previous admissions. Plans: Transfuse if hemoglobin less than 7. Daily CBC. Patient will need to follow-up with his PCP for further workup of his anemia. Plans: Continue metoprolol. No anticoagulation due to GI bleed. BP 134/74. Plans: Continue antihypertensive medication. Monitor vitals, adjust medications as necessary. [Patient admitted for CHF exacerbation. Cardiology following. Patient is pending clinical improvement. Likely DC in 1-2 days.]
--- NOTE | 2019-07-07 13:00 | ECHOF ---
Referral Reason:chest pain MEASUREMENTS -------- HEIGHT: 167.6 cm WEIGHT: 128.8 kg BP: RVIDd: 4.6 cm (< 3.3) IVSd: 0.9 cm (0.6 - 1.1) LVIDd: 5.6 cm (3.9 - 5.3) LVPWd: 1.1 cm (0.6 - 1.1) IVSs: 1.6 cm LVIDs: 2.9 cm LVPWs: 1.5 cm Ao Diam: 2.9 cm (2.0 - 3.7) AV Cusp: 1.9 cm (1.5 - 2.6) LA Diam: 4.0 cm (2.7 - 3.8) MV EXCURSION: 14.447 mm (> 18.000) MV EF SLOPE: 109 mm/s (70 - 150) EPSS: 0.9 cm MV E Norberto: 1.13 m/s MV DecT: 290 ms MV A Norberto: 0.22 m/s MV E/A Ratio: 5.21 RAP: 5.00 mmHg RVSP: 39.38 mmHg FINDINGS -------- Paced rhythm. This was a technically difficult study with suboptimal views. The left ventricular size is normal. Left ventricular wall thickness is normal. Overall left vent ricular systolic function is mildly impaired with, an EF between 45 - 50 %. Left ventricular fillim g pressure cannot be estimated due to paced rhythm. The right ventricle is severely enlarged. The left atrial size is normal. The right atrium was not well visualized. 5.0mg of Lumason was utilized for enhancement of images The aortic valve was not well visualized. The mitral valve is normal. Mild mitral regurgitation is present. The tricuspid valve appears structurally normal. Mild tricuspid regurgitation present. There is m ild pulmonary hypertension. The right ventricular systolic pressure, as measured by Doppler, is 39. 38mmHg. There is no pulmonic regurgitation present. The aortic root size is normal. IVC Not well visulized. There is no pericardial effusion. CONCLUSIONS -------- 1. Paced rhythm. 2. This was a technically difficult study with suboptimal views. 3. The left ventricular size is normal. 4. Left ventricular wall thickness is normal. 5. Overall left ventricular systolic function is mildly impaired with, an EF between 45 - 50 %. 6. Left ventricular fillimg pressure cannot be estimated due to paced rhythm. 7. The right ventricle is severely enlarged. 8. The left atrial size is normal. 9. The right atrium was not well visualized. 10. 5.0mg of Lumason was utilized for enhancement of images 11. The aortic valve was not well visualized. 12. The mitral valve is normal. 13. Mild mitral regurgitation is present. 14. The tricuspid valve appears structurally normal. 15. Mild tricuspid regurgitation present. 16. There is mild pulmonary hypertension. 17. The right ventricular systolic pressure, as measured by Doppler, is 39.38mmHg. 18. There is no pulmonic regurgitation present. 19. The aortic root size is normal. 20. IVC Not well visulized. 21. There is no pericardial effusion. MACHINIST HELPER MARINE: Marie Easley RDCS
[2019-07-07] MEDS: SPIRONOLACTONE 25 MG TAB PO SCH (20:09)
[2019-07-07] MEDS: ATORVASTATIN 40 MG TAB PO SCH (20:09)
[2019-07-07] MEDS ORDERED: ASPIRIN 81 MG PO SCH (21:00)
[2019-07-08] MEDS: PANTOPRAZOLE 40 MG TABLET PO SCH ×2 (06:47→17:00)
[2019-07-08] MEDS: BUDESONIDE 0.5 MG/2 ML NEBU INHALATION SCH ×2 (07:40→20:48)
[2019-07-08] MEDS: IPRATROPIUM-ALBUTEROL 3 ML NEB INHALATION PRN ×2 (07:40→20:48)
[2019-07-08] MEDS ORDERED: FERROUS SULFATE 250 MG PO SCH (09:00)
[2019-07-08] MEDS: METOPROLOL TARTRATE 25 MG TAB PO SCH ×2 (09:31→20:21)
[2019-07-08] MEDS: MONTELUKAST 10 MG TAB PO SCH (09:31)
[2019-07-08] MEDS: CALCIUM CARBONATE 500 MG CHEWABLE PO SCH ×2 (09:31→20:21)
[2019-07-08] MEDS: SPIRONOLACTONE 25 MG TAB PO SCH ×2 (09:31→20:21)
[2019-07-08] MEDS: HEPARIN SODIUM,PORCINE 5,000 UNIT/ML 1 ML VIAL SQ SCH (09:32)
[2019-07-08] MEDS: FUROSEMIDE 10 MG/ML 4 ML VIAL IV SCH ×3 (09:32→22:47)
--- NOTE | 2019-07-08 11:27 | CDI ---
Documentation Clarification Form Date: 07/08/2019 10:57:30 AM From: Verónica Rojas RN CCDS Admit Date: 07/06/2019 08:24:00 PM Patient Name: Garrett Griffith Visit Number: [id number] Discharge Date: ATTENTION: The Clinical Documentation Specialists (CDI) and [facility] Coding Staff appreciate your assistance in clarifying documentation. Please respond to the clarification below the line at the bottom and electronically sign. The CDI & [facility] Coding staff will review the response and follow-up if needed. Please note: Queries are made part of the Legal Health Record. If you have any questions, please contact the author of this message via ITS. Dr. Betty Garcia The patient was admitted for CHF exacerbation per 07/06 progress note by attending. History/Risk Factors: 89-year-old male presents to the ED with bilateral lower extremity edema worsening over the past few weeks. Medical history CAD, Anemia, CHF unknown type and Afib Clinical Indicators: Per Cardiology consult 07/06 This patient is admitted with a swelling in the legs and abdomen. This could be secondary to venous insufficiency or right sided heart failure. VS/Pulse OX: 07/05 155/73 62 98.2 20 100% ra BNP: 07/05 46836 Echocardiogram Results: 07/06 Overall left ventricular systolic Chest X Ray: 07/05 no active cardiopulmonary disease Treatment: 07/05 Lasix 80mg Iv x1, 07/06 Lasix Iv 40mg Q 8 Hrs , Aldactone 12.5mg po x1, Aldactone 25mg Bid Camille, Lopressor 25mg po Bid Camille, In your professional opinion, can you please clarify the acuity and type of CHF if known? Acute on Chronic Systolic Heart Failure Acute on Chronic Diastolic Heart Failure Acute on Chronic Systolic & Diastolic Heart Failure Unable to Determine Other, please specify (Last Revision: July 2017) 07/08 Cardiology Progress Note Right sided heart failure, diastolic acute on chronic. karla AGARWAL
[2019-07-08] MEDS: APIXABAN 2.5 MG TABLET PO SCH ×2 (12:03→20:21)
[2019-07-08] MEDS ORDERED: BENZOCAINE/MENTHOL LOZENG 1 EACH LOZENGE MUCOUS MEM PRN (13:23)
[2019-07-08] MEDS ORDERED: POLYETHYLENE GLYCOL 3350 17 GM POWD.PACK PO STA (13:23)
[2019-07-08] MEDS ORDERED: BENZOCAINE/MENTHOL LOZENG 1 EACH LOZENGE MUCOUS MEM STA (13:23)
--- NOTE | 2019-07-08 14:14 | P.PN ---
Subjective Progress Note Date: 07/08/19 Principal diagnosis: CHF exacerbation Patient was seen and examined. No acute events overnight. Patient reports considerable improvement in his breathing since admission. He also reports improvement in his lower extremity edema but still persistent. Patient complains of constipation last bowel movement was 5 days ago. He denies any chest pain or palpitations. No nausea or vomiting. No fever or chills. Objective - Vital Signs Vital signs: Vital Signs Temp 98.4 F 07/08/19 12:00 Pulse 77 07/08/19 12:00 Resp 18 07/08/19 12:00 BP 117/60 07/08/19 12:00 Pulse Ox 91 L 07/08/19 12:00 Intake & Output 07/07/19 07/08/19 07/08/19 18:59 06:59 18:59 Intake Total 1180 240 480 Output Total 1350 1350 Balance -170 -1110 480 Weight 129 kg 128 kg Intake: Oral 1180 240 480 Output: Urine 1350 1350 Other: Voiding Method Toilet Toilet Toilet # Voids 1 1 # Bowel Movements 0 - Exam General: [non toxic], [no distress], [appears at stated age] Derm: [warm], [dry] Head: [atraumatic], [normocephalic], [symmetric] Eyes: [EOMI], [no lid lag], [anicteric sclera] Mouth: [no lip lesion], [mucus membranes moist] Cardiovascular: [S1S2 reg], [no murmur], [positive DP pulse bilateral], Lungs: [Decreased breath sounds bilateral], [Rales at the bases improved from yesterday] , [no accessory muscle use] Abdominal: [soft], [ nontender to palpation], [no guarding], [no appreciable organomegaly] Ext: [no gross muscle atrophy], [1+ bilateral lower extremity edema], [no contractures] Neuro: [no focal neuro deficits] Psych: [Alert], [oriented], [appropriate affect] - Labs CBC & Chem 7: 07/06/19 17:06 07/06/19 17:06 Assessment and Plan Assessment: Acute on chronic CHF exacerbation Troponin elevation with history of CAD Constipation Chronic anemia Atrial fibrillation Hypertension Patient has shown considerable improvement in his breathing with Lasix IV diuresis. He has lost about 2 kg so far. Echocardiogram shows EF 45-50%. Plans: Continue Lasix 40 mg IV 3 times a day. Strict intake and output takes. Daily weights. Follow cardiology recommendations. Continue metoprolol. Continue A ldactone. Troponin 0.053, 0.06, 0.059 with EKG showing electronic ventricular pacemaker. Likely troponin leak from CHF. Plans: ACS ruled out. Continue aspirin and Lipitor. Continue beta lucian. Telemetry monitoring. Follow cardiology recommendations. CT AP unrevealing. Plans: Miralax today. Hemoglobin 8.4, normocytic. Appears at baseline. No signs of bleeding. Likely from GI bleed from previous admissions. Plans: Transfuse if hemoglobin less than 7. Daily CBC. Patient will need to follow-up with his PCP for further workup of his anemia. Plans: Continue metoprolol. No anticoagulation due to GI bleed. BP 117/60. Plans: Continue antihypertensive medication. Monitor vitals, adjust medications as necessary. [Patient admitted for CHF exacerbation. Cardiology following. Patient is pending clinical improvement. Transition to oral lasix tomorrow. Repeat CBC and BMP ordered for today. Likely DC in 1-2 days.]
--- NOTE | 2019-07-08 14:23 | P.PN ---
Subjective Progress Note Date: 07/08/19 Is an 89-year-old gentleman presented to the hospital with bilateral lower extremity edema as well as swelling in his abdomen. He was seen in consultation yesterday by Dr. VC Garcia. Echocardiogram with Doppler study was performed which revealed a severely enlarged and right ventricle, ejection fraction 45- 50%. Blood pressure 117/60 with a heart rate in the 70s, 91% on room air. Patient states that his breathing overall is significantly improved, there is improvement in his lower extremity edema but he still persists to have significant edema. Objective - Vital Signs Vital signs: Vital Signs Temp 98.4 F 07/08/19 12:00 Pulse 77 07/08/19 12:00 Resp 18 07/08/19 12:00 BP 117/60 07/08/19 12:00 Pulse Ox 91 L 07/08/19 12:00 Intake & Output 07/07/19 07/08/19 07/08/19 18:59 06:59 18:59 Intake Total 1180 240 480 Output Total 1350 1350 Balance -170 -1110 480 Weight 129 kg 128 kg Intake: Oral 1180 240 480 Output: Urine 1350 1350 Other: Voiding Method Toilet Toilet Toilet # Voids 1 1 # Bowel Movements 0 - Exam PHYSICAL EXAMINATION: GENERAL: 72-year-old gentleman in no acute distress at the time of my examination HEENT: Head is atraumatic, normocephalic. Pupils equal, round. Sclera anicteric. Conjunctiva are clear. Mucous membranes of the mouth are moist. Neck is supple. There is no elevated jugular venous pressure. No carotid bruit is heard. HEART EXAMINATION: Heart S1, S2 irregularly irregular . No murmur or gallop heard. CHEST EXAMINATION: Lungs reveal fine rales to the bases bilaterally. ABDOMEN: Soft, obese, nontender. Bowel sounds are heard. No organomegaly noted. EXTREMITIES: 2+ peripheral pulses with evidence of peripheral edema and no calf tenderness noted. NEUROLOGIC patient is awake, alert and oriented 3 . - Labs CBC & Chem 7: 07/06/19 17:06 07/06/19 17:06 Assessment and Plan Plan: Assessment and plan #1 bilateral lower extremity edema as well as swelling in the abdomen, could be secondary to venous insufficiency and right-sided heart failure, diastolic acute on chronic. #2 chronic persistent atrial fibrillation #3 mildly elevated troponins suggestive of myocardial injury, no evidence of GA Plan We will continue current dose of Lasix, we will also start the patient on Eliqui s 2.5 mg one tablet by mouth twice a day today. DNP note has been reviewed, I agree with a documented findings and plan of care. Patient was seen and examined.
[2019-07-08 14:53] LABS: Calcium 9.8 mg/dL (8.4-10.2); Potassium 3.9 mmol/L (3.5-5.1)
[2019-07-08 15:04] LABS: Basophils % (A) 0 %; Eosinophils % (A) 0 %; HCT 26.4 % (39.0-53.0); HGB 8.2 gm/dL (13.0-17.5); Hypochromasia Moderate; Lymphocytes # (A) 0.7 k/uL (1.0-4.8); Lymphocytes % (A) 15 %; MCH 29.6 pg (25.0-35.0); MCHC 31.2 g/dL (31.0-37.0); MCV 94.9 fL (80.0-100.0); Mean Platelet Volume 7.5; Monocytes # (A) 0.5 k/uL (0-1.0); Monocytes % (A) 11 %; Neutrophils # (A) 3.3 k/uL (1.3-7.7); Neutrophils % (A) 71 %; Platelet Count 281 k/uL (150-450); RBC 2.78 m/uL (4.30-5.90); RDW 14.8 % (11.5-15.5); WBC 4.7 k/uL (3.8-10.6)
[2019-07-08] MEDS: ATORVASTATIN 40 MG TAB PO SCH (20:21)
[2019-07-09] MEDS: PANTOPRAZOLE 40 MG TABLET PO SCH ×2 (06:29→17:24)
[2019-07-09] MEDS: BUDESONIDE 0.5 MG/2 ML NEBU INHALATION SCH ×2 (07:06→19:36)
[2019-07-09] MEDS: IPRATROPIUM-ALBUTEROL 3 ML NEB INHALATION PRN ×2 (07:06→19:36)
[2019-07-09] MEDS: CALCIUM CARBONATE 500 MG CHEWABLE PO SCH ×2 (08:54→20:19)
[2019-07-09] MEDS: FUROSEMIDE 10 MG/ML 4 ML VIAL IV SCH (08:54)
[2019-07-09] MEDS: METOPROLOL TARTRATE 25 MG TAB PO SCH ×2 (08:54→20:19)
[2019-07-09] MEDS: SPIRONOLACTONE 25 MG TAB PO SCH ×2 (08:54→20:19)
[2019-07-09] MEDS: MONTELUKAST 10 MG TAB PO SCH (08:54)
[2019-07-09] MEDS: APIXABAN 2.5 MG TABLET PO SCH ×2 (08:54→20:18)
--- NOTE | 2019-07-09 09:43 | XR ---
EXAMINATION TYPE: XR chest 1V portable DATE OF EXAM: 07/09/2019 CLINICAL HISTORY: Difficulty breathing progress study. TECHNIQUE: Single AP portable upright view of the chest is obtained. COMPARISON: Chest x-ray from 3 days earlier and older studies. FINDINGS: Overlying EKG leads are redemonstrated. Persistent mild cardiomegaly with dual lead pacema ker and atherosclerotic thoracic aorta. No new suspicious focal airspace opacity, pleural effusion, o r pneumothorax seen bilaterally. Stable calcified nodule or granuloma right mid to lower lung lateral ly. Osseous structures are intact. IMPRESSION: Overall stable findings, mild cardiomegaly without acute pulmonary process
--- NOTE | 2019-07-09 11:34 | PN ---
PROGRESS NOTE This patient is primarily admitted with bilateral swelling in the legs as well as abdominal swelling. There was no evidence of any ascites. There is no evidence of any significant left ventricular failure. Left ventricular systolic function is normal. The patient has responded to the IV Lasix and Zaroxolyn. His blood pressure now is 121/46 mmHg. Denies any orthopnea or PND. First and second heart sounds are normal. Lungs are clear to auscultation and percussion. Swelling in the legs is improved. We will discontinue IV Lasix and start the patient on Demadex 20 mg b.i.d. Continue the rest of the medications. The patient can be discharged in next 24 hours. MMODL / IJN: [id number] /
--- NOTE | 2019-07-09 12:03 | P.PN ---
Subjective Progress Note Date: 07/09/19 Is an 89-year-old gentleman presented to the hospital with bilateral lower extremity edema as well as swelling in his abdomen. He was seen in consultation yesterday by Dr. VC Garcia. Echocardiogram with Doppler study was performed which revealed a severely enlarged and right ventricle, ejection fraction 45- 50%. Blood pressure 117/60 with a heart rate in the 70s, 91% on room air. Patient states that his breathing overall is significantly improved, there is improvement in his lower extremity edema but he still persists to have significant edema. 07/09/2019 Patient seen and examined this morning, continues to feel better overall. Creatinine up to 1.4 today. Edema improving significantly. Blood pressure 120/50 with a heart rate in the 60s, 95% on room air. White blood cell count 4.7, hemoglobin 8.2, platelet count 281. Sodium 134, potassium 3.9, 37 BUN with creatinine of 1.4. Objective - Vital Signs Vital signs: Vital Signs Temp 98.0 F 07/09/19 03:27 Pulse 60 07/09/19 07:20 Resp 20 07/09/19 03:28 BP 121/46 07/09/19 03:27 Pulse Ox 95 07/09/19 03:27 Intake & Output 07/08/19 07/09/19 07/09/19 18:59 06:59 18:59 Intake Total 720 160 540 Output Total 1200 1200 200 Balance -480 -1040 340 Weight 126.5 kg Intake: IV 10 Invasive Line 1 10 Oral 720 150 540 Output: Urine 1200 1200 200 Other: Voiding Method Toilet Toilet # Voids 0 1 # Bowel Movements 1 - Exam PHYSICAL EXAMINATION: GENERAL: 72-year-old gentleman in no acute distress at the time of my examination HEENT: Head is atraumatic, normocephalic. Pupils equal, round. Sclera anicteric. Conjunctiva are clear. Mucous membranes of the mouth are moist. Neck is supple. There is no elevated jugular venous pressure. No carotid br uit is heard. HEART EXAMINATION: Heart S1, S2 irregularly irregular . No murmur or gallop heard. CHEST EXAMINATION: Lungs reveal fine rales to the bases bilaterally. ABDOMEN: Soft, obese, nontender. Bowel sounds are heard. No organomegaly noted. EXTREMITIES: 2+ peripheral pulses with 1-2 evidence of peripheral edema and no calf tenderness noted. NEUROLOGIC patient is awake, alert and oriented 3 . - Labs CBC & Chem 7: 07/08/19 14:23 07/08/19 14:23 Labs: Abnormal Lab Results - Last 24 Hours (Table) 07/08/19 07/08/19 Range/Units 14:23 14:23 RBC 2.78 L (4.30-5.90) m/uL Hgb 8.2 L (13.0-17.5) gm/dL Hct 26.4 L (39.0-53.0) % Lymphocytes # 0.7 L (1.0-4.8) k/uL Sodium 134 L (137-145) mmol/L Chloride 91 L (98-107) mmol/L Carbon Dioxide 36 H (22-30) mmol/L BUN 37 H (9-20) mg/dL Creatinine 1.43 H (0.66-1.25) mg/dL Glucose 125 H (74-99) mg/dL Assessment and Plan Plan: Assessment and plan #1 bilateral lower extremity edema as well as swelling in the abdomen, could be secondary to venous insufficiency and right-sided heart failure, diastolic acute on chronic. #2 chronic persistent atrial fibrillation #3 mildly elevated troponins suggestive of myocardial injury, no evidence of CA Plan We will decrease the IV Lasix to 40 mg IV daily, check lytes BUN and creatinine in the morning. DNP note has been reviewed, I agree with a documented findings and plan of care. Patient was seen and examined.
[2019-07-09] MEDS ORDERED: BISACODYL 10 MG SUPP RECTAL STA (12:08)
--- NOTE | 2019-07-09 12:14 | P.PN ---
Subjective Progress Note Date: 07/09/19 Principal diagnosis: CHF exacerbation Patient was seen and examined. No acute events overnight. Patient reports considerable improvement in his breathing since admission. He also reports improvement in his lower extremity edema but still persistent. Patient complains of constipation last bowel movement was 5 days ago, given MiraLAX yesterday with no relief, requesting suppository. He denies any chest pain or palpitations. No nausea or vomiting. No fever or chills. Case was discussed with his and daughter via phone this morning. Objective - Vital Signs Vital signs: Vital Signs Temp 98.0 F 07/09/19 03:27 Pulse 60 07/09/19 07:20 Resp 20 07/09/19 03:28 BP 121/46 07/09/19 03:27 Pulse Ox 95 07/09/19 03:27 Intake & Output 07/08/19 07/09/19 07/09/19 18:59 06:59 18:59 Intake Total 720 160 540 Output Total 1200 1200 200 Balance -480 -1040 340 Weight 126.5 kg Intake: IV 10 Invasive Line 1 10 Oral 720 150 540 Output: Urine 1200 1200 200 Other: Voiding Method Toilet Toilet # Voids 0 1 # Bowel Movements 1 - Exam General: [non toxic], [no distress], [appears at stated age] Derm: [warm], [dry] Head: [atraumatic], [normocephalic], [symmetric] Eyes: [EOMI], [no lid lag], [anicteric sclera] Mouth: [no lip lesion], [mucus membranes moist] Cardiovascular: [S1S2 reg], [no murmur], [positive DP pulse bilateral], Lungs: [Decreased breath sounds bilateral], [Rales bilaterally slightly worsened from yesterday] , [no accessory muscle use] Abdominal: [soft], [ nontender to palpation], [no guarding], [no appreciable organomegaly] Ext: [no gross muscle atrophy], [1+ bilateral lower extremity edema], [no contractures] Neuro: [no focal neuro deficits] Psych: [Alert], [oriented], [appropriate affect] - Labs CBC & Chem 7: 07/08/19 14:23 07/08/19 14:23 Labs: Abnormal Lab Results - Last 24 Hours (Table) 07/08/19 07/08/19 Range/Units 14:23 14:23 RBC 2.78 L (4.30-5.90) m/uL Hgb 8.2 L (13.0-17.5) gm/dL Hct 26.4 L (39.0-53.0) % Lymphocytes # 0.7 L (1.0-4.8) k/uL Sodium 134 L (137-145) mmol/L Chloride 91 L (98-107) mmol/L Carbon Dioxide 36 H (22-30) mmol/L BUN 37 H (9-20) mg/dL Creatinine 1.43 H (0.66-1.25) mg/dL Glucose 125 H (74-99) mg/dL Assessment and Plan Assessment: Acute on chronic CHF exacerbation Troponin elevation with history of CAD Acute kidney injury Constipation Chronic anemia Atrial fibrillation Hypertension Patient has shown considerable improvement in his breathing with Lasix IV diuresis. He has lost about 4 kg so far. Echocardiogram shows EF 45-50%. Plans: Lasix changed from TID dosing to 40 mg IV daily. Strict intake and output takes. Daily weights. Follow cardiology recommendations. Continue metoprolol. Continue Aldactone. Troponin 0.053, 0.06, 0.059 with EKG showing electronic ventricular pacemaker. Likely troponin leak from CHF. Plans: ACS ruled out. Continue aspirin and Lipitor. Continue beta lucian. Telemetry monitoring. Follow cardiology recommendations. Creatinine elevation likely from forced diuresis. Plans: Decreased Lasix. Repeat BMP tomorrow morning. Avoid nephrotoxins. CT AP unrevealing. Plans: Dulcolax suppository today. Hemoglobin 8.2, normocytic. Appears at baseline. No signs of bleeding. Likely from GI bleed from previous admissions. Plans: Transfuse if hemoglobin less than 7. Daily CBC. Patient will need to follow-up with his PCP for further workup of his anemia. Plans: Continue metoprolol. No anticoagulation due to GI bleed. BP 121/46. Plans: Continue antihypertensive medication. Monitor vitals, adjust medications as necessary. [Patient admitted for CHF exacerbation. Cardiology following. Patient is pending clinical improvement. Transition to oral lasix tomorrow. Likely DC in 1-2 days.]
[2019-07-09] MEDS: ATORVASTATIN 40 MG TAB PO SCH (20:18)
[2019-07-10] MEDS: PANTOPRAZOLE 40 MG TABLET PO SCH (05:59)
[2019-07-10] MEDS: IPRATROPIUM-ALBUTEROL 3 ML NEB INHALATION PRN (07:25)
[2019-07-10] MEDS: BUDESONIDE 0.5 MG/2 ML NEBU INHALATION SCH (07:25)
[2019-07-10] MEDS: SPIRONOLACTONE 25 MG TAB PO SCH (08:47)
[2019-07-10] MEDS: CALCIUM CARBONATE 500 MG CHEWABLE PO SCH (08:47)
[2019-07-10] MEDS: MONTELUKAST 10 MG TAB PO SCH (08:47)
[2019-07-10] MEDS: APIXABAN 2.5 MG TABLET PO SCH (08:47)
[2019-07-10] MEDS: METOPROLOL TARTRATE 25 MG TAB PO SCH (08:48)
[2019-07-10] MEDS ORDERED: FUROSEMIDE 10 MG/ML 4 ML VIAL IV SCH (09:00)
[2019-07-10] MEDS ORDERED: METOLAZONE 2.5 MG TAB PO SCH (09:00)
[2019-07-10 11:42] VITALS: BMI 45.3
[2019-07-10 11:45] VITALS: BP 107/47; PULSE 96; RESP 20; TEMP 97.6
--- NOTE | 2019-07-10 12:01 | P.DS ---
Providers Date of admission: 07/06/19 20:24 Expected date of discharge: 07/10/19 Attending physician: Ciara Sherwood MD Consults: 07/07/19 01:43 Consult Physician Routine Consulting Provider: Wayne France Consult Reason/Comments: CHF Do you want consulting provider notified?: Yes Primary care physician: [facility] Course: The patient is an 89-year-old male with a PMH of CAD s/p stent, chronic anemia, pacemaker placement, CHF (unknown type), and Afib (previously on Coumadin, stopped due to GIB), and asthma presented to the ED w/ complaints of fluid overload. He underwent an extensive evaluation in the emergency room with an EKG showing a paced rhythm, chest x-ray unremarkable, CT abdomen and pelvis showing small bilateral pleural effusions, laboratory evaluation showing UA unremarkable, lactate 1.2, troponin 0.053, BNP 1480, WBC count 4.8, hemoglobin 8.4, sodium 134, potassium 4.1, BUN 21, and a creatinine of 1.18. Patient symptoms were consistent with CHF exacerbation. He was initially diuresed with Lasix 40 mg IV 3 times a day. Cardiology was consulted and recommended echocardiogram. Echocardiogram showed EF of 45-50%. He was placed on strict intake and output along with daily weights. He was continued on metoprolol and Aldactone. He was noted to have elevated troponins of 0.053, 0.06 and 0.059 with EKG showing electronic ventricular pacemaker. This is thought to be related to troponin leak from CHF. Acute coronary syndrome was ruled out. Patient was continued on aspirin and Lipitor. Patient had worsening of his creatinine to 1.43 on discharge. This is likely related to forced diuresis. Patient was seen and examined. No acute events overnight. Patient reports bowel movement yesterday. He denies any chest pain, shortness of breath or palpitations. No nausea or vomiting. No fever or chills. General: [non toxic], [no distress], [appears at stated age] Derm: [warm], [dry] Head: [atraumatic], [normocephalic], [symmetric] Eyes: [EOMI], [no lid lag], [anicteric sclera] Mouth: [no lip lesion], [mucus membranes moist] Cardiovascular: [S1S2 reg], [no murmur], [positive DP pulse bilateral], Lungs: [Decreased breath sounds bilateral], [no rales or crackles] , [no accessory muscle use] Abdominal: [soft], [ nontender to palpation], [no guarding], [no appreciable organomegaly] Ext: [no gross muscle atrophy], [1+ bilateral lower extremity edema], [no contractures] Neuro: [no focal neuro deficits] Psych: [Alert], [oriented], [appropriate affect] Acute on chronic CHF exacerbation Troponin elevation with history of CAD Acute kidney injury Constipation Chronic anemia Atrial fibrillation Hypertension Patient has shown considerable improvement in his breathing with Lasix IV diuresis. He has lost about 4 kg so far but gained 1 kg overnight. Echocardiogram shows EF 45-50%. Plans: Lasix changed from TID dosing to 40 mg IV daily. Strict intake and output takes. Daily weights. Follow cardiology recommendations. Continue metoprolol. Continue Aldactone. Troponin 0.053, 0.06, 0.059 with EKG showing electronic ventricular pacemaker. Likely troponin leak from CHF. Plans: ACS ruled out. Continue aspirin and Lipitor. Continue beta lucian. Telemetry monitoring. Follow cardiology recommendations. Creatinine elevation likely from forced diuresis. Plans: Decreased Lasix. Rep eat BMP tomorrow morning. Avoid nephrotoxins. CT AP unrevealing. Plans: Dulcolax suppository today. Hemoglobin 8.2, normocytic. Appears at baseline. No signs of bleeding. Likely from GI bleed from previous admissions. Plans: Transfuse if hemoglobin less than 7. Daily CBC. Patient will need to follow-up with his PCP for further workup of his anemia. Plans: Continue metoprolol. No anticoagulation due to GI bleed. BP 107/47. Plans: Continue antihypertensive medication. Monitor vitals, adjust medications as necessary. [Patient admitted for CHF exacerbation. Cardiology following. Patient is pending clinical improvement. Transition to oral lasix as per cardiology recommendation. Likely DC today or tomorrow.] Pertinent Studies: Chest x-ray, CT abdomen and pelvis, echocardiogram Patient Condition at Discharge: Stable Plan - Discharge Summary New Discharge Prescriptions: New Spironolactone [Aldactone] 25 mg PO BID #60 tablet Apixaban [Eliquis] 2.5 mg PO BID #60 tablet Furosemide [Lasix] 40 mg PO BID #60 tablet Continue Budesonide [Pulmicort] 0.5 mg INHALATION RT-BID Simvastatin [Zocor] 80 mg PO HS Metoprolol Tartrate [Lopressor] 25 mg PO BID Cetirizine HCl 10 mg PO DAILY Nitroglycerin Sl Tabs [Nitrostat] 0.4 mg SL Q5M PRN PRN Reason: Chest Pain Calcium Carbonate [Calcium] 600 mg PO BID Albuterol Nebulized [Ventolin Nebulized] 2.5 mg INHALATION RT-QID PRN PRN Reason: Shortness Of Breath [place]-3/Dha/Epa/Fish Oil [Fish Oil 500 mg Softgel] 1 cap PO DAILY Montelukast [Singulair] 10 mg PO DAILY Benralizumab [Fasenra] 30 mg SQ Q60D Polyethylene Glycol 3350 [Miralax] 17 gm PO DAILY powd.pack Pantoprazole [Protonix] 40 mg PO AC-BID #180 tablet.dr Potassium Chloride ER [K-Dur 10] 10 meq PO DAILY Metolazone [Zaroxolyn] 2.5 mg PO FR Ferrous Sulfate [Slow Release Iron] 250 mg PO Q48H Aspirin EC [Ecotrin Low Dose] 81 mg PO HS Discontinued Furosemide [Lasix] 40 mg PO DAILY Spironolactone [Aldactone] 12.5 mg PO DAILY Discharge Medication List Budesonide [Pulmicort] 0.5 mg INHALATION RT-BID 12/08/13 [History] Cetirizine HCl 10 mg PO DAILY 12/08/13 [History] Metoprolol Tartrate [Lopressor] 25 mg PO BID 12/08/13 [History] Simvastatin [Zocor] 80 mg PO HS 12/08/13 [History] Nitroglycerin Sl Tabs [Nitrostat] 0.4 mg SL Q5M PRN 02/27/14 [History] Albuterol Nebulized [Ventolin Nebulized] 2.5 mg INHALATION RT-QID PRN 04/27/17 [History] Calcium Carbonate [Calcium] 600 mg PO BID 04/27/17 [History] [place]-3/Dha/Epa/Fish Oil [Fish Oil 500 mg Softgel] 1 cap PO DAILY 04/27/17 [History] Montelukast [Singulair] 10 mg PO DAILY 01/24/19 [History] Benralizumab [Fasenra] 30 mg SQ Q60D 06/22/19 [History] Pantoprazole [Protonix] 40 mg PO AC-BID #180 tablet.dr 06/25/19 [Rx] Polyethylene Glycol 3350 [Miralax] 17 gm PO DAILY powd.pack 06/25/19 [Rx] Aspirin EC [Ecotrin Low Dose] 81 mg PO HS 07/06/19 [History] Ferrous Sulfate [Slow Release Iron] 250 mg PO Q48H 07/06/19 [History] Metolazone [Zaroxolyn] 2.5 mg PO FR 07/06/19 [History] Potassium Chloride ER [K-Dur 10] 10 meq PO DAILY 07/06/19 [History] Apixaban [Eliquis] 2.5 mg PO BID #60 tablet 07/10/19 [Rx] Furosemide [Lasix] 40 mg PO BID #60 tablet 07/10/19 [Rx] Spironolactone [Aldactone] 25 mg PO BID #60 tablet 07/10/19 [Rx] Follow up Appointment(s)/Referral(s): [facility], [NON-STAFF] - Rodger Pathak MD [Primary Care Provider] - 1-2 days Betty Garcia MD [STAFF PHYSICIAN] - 1 Week Activity/Diet/Wound Care/Special Instructions: Diet: Low-salt Follow-up PCP within 3 days of discharge. Follow-up with cardiology within 1 week of discharge. Take all medications as advised. Discharge Disposition: HOME SELF-CARE
--- NOTE | 2019-07-14 08:05 | CDI ---
Documentation Clarification Form Date: 07/14/19 From: Sarah Langley Phone: If you have a question about this query, please contact Molly Carney, Mri Manager at [phone] between 8am and 5pm. Admit Date: 07/06/19 Discharge Date:07/10/19 Patient Name: Garrett Griffith Visit Number: [id number] ATTENTION: The Clinical Documentation Specialists (CDI) and [facility] Coding Staff appreciate your assistance in clarifying documentation. Please respond to the clarification below the line at the bottom and electronically sign. The CDI & [facility] Coding staff will review the response and follow-up if needed. Please note: Queries are made part of the Legal Health Record. If you have any questions, please contact the author of this message via ITS. Dear Dr. Sherwood Patient presented with troponin of: 0.053, 0.060, 0.059 Patient history/risk factors: CHF, hypertension, chronic anemia Clinical indicators: Shortness of breath, fluid overload, abdominal pain Treatment: IV Lasix 80 mg once, then 40 mg q 8 hr Consult: Cardiology documented mildly elevated troponins suggestive of myocardial injury, no evidence of OH. In your professional opinion, can you please specify the diagnosis, if any, indicated by the above clinical indicators and treatment? CHF, diastolic acute exacerbation OH type II Other, please specify Unable to determine MTDD
--- NOTE | 2019-07-15 15:09 | CDI ---
Documentation Clarification Form Date: 07/15/19 From: Sarah Langley Phone: If you have a question about this query, please contact Molly Carney, Solar Project Coordination Specialist at [phone] between 8am and 5pm. Admit Date: 07/06/19 Discharge Date:07/10/19 Patient Name: Garrett Griffith Visit Number: [id number] ATTENTION: The Clinical Documentation Specialists (CDI) and [facility] Coding Staff appreciate your assistance in clarifying documentation. Please respond to the clarification below the line at the bottom and electronically sign. The CDI & [facility] Coding staff will review the response and follow-up if needed. Please note: Queries are made part of the Legal Health Record. If you have any questions, please contact the author of this message via ITS. Dear Dr. Sherwood Patient presented with troponin of: 0.053, 0.060, 0.059 Patient history/risk factors: CHF, hypertension, chronic anemia Clinical indicators: Shortness of breath, fluid overload, abdominal pain Treatment: IV Lasix 80 mg once, then 40 mg q 8 hr Consult: Cardiology documented mildly elevated troponins suggestive of myocardial injury, no evidence of NE. In your professional opinion, can you please clarify the clinical significance of the Troponins? Type II NE secondary to demand ischemia in the setting of CHF exacerbation Type II NE secondary to demand ischemia due to (please specify) Other, please specify Unable to determine MTDD
== END 2019-07-10 15:35 | disposition home health service (06) | DRG 292 ==
LOC: EC 16:22 → 3SCARD 20:24
PROVIDERS: ADMIT Internal Medicine; ATTEND Internal Medicine
DX: I11.0 Hypertensive heart disease with heart failure (principal); E87.3 Alkalosis; I48.19 Other persistent atrial fibrillation; N17.9 Acute kidney failure, unspecified; I50.33 Acute on chronic diastolic (congestive) heart failure; D50.0 Iron deficiency anemia secondary to blood loss (chronic); E87.8 Other disorders of electrolyte and fluid balance, not elsewhere classified; I25.10 Atherosclerotic heart disease of native coronary artery without angina pectoris; K27.9 Peptic ulcer, site unspecified, unspecified as acute or chronic, without hemorrhage or perforation; K59.00 Constipation, unspecified; G47.33 Obstructive sleep apnea (adult) (pediatric); M19.012 Primary osteoarthritis, left shoulder; M19.011 Primary osteoarthritis, right shoulder; E78.5 Hyperlipidemia, unspecified; I87.2 Venous insufficiency (chronic) (peripheral); J45.909 Unspecified asthma, uncomplicated; Z79.51 Long term (current) use of inhaled steroids; Z79.899 Other long term (current) drug therapy; Z79.82 Long term (current) use of aspirin; Z88.8 Allergy status to other drugs, medicaments and biological substances; Z96.653 Presence of artificial knee joint, bilateral; Z95.5 Presence of coronary angioplasty implant and graft; Z95.0 Presence of cardiac pacemaker; Z87.891 Personal history of nicotine dependence; Z85.46 Personal history of malignant neoplasm of prostate; Z90.49 Acquired absence of other specified parts of digestive tract; Z92.3 Personal history of irradiation; Z86.010 Personal history of colon polyps; Z87.01 Personal history of pneumonia (recurrent); Z80.0 Family history of malignant neoplasm of digestive organs
CPT/HCPCS: 36415; 71045; 71046; 74177; 80048; 80053; 81003; 83605; 83880; 84484; 85025; 85610; 85730; 93005; 93306; 94640; 96374; 96375; 99285

== ENCOUNTER 2020-05-08 14:24 | Observation (INO) | payer MEDICARE, BC ==
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
[2020-05-08 15:16] LABS: Basophils % (A) 0 %; Eosinophils % (A) 0 %; HCT 30.2 % (39.0-53.0); HGB 10.2 gm/dL (13.0-17.5); Lymphocytes # (A) 0.8 k/uL (1.0-4.8); Lymphocytes % (A) 13 %; MCH 31.3 pg (25.0-35.0); MCHC 33.6 g/dL (31.0-37.0); MCV 93.2 fL (80.0-100.0); Mean Platelet Volume 7.2; Monocytes # (A) 0.5 k/uL (0-1.0); Monocytes % (A) 8 %; Neutrophils # (A) 4.6 k/uL (1.3-7.7); Neutrophils % (A) 77 %; Platelet Count 240 k/uL (150-450); RBC 3.24 m/uL (4.30-5.90); RDW 13.5 % (11.5-15.5)
[2020-05-08 15:24] LABS: Partial Thromboplastin Time 23.2 sec (22.0-30.0); Prothrombin Time 10.7 sec (9.0-12.0)
[2020-05-08 15:26] LABS: Albumin 3.6 g/dL (3.5-5.0); Calcium 9.5 mg/dL (8.4-10.2); Potassium 3.9 mmol/L (3.5-5.1); Total Bilirubin 0.6 mg/dL (0.2-1.3); Total Protein 6.3 g/dL (6.3-8.2)
--- NOTE | 2020-05-08 16:42 | CT ---
EXAMINATION TYPE: CT brain wo con DATE OF EXAM: 05/08/2020 COMPARISON: 10/10/2009. HISTORY: headache, dizziness CT DLP: 1036 mGycm Automated exposure control for dose reduction was used. FINDINGS: There is no acute intracranial hemorrhage, midline shift or hydrocephalus. The white matter is grossl y preserved. The paranasal sinuses and mastoid sinuses are adequately aerated. The calvarium is intac t. IMPRESSION: NO ACUTE INTRACRANIAL ABNORMALITY.
--- NOTE | 2020-05-08 16:49 | CT ---
EXAMINATION TYPE: CT angio head neck DATE OF EXAM: 05/08/2020 HISTORY: headache, dizziness COMPARISON: None available. CT DLP: 872 mGycm. Automated Exposure Control for Dose Reduction was Utilized. TECHNIQUE: CTA scan of the neck is performed with IV Contrast, patient injected with 65 mL of Isovue 370, axial images are obtained, coronal and sagittal reformatted images are reviewed. Three-D recons tructed images are created on an independent workstation and reviewed. FINDINGS: Carotid/Vascular Structures: No significant stenosis, occlusion, aneurysm or rupture. Mild less than 50% stenosis of the right proximal ICA. No dominant left vertebral artery is seen. Otherwise the vert ebrobasilar and cerebral vasculature are unremarkable. Other: None. IMPRESSION: No significant abnormality is seen.
--- NOTE | 2020-05-08 16:51 | XR ---
EXAMINATION TYPE: XR chest 2V DATE OF EXAM: 05/08/2020 COMPARISON: 07/09/2019. HISTORY: Altered mental status. TECHNIQUE: Frontal and lateral views of the chest are obtained. FINDINGS: There is no focal air space opacity, pleural effusion, or pneumothorax seen. The cardiac silhouette size is within normal limits. Left AICD seen. There is stable 6 mm nodule overlying the r ight lower lung. The osseous structures are intact. IMPRESSION: No acute cardiopulmonary process.
[2020-05-08] MEDS ORDERED: ASPIRIN 325 MG TAB PO STA (17:26)
[2020-05-08] MEDS ORDERED: ASPIRIN 81 MG PO STA (17:45)
[2020-05-08] MEDS ORDERED: NALOXONE 0.4 MG/ML 1 ML VIAL IV PRN (18:04)
[2020-05-08] MEDS: HEPARIN SODIUM,PORCINE 5,000 UNIT/ML 1 ML VIAL SQ SCH (20:21)
[2020-05-08] MEDS: DOCUSATE 100 MG CAP PO SCH (20:21)
[2020-05-08] MEDS: PANTOPRAZOLE 40 MG TABLET PO SCH (20:21)
[2020-05-08] MEDS: METOPROLOL TARTRATE 25 MG TAB PO SCH (20:21)
[2020-05-08] MEDS: FUROSEMIDE 40 MG TAB PO SCH (20:21)
[2020-05-09] MEDS: PANTOPRAZOLE 40 MG TABLET PO SCH ×2 (06:27→16:25)
[2020-05-09 07:31] LABS: Calcium 9.8 mg/dL (8.4-10.2); Potassium 4.4 mmol/L (3.5-5.1)
[2020-05-09 07:33] LABS: Basophils % (A) 0 %; Eosinophils % (A) 0 %; HGB 10.5 gm/dL (13.0-17.5); Lymphocytes % (A) 19 %; MCH 31.1 pg (25.0-35.0); MCHC 32.8 g/dL (31.0-37.0); Mean Platelet Volume 6.9; Monocytes # (A) 0.5 k/uL (0-1.0); Monocytes % (A) 10 %; Neutrophils # (A) 3.5 k/uL (1.3-7.7); Neutrophils % (A) 68 %; Platelet Count 253 k/uL (150-450); RBC 3.37 m/uL (4.30-5.90); RDW 13.4 % (11.5-15.5); WBC 5.2 k/uL (3.8-10.6)
[2020-05-09] MEDS: BUDESONIDE 0.5 MG/2 ML NEBU INHALATION SCH ×2 (07:39→20:18)
[2020-05-09] MEDS: POTASSIUM CHLORIDE ER 10 MEQ TAB.ER.PRT PO SCH (08:42)
[2020-05-09] MEDS: FUROSEMIDE 40 MG TAB PO SCH ×2 (08:42→16:25)
[2020-05-09] MEDS: MONTELUKAST 10 MG TAB PO SCH (08:42)
[2020-05-09] MEDS: METOPROLOL TARTRATE 25 MG TAB PO SCH ×2 (08:42→20:22)
[2020-05-09] MEDS: allopurinoL 100 MG TAB PO SCH (08:42)
[2020-05-09] MEDS: HEPARIN SODIUM,PORCINE 5,000 UNIT/ML 1 ML VIAL SQ SCH (08:43)
[2020-05-09] MEDS: DOCUSATE 100 MG CAP PO SCH ×2 (08:43→20:21)
[2020-05-09] MEDS ORDERED: ASPIRIN 81 MG PO SCH (09:00)
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
--- NOTE | 2020-05-09 11:30 | ECHOF ---
Referral Reason:CVA MEASUREMENTS -------- HEIGHT: 170.2 cm WEIGHT: 112.0 kg BP: 124/61 RVIDd: 3.2 cm (< 3.3) IVSd: 1.1 cm (0.6 - 1.1) LVIDd: 5.0 cm (3.9 - 5.3) LVPWd: 1.2 cm (0.6 - 1.1) IVSs: 1.6 cm LVIDs: 3.8 cm LVPWs: 1.6 cm Ao Diam: 3.6 cm (2.0 - 3.7) AV Cusp: 1.8 cm (1.5 - 2.6) LA Diam: 4.4 cm (2.7 - 3.8) MV EXCURSION: 13.601 mm (> 18.000) MV EF SLOPE: 76 mm/s (70 - 150) EPSS: 1.4 cm MV E Norberto: 0.68 m/s MV DecT: 309 ms MV A Norberto: 0.22 m/s MV E/A Ratio: 3.11 RAP: 5.00 mmHg RVSP: 21.84 mmHg FINDINGS -------- AICD This was a technically difficult study with suboptimal views. The left ventricular size is normal. There is mild concentric left ventricular hypertrophy. Overa ll left ventricular systolic function is low-normal with, an EF between 50 - 55 %. The right ventricle is normal in size. The left atrial size is normal. The right atrial size is normal. Lumason used The aortic valve was not well visualized. The mitral valve was not well visualized. There is trace mitral regurgitation. The tricuspid valve was not well visualized. Mild tricuspid regurgitation present. Right ventricu lar systolic pressure is normal at < 35 mmHg. The pulmonic valve was not well visualized. The aortic root size is normal. IVC Not well visulized. There is no pericardial effusion. CONCLUSIONS -------- 1. AICD 2. There is mild concentric left ventricular hypertrophy. 3. Overall left ventricular systolic function is low-normal with, an EF between 50 - 55 %. 4. There is trace mitral regurgitation. 5. Mild tricuspid regurgitation present. 6. There is no pericardial effusion. TANNING SALON ATTENDANT: Marie Easley RDCS
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
--- NOTE | 2020-05-09 14:52 | P.CRDCN ---
History of Present Illness Consult date: 05/09/20 History of present illness: CHIEF COMPLAINT: Elevated troponin HISTORY OF PRESENT ILLNESS: This is a 89-year-old male with a past medical history significant for chronic atrial fibrillation, coronary artery disease with previous PCI, asthma, pacemaker insertion, and GI bleed. Patient follows in the office with Dr. Bose. We have been asked to see the patient in consultation for elevated troponin. Patient is currently admitted to the hospital secondary to TIA. Patient has a history of chronic atrial fibrillation. Patient has refused anticoagulation in the past due to apparent GI bleeding. He used to be prescribed Coumadin. Patient denies any chest pain or pressure. He reports mild shortness of breath which he is states is his baseline. Denies dizziness or lightheadedness. He states all of his neurological symptoms have resolved. DIAGNOSTICS: EKG reveals ventricular paced rhythm Chest xray negative for acute process Laboratory data: WBC 5.2. Hemoglobin 10.5. Platelet count 253. Sodium 138. Potassium 4.4. BUN 24. Creatinine 1.18. Troponin 0.060. 0.081. 0.100. Current home cardiac medications include Zocor 80 mg daily, metoprolol 25 mg twice a day, Lasix 40 mg twice a day, aspirin 162 mg daily Echocardiogram completed revealing ejection fraction 50-55%, mild tricuspid regurgitation and trace mitral regurgitation REVIEW OF SYSTEMS: At the time of my exam: CONSTITUTIONAL: Denies fever or chills. HEENT: Denies blurred vision, vision changes, or eye pain. Denies hemoptysis CARDIOVASCULAR: Denies chest pain, orthopnea, PND or palpitations RESPIRATORY: No shortness of breath. GASTROINTESTINAL: Denies abdominal pain. Denies nausea or vomiting. HEMATOLOGIC: Denies bleeding disorders. GENITOURINARY: Denies any blood in urine. SKIN: Denies pruitis. Denies rash. PHYSICAL EXAM: VITAL SIGNS: Reviewed. GENERAL: Well-developed in no acute distress. HEENT: Head is normocephalic. Pupils are equal, round. Sclerae anicteric. Mucous membranes of the mouth are moist. Neck supple. No JVD or thyromegaly LUNGS: Respirations even and unlabored. Lungs diminished. HEART: Irregular rate and rhythm. S1 and S2 heard. ABDOMEN: Soft. Nondistended. Nontender. EXTREMITIES: Normal range of motion. No clubbing or cyanosis. Peripheral pulses intact. Trace bilateral lower extremity edema NEUROLOGIC: Awake and alert. Oriented x 3. ASSESSMENT: TIA Chronic persistent atrial fibrillation History of GI bleeding Coronary artery disease with previous PCI History of permanent pacemaker insertion History of diastolic congestive heart failure, currently euvolemic, EF 50-55% Abnormal troponins, no evidence of acute coronary syndrome PLAN: Continue current cardiac medications Will trial Eliquis 5mg PO BID Decrease aspirin to 81mg Neurology following Will further discuss with patient possibility of Watchmann procedure Further recommendations pending patient course Nurse practitioner note has been reviewed by physician. Signing provider agrees with the documented findings, assessment, and plan of care. Past Medical History Past Medical History: Atrial Fibrillation, Asthma, Coronary Artery Disease (CAD), Cancer, Chest Pain / Angina, Pneumonia, Sleep Apnea/CPAP/BIPAP Additional Past Medical History / Comment(s): PUD, lower GI bleed, anemia, pancreatitis onece many years ago, bronchitis, ALPESH does not use device-falls off all the time, prostate cancer with 44 radiation treatments-completed Jan 2018, arthritis bilateral shoulders/arms, finger cramping, Gout History of Any Multi-Drug Resistant Organisms: None Reported Past Surgical History: Ablation, Bladder Surgery, Cholecystectomy, Heart Catheterization, Heart Catheterization With Stent, Joint Replacement, Orthopedic Surgery, Pacemaker Additional Past Surgical History / Comment(s): 06/18/19 EGD at [facility], colonoscopy last one 2013, bilateral total knee arthroplasties, L rotator cuff surgery, 2005 pacemaker and gen change in 2013. Past Anesthesia/Blood Transfusion Reactions: No Reported Reaction Additional Past Anesthesia/Blood Transfusion Reaction / Comment(s): Pt has received blood in past without reaction. Date of Last Stent Placement:: 2001 Type of Cardiac Device: Unknown Device Placement Date:: 2005 inserted/2013 gen change. Past Psychological History: No Psychological Hx Reported Smoking Status: Former smoker Past Alcohol Use History: None Reported Past Drug Use History: None Reported - Past Family History Mother History Unknown: Yes Family Medical History: Cancer Additional Family Medical History / Comment(s): Family believes liver cancer Father History Unknown: Yes Family Medical History: Cancer Additional Family Medical History / Comment(s): Stomach cancer Medications and Allergies Home Medications Medication Instructions Recorded Confirmed Type Budesonide [Pulmicort] 0.5 mg INHALATION RT-BID 12/08/13 05/08/20 History Simvastatin [Zocor] 80 mg PO HS 12/08/13 05/08/20 History Montelukast [Singulair] 10 mg PO DAILY 01/24/19 05/08/20 History Aspirin EC [Ecotrin Low Dose] 162 mg PO DAILY 07/06/19 05/08/20 History Potassium Chloride ER [K-Dur 10] 10 meq PO DAILY 07/06/19 05/08/20 History Furosemide [Lasix] 40 mg PO BID #60 tablet 07/10/19 05/08/20 Rx Allopurinol [Zyloprim] 100 mg PO DAILY 05/08/20 05/08/20 History Cholecalciferol (Vitamin D3) 125 mcg PO BID 05/08/20 05/08/20 History [Vitamin D3 (5000 units)] Docusate [Colace] 100 mg PO BID 05/08/20 05/08/20 History Inulin/Chromium Picolinate [Fiber 1 tab PO DAILY 05/08/20 05/08/20 History Gummies Chew] Metoprolol Tartrate [Lopressor] 25 mg PO BID 05/08/20 05/08/20 History Pantoprazole [Protonix] 40 mg PO BID 05/08/20 05/08/20 History Apixaban [Eliquis] 5 mg PO BID #60 tab 05/09/20 Rx Allergies Allergy/AdvReac Type Severity Reaction Status Date / Time zolpidem [From Ambien] AdvReac Hallucinati Verified 05/08/20 15:30 ons Physical Exam Vitals: Vital Signs Temp Pulse Pulse Resp BP BP Pulse Ox 05/09/20 12:15 60 17 115/55 95 05/09/20 08:15 97.6 F 60 18 124/61 96 05/09/20 07:48 60 05/09/20 07:39 60 96 05/09/20 03:51 98.0 F 67 18 128/60 96 05/09/20 02:00 70 18 05/08/20 23:21 97.9 F 70 18 145/66 95 05/08/20 20:00 97.6 F 61 18 139/66 98 05/08/20 18:00 70 17 146/64 98 Intake and Output 05/08/20 05/09/20 05/09/20 22:59 06:59 14:59 Intake Total 10 480 Balance 10 480 Intake: IV 10 0.9 10 Oral 480 Other: Voiding Method Toilet Toilet # Voids 1 2 Weight 114.305 kg 112.4 kg Results 05/09/20 06:53 05/09/20 06:53 Cardiac Enzymes 05/08/20 05/08/20 05/08/20 Range/Units 15:03 15:03 19:03 AST 26 (17-59) U/L Troponin I 0.060 H* 0.081 H* (0.000-0.034) ng/mL 05/08/20 Range/Units 22:10 AST (17-59) U/L Troponin I 0.100 H* (0.000-0.034) ng/mL Coagulation 05/08/20 Range/Units 15:03 PT 10.7 (9.0-12.0) sec APTT 23.2 (22.0-30.0) sec Lipids 05/09/20 Range/Units 06:53 Triglycerides 86 (<150) mg/dL Cholesterol 118 (<200) mg/dL HDL Cholesterol 44 (40-60) mg/dL CBC 05/08/20 05/09/20 Range/Units 15:03 06:53 WBC 6.0 5.2 (3.8-10.6) k/uL RBC 3.24 L 3.37 L (4.30-5.90) m/uL Hgb 10.2 L 10.5 L (13.0-17.5) gm/dL Hct 30.2 L 32.0 L (39.0-53.0) % Plt Count 240 253 (150-450) k/uL Comprehensive Metabolic Panel 05/08/20 05/09/20 Range/Units 15:03 06:53 Sodium 136 L 138 (137-145) mmol/L Potassium 3.9 4.4 (3.5-5.1) mmol/L Chloride 100 98 (98-107) mmol/L Carbon Dioxide 31 H 35 H (22-30) mmol/L BUN 23 H 24 H (9-20) mg/dL Creatinine 1.17 1.18 (0.66-1.25) mg/dL Glucose 153 H 141 H (74-99) mg/dL Calcium 9.5 9.8 (8.4-10.2) mg/dL AST 26 (17-59) U/L ALT 10 (4-49) U/L Alkaline Phosphatase 139 H (38-126) U/L Total Protein 6.3 (6.3-8.2) g/dL Albumin 3.6 (3.5-5.0) g/dL Current Medications Generic Name Dose Route Start Last Admin Trade Name Freq PRN Reason Stop Dose Admin Allopurinol 100 mg 05/09/20 09:00 05/09/20 08:42 Allopurinol 100 Mg Tab PO 100 mg DAILY PRIYANK Administration Apixaban 5 mg 05/09/20 21:00 Apixaban 5 Mg Tab PO BID PRIYANK Aspirin 81 mg 05/10/20 09:00 Aspirin 81 Mg PO DAILY PRIYANK Atorvastatin Calcium 40 mg 05/09/20 21:00 Atorvastatin 40 Mg Tab PO HS PRIYANK Budesonide 0.5 mg 05/09/20 08:00 05/09/20 07:39 Budesonide 0.5 Mg/2 Ml Nebu INHALATION 0.5 mg RT-BID PRIYANK Administration Docusate Sodium 100 mg 05/08/20 21:00 05/09/20 08:43 Docusate 100 Mg Cap PO 100 mg BID PRIYANK Administration Furosemide 40 mg 05/08/20 21:00 05/09/20 08:42 Furosemide 40 Mg Tab PO 40 mg BID@0900,1600 PRIYANK Administration Metoprolol Tartrate 25 mg 05/08/20 21:00 05/09/20 08:42 Metoprolol Tartrate 25 Mg Tab PO 25 mg BID PRIYANK Administration Montelukast Sodium 10 mg 05/09/20 09:00 05/09/20 08:42 Montelukast 10 Mg Tab PO 10 mg DAILY PRIYANK Administration Naloxone HCl 0.2 mg 05/08/20 18:04 Naloxone 0.4 Mg/Ml 1 Ml Vial IV Q2M PRN Opioid Reversal Pantoprazole Sodium 40 mg 05/08/20 21:00 05/09/20 06:27 Pantoprazole 40 Mg Tablet PO 40 mg AC-BID PRIYANK Administration Potassium Chloride 10 meq 05/09/20 09:00 05/09/20 08:42 Potassium Chloride Er 10 Meq Tab.Er.Prt PO 10 meq DAILY PRIYANK Administration Intake and Output 05/08/20 05/09/20 05/09/20 22:59 06:59 14:59 Intake Total 10 480 Balance 10 480 Intake: IV 10 0.9 10 Oral 480 Other: Voiding Method Toilet Toilet # Voids 1 2 Weight 114.305 kg 112.4 kg 05/09/20 06:53 05/09/20 06:53
--- NOTE | 2020-05-09 16:33 | EEG ---
ELECTROENCEPHALOGRAM REPORT DATE OF SERVICE: 05/09/2020 CLINICAL HISTORY: This is an 89-year-old gentleman that presented to the emergency department with confusion and left facial weakness. The video EEG is obtained to evaluate for seizure and epileptiform activity. RELEVANT MEDICATION: The patient is not on any antiepileptic drugs. EEG TYPE: A routine 21 channel EEG is performed with video using the 10/20 electrode placement system. DESCRIPTION: Wakefulness, drowsiness and stage II sleep are obtained. During wakefulness, there is a posterior dominant rhythm of low to moderate voltage, reactive, well modulated, of 7- 8 hertz activity. During drowsiness there is slowing and attenuation of the background activity. During stage II sleep, there are sleep spindles and K complexes. INTERICTAL AND ICTAL: None. ACTIVATION PROCEDURE: Photic stimulation did not evoke a posterior driving response. Hyperventilation is not performed. CLINICAL INTERPRETATION: This is a normal routine EEG. There are no focal slowing, epileptiform discharges or seizure during the study. Clinical correlation is recommended. MMMONO / SALINAN: [id number] / [id number]
[2020-05-09] MEDS: APIXABAN 5 MG TAB PO SCH (20:21)
[2020-05-09] MEDS ORDERED: ATORVASTATIN 40 MG TAB PO SCH (21:00)
[2020-05-10] MEDS: PANTOPRAZOLE 40 MG TABLET PO SCH (06:30)
[2020-05-10] MEDS: BUDESONIDE 0.5 MG/2 ML NEBU INHALATION SCH (07:45)
[2020-05-10] MEDS: allopurinoL 100 MG TAB PO SCH (08:38)
[2020-05-10] MEDS: DOCUSATE 100 MG CAP PO SCH (08:38)
[2020-05-10] MEDS: MONTELUKAST 10 MG TAB PO SCH (08:38)
[2020-05-10] MEDS: APIXABAN 5 MG TAB PO SCH (08:38)
[2020-05-10] MEDS: FUROSEMIDE 40 MG TAB PO SCH (08:38)
[2020-05-10] MEDS: METOPROLOL TARTRATE 25 MG TAB PO SCH (08:38)
[2020-05-10] MEDS: POTASSIUM CHLORIDE ER 10 MEQ TAB.ER.PRT PO SCH (08:40)
[2020-05-10] MEDS ORDERED: ASPIRIN 81 MG PO SCH (09:00)
--- NOTE | 2020-05-10 10:02 | CT ---
EXAMINATION TYPE: CT brain wo con DATE OF EXAM: 05/10/2020 COMPARISON: 05/08/2020 INDICATION: Transient episode of Lt facial droop DLP: 1107.4 mGycm, Automated exposure control for dose reduction was used. CONTRAST: None CT of the brain is performed utilizing 3 mm thick sections through the posterior fossa and 3 mm thick sections through the remaining calvarium. Study is performed within 24 hours of arrival to the hosp ital. No abnormal hyperdensity is present to suggest an acute intracranial hemorrhage. No mass lesion is evident. No acute infarcts are evident. Mild periventricular white matter hypodensity is present, likely on th e basis of mild chronic white matter ischemic type changes. No significant interval changes evident. Ventricles and sulci are appropriate for the patient age. Paranasal sinuses and mastoid air cells within the [id number] are clear. IMPRESSIONS: 1. Mild periventricular white matter ischemic type changes.
--- NOTE | 2020-05-10 10:15 | P.DS ---
Providers Date of admission: 05/08/20 18:07 Attending physician: Anirudh Garibay MD Consults: 05/08/20 18:06 Consult Physician Urgent Consulting Provider: Maria Alejandra Ferguson Consult Reason/Comments: acute transient encephalopathy, suspected tia Do you want consulting provider notified?: Yes 05/09/20 09:41 Consult Physician Routine Consulting Provider: Edvin Bose Consult Reason/Comments: Elevated troponin Do you want consulting provider notified?: Yes Primary care physician: [facility] Course: 89-year-old pleasant gentleman came in with the complaints of confusion transient lasted about 20-25 minutes with along with weakness on the left side of the body which resolved in about 25 minutes. Patient was driving during that time. The asked him to get out of the vehicle and she started driving because of his confusion and weakness patient did have left-sided facial droop as well. Patient had the an episode of lightheadedness about couple weeks ago but does have history of atrial fibrillation not on any anti-correlation because of her 3 episodes of GI bleed in the past patient takes aspirin. Patient denied any fever chills nausea vomiting. Patient had a CT angios the head as well as CT of the head, both of those did not show any significant acute abnormality. Patient had an echocardiogram in the past showed EF of around 45-50% this echo was more than a year ago. Patient does have a pacemaker because of which unfortunately we cannot get an MRI. Patient denied any chest pain EKG did not show any acute ST-T wave changes patient has newly elevated troponins of 0.06 0.08 and 0.1 perspective he. Patient has mildly elevated creatinine appears to be his baseline and is 1.1 05/10/2020 Patient is clinically doing well patient was resumed on Eliquis patient is a good candidate for a probably watchman procedure which will be discussed by cardiology with the patient. Patient was instructed the. We'll of course and called his PCP and cardiology if he starts bleeding. Repeat CT only showed mild periventricular white matter ischemic changes. PHYSICAL EXAMINATION: GENERAL: The patient is alert and oriented x3, not in any acute distress. Obese. HEENT: Pupils are round and equally reacting to light. EOMI. No scleral icterus. No conjunctival pallor. Normocephalic, atraumatic. No pharyngeal erythema. No thyromegaly. CARDIOVASCULAR: S1 and S2 present. No murmurs, rubs, or gallops. PULMONARY: Chest is clear to auscultation, no wheezing or crackles. ABDOMEN: Soft, nontender, nondistended, normoactive bowel sounds. No palpable organomegaly. MUSCULOSKELETAL: No joint swelling or deformity. EXTREMITIES: No cyanosis, clubbing, or pedal edema. NEUROLOGICAL: Gross neurological examination did not reveal any focal deficits. SKIN: No rashes. Assessment and Plan Plan: --Transit ischemic attack: Neurology evaluated the patient all the workup is negative patient LDL is well under control patient is on simvastatin which will be continued patient will be continued on 81 mg of aspirin patient was started back on Eliquis. EEG did not show any significant abnormality. 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 fib presently rate controlled - coronary artery disease -sleep apnea on CPAP machine -Coronary artery disease -Asthma without any acute exacerbation Patient Condition at Discharge: Stable Plan - Discharge Summary Discharge Rx Participant: No New Discharge Prescriptions: New Apixaban [Eliquis] 5 mg PO BID #60 tab Metoprolol Tartrate [Lopressor] 25 mg PO BID tab Continue Budesonide [Pulmicort] 0.5 mg INHALATION RT-BID Simvastatin [Zocor] 80 mg PO HS Montelukast [Singulair] 10 mg PO DAILY Potassium Chloride ER [K-Dur 10] 10 meq PO DAILY Aspirin EC [Ecotrin Low Dose] 162 mg PO DAILY Furosemide [Lasix] 40 mg PO BID #60 tablet Allopurinol [Zyloprim] 100 mg PO DAILY Cholecalciferol (Vitamin D3) [Vitamin D3 (5000 units)] 125 mcg PO BID Docusate [Colace] 100 mg PO BID Inulin/Chromium Picolinate [Fiber Gummies Chew] 1 tab PO DAILY Pantoprazole [Protonix] 40 mg PO BID Discontinued Metoprolol Tartrate [Lopressor] 25 mg PO BID Discharge Medication List Budesonide [Pulmicort] 0.5 mg INHALATION RT-BID 12/08/13 [History] Simvastatin [Zocor] 80 mg PO HS 12/08/13 [History] Montelukast [Singulair] 10 mg PO DAILY 01/24/19 [History] Aspirin EC [Ecotrin Low Dose] 162 mg PO DAILY 07/06/19 [History] Potassium Chloride ER [K-Dur 10] 10 meq PO DAILY 07/06/19 [History] Furosemide [Lasix] 40 mg PO BID #60 tablet 07/10/19 [Rx] Allopurinol [Zyloprim] 100 mg PO DAILY 05/08/20 [History] Cholecalciferol (Vitamin D3) [Vitamin D3 (5000 units)] 125 mcg PO BID 05/08/20 [History] Docusate [Colace] 100 mg PO BID 05/08/20 [History] Inulin/Chromium Picolinate [Fiber Gummies Chew] 1 tab PO DAILY 05/08/20 [History] Pantoprazole [Protonix] 40 mg PO BID 05/08/20 [History] Apixaban [Eliquis] 5 mg PO BID #60 tab 05/09/20 [Rx] Metoprolol Tartrate [Lopressor] 25 mg PO BID tab 05/10/20 [Rx] Follow up Appointment(s)/Referral(s): Silverio Dodd MD [Primary Care Provider] - 3 Days Discharge Disposition: HOME SELF-CARE
--- NOTE | 2020-05-10 11:22 | P.PN ---
Subjective Progress Note Date: 05/10/20 She was seen at bedside and he stated that he is doing well today. He has no further episode of left facial weakness or weakness over the left side that. He denies having any further episodes of confusion. Per the patientis he is at baseline. Objective - Vital Signs Vital signs: Vital Signs Temp 97.8 F 05/10/20 08:35 Pulse 60 05/10/20 08:35 Resp 16 05/10/20 08:35 BP 116/55 05/10/20 08:35 Pulse Ox 92 L 05/10/20 08:35 Intake & Output 05/09/20 05/10/20 05/10/20 18:59 06:59 18:59 Intake Total 720 10 240 Balance 720 10 240 Weight 112.7 kg Intake: IV 10 0.9 10 Oral 720 240 Other: Voiding Method Toilet Toilet # Voids 3 1 - Exam GENERAL: The patient is lying in bed and is not in acute distress. NEUROLOGICAL: Higher mental function: The patient is awake, alert, oriented to self, place and time. Patient is following commands. No aphasia and no neglect. Cranial nerves: The pupils are round, equal and reactive to light and accommodation. Visual george are full to confrontation throughout. Extraocular movement is intact no nystagmus is noted. Facial sensation is normal to touch throughout. The facial strength is normal throughout. Hearing is normal bilaterally to hand rub. Tongue is midline and moved [id number] without any difficulty. No dysarthria is noted. Shoulder shrug is normal bilaterally. Motor: The strength is 5 over 5 throughout. Normal tone and bulk. Cerebellum: Normal finger to nose bilaterally. Sensation: Sensation is normal to touch throughout. Reflexes (right/left): 2+ throughout. Plantars are downgoing bilaterally. - Labs CBC & Chem 7: 05/09/20 06:53 05/09/20 06:53 Assessment and Plan Assessment: This is an 89-year-old woman that presented emergency department on 05/08/2020 for an episode of altered mental status. According to the the patient crossed stop sign and then he was behaving erratically. Was felt that the patient possibly had a left facial droop that resolved. He had is that an episode where he had a change of mentation about a month ago and was slow to respond and the episode lasted possibly 10 minutes but did not seek any medical attention. Transient encephalopathy with left facial droop and left upper extremity weakness seems possibly due to Transient ischemic attack especially with history of Atrial fibrillation Elevated troponin History of atrial fibrillation not on anticoagulation because of the peptic ulcer disease with bleeding Past post pacemaker (according to patient had it placed 10-15 years ago). History of GI bleed from peptic ulcer disease (he said had GI bleed while on Coumadin in the past) History of peptic ulcer disease History of coronary artery disease Plan: CT of the head is reported as no acute intracranial abnormality. CT angiography of the head and neck was reported as no significant abnormality is seen. It is in the bodies reported as mild less than 50% stenosis of the right proximal ICA. Routine EEG on 05/09/2020: Was normal. There are no focal slowing, ablative from discharges or seizure on the EEG. TSH: 1.74 (normal). Vitamin B12: 331 (which is considered low normal). Therefore I started the patient on vitamin B12 1000 g daily. Folate level is pending. 2-D echo: Was reported as AICD at. There is mild concentric left ventricular hypertrophy. Ejection fraction between 50-55%. Left atrial size is normal. Lipid panel: Triglyceride is 86, cholesterol is 118, LDL is a 57 and HDL is 44. MRI of the brain cannot be done because of the patient history of a AICD. [address] of the head that today was done to make sure there is no acute changes or subacute changes that was not picked up on the initial CT of the head: Reported as mild periventricular white matter ischemic type changes. Patient was started on the Eliquis 5 mg 1 tablet twice a day because the patient history of the atrial fibrillation and the likely episode of transient ischemic attack and this episode. He is in agreement of starting anticoagulation and he knows there is a risk of a bleed even with a history of peptic ulcer disease. Patient is also on aspirin 81 mg daily. Continue Lipitor 40 mg daily for secondary stroke prophylaxis. Phyical therapy is consulted. Regarding the elevated troponin will defer the management to the cardiology team. Discharge the patient needs to follow-up with outpatient neurologist within 1-2 weeks. DEFER the rest of medical management to the primary team. The plan was discussed with the primary team. There is no further neurological workup needed at this time. Jerrell Rico MD Neuro-Hospitalist Time with Patient: Less than 30
[2020-05-10] MEDS ORDERED: CYANOCOBALAMIN 500 MCG TAB PO SCH (11:30)
[2020-05-10 11:48] VITALS: BP 107/57; PULSE 63; RESP 15; TEMP 97.2
--- NOTE | 2020-05-10 13:59 | P.PN ---
Subjective Progress Note Date: 05/10/20 CHIEF COMPLAINT: Elevated troponin HISTORY OF PRESENT ILLNESS: 05/09/2020 This is a 89-year-old male with a past medical history significant for chronic atrial fibrillation, coronary artery disease with previous PCI, asthma, pacemaker insertion, and GI bleed. Patient follows in the office with Dr. Bose. We have been asked to see the patient in consultation for elevated troponin. Patient is currently admitted to the hospital secondary to TIA. Patient has a history of chronic atrial fibrillation. Patient has refused anticoagulation in the past due to apparent GI bleeding. He used to be prescribed Coumadin. Patient denies any chest pain or pressure. He reports mild shortness of breath which he is states is his baseline. Denies dizziness or li ghtheadedness. He states all of his neurological symptoms have resolved. Echocardiogram completed revealing ejection fraction 50-55%, mild tricuspid regurgitation and trace mitral regurgitation 05/10/2020 Patient examined this morning the bedside. Patient has been started on Eliquis. No bleeding noted thus far. He denies chest pain or pressure. No shortness of breath. He denies any weakness or neurological symptoms. PHYSICAL EXAM: VITAL SIGNS: Reviewed. GENERAL: Well-developed in no acute distress. HEENT: Head is normocephalic. Pupils are equal, round. Sclerae anicteric. Mucous membranes of the mouth are moist. Neck supple. No JVD or thyromegaly LUNGS: Respirations even and unlabored. Lungs diminished. HEART: Irregular rate and rhythm. S1 and S2 heard. ABDOMEN: Soft. Nondistended. Nontender. EXTREMITIES: Normal range of motion. No clubbing or cyanosis. Peripheral pulses intact. Trace bilateral lower extremity edema NEUROLOGIC: Awake and alert. Oriented x 3. ASSESSMENT: TIA Chronic persistent atrial fibrillation History of GI bleeding Coronary artery disease with previous PCI History of permanent pacemaker insertion History of diastolic congestive heart failure, currently euvolemic, EF 50-55% Abnormal troponins, no evidence of acute coronary syndrome PLAN: Continue current cardiac medications Patient is stable for discharge home today from a cardiac perspective He is to follow up outpatient with Nurse practitioner note has been reviewed by physician. Signing provider agrees with the documented findings, assessment, and plan of care. Objective - Vital Signs Vital signs: Vital Signs Temp 97.2 F L 05/10/20 11:47 Pulse 63 05/10/20 11:47 Resp 15 05/10/20 11:47 BP 107/57 05/10/20 11:47 Pulse Ox 93 L 05/10/20 11:47 Intake & Output 05/09/20 05/10/20 05/10/20 18:59 06:59 18:59 Intake Total 720 10 240 Balance 720 10 240 Weight 112.7 kg Intake: IV 10 0.9 10 Oral 720 240 Other: Voiding Method Toilet Toilet # Voids 3 1 - Labs CBC & Chem 7: 05/09/20 06:53 05/09/20 06:53 Labs: Abnormal Lab Results - Last 24 Hours (Table) 05/09/20 Range/Units 06:53 RBC Folate 889 H (280 - 791) ng/mL
== END 2020-05-10 13:37 | disposition home or self-care (01) ==
LOC: EC 14:24 → 3SCARD 18:07
PROVIDERS: ADMIT Internal Medicine; ATTEND Internal Medicine
DX: G93.49 Other encephalopathy (principal); R29.810 Facial weakness; R53.1 Weakness; R47.01 Aphasia; I48.20 Chronic atrial fibrillation, unspecified; I25.10 Atherosclerotic heart disease of native coronary artery without angina pectoris; I13.0 Hypertensive heart and chronic kidney disease with heart failure and stage 1 through stage 4 chronic kidney disease, or unspecified chronic kidney disease; N18.2 Chronic kidney disease, stage 2 (mild); I50.32 Chronic diastolic (congestive) heart failure; I65.21 Occlusion and stenosis of right carotid artery; I08.1 Rheumatic disorders of both mitral and tricuspid valves; I49.3 Ventricular premature depolarization; Z95.0 Presence of cardiac pacemaker; M10.9 Gout, unspecified; J45.909 Unspecified asthma, uncomplicated; G47.33 Obstructive sleep apnea (adult) (pediatric); Z99.89 Dependence on other enabling machines and devices; Z91.19 Patient's noncompliance with other medical treatment and regimen; Z85.46 Personal history of malignant neoplasm of prostate; Z87.01 Personal history of pneumonia (recurrent); Z87.19 Personal history of other diseases of the digestive system; D64.9 Anemia, unspecified; Z92.3 Personal history of irradiation; Z87.11 Personal history of peptic ulcer disease; Z90.49 Acquired absence of other specified parts of digestive tract; Z95.5 Presence of coronary angioplasty implant and graft; Z96.653 Presence of artificial knee joint, bilateral; Z98.890 Other specified postprocedural states; Z87.891 Personal history of nicotine dependence; Z80.0 Family history of malignant neoplasm of digestive organs; Z79.82 Long term (current) use of aspirin; Z79.01 Long term (current) use of anticoagulants; Z79.51 Long term (current) use of inhaled steroids; Z79.899 Other long term (current) drug therapy; Z88.8 Allergy status to other drugs, medicaments and biological substances
CPT/HCPCS: 96372 ×2; 99285; 36415; 94640 ×3; 94760; 95816; 93005; 97161; 82747; 80053; 80048; 80061; 84443; 82607; 84484; 85025 ×2; 85610; 85730; 71046; 70496; 70450 ×2; 70498; G0378 ×3; C8929; J1644 ×2; Q9950; Q9967; 93306

== ENCOUNTER 2020-05-19 13:31 | Inpatient (IN) | payer MEDICARE, BC ==
[2020-05-19] MEDS ORDERED: PANTOPRAZOLE 40 MG/10 ML VIAL IVP STA (13:40)
--- NOTE | 2020-05-19 14:12 | ED ---
General Adult HPI - General Chief complaint: GI Bleed Stated complaint: dark stool Time Seen by Provider: 05/19/20 13:40 Source: patient, RN notes reviewed, old records reviewed Mode of arrival: wheelchair Limitations: no limitations - History of Present Illness Initial comments: 82-year-old male history of recent CVA, recently started on Eliquis, presenting for evaluation of fatigue, and dark stool. He has remote history of peptic ulcer disease. He states over the past one week his stools have become progressively more dark. He is feeling fatigued and has exertional dyspnea. No fever. No significant abdominal pain. No central chest pain. - Related Data Home Medications Medication Instructions Recorded Confirmed Budesonide [Pulmicort] 0.5 mg INHALATION RT-BID 12/08/13 05/08/20 Simvastatin [Zocor] 80 mg PO HS 12/08/13 05/08/20 Montelukast [Singulair] 10 mg PO DAILY 01/24/19 05/08/20 Aspirin EC [Ecotrin Low Dose] 162 mg PO DAILY 07/06/19 05/08/20 Potassium Chloride ER [K-Dur 10] 10 meq PO DAILY 07/06/19 05/08/20 Allopurinol [Zyloprim] 100 mg PO DAILY 05/08/20 05/08/20 Cholecalciferol (Vitamin D3) 125 mcg PO BID 05/08/20 05/08/20 [Vitamin D3 (5000 Iu)] Docusate [Colace] 100 mg PO BID 05/08/20 05/08/20 Inulin/Chromium Picolinate [Fiber 1 tab PO DAILY 05/08/20 05/08/20 Gummies Chew] Pantoprazole [Protonix] 40 mg PO BID 05/08/20 05/08/20 Previous Rx's Medication Instructions Recorded Furosemide [Lasix] 40 mg PO BID #60 tablet 07/10/19 Apixaban [Eliquis] 5 mg PO BID #60 tab 05/09/20 Cyanocobalamin [Vitamin B-12] 1,000 mcg PO DAILY #30 tab 05/10/20 Metoprolol Tartrate [Lopressor] 25 mg PO BID tab 05/10/20 Allergies Allergy/AdvReac Type Severity Reaction Status Date / Time zolpidem [From Ambien] AdvReac Hallucinati Verified 05/19/20 13:37 ons Review of Systems ROS Statement: Those systems with pertinent positive or pertinent negative responses have been documented in the HPI. ROS Other: All systems not noted in ROS Statement are negative. Past Medical History Past Medical History: Atrial Fibrillation, Asthma, Coronary Artery Disease (CAD), Cancer, Chest Pain / Angina, CVA/TIA, Pneumonia, Sleep Apnea/CPAP/BIPAP Additional Past Medical History / Comment(s): PUD, lower GI bleed, anemia, pancreatitis onece many years ago, bronchitis, ALPESH does not use device-falls off all the time, prostate cancer with 44 radiation treatments-completed Jan 2018, arthritis bilateral shoulders/arms, finger cramping, Gout History of Any Multi-Drug Resistant Organisms: None Reported Past Surgical History: Ablation, Bladder Surgery, Cholecystectomy, Heart Catheterization, Heart Catheterization With Stent, Joint Replacement, Orthopedic Surgery, Pacemaker Additional Past Surgical History / Comment(s): 06/18/19 EGD at [facility], colonoscopy last one 2013, bilateral total knee arthroplasties, L rotator cuff surgery, 2005 pacemaker and gen change in 2013. Past Anesthesia/Blood Transfusion Reactions: No Reported Reaction Additional Past Anesthesia/Blood Transfusion Reaction / Comment(s): Pt has received blood in past without reaction. Date of Last Stent Placement:: 2001 Type of Cardiac Device: Unknown Device Placement Date:: 2005 inserted/2013 gen change. Past Psychological History: No Psychological Hx Reported Smoking Status: Former smoker Past Alcohol Use History: None Reported Past Drug Use History: None Reported - Past Family History Mother History Unknown: Yes Family Medical History: Cancer Additional Family Medical History / Comment(s): Family believes liver cancer Father History Unknown: Yes Family Medical History: Cancer Additional Family Medical History / Comment(s): Stomach cancer General Exam Limitations: no limitations General appearance: alert, in no apparent distress Head exam: Present: atraumatic, normocephalic Eye exam: Present: normal appearance, PERRL ENT exam: Present: normal exam Neck exam: Present: normal inspection. Absent: tenderness, meningismus Respiratory exam: Present: normal lung sounds bilaterally. Absent: respiratory distress, wheezes Cardiovascular Exam: Present: regular rate, normal rhythm GI/Abdominal exam: Present: soft. Absent: distended, tenderness, guarding, rebound Extremities exam: Present: normal capillary refill. Absent: pedal edema Neurological exam: Present: alert, oriented X3, CN II-XII intact. Absent: motor sensory deficit Psychiatric exam: Present: normal affect, normal mood Skin exam: Present: pallor Course Vital Signs 05/19/20 13:37 Temperature 97.7 F Pulse Rate 60 Respiratory 18 Rate Blood Pressure 148/63 O2 Sat by Pulse 98 Oximetry EKG Findings - EKG Comments: EKG Findings:: EKG: Paced rhythm, rate of 87, QRS duration 190, QTC 644. Medical Decision Making - Medical Decision Making 89-year-old presenting with fatigue, concern for GI bleed. The patient is antic oagulated with history of recent CVA. He has had melanotic stool for approximately one week. This is heme occult positive. Hemoglobin is 9.9 which is down trending but relatively stable for this patient. He started on Protonix in the emergency department. I did discuss case with [facility], who will admit. - Lab Data Result diagrams: 05/19/20 13:40 05/19/20 13:40 Lab Results 05/19/20 05/19/20 05/19/20 Range/Units 13:40 13:40 13:40 WBC 6.4 (3.8-10.6) k/uL RBC 3.20 L (4.30-5.90) m/uL Hgb 9.9 L (13.0-17.5) gm/dL Hct 30.0 L (39.0-53.0) % MCV 94.0 (80.0-100.0) fL MCH 30.9 (25.0-35.0) pg MCHC 32.9 (31.0-37.0) g/dL RDW 13.6 (11.5-15.5) % Plt Count 254 (150-450) k/uL MPV 7.2 Neutrophils % 75 % Lymphocytes % 17 % Monocytes % 7 % Eosinophils % 0 % Basophils % 0 % Neutrophils # 4.7 (1.3-7.7) k/uL Lymphocytes # 1.1 (1.0-4.8) k/uL Monocytes # 0.4 (0-1.0) k/uL Eosinophils # 0.0 (0-0.7) k/uL Basophils # 0.0 (0-0.2) k/uL PT 11.3 (9.0-12.0) sec INR 1.1 (<1.2) APTT 24.4 (22.0-30.0) sec Sodium 137 (137-145) mmol/L Potassium 3.8 (3.5-5.1) mmol/L Chloride 100 (98-107) mmol/L Carbon Dioxide 30 (22-30) mmol/L Anion Gap 7 mmol/L BUN 44 H (9-20) mg/dL Creatinine 1.15 (0.66-1.25) mg/dL Est GFR (CKD-EPI)AfAm 66 (>60 ml/min/1.73 sqM) Est GFR (CKD-EPI)NonAf 57 (>60 ml/min/1.73 sqM) Glucose 205 H (74-99) mg/dL Plasma Lactic Acid Jose (0.7-2.0) mmol/L Calcium 9.7 (8.4-10.2) mg/dL Magnesium 1.6 (1.6-2.3) mg/dL Total Bilirubin 0.7 (0.2-1.3) mg/dL AST 29 (17-59) U/L ALT 13 (4-49) U/L Alkaline Phosphatase 136 H (38-126) U/L Total Protein 6.7 (6.3-8.2) g/dL Albumin 3.8 (3.5-5.0) g/dL Stool Occult Blood (Negative) Blood Type Blood Type Recheck Bld Type Recheck Status Antibody Screen Spec Expiration Date 05/19/20 05/19/20 05/19/20 Range/Units 13:40 13:41 14:05 WBC (3.8-10.6) k/uL RBC (4.30-5.90) m/uL Hgb (13.0-17.5) gm/dL Hct (39.0-53.0) % MCV (80.0-100.0) fL MCH (25.0-35.0) pg MCHC (31.0-37.0) g/dL RDW (11.5-15.5) % Plt Count (150-450) k/uL MPV Neutrophils % % Lymphocytes % % Monocytes % % Eosinophils % % Basophils % % Neutrophils # (1.3-7.7) k/uL Lymphocytes # (1.0-4.8) k/uL Monocytes # (0-1.0) k/uL Eosinophils # (0-0.7) k/uL Basophils # (0-0.2) k/uL PT (9.0-12.0) sec INR (<1.2) APTT (22.0-30.0) sec Sodium (137-145) mmol/L Potassium (3.5-5.1) mmol/L Chloride (98-107) mmol/L Carbon Dioxide (22-30) mmol/L Anion Gap mmol/L BUN (9-20) mg/dL Creatinine (0.66-1.25) mg/dL Est GFR (CKD-EPI)AfAm (>60 ml/min/1.73 sqM) Est GFR (CKD-EPI)NonAf (>60 ml/min/1.73 sqM) Glucose (74-99) mg/dL Plasma Lactic Acid Jose 2.0 (0.7-2.0) mmol/L Calcium (8.4-10.2) mg/dL Magnesium (1.6-2.3) mg/dL Total Bilirubin (0.2-1.3) mg/dL AST (17-59) U/L ALT (4-49) U/L Alkaline Phosphatase (38-126) U/L Total Protein (6.3-8.2) g/dL Albumin (3.5-5.0) g/dL Stool Occult Blood Positive (Negative) Blood Type O Positive Blood Type Recheck O Pos Bld Type Recheck Status No Antibody Screen NEGATIVE Spec Expiration Date 05/22/2020 - 2304 Disposition Clinical Impression: Melena, Acute blood loss anemia, GI bleed Disposition: ADMITTED IP TO THIS [facility] Condition: Stable Is patient prescribed a controlled substance at d/c from ED?: No Referrals: Silverio Dodd MD [Primary Care Provider] - 1-2 days Decision to Admit Reason: Admit from EC Decision Date: 05/19/20 Decision Time: 15:21
[2020-05-19 14:25] LABS: Basophils % (A) 0 %; Eosinophils % (A) 0 %; HGB 9.9 gm/dL (13.0-17.5); Lymphocytes # (A) 1.1 k/uL (1.0-4.8); Lymphocytes % (A) 17 %; MCH 30.9 pg (25.0-35.0); MCHC 32.9 g/dL (31.0-37.0); Mean Platelet Volume 7.2; Monocytes # (A) 0.4 k/uL (0-1.0); Monocytes % (A) 7 %; Neutrophils # (A) 4.7 k/uL (1.3-7.7); Neutrophils % (A) 75 %; Platelet Count 254 k/uL (150-450); RDW 13.6 % (11.5-15.5); WBC 6.4 k/uL (3.8-10.6)
[2020-05-19 14:38] LABS: Albumin 3.8 g/dL (3.5-5.0); Calcium 9.7 mg/dL (8.4-10.2); Magnesium 1.6 mg/dL (1.6-2.3); Potassium 3.8 mmol/L (3.5-5.1); Total Bilirubin 0.7 mg/dL (0.2-1.3); Total Protein 6.7 g/dL (6.3-8.2)
[2020-05-19 14:43] LABS: INR 1.1 (<1.2); Partial Thromboplastin Time 24.4 sec (22.0-30.0); Prothrombin Time 11.3 sec (9.0-12.0)
[2020-05-19] MEDS ORDERED: ACETAMINOPHEN TAB 325 MG TAB PO PRN (15:18)
[2020-05-19] MEDS ORDERED: NALOXONE 0.4 MG/ML 1 ML VIAL IV PRN (15:18)
[2020-05-19] MEDS: SODIUM CHLORIDE 0.9% 1,000 ML IV SCH (19:34)
[2020-05-19] MEDS: PANTOPRAZOLE 40 MG/10 ML VIAL IVP SCH (20:00)
[2020-05-19 20:38] LABS: Basophils % (A) 0 %; Eosinophils % (A) 0 %; HCT 29.1 % (39.0-53.0); HGB 9.4 gm/dL (13.0-17.5); Lymphocytes # (A) 1.1 k/uL (1.0-4.8); Lymphocytes % (A) 17 %; MCH 30.7 pg (25.0-35.0); MCHC 32.1 g/dL (31.0-37.0); MCV 95.6 fL (80.0-100.0); Mean Platelet Volume 7.2; Monocytes # (A) 0.5 k/uL (0-1.0); Monocytes % (A) 8 %; Neutrophils # (A) 4.7 k/uL (1.3-7.7); Neutrophils % (A) 73 %; Platelet Count 261 k/uL (150-450); RBC 3.05 m/uL (4.30-5.90); RDW 13.9 % (11.5-15.5); WBC 6.4 k/uL (3.8-10.6)
[2020-05-20] MEDS: SODIUM CHLORIDE 0.9% 1,000 ML IV SCH ×2 (05:15→19:12)
[2020-05-20] MEDS: PANTOPRAZOLE 40 MG/10 ML VIAL IVP SCH ×2 (07:49→20:02)
[2020-05-20 11:01] LABS: Basophils % (A) 0 %; Eosinophils % (A) 0 %; HCT 27.7 % (39.0-53.0); HGB 8.9 gm/dL (13.0-17.5); Lymphocytes # (A) 1.1 k/uL (1.0-4.8); Lymphocytes % (A) 19 %; MCH 30.7 pg (25.0-35.0); MCHC 32.3 g/dL (31.0-37.0); Mean Platelet Volume 7.3; Monocytes # (A) 0.4 k/uL (0-1.0); Monocytes % (A) 7 %; Neutrophils # (A) 4.1 k/uL (1.3-7.7); Neutrophils % (A) 72 %; Platelet Count 228 k/uL (150-450); RBC 2.91 m/uL (4.30-5.90); RDW 13.6 % (11.5-15.5); WBC 5.6 k/uL (3.8-10.6)
--- NOTE | 2020-05-20 14:30 | XR ---
EXAMINATION TYPE: XR chest 1V portable DATE OF EXAM: 05/20/2020 COMPARISON: 05/08/2020 HISTORY: Shortness of breath TECHNIQUE: Frontal and lateral views of the chest are obtained. FINDINGS: Scattered senescent parenchymal changes noted. Hyperinflation compatible with COPD. No evidence for infiltrate. No evidence for atelectasis. Heart size is stable. Mediastinal structures are stable and grossly unremarkable. No evidence for hilar prominence. Degenerative changes dorsal spine. IMPRESSION: 1. No evidence for acute pulmonary disease.
--- NOTE | 2020-05-20 16:00 | HP ---
HISTORY AND PHYSICAL DATE OF SERVICE: 05/20/2020. CHIEF COMPLAINT: Gastrointestinal bleed. HISTORY OF PRESENT ILLNESS: This 89-year-old gentleman with a past medical history of multiple medical issues, including atrial fibrillation, asthma, CAD, history of CVA, TIA, history of sleep apnea, also had history of bleeding ulcer also. Apparently the patient had multiple episodes of GI bleed previously. The patient was recently started on Eliquis after CVA. The patient is complaining of some fatigue and dark colored stools. The patient also complaining about some brown stools initially and the patient came to [facility] and admitted for further evaluation and treatment. Hemoglobin is found to be 9.9 on admission, currently 8.8. The previous hemoglobin was up to 10.5. There is no history of any fever, rigors. No history of headache, loss of consciousness, or seizures at this time. The patient had a TIA, but then workup was negative recently. PAST MEDICAL HISTORY: Atrial fibrillation, asthma, CAD, history of chest pain, CVA, TIA, pneumonia, peptic ulcer disease, lower GI bleed, bladder surgery. MEDICATIONS: Medications are: 1. Zocor. 2. K-Dur. 3. Protonix. 4. Singulair. 5. Lopressor. 6. Fiber. 7. Lasix. 8. Colace. 9. Vitamin B-12. 10.Vitamin D3. 11.Pulmicort. 12.Ecotrin, low dose. 13.Eliquis. 14.Zyloprim. ALLERGIES: AMBIEN. FAMILY HISTORY: History of liver cancer in the family. SOCIAL HISTORY: Previous history of smoking. No history of current smoking or alcohol intake. REVIEW OF SYSTEMS: ENT: Diminished hearing and diminished vision. CARDIOVASCULAR SYSTEM: No angina or palpitations. RESPIRATORY SYSTEM: As mentioned earlier. GI: As mentioned earlier. : No dysuria. NERVOUS SYSTEM: As mentioned earlier. ALLERGY/IMMUNOLOGY: Asthma, hayfever. MUSCULOSKELETAL: As mentioned earlier. HEMATOLOGY/ONCOLOGY: No history of anemia. ENDOCRINE: As mentioned earlier. CONSTITUTIONAL: As mentioned earlier. DERMATOLOGY: Negative. RHEUMATOLOGY: Negative. PSYCHIATRY: As mentioned earlier. PHYSICAL EXAMINATION: The patient is alert and oriented x3. Pulse 80, blood pressure 150/88, respiration 15, temperature 98.8, pulse ox 98% on room air. HEENT: Conjunctivae normal. NECK: No jugular venous distention. CARDIOVASCULAR: S1, S2 muffled. RESPIRATORY: Breath sounds diminished at the bases. A few scattered rhonchi and crackles. ABDOMEN: Soft, nontender. No mass palpable. LEGS: No edema, no swelling. NERVOUS SYSTEM: Higher functions as mentioned earlier. Moves all 4 limbs. No focal motor or sensory deficits. LYMPHATICS: No lymphadenopathy of the neck, axillae or groin. SKIN: No ulcer, rash or bleeding. JOINTS: No active deforming arthropathy. LABS: Labs are at this time show WBC 5.6, hemoglobin is 8.9. ASSESSMENT: 1. Acute upper gastrointestinal bleed with acute blood loss anemia. 3. History of previous peptic ulcer disease. 4. Recently started on Eliquis. 5. History of recent transient ischemic attack. 6. History of atrial fibrillation, chronic. 7. History of asthma. 8. History of coronary artery disease. 9. History of chest pain, angina. 10.History of cerebrovascular accident, transient ischemic attack. 11.History of pneumonia. 12.History of sleep apnea. 13.History of peptic ulcer disease. 14.History of pancreatitis. 15.History of bronchitis. 16.History of obstructive sleep apnea. 17.History of prostate cancer with 44 radiation treatments. 18.History of degenerative joint disease. 19.History of gout. 20.History of cardiac ablation. 21.History of coronary artery disease, stent. 22.History of pacemaker. 23.Obesity with body mass index 37.7. 24.Remote history of nicotine dependence. 25.FULL CODE. RECOMMENDATIONS AND DISCUSSION: This 89-year-old gentleman who presented with multiple complex medical issues, we will monitor the patient closely, continue the current medications, continue symptomatic treatment. Otherwise at this time I would recommend hold the antiplatelet agent Eliquis and serial H and H q.6. Transfuse if the hemoglobin less than 7. Otherwise, gastroenterology consultation for possible endoscopes including EGD, colonoscope. Prognosis guarded because of multiple complex medical issues. Further recommendations to follow. A copy of dictation forwarded to Dr. Dodd who is the primary physician. MMMONO / SALINAN: [id number] / MTDD
[2020-05-20] MEDS: BUDESONIDE 0.5 MG/2 ML NEBU INHALATION SCH (18:54)
[2020-05-20] MEDS: CHOLECALCIFEROL 25 MCG (1000 IU) TABLET PO SCH (20:03)
[2020-05-20] MEDS: METOPROLOL TARTRATE 25 MG TAB PO SCH (20:03)
[2020-05-20] MEDS: ATORVASTATIN 40 MG TAB PO SCH (20:03)
[2020-05-20] MEDS: FUROSEMIDE 40 MG TAB PO SCH (20:03)
[2020-05-21 05:11] LABS: Basophils % (A) 0 %; Eosinophils % (A) 0 %; HCT 26.9 % (39.0-53.0); HGB 8.7 gm/dL (13.0-17.5); Hypochromasia Slight; Lymphocytes # (A) 1.5 k/uL (1.0-4.8); Lymphocytes % (A) 23 %; MCH 30.8 pg (25.0-35.0); MCHC 32.2 g/dL (31.0-37.0); MCV 95.4 fL (80.0-100.0); Mean Platelet Volume 7.5; Monocytes # (A) 0.4 k/uL (0-1.0); Monocytes % (A) 7 %; Neutrophils # (A) 4.4 k/uL (1.3-7.7); Neutrophils % (A) 68 %; Platelet Count 258 k/uL (150-450); RBC 2.82 m/uL (4.30-5.90); RDW 13.8 % (11.5-15.5); WBC 6.5 k/uL (3.8-10.6)
[2020-05-21] MEDS: BUDESONIDE 0.5 MG/2 ML NEBU INHALATION SCH ×2 (07:34→19:46)
--- NOTE | 2020-05-21 09:05 | P.CONS ---
History of Present Illness - Reason for Consult Consult date: 05/20/20 Melena, GI bleed Requesting physician: Steve Wilson - Chief Complaint Fatigue and dark-colored stool - History of Present Illness 89-year-old male with multiple medical comorbidities including coronary artery disease, atrial fibrillation, history of CVA/TIA, ALPESH, prior peptic ulcer disease who presented to the hospital with complaints of fatigue and dark- colored stool. The patient was recently admitted for evaluation of CVA/TIA one week ago and is on Eliquis therapy. Patient reports dark-colored stool over the past 3 days. He describes the stool as black with spots. Previously the patient had a history of peptic ulcer disease with EGD in 05/2018 showing esophagitis and colonoscopy in 2013 which was normal. He underwent repeat EGD and colonoscopy in 06/23/2019 with EGD significant for a duodenal bulb ulcer without bleeding and a small hiatal hernia and colonoscopy at that time significant for ascending colon polyp with low-grade internal hemorrhoids and n onthrombosed external hemorrhoids. He denies any further dark colored stool this morning. He is denying any abdominal pain, nausea or vomiting at this time. Hemoglobin which was depressed at 8.9 down from 10.5 previously. Stool testing was positive for occult blood. Review of Systems REVIEW OF SYSTEMS: CONSTITUTIONAL: Denies any fevers, chills, weight change , however he does report some fatigue on presentation. CARDIOVASCULAR: Denies any chest pain, palpitations high or low blood pressures, he does have a history of atrial fibrillation. RESPIRATORY: Denies any shortness of breath, hemoptysis or cough, however she did report some exertional dyspnea. GENITOURINARY: No dysuria or hematuria. MUSCULOSKELETAL: No weakness reported. SKIN: Denies any new rashes or lesions, jaundice or pallor. PSYCHIATRIC: Denies any depression or anxiety. NEUROLOGY: Denies headache, denies any new focal deficits. EARS/NOSE/THROAT: No recent hearing change, congestion, nasal discharge or sore throat. EYES: No pain in eyes, discharge or change in vision. GASTROINTESTINAL: As per HPI. Past Medical History Past Medical History: Atrial Fibrillation, Asthma, Coronary Artery Disease (CAD), Cancer, Chest Pain / Angina, CVA/TIA, Pneumonia, Sleep Apnea/CPAP/BIPAP Additional Past Medical History / Comment(s): PUD, lower GI bleed, anemia, pancreatitis onece many years ago, bronchitis, ALPESH does not use device-falls off all the time, prostate cancer with 44 radiation treatments-completed Jan 2018, arthritis bilateral shoulders/arms, finger cramping, Gout History of Any Multi-Drug Resistant Organisms: None Reported Past Surgical History: Ablation, Bladder Surgery, Cholecystectomy, Heart Catheterization, Heart Catheterization With Stent, Joint Replacement, Orthopedic Surgery, Pacemaker Additional Past Surgical History / Comment(s): 06/18/19 EGD at [facility], colonoscopy last one 2013, bilateral total knee arthroplasties, L rotator cuff surgery, 2005 pacemaker and gen change in 2013. Past Anesthesia/Blood Transfusion Reactions: No Reported Reaction Additional Past Anesthesia/Blood Transfusion Reaction / Comm: Pt has received blood in past without reaction. Date of Last Stent Placement:: 2001 Type of Cardiac Device: Unknown Device Placement Date:: 2005 inserted/2013 gen change. Past Psychological History: No Psychological Hx Reported Additional Psychological History / Comment(s): Pt resides with his spouse of 60 yrs. He was in the [employer]. He uses no assistive devices. He drives. He has a nebulizer. Smoking Status: Former smoker Past Alcohol Use History: None Reported Additional Past Alcohol Use History / Comment(s): Pt started smoking in 1951 and quit in the 1970s. He drank alcohol socially but quit that in the 1970s too. Past Drug Use History: None Reported - Past Family History Mother History Unknown: Yes Family Medical History: Cancer Additional Family Medical History / Comment(s): Family believes liver cancer Father History Unknown: Yes Family Medical History: Cancer Additional Family Medical History / Comment(s): Stomach cancer Medications and Allergies Home Medications Medication Instructions Recorded Confirmed Type Budesonide [Pulmicort] 0.5 mg INHALATION RT-BID 12/08/13 05/19/20 History Simvastatin [Zocor] 80 mg PO HS 12/08/13 05/19/20 History Montelukast [Singulair] 10 mg PO DAILY 01/24/19 05/19/20 History Aspirin EC [Ecotrin Low Dose] 162 mg PO DAILY 07/06/19 05/19/20 History Potassium Chloride ER [K-Dur 10] 10 meq PO DAILY 07/06/19 05/19/20 History Furosemide [Lasix] 40 mg PO BID #60 tablet 07/10/19 05/19/20 Rx Allopurinol [Zyloprim] 100 mg PO DAILY 05/08/20 05/19/20 History Cholecalciferol (Vitamin D3) 125 mcg PO BID 05/08/20 05/19/20 History [Vitamin D3 (5000 Iu)] Docusate [Colace] 100 mg PO BID 05/08/20 05/19/20 History Inulin/Chromium Picolinate [Fiber 1 tab PO DAILY 05/08/20 05/19/20 History Gummies Chew] Pantoprazole [Protonix] 40 mg PO BID 05/08/20 05/19/20 History Apixaban [Eliquis] 5 mg PO BID #60 tab 05/09/20 05/19/20 Rx Cyanocobalamin [Vitamin B-12] 1,000 mcg PO DAILY #30 tab 05/10/20 05/19/20 Rx Metoprolol Tartrate [Lopressor] 25 mg PO BID tab 05/10/20 05/19/20 Rx Allergies Allergy/AdvReac Type Severity Reaction Status Date / Time zolpidem [From Ambien] AdvReac Hallucinati Verified 05/19/20 15:37 ons Physical Exam Vitals: Vital Signs Temp Pulse Resp BP Pulse Ox 05/20/20 12:59 98.8 F 80 15 150/88 98 05/20/20 05:19 20 05/20/20 05:00 97.8 F 58 L 127/59 96 05/19/20 19:21 97.8 F 60 20 130/64 99 05/19/20 19:20 20 Intake and Output 05/20/20 05/20/20 05/20/20 06:59 14:59 22:59 Intake Total 900 1630 Balance 900 1630 Intake: Intake, IV Titration 900 850 Amount Sodium Chloride 0.9% 1, 900 850 000 ml @ 50 mls/hr IV . Q20H [facility] Rx#:[id number] Oral 780 Other: Voiding Method Toilet Urinal # Voids 3 4 On physical examination, patient appears comfortable in no apparent distress. HEAD: Normocephalic, atraumatic. EYES: No scleral icterus. No conjunctival injection. MOUTH: No lesions, tongue midline. NECK: Trachea midline, no gross abnormalities. CHEST: Decreased air entry in all lung george. HEART: S1-S2 appreciate. ABDOMEN: Soft, obese, nontender to palpation. Bowel sounds are positive. No organomegaly. No guarding or rigidity. EXTREMITIES: No pedal edema. SKIN: No rashes, no jaundice. NEUROLOGIC: Alert and oriented to person and place. Results CBC & Chem 7: 05/21/20 04:48 05/19/20 13:40 Labs: Abnormal Lab Results - Last 24 Hours (Table) 05/19/20 05/20/20 Range/Units 20:02 10:35 RBC 3.05 L 2.91 L (4.30-5.90) m/uL Hgb 9.4 L 8.9 L (13.0-17.5) gm/dL Hct 29.1 L 27.7 L (39.0-53.0) % Chest x-ray: report reviewed (No evidence of acute pulmonary disease) Assessment and Plan (1) Melena Narrative/Plan: 82-year-old male presenting to the hospital with complaints of fatigue some exertional dyspnea and melanotic stool. The patient has multiple medical comorbidities and is on anticoagulation therapy. He is had extensive endoscopic evaluation in the past with prior EGD in 05/2018 showing esophagitis and colonoscopy and EGD on 06/23/2019 significant for a duodenal bulb ulcer without evidence of bleeding and a small hiatal hernia and polypectomy and low-grade internal and external hemorrhoids on colonoscopy. The patient has 3 days of dark-colored stool after recent hospitalization. He denies any abdominal pain. Unclear etiology, concern is for upper GI bleed with differential including esophagitis, gastritis, peptic ulcer disease, AVM, Dieulafoy lesion or other etiology. Current Visit: Yes Status: Acute Code(s): K92.1 - MELENA SNOMED Code(s): 8657109 (2) GI bleed Current Visit: Yes Status: Acute Code(s): K92.2 - GASTROINTESTINAL HEMORRHAGE, UNSPECIFIED SNOMED Code(s): 56199461 (3) History of peptic ulcer disease Current Visit: No Status: Acute Code(s): Z87.11 - PERSONAL HISTORY OF PEPTIC ULCER DISEASE SNOMED Code(s): 650213159 Plan: Supportive care Clear liquid diet Nothing by mouth after midnight Continue to monitor hemoglobin and hematocrit and transfuse as needed Continue monitor CBC, BMP, LFTs NSAID avoidance Hold anticoagulation therapy for now Plan for EGD tomorrow for further evaluation Thank you for allowing us to participate in the care of the patient
[2020-05-21 09:30] LABS: African American GFR (CKD) 56.5 (60.0-200.0); Anion Gap 5.7 mmol/L (4.00-12.00); BUN/Creat Ratio 29.23 Ratio (12.00-20.00); Calcium 9.9 mg/dL (8.7-10.3); Carbon Dioxide 30.3 mmol/L (21.6-31.8); Non-African American GFR(CKD) 48.7 (60.0-200.0); Potassium 4.6 mmol/L (3.5-5.5)
[2020-05-21] MEDS ORDERED: LIDOCAINE 1% INJ 10MG/ML (20 ML MDV) ONE (10:03)
[2020-05-21] MEDS ORDERED: PROPOFOL 10 MG/ML 20 ML VIAL IV ONE (10:03)
[2020-05-21] MEDS ORDERED: IV FLUID CONTINUATION 1,000 ML IV ONE ×2 (10:06)
--- NOTE | 2020-05-21 10:29 | P.PCN ---
Date of Procedure: 05/21/20 Description of Procedure: BRIEF HISTORY: 89-year-old male with multiple medical comorbidities including coronary artery disease, atrial fibrillation, history of CVA/TIA, ALPEHS, prior peptic ulcer disease who presented to the hospital with complaints of fatigue and dark- colored stool. The patient was recently admitted for evaluation of CVA/TIA one week ago and is on Eliquis therapy. Patient reports dark-colored stool over the past 3 days. He describes the stool as black with spots. Previously the patient had a history of peptic ulcer disease with EGD in 05/2018 showing esophagitis. He underwent repeat EGD and colonoscopy in 06/23/2019 with EGD significant for a duodenal bulb ulcer without bleeding and a small hiatal hernia and colonoscopy at that time significant for ascending colon polyp with low- grade internal hemorrhoids and nonthrombosed external hemorrhoids. He denies any further dark colored stool this morning. He is denying any abdominal pain, nausea or vomiting at this time. Hemoglobin which was depressed at 8.9 down from 10.5 previously. Stool testing was positive for occult blood. PROCEDURE PERFORMED: Esophagogastroduodenoscopy with biopsy. PREOPERATIVE DIAGNOSIS: Melena, anemia. ESTIMATED BLOOD LOSS: Minimal. IV sedation per anesthesia. PROCEDURE: After informed consent was obtained, the patient was brought into the endoscopy unit. IV sedation was administered by Anesthesia under continuous monitoring. Initially the Olympus GIF-190 video endoscope was inserted into the mouth. Esophagus intubated without any difficulty. It was gradually advanced into the stomach and duodenum and carefully examined. The bulb and the second part of the duodenum appeared normal, with biopsies taken. The scope at this time was withdrawn to the stomach, adequately insufflated with air, and upon careful examination, mucosa of the antrum, body, cardia and the fundus appeared normal, except for some mild punctate erythema in the antrum and body suggestive of mild gastritis with biopsies taken. The scope was then withdrawn into the esophagus. The GE junction was located at 41 cm from the incisors, with a 2 cm hiatal hernia noted. The esophagus appeared normal, except for 4 cm of Cummings's- appearing mucosa which was salmon-colored in the distal esophagus and biopsied. There were no erosions or ulcerations seen and the patient tolerated the procedure well. IMPRESSION: 1. Mild gastritis. 2. 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 3. Small hiatal hernia. 4. Biopsies of the antrum and body, duodenum and lower esophagus. 5. No active bleeding, old blood or pathology to explain melena RECOMMENDATIONS: The findings of this examination were discussed with the patient . Okay for liquid diet, advance as tolerated. Continue to monitor hemoglobin and hematocrit and transfuse as needed. Continue to hold anticoagulation therapy for now if hemoglobin stable and no more symptoms tomorrow okay to resume. Continue PPI therapy. Await pathology from biopsies.
[2020-05-21] MEDS: allopurinoL 100 MG TAB PO SCH (11:17)
[2020-05-21] MEDS: CYANOCOBALAMIN 500 MCG TAB PO SCH (11:18)
[2020-05-21] MEDS: FUROSEMIDE 40 MG TAB PO SCH ×2 (11:18→20:16)
[2020-05-21] MEDS: CHOLECALCIFEROL 25 MCG (1000 IU) TABLET PO SCH ×2 (11:18→20:08)
[2020-05-21] MEDS: METOPROLOL TARTRATE 25 MG TAB PO SCH ×2 (11:18→20:16)
[2020-05-21] MEDS: PANTOPRAZOLE 40 MG/10 ML VIAL IVP SCH ×2 (11:19→20:08)
[2020-05-21] MEDS: POTASSIUM CHLORIDE ER 10 MEQ TAB.ER.PRT PO SCH (11:19)
[2020-05-21] MEDS: MONTELUKAST 10 MG TAB PO SCH (11:19)
[2020-05-21] MEDS: IPRATROPIUM-ALBUTEROL 3 ML NEB INHALATION SCH ×3 (11:38→19:46)
--- NOTE | 2020-05-21 11:44 | XR ---
EXAMINATION TYPE: XR chest 1V portable DATE OF EXAM: 05/21/2020 COMPARISON: Chest x-ray 05/20/2020 and 04/27/2017, CT chest 07/25/2016 HISTORY: Shortness of breath TECHNIQUE: Single frontal view of the chest is obtained. FINDINGS: There is interval change. Generators present in left pectoral region, there are leads in r ight atrium and ventricle, technique is apical lordotic, surgical clip present in the right upper lob e. Oval nodular density in the right mid lung is stable. There is no evident pneumothorax or pleural effusion. Cardiac mediastinal silhouette is stable, heart is borderline enlarged possibly due to tech nique. Aorta is dense. IMPRESSION: Stable findings. No acute abnormality. Stable calcified granuloma right upper lobe.
[2020-05-21] MEDS: SODIUM CHLORIDE 0.9% 1,000 ML IV SCH (16:07)
--- NOTE | 2020-05-21 19:28 | PN ---
PROGRESS NOTE DATE OF SERVICE: 05/21/2020 This 89-year-old gentleman who was admitted with lower gastrointestinal bleed, is being closely monitored. Patient has significant blood loss anemia at this time. The patient also complains of wheezing at this time. Dr. Crawford performed EGD today which showed multiple findings including mild gastritis, 4 cm Cummings's esophagus, hiatal hernia. Biopsy was done. No active bleeding was noted. The patient being closely monitored. Please also note the patient had apparently multiple episodes of bleeding duodenal ulcer. At this time, patient is off anticoagulation. A chest x-ray was ordered personally by me and reviewed by me personally. It showed some increased bronchovascular markings, but no evidence of any obvious evidence of CHF at this time. No chest pain. No palpitations. PAST MEDICAL HISTORY: Reviewed. REVIEW OF SYSTEMS: CARDIOVASCULAR: No angina. RESPIRATION as mentioned earlier. GI mentioned earlier. : No dysuria. NERVOUS SYSTEM: No numbness or weakness. CURRENT MEDICATIONS: Reviewed and include: Tylenol, Lipitor, Pulmicort, vitamin B12, Lasix, Singulair, Narcan, Protonix, K-Dur. Doses reviewed. PHYSICAL EXAM: Patient is alert, oriented x3. Pulse 65. Blood pressure 121/48, respiration 16, temperature 98.9, pulse ox 97% on room air. HEENT is conjunctivae normal. NECK: No JVD. CARDIOVASCULAR: S1, S2 muffled. RESPIRATION: Breath sounds diminished in the bases. A few scattered rhonchi and crackles. ABDOMEN: Soft, nontender. LEGS are no edema. No swelling. NERVOUS SYSTEM: No focal deficits. LAB: Hemoglobin 8.7. X-ray noted. ASSESSMENT: 1. Acute upper gastrointestinal bleeding with acute blood loss anemia possibly from gastritis. 2. History of previous peptic ulcer disease. 3. Recently started on Eliquis. 4. Possible bronchial asthma, acute exacerbation. 5. History of recent transient ischemic attack. 6. Atrial fibrillation, chronic. 7. History of asthma. 8. History of coronary artery disease. 9. History of chest pain, angina. 10.History of cerebrovascular accident, transient ischemic attack. 11.History of pneumonia. 12.History of sleep apnea. 13.History of peptic ulcer disease. 14.History of pancreatitis. 15.History of bronchitis. 16.History of obstructive sleep apnea. 17.History of prostate cancer with 44 radiation treatments. 18.History of degenerative joint disease. 19.History of gout. 20.History of cardiac ablation. 21.History of coronary artery disease/stent. 22.History of pacemaker. 23.Obesity with body mass index of 37.7. 24.Remote history of nicotine dependence. 25.FULL CODE. RECOMMENDATIONS AND DISCUSSION: I recommend to continue current medications, management and symptomatic treatment. Otherwise I would recommend cautious IV fluid administration. Otherwise, IV fluids may be cut to 50 mL and once the patient is taking progressive amount of fluid, it may be stopped. Otherwise, I would recommend DuoNeb at this time. Continue the rest of medication. Monitor hemoglobin closely. Gastroenterology input appreciated. Continue with proton pump inhibitors. Guarded prognosis because of multiple complex medical issues and further recommendations to follow. MMELENOL / IJN: [id number] /
[2020-05-21] MEDS: ATORVASTATIN 40 MG TAB PO SCH (20:08)
[2020-05-22 05:11] LABS: Basophils % (A) 0 %; Eosinophils % (A) 0 %; HCT 24.9 % (39.0-53.0); HGB 8.1 gm/dL (13.0-17.5); Hypochromasia Slight; Lymphocytes # (A) 0.9 k/uL (1.0-4.8); Lymphocytes % (A) 16 %; MCHC 32.3 g/dL (31.0-37.0); Mean Platelet Volume 7.3; Monocytes # (A) 0.4 k/uL (0-1.0); Monocytes % (A) 7 %; Neutrophils # (A) 4.3 k/uL (1.3-7.7); Neutrophils % (A) 75 %; Platelet Count 232 k/uL (150-450); RDW 13.6 % (11.5-15.5); WBC 5.8 k/uL (3.8-10.6)
[2020-05-22] MEDS: BUDESONIDE 0.5 MG/2 ML NEBU INHALATION SCH ×2 (07:12→20:30)
[2020-05-22] MEDS: IPRATROPIUM-ALBUTEROL 3 ML NEB INHALATION SCH ×4 (07:12→20:30)
[2020-05-22] MEDS: POTASSIUM CHLORIDE ER 10 MEQ TAB.ER.PRT PO SCH (07:58)
[2020-05-22] MEDS: allopurinoL 100 MG TAB PO SCH (07:59)
[2020-05-22] MEDS: CHOLECALCIFEROL 25 MCG (1000 IU) TABLET PO SCH ×2 (07:59→20:20)
[2020-05-22] MEDS: PANTOPRAZOLE 40 MG/10 ML VIAL IVP SCH ×2 (07:59→20:22)
[2020-05-22] MEDS: CYANOCOBALAMIN 500 MCG TAB PO SCH (07:59)
[2020-05-22] MEDS: MONTELUKAST 10 MG TAB PO SCH (07:59)
[2020-05-22] MEDS: FUROSEMIDE 40 MG TAB PO SCH ×2 (07:59→20:22)
[2020-05-22] MEDS: METOPROLOL TARTRATE 25 MG TAB PO SCH ×2 (07:59→20:21)
[2020-05-22 09:57] LABS: African American GFR (CKD) 62.2 (60.0-200.0); Anion Gap 8.4 mmol/L (4.00-12.00); BUN/Creat Ratio 25.83 Ratio (12.00-20.00); Calcium 9.4 mg/dL (8.7-10.3); Carbon Dioxide 28.6 mmol/L (21.6-31.8); Non-African American GFR(CKD) 53.7 (60.0-200.0); Potassium 3.7 mmol/L (3.5-5.5)
[2020-05-22] MEDS: SODIUM CHLORIDE 0.9% 1,000 ML IV SCH ×2 (14:27→15:37)
[2020-05-22] MEDS: IOPAMIDOL CONTRAST (ORAL USE) VIAL PO PRN ×2 (14:28→15:37)
--- NOTE | 2020-05-22 15:51 | PN ---
PROGRESS NOTE DATE OF SERVICE: 05/22/2020 This 89-year-old gentleman who was admitted with lower gastrointestinal bleeding also had upper endoscopy, showed possibly Cummings's esophagus as well as gastritis. Patient is being treated symptomatically. Patient also had acute asthma exacerbation. The patient also had melenic stool last night. Hemoglobin is 8.1. Please note that hemoglobin was 9.9 at the time of admission. The previous hemoglobin was in the teens previously. Gastroenterology following the patient closely. PAST MEDICAL HISTORY: Reviewed. REVIEW OF SYSTEMS: CARDIOVASCULAR SYSTEM: No angina. RESPIRATION: Mild shortness of breath. no dysuria. GI patient also complaining of mild diffuse abdominal pain. CURRENT MEDICATIONS: Reviewed and include: Tylenol, DuoNeb, Zyloprim, Lipitor, Pulmicort, vitamin D3, Lasix. Doses reviewed, metoprolol. PHYSICAL EXAM: Patient is alert, oriented x3. Pulse 65. Blood pressure 119/51. Respirations 20. Temperature 97.6. No orthostatic changes. HEENT: Conjunctivae pale. Oral mucosa moist. NECK is no jugular venous distention. CARDIOVASCULAR system: S1, S2 muffled. RESPIRATIONS: Breath sounds diminished in the bases. ABDOMEN: Soft, obese. Mild diffuse discomfort on palpation. LEGS: No edema. No swelling. NERVOUS SYSTEM: No focal deficits. LABS: Hemoglobin 8.1, sodium 140, potassium 3.8. Other labs are reviewed. ASSESSMENT: 1. Acute upper gastrointestinal bleeding with acute blood loss anemia possibly from acute gastritis status post EGD. 2. Abdominal pain for evaluation. 3. History of previous peptic ulcer disease. 4. Recently started on Eliquis. 5. Possible bronchial asthma acute exacerbation present on admission. 6. History of recent transient ischemic attack. 7. Atrial fibrillation chronic. 8. Chronic intermittent bronchial asthma history. 9. History of coronary artery disease. 10.History of chest pain, angina. 11.History of cerebrovascular accident, transient ischemic attack. 12.History of pneumonia. 13.History of obstructive sleep apnea. 14.History of peptic ulcer disease previously. 15.History of pancreatitis. 16.History of bronchitis. 17.History of obstructive sleep apnea. 18.History of prostate cancer with 44 radiation treatment. 19.History of degenerative joint disease. 20.History of gout. 21.History of cardiac ablation. 22.History of coronary artery disease/stent. 23.History of pacemaker. 24.Obesity with body mass index of 37.7. 25.Remote history of nicotine dependence. 26.FULL CODE. RECOMMENDATIONS AND DISCUSSION: I recommend to continue current medications, management and symptomatic treatment. Otherwise monitor hemoglobin closely. Patient does not have any orthostatic changes. We will continue to monitor hemoglobin. If hemoglobin less than 7 and symptomatic then the patient will be transfused. Otherwise hold off the anticoagulants because of the melenic stones. I would also recommend a CT scan of the abdomen and pelvis with only p.o. contrast to rule out the possibility of any acute abnormality. Guarded prognosis because of multiple complex medical issues. Symptomatic treatment provided. See orders for details. Further recommendations to follow. MMODL / IJN: [id number] /
--- NOTE | 2020-05-22 16:50 | CT ---
EXAMINATION TYPE: CT abdomen pelvis wo con DATE OF EXAM: 05/22/2020 COMPARISON: 07/06/2019 HISTORY: abdominal pain, GI bleed CT DLP: 1225.1 mGycm Automated exposure control for dose reduction was used. Exam performed with oral contrast only. Lung bases are clear of consolidation. Heart appears slightly enlarged. There is no pericardial effus ion. Stomach is intact. Liver and spleen appear intact. There are clips from cholecystectomy. There i s no sign of pancreatic mass. The bile ducts are not dilated. There is no adrenal mass. Kidneys show normal size and contour. There is no hydronephrosis. Ureters a re not dilated. There is no retroperitoneal adenopathy. Bladder distends smoothly. There are bilatera l inguinal hernias that contain fat. There is no free fluid in the pelvis. Appendix is normal. There is no mesenteric edema. There is no ascites or free air. There is no bowel obstruction. Lumbar vertebra have normal alignment. There is no compression fracture. There is vacuum disc at L3-4 with spurring of the endplates. There is some osteoarthritic narrowing and spurring at the right hip joint more than the left. IMPRESSION: No acute abnormality of the abdomen and pelvis. There is clearing of the small pleural effusions comp ared to old exam. There is clearing of the atelectasis at the lung bases compared to old exam.
--- NOTE | 2020-05-22 18:54 | P.PN ---
Subjective Progress Note Date: 05/22/20 Principal diagnosis: melena, history of peptic ulcer disease patient lying in bed with no acute complaints. Tolerating diet. Objective - Vital Signs Vital signs: Vital Signs Temp 97.5 F L 05/22/20 04:26 Pulse 60 05/22/20 08:10 Resp 17 05/22/20 08:10 BP 95/56 05/22/20 04:26 Pulse Ox 93 L 05/22/20 04:26 Intake & Output 05/21/20 05/22/20 05/22/20 18:59 06:59 18:59 Intake Total 760 Output Total 300 Balance 460 Intake: IV 200 Oral 560 Output: Urine 300 Other: Voiding Method Toilet Toilet Toilet Urinal Urinal Urinal # Voids 2 3 # Bowel Movements 1 - Exam On physical examination, patient appears comfortable in no apparent distress. HEAD: Normocephalic, atraumatic. EYES: No scleral icterus. No conjunctival injection. MOUTH: No lesions, tongue midline. NECK: Trachea midline, no gross abnormalities. ABDOMEN: Soft, obese. Bowel sounds are positive. No organomegaly. No guarding or rigidity. EXTREMITIES: No pedal edema. SKIN: No rashes, no jaundice. NEUROLOGIC: Alert and oriented x3. No focal deficits. - Labs CBC & Chem 7: 05/22/20 04:14 05/22/20 04:14 Labs: Abnormal Lab Results - Last 24 Hours (Table) 05/22/20 05/22/20 Range/Units 04:14 04:14 RBC 2.60 L (4.30-5.90) m/uL Hgb 8.1 L (13.0-17.5) gm/dL Hct 24.9 L (39.0-53.0) % Lymphocytes # 0.9 L (1.0-4.8) k/uL BUN 31.0 H (9.0-27.0) mg/dL Est GFR (CKD-EPI)NonAf 53.7 L (60.0-200.0) BUN/Creatinine Ratio 25.83 H (12.00-20.00) Ratio Glucose 144 H (70-110) mg/dL Assessment and Plan (1) Melena Narrative/Plan: 89-year-old male presenting to the hospital with complaints of fatigue some exertional dyspnea and melanotic stool. The patient has multiple medical comorbidities and is on anticoagulation therapy. He is had extensive endoscopic evaluation in the past with prior EGD in 05/2018 showing esophagitis and colonoscopy and EGD on 06/23/2019 significant for a duodenal bulb ulcer without evidence of bleeding and a small hiatal hernia and polypectomy and low-grade internal and external hemorrhoids on colonoscopy. The patient has 3 days of dark-colored stool after recent hospitalization. He denies any abdominal pain. 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 Current Visit: Yes Status: Acute Code(s): K92.1 - MELENA SNOMED Code(s): 2695178 (2) GI bleed Current Visit: Yes Status: Acute Code(s): K92.2 - GASTROINTESTINAL HEMORRHAGE, UNSPECIFIED SNOMED Code(s): 49649507 (3) History of peptic ulcer disease Current Visit: No Status: Acute Code(s): Z87.11 - PERSONAL HISTORY OF PEPTIC ULCER DISEASE SNOMED Code(s): 221944129 Plan: Supportive care okay for diet as tolerated Continue to monitor hemoglobin and hematocrit and transfuse as needed Continue monitor CBC, BMP, LFTs NSAID avoidance Hold anticoagulation therapy for now, suspected small bowel bleed likely from angiectasia patient would remain at high risk for repeat GI bleed upon resumption of medications patient can follow-up for video capsule endoscopy when available in the outpatient setting Thank you for allowing us to participate in the care of the patient
[2020-05-22] MEDS: ATORVASTATIN 40 MG TAB PO SCH (20:21)
[2020-05-23 04:07] LABS: Basophils % (A) 0 %; Eosinophils % (A) 0 %; HCT 25.1 % (39.0-53.0); HGB 8.1 gm/dL (13.0-17.5); Hypochromasia Slight; Lymphocytes # (A) 1.2 k/uL (1.0-4.8); Lymphocytes % (A) 20 %; MCH 30.9 pg (25.0-35.0); MCHC 32.3 g/dL (31.0-37.0); MCV 95.6 fL (80.0-100.0); Mean Platelet Volume 7.4; Monocytes # (A) 0.4 k/uL (0-1.0); Monocytes % (A) 7 %; Neutrophils # (A) 4.3 k/uL (1.3-7.7); Neutrophils % (A) 72 %; Platelet Count 250 k/uL (150-450); RBC 2.63 m/uL (4.30-5.90); RDW 13.7 % (11.5-15.5)
[2020-05-23] MEDS: IPRATROPIUM-ALBUTEROL 3 ML NEB INHALATION SCH ×4 (07:21→19:00)
[2020-05-23] MEDS: BUDESONIDE 0.5 MG/2 ML NEBU INHALATION SCH ×2 (07:21→19:00)
[2020-05-23] MEDS: METOPROLOL TARTRATE 25 MG TAB PO SCH ×2 (07:38→20:08)
[2020-05-23] MEDS: PANTOPRAZOLE 40 MG/10 ML VIAL IVP SCH ×2 (07:38→20:09)
[2020-05-23] MEDS: MONTELUKAST 10 MG TAB PO SCH (07:38)
[2020-05-23] MEDS: CYANOCOBALAMIN 500 MCG TAB PO SCH (07:39)
[2020-05-23] MEDS: POTASSIUM CHLORIDE ER 10 MEQ TAB.ER.PRT PO SCH (07:39)
[2020-05-23] MEDS: allopurinoL 100 MG TAB PO SCH (07:39)
[2020-05-23] MEDS: FUROSEMIDE 40 MG TAB PO SCH ×3 (07:39→20:19)
[2020-05-23] MEDS: CHOLECALCIFEROL 25 MCG (1000 IU) TABLET PO SCH ×2 (07:39→20:08)
[2020-05-23 08:42] LABS: African American GFR (CKD) 62.2 (60.0-200.0); Anion Gap 10.2 mmol/L (4.00-12.00); BUN/Creat Ratio 20.83 Ratio (12.00-20.00); Calcium 9.6 mg/dL (8.7-10.3); Carbon Dioxide 27.8 mmol/L (21.6-31.8); Non-African American GFR(CKD) 53.7 (60.0-200.0); Potassium 4.2 mmol/L (3.5-5.5)
--- NOTE | 2020-05-23 13:26 | P.CRDCN ---
History of Present Illness Consult date: 05/23/20 History of present illness: CHIEF COMPLAINT: Anticoagulation HISTORY OF PRESENT ILLNESS: This is a 89-year-old male with a past medical history significant for chronic atrial fibrillation, coronary artery disease with previous PCI, asthma, pacemaker insertion, and GI bleed. Patient follows in the office with Dr. Bose. We have been asked to see the patient in consultation for anticoagulation recommendations. Patient was recently hospitalized on 05/09/2020 secondary to TIA. Patient was not on anticoagulation at that time. Patient had been prescribed Coumadin previously and had consultations with GI bleeding. Patient was agreeable to trying Eliquis. Dr. Bose has recommending Watchman procedure in the past but patient had declined. Patient presented back to the emergency room with a chief complaint of dark colored stools. He underwent EGD with Dr. 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 Patient's anticoagulation remains on hold. Hemoglobin today is 8.1. DIAGNOSTICS: EKG reveals paced rhythm Chest xray negative for acute process Laboratory data: WBC 6.0. Hemoglobin 8.1. Platelet count 250. Sodium 142. Potassium 4.2. BUN 25. Creatinine 1.2. Current home cardiac medications include simvastatin 80 mg daily, metoprolol 25 mg twice a day, Lasix 40 mg twice a day, aspirin 162 mg daily, Eliquis 5 mg twice a day REVIEW OF SYSTEMS: At the time of my exam: CONSTITUTIONAL: Denies fever or chills. HEENT: Denies blurred vision, vision changes, or eye pain. Denies hemoptysis CARDIOVASCULAR: Denies chest pain, orthopnea, PND or palpitations RESPIRATORY: No shortness of breath. GASTROINTESTINAL: Denies abdominal pain. Denies nausea or vomiting. HEMATOLOGIC: Denies bleeding disorders. GENITOURINARY: Denies any blood in urine. SKIN: Denies pruitis. Denies rash. PHYSICAL EXAM: VITAL SIGNS: Reviewed. GENERAL: Well-developed in no acute distress. HEENT: Head is normocephalic. Pupils are equal, round. Sclerae anicteric. Mucous membranes of the mouth are moist. Neck supple. No JVD or thyromegaly LUNGS: Respirations even and unlabored. Lungs essentially clear to auscultation bilaterally. HEART: Irregular rate and rhythm. S1 and S2 heard. ABDOMEN: Soft. Nondistended. Nontender. EXTREMITIES: Normal range of motion. No clubbing or cyanosis. Peripheral pulses intact. No lower extremity edema NEUROLOGIC: Awake and alert. Oriented x 3. ASSESSMENT: Acute blood loss anemia, s/p EGD Chronic persistent atrial fibrillation History of TIA, April 2020 Coronary artery disease with previous PCI History of permanent pacemaker insertion History of diastolic congestive heart failure, currently euvolemic, ejection fraction 50-55% PLAN: Anticoagulation remains on hold. Monitor hemoglobin. Will discuss further with GI service regarding resuming anticoagulation Patient now agreeable to having Watchman procedure performed. However, this will likely not be possible at this time due to GI bleeding. Patient to follow up with Dr. Bose outpatient and will further discuss possibility of Watchman procedure in the future Nurse practitioner note has been reviewed by physician. Signing provider agrees with the documented findings, assessment, and plan of care. Past Medical History Past Medical History: Atrial Fibrillation, Asthma, Coronary Artery Disease (CAD), Cancer, Chest Pain / Angina, CVA/TIA, Pneumonia, Sleep Apnea/CPAP/BIPAP Additional Past Medical History / Comment(s): PUD, lower GI bleed, anemia, pancreatitis onece many years ago, bronchitis, ALPESH does not use device-falls off all the time, prostate cancer with 44 radiation treatments-completed Jan 2018, arthritis bilateral shoulders/arms, finger cramping, Gout History of Any Multi-Drug Resistant Organisms: None Reported Past Surgical History: Ablation, Bladder Surgery, Cholecystectomy, Heart Catheterization, Heart Catheterization With Stent, Joint Replacement, Orthopedic Surgery, Pacemaker Additional Past Surgical History / Comment(s): 06/18/19 EGD at [facility], colonoscopy last one 2013, bilateral total knee arthroplasties, L rotator cuff surgery, 2005 pacemaker and gen change in 2013. Past Anesthesia/Blood Transfusion Reactions: No Reported Reaction Additional Past Anesthesia/Blood Transfusion Reaction / Comment(s): Pt has received blood in past without reaction. Date of Last Stent Placement:: 2001 Type of Cardiac Device: Unknown Device Placement Date:: 2005 inserted/2013 gen change. Past Psychological History: No Psychological Hx Reported Additional Psychological History / Comment(s): Pt resides with his spouse of 60 yrs. He was in the [employer]. He uses no assistive devices. He drives. He has a nebulizer. Smoking Status: Former smoker Past Alcohol Use History: None Reported Additional Past Alcohol Use History / Comment(s): Pt started smoking in 1951 and quit in the . He drank alcohol socially but quit that in the too. Past Drug Use History: None Reported - Past Family History Mother History Unknown: Yes Family Medical History: Cancer Additional Family Medical History / Comment(s): Family believes liver cancer Father History Unknown: Yes Family Medical History: Cancer Additional Family Medical History / Comment(s): Stomach cancer Medications and Allergies Home Medications Medication Instructions Recorded Confirmed Type Budesonide [Pulmicort] 0.5 mg INHALATION RT-BID 12/08/13 05/19/20 History Simvastatin [Zocor] 80 mg PO HS 12/08/13 05/19/20 History Montelukast [Singulair] 10 mg PO DAILY 01/24/19 05/19/20 History Aspirin EC [Ecotrin Low Dose] 162 mg PO DAILY 07/06/19 05/19/20 History Potassium Chloride ER [K-Dur 10] 10 meq PO DAILY 07/06/19 05/19/20 History Furosemide [Lasix] 40 mg PO BID #60 tablet 07/10/19 05/19/20 Rx Allopurinol [Zyloprim] 100 mg PO DAILY 05/08/20 05/19/20 History Cholecalciferol (Vitamin D3) 125 mcg PO BID 05/08/20 05/19/20 History [Vitamin D3 (5000 Iu)] Docusate [Colace] 100 mg PO BID 05/08/20 05/19/20 History Inulin/Chromium Picolinate [Fiber 1 tab PO DAILY 05/08/20 05/19/20 History Gummies Chew] Pantoprazole [Protonix] 40 mg PO BID 05/08/20 05/19/20 History Apixaban [Eliquis] 5 mg PO BID #60 tab 05/09/20 05/19/20 Rx Cyanocobalamin [Vitamin B-12] 1,000 mcg PO DAILY #30 tab 05/10/20 05/19/20 Rx Metoprolol Tartrate [Lopressor] 25 mg PO BID tab 05/10/20 05/19/20 Rx Allergies Allergy/AdvReac Type Severity Reaction Status Date / Time zolpidem [From Ambien] AdvReac Hallucinati Verified 05/19/20 15:37 ons Physical Exam Vitals: Vital Signs Temp Pulse Pulse Pulse Resp BP BP 05/23/20 11:32 97.5 F L 57 L 18 125/60 05/23/20 11:22 65 05/23/20 11:10 65 05/23/20 07:32 64 05/23/20 07:21 62 05/23/20 04:01 98.0 F 60 18 116/63 05/22/20 20:42 64 05/22/20 20:30 60 05/22/20 20:17 98.0 F 62 18 05/22/20 19:55 18 05/22/20 15:55 62 05/22/20 15:42 64 BP Pulse Ox 05/23/20 11:32 93 L 05/23/20 11:22 05/23/20 11:10 05/23/20 07:32 05/23/20 07:21 05/23/20 04:01 97 05/22/20 20:42 05/22/20 20:30 05/22/20 20:17 128/58 97 05/22/20 19:55 05/22/20 15:55 05/22/20 15:42 Intake and Output 05/22/20 05/23/20 05/23/20 22:59 06:59 14:59 Intake Total 240 600 Balance 240 600 Intake: Intake, IV Titration 600 Amount Sodium Chloride 0.9% 1, 600 000 ml @ 50 mls/hr IV . Q20H [facility] Rx#:[id number] Oral 240 Other: Voiding Method Toilet Toilet Urinal # Voids 3 3 # Bowel Movements 2 Results 05/23/20 03:27 05/23/20 03:27 CBC 05/23/20 Range/Units 03:27 WBC 6.0 (3.8-10.6) k/uL RBC 2.63 L (4.30-5.90) m/uL Hgb 8.1 L (13.0-17.5) gm/dL Hct 25.1 L (39.0-53.0) % Plt Count 250 (150-450) k/uL Comprehensive Metabolic Panel 05/23/20 Range/Units 03:27 Sodium 142 (135-145) mmol/L Potassium 4.2 (3.5-5.5) mmol/L Chloride 104 (96-109) mmol/L Carbon Dioxide 27.8 (21.6-31.8) mmol/L BUN 25.0 (9.0-27.0) mg/dL Creatinine 1.2 (0.6-1.5) mg/dL Glucose 149 H (70-110) mg/dL Calcium 9.6 (8.7-10.3) mg/dL Current Medications Generic Name Dose Route Start Last Admin Trade Name Freq PRN Reason Stop Dose Admin Acetaminophen 650 mg 05/19/20 15:18 Acetaminophen Tab 325 Mg Tab PO Q6HR PRN Mild Pain or Fever > 100.5 Albuterol/Ipratropium 3 ml 05/21/20 12:00 05/23/20 11:10 Ipratropium-Albuterol 3 Ml Neb INHALATION 3 ml RT-QID [facility] Administration Allopurinol 100 mg 05/21/20 09:00 05/23/20 07:39 Allopurinol 100 Mg Tab PO 100 mg DAILY PRIYANK Administration Atorvastatin Calcium 40 mg 05/20/20 21:00 05/22/20 20:21 Atorvastatin 40 Mg Tab PO 40 mg HS PRIYANK Administration Budesonide 0.5 mg 05/20/20 20:00 05/23/20 07:21 Budesonide 0.5 Mg/2 Ml Nebu INHALATION 0.5 mg RT-BID PRIYANK Administration Cholecalciferol 125 mcg 05/20/20 21:00 05/23/20 07:39 Cholecalciferol 25 Mcg (1000 Iu) Tablet PO 125 mcg BID PRIYANK Administration Cyanocobalamin 1,000 mcg 05/21/20 09:00 05/23/20 07:39 Cyanocobalamin 500 Mcg Tab PO 1,000 mcg DAILY PRIYANK Administration Furosemide 40 mg 05/20/20 21:00 05/23/20 07:39 Furosemide 40 Mg Tab PO 40 mg BID PRIYANK Administration Sodium Chloride 1,000 mls @ 50 mls/hr 05/19/20 15:30 05/22/20 15:37 Saline 0.9% IV 50 mls/hr .Q20H [facility] Administration Metoprolol Tartrate 25 mg 05/20/20 21:00 05/23/20 07:38 Metoprolol Tartrate 25 Mg Tab PO 25 mg BID PRIY[facility] Administration Montelukast Sodium 10 mg 05/21/20 09:00 05/23/20 07:38 Montelukast 10 Mg Tab PO 10 mg DAILY PRIYANK Administration Naloxone HCl 0.2 mg 05/19/20 15:18 Naloxone 0.4 Mg/Ml 1 Ml Vial IV Q2M PRN Opioid Reversal Pantoprazole Sodium 40 mg 05/19/20 21:00 05/23/20 07:38 Pantoprazole 40 Mg/10 Ml Vial IVP 40 mg BID PRIYANK Administration Potassium Chloride 10 meq 05/21/20 09:00 05/23/20 07:39 Potassium Chloride Er 10 Meq Tab.Er.Prt PO 10 meq DAILY PRIYANK Administration Intake and Output 05/22/20 05/23/20 05/23/20 22:59 06:59 14:59 Intake Total 240 600 Balance 240 600 Intake: Intake, IV Titration 600 Amount Sodium Chloride 0.9% 1, 600 000 ml @ 50 mls/hr IV . Q20H [facility] Rx#:[id number] Oral 240 Other: Voiding Method Toilet Toilet Urinal # Voids 3 3 # Bowel Movements 2 05/23/20 03:27 05/23/20 03:27
--- NOTE | 2020-05-23 14:21 | P.PN ---
Subjective Progress Note Date: 05/23/20 Principal diagnosis: Melena This is an 82-year-old male patient who has a multiple comorbidities including history of atrial fibrillation who is on Ahlquist, recent TIA within the last 2 weeks who came in with complaints of melena with a history of peptic ulcer disease. 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 He states today's had no evidence of melena or rectal bleeding. He denies any nausea, vomiting, or abdominal pain. He's been up ambulating and showering without any dizziness or shortness of breath. Objective - Vital Signs Vital signs: Vital Signs Temp 97.5 F L 05/23/20 11:32 Pulse 57 L 05/23/20 11:32 Resp 18 05/23/20 11:32 BP 125/60 05/23/20 11:32 Pulse Ox 93 L 05/23/20 11:32 Intake & Output 05/22/20 05/23/20 05/23/20 18:59 06:59 18:59 Intake Total 240 600 Balance 240 600 Intake: Intake, IV Titration 600 Amount Sodium Chloride 0.9% 1, 600 000 ml @ 50 mls/hr IV . Q20H [facility] Rx#:[id number] Oral 240 Other: Voiding Method Toilet Toilet Toilet Urinal Urinal # Voids 3 3 # Bowel Movements 2 - Exam General appearance: The patient is alert, oriented, appears in no acute distress. Obese. HET: Head is normocephalic and atraumatic. Conjunctiva pink. Sclera anicteric. Neck: Supple without lymphadenopathy. Abdomen: Soft, nontender, nondistended with bowel sounds. No guarding or rigidity. Extremities: Normal skin color and turgor. No pedal edema Neurological: No focal deficits. Alert and oriented 3. - Labs CBC & Chem 7: 05/23/20 03:27 05/23/20 03:27 Labs: Abnormal Lab Results - Last 24 Hours (Table) 05/23/20 05/23/20 Range/Units 03:27 03:27 RBC 2.63 L (4.30-5.90) m/uL Hgb 8.1 L (13.0-17.5) gm/dL Hct 25.1 L (39.0-53.0) % Est GFR (CKD-EPI)NonAf 53.7 L (60.0-200.0) BUN/Creatinine Ratio 20.83 H (12.00-20.00) Ratio Glucose 149 H (70-110) mg/dL Assessment and Plan (1) Melena Narrative/Plan: 89-year-old male presenting to the hospital with complaints of fatigue some exertional dyspnea and melanotic stool. The patient has multiple medical comorbidities and is on anticoagulation therapy. He is had extensive endoscopic evaluation in the past with prior EGD in 05/2018 showing esophagitis and colonoscopy and EGD on 06/23/2019 significant for a duodenal bulb ulcer without evidence of bleeding and a small hiatal hernia and polypectomy and low-grade internal and external hemorrhoids on colonoscopy. The patient has 3 days of dark-colored stool after recent hospitalization. He denies any abdominal pain. 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 Current Visit: Yes Status: Acute Code(s): K92.1 - MELENA SNOMED Code(s): 0117552 (2) GI bleed Narrative/Plan: Cardiology consulted for patient's history of atrial fibrillation and recent TIA regarding anticoagulation. Patient was previously on Coumadin and switched over to Eliquis however has had 2 previous GI bleeds while on anticoagulation. It was discussed with the patient risks versus benefits of holding his anticoagulation, risk of having a stroke outweighs the GI bleed which he could be transfused as needed. Will restart and trial anticoagulation at this time says for further GI bleed. Will discontinue if any evidence of GI bleed. Patient is to follow-up with cardiology for possible outpatient watchman procedure. Current Visit: Yes Status: Acute Code(s): K92.2 - GASTROINTESTINAL HEMORRHAGE, UNSPECIFIED SNOMED Code(s): 48546707 (3) History of peptic ulcer disease Current Visit: No Status: Acute Code(s): Z87.11 - PERSONAL HISTORY OF PEPTIC ULCER DISEASE SNOMED Code(s): 911826404 Plan: Supportive care okay for diet as tolerated Continue to monitor hemoglobin and hematocrit and transfuse as needed Continue monitor CBC, BMP, LFTs NSAID avoidance May restart anticoagulation. Risks and benefits discussed with patient, patient has history of atrial fibrillation with recent TIA. Patient can follow-up for video capsule endoscopy when available in the outpa tient setting Thank you for allowing us to participate in the care of the patient Dr. Gama Pacheco I agree with the dictator's note, documented as a scribe by Negrita Giles.
--- NOTE | 2020-05-23 16:46 | PN ---
PROGRESS NOTE DATE OF SERVICE: 05/23/2020 This 89-year-old gentleman who was admitted with acute upper gastrointestinal bleeding also had acute blood loss anemia. The patient had melenic stools 2 days ago but currently monitored closely. Cardiology is following the patient closely. No chest pain. No palpitations. No fever. PHYSICAL EXAMINATION: Alert and oriented times two. Pulse 57, blood pressure 120/60, respiration 18, temperature 97.4, pulse ox 93% on room air. HEENT: Conjunctivae pale. Oral mucosa moist. NECK is no JVD. No carotid bruit. CARDIOVASCULAR: S1, S2 muffled. RESPIRATION: Breath sounds diminished in the bases. ABDOMEN: Soft. Obese. NERVOUS SYSTEM: No focal deficits. LAB: Hemoglobin 8.1. Other labs are noted. ASSESSMENT: 1. Acute upper gastrointestinal bleeding with acute blood loss anemia possibly from acute gastritis status post EGD. 2. Abdominal pain for evaluation. 3. History of previous peptic ulcer disease. 4. Recently started on Eliquis. 5. Possible bronchial asthma acute exacerbation, present on admission. 6. History of transient ischemic attack, recent. 7. Atrial fibrillation, chronic. 8. Chronic intermittent bronchial asthma history. 9. History of coronary artery disease. 10.History of chest pain, angina. 11.History of cerebrovascular accident/transient ischemic attack. 12.History of pneumonia. 13.History of obstructive sleep apnea. 14.History of peptic ulcer disease previously. 15.History of pancreatitis. 16.History of bronchitis. 17.History of obstructive sleep apnea. 18.History of prostate cancer with 44 radiation treatment. 19.History of degenerative joint disease. 20.History of gout. 21.History of cardiac ablation. 22.History of coronary artery disease/stent. 23.History of pacemaker. 24.Obesity with body mass index of 37.7. 25.Remote history of nicotine dependence. 26.FULL CODE. RECOMMENDATIONS AND DISCUSSION: I recommend to continue current medical management, continue to monitor. Otherwise at this time I recommend continue the current medications and symptomatic treatment. Abdominal and pelvis CAT scan was also done which was reviewed personally by me and showed no acute abnormality. Clearing of the small pleural effusion was noted. Otherwise, we will continue to monitor. Repeat labs. Further recommendations to follow. MMODL / IJN: [id number] /
[2020-05-23] MEDS: ATORVASTATIN 40 MG TAB PO SCH (20:08)
[2020-05-23] MEDS: APIXABAN 5 MG TAB PO SCH (20:09)
[2020-05-24] MEDS: SODIUM CHLORIDE 0.9% 1,000 ML IV SCH (01:43)
[2020-05-24 04:52] VITALS: RESP 16
[2020-05-24] MEDS: IPRATROPIUM-ALBUTEROL 3 ML NEB INHALATION SCH ×2 (07:30→11:24)
[2020-05-24] MEDS: BUDESONIDE 0.5 MG/2 ML NEBU INHALATION SCH (07:30)
[2020-05-24] MEDS: CHOLECALCIFEROL 25 MCG (1000 IU) TABLET PO SCH (08:33)
[2020-05-24] MEDS: METOPROLOL TARTRATE 25 MG TAB PO SCH (08:33)
[2020-05-24] MEDS: APIXABAN 5 MG TAB PO SCH (08:33)
[2020-05-24] MEDS: allopurinoL 100 MG TAB PO SCH (08:33)
[2020-05-24] MEDS: POTASSIUM CHLORIDE ER 10 MEQ TAB.ER.PRT PO SCH (08:34)
[2020-05-24] MEDS: CYANOCOBALAMIN 500 MCG TAB PO SCH (08:34)
[2020-05-24] MEDS: PANTOPRAZOLE 40 MG/10 ML VIAL IVP SCH (08:34)
[2020-05-24] MEDS: MONTELUKAST 10 MG TAB PO SCH (08:34)
[2020-05-24] MEDS: FUROSEMIDE 40 MG TAB PO SCH (08:34)
--- NOTE | 2020-05-24 10:39 | P.PN ---
Subjective Progress Note Date: 05/24/20 CHIEF COMPLAINT: Anticoagulation HISTORY OF PRESENT ILLNESS: 05/23/2020 This is a 89-year-old male with a past medical history significant for chronic atrial fibrillation, coronary artery disease with previous PCI, asthma, pacemaker insertion, and GI bleed. Patient follows in the office with Dr. Bose. We have been asked to see the patient in consultation for anticoagulation recommendations. Patient was recently hospitalized on 05/09/2020 secondary to TIA. Patient was not on anticoagulation at that time. Patient had been prescribed Coumadin previously and had consultations with GI bleeding. Patient was agreeable to trying Eliquis. Dr. Bsoe has recommending Watchman procedure in the past but patient had declined. Patient presented back to the emergency room with a chief complaint of dark colored stools. He underwent EGD with Dr. 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 Patient's anticoagulation remains on hold. Hemoglobin today is 8.1. 05/24/2020 Patient examined this morning at the bedside. He denies chest pain or pressure. Denies shortness of breath. Patient was resumed on his Eliquis yesterday. Patient states he had a bowel movement that was brown color with no evidence of blood. PHYSICAL EXAM: VITAL SIGNS: Reviewed. GENERAL: Well-developed in no acute distress. HEENT: Head is normocephalic. Pupils are equal, round. Sclerae anicteric. Mucous membranes of the mouth are moist. Neck supple. No JVD or thyromegaly LUNGS: Respirations even and unlabored. Lungs essentially clear to auscultation bilaterally. HEART: Irregular rate and rhythm. S1 and S2 heard. ABDOMEN: Soft. Nondistended. Nontender. EXTREMITIES: Normal range of motion. No clubbing or cyanosis. Peripheral pulses intact. No lower extremity edema NEUROLOGIC: Awake and alert. Oriented x 3. ASSESSMENT: Acute blood loss anemia, s/p EGD Chronic persistent atrial fibrillation History of TIA, April 2020 Coronary artery disease with previous PCI History of permanent pacemaker insertion History of diastolic congestive heart failure, currently euvolemic, ejection fraction 50-55% PLAN: Continue Eliquis. Monitor hemoglobin GI following. Patient is currently stable from a cardiac standpoint. Patient to follow up with Dr. Bose outpatient and will further discuss possibility of Watchman procedure in the future Nurse practitioner note has been reviewed by physician. Signing provider agrees with the documented findings, assessment, and plan of care. Objective - Vital Signs Vital signs: Vital Signs Temp 98.6 F 05/24/20 04:51 Pulse 62 05/24/20 07:42 Resp 16 05/24/20 04:51 BP 126/88 05/24/20 04:51 Pulse Ox 95 05/24/20 04:51 Intake & Output 05/23/20 05/24/20 05/24/20 18:59 06:59 18:59 Intake Total 930 500 Balance 930 500 Intake: Intake, IV Titration 150 Amount Sodium Chloride 0.9% 1, 150 000 ml @ 50 mls/hr IV . Q20H [facility] Rx#:[id number] Oral 780 500 Other: Voiding Method Toilet Toilet # Voids 3 2 - Labs CBC & Chem 7: 05/23/20 03:27 05/23/20 03:27
[2020-05-24 10:55] LABS: Basophils % (A) 0 %; Eosinophils % (A) 0 %; HCT 26.6 % (39.0-53.0); HGB 8.2 gm/dL (13.0-17.5); Hypochromasia Slight; Lymphocytes % (A) 15 %; MCH 29.5 pg (25.0-35.0); MCHC 30.6 g/dL (31.0-37.0); MCV 96.3 fL (80.0-100.0); Mean Platelet Volume 7.8; Monocytes # (A) 0.6 k/uL (0-1.0); Monocytes % (A) 9 %; Neutrophils # (A) 4.7 k/uL (1.3-7.7); Neutrophils % (A) 73 %; Platelet Count 244 k/uL (150-450); RBC 2.76 m/uL (4.30-5.90); RDW 14.2 % (11.5-15.5); WBC 6.5 k/uL (3.8-10.6)
[2020-05-24 11:47] VITALS: BP 108/52; PULSE 99; TEMP 97.6
--- NOTE | 2020-05-24 13:43 | P.PN ---
Subjective Progress Note Date: 05/24/20 Principal diagnosis: Melena This is an 82-year-old male patient who has a multiple comorbidities including history of atrial fibrillation who is on [place], recent TIA within the last 2 weeks who came in with complaints of melena with a history of peptic ulcer disease. 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 He is seen and examined sitting up at the bedside. He denies any nausea, vomiting, or abdominal pain. He states he had a bowel movement through the night which was brown, no evidence of melena or black tarry stool. He's been up ambulating and showering without any dizziness or shortness of breath. Hemoglobin pending this morning. Patient was restarted on Eliquis. Patient is to follow-up closely with cardiology for possible watchman procedure. Objective - Vital Signs Vital signs: Vital Signs Temp 98.6 F 05/24/20 04:51 Pulse 62 05/24/20 07:42 Resp 16 05/24/20 04:51 BP 126/88 05/24/20 04:51 Pulse Ox 95 05/24/20 04:51 Intake & Output 05/23/20 05/24/20 05/24/20 18:59 06:59 18:59 Intake Total 930 500 Balance 930 500 Intake: Intake, IV Titration 150 Amount Sodium Chloride 0.9% 1, 150 000 ml @ 50 mls/hr IV . Q20H [facility] Rx#:[id number] Oral 780 500 Other: Voiding Method Toilet Toilet # Voids 3 2 - Exam General appearance: The patient is alert, oriented, appears in no acute distress. Obese. HET: Head is normocephalic and atraumatic. Conjunctiva pink. Sclera anicteric. Neck: Supple without lymphadenopathy. Abdomen: Soft, nontender, nondistended with bowel sounds. No guarding or rigidity. Extremities: Normal skin color and turgor. No pedal edema Neurological: No focal deficits. Alert and oriented 3. - Labs CBC & Chem 7: 05/24/20 10:30 05/23/20 03:27 Assessment and Plan (1) Melena Narrative/Plan: 89-year-old male presenting to the hospital with complaints of fatigue some exertional dyspnea and melanotic stool. The patient has multiple medical comorbidities and is on anticoagulation therapy. He is had extensive endoscopic evaluation in the past with prior EGD in 05/2018 showing esophagitis and colonos copy and EGD on 06/23/2019 significant for a duodenal bulb ulcer without evidence of bleeding and a small hiatal hernia and polypectomy and low-grade internal and external hemorrhoids on colonoscopy. The patient has 3 days of dark-colored stool after recent hospitalization. He denies any abdominal pain. 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 Status: Acute Code(s): K92.1 - MELENA SNOMED Code(s): 7032209 (2) GI bleed Narrative/Plan: Cardiology consulted for patient's history of atrial fibrillation and recent TIA regarding anticoagulation. Patient was previously on Coumadin and switched over to Eliquis however has had 2 previous GI bleeds while on anticoagulation. It was discussed with the patient risks versus benefits of holding his anticoagulation, risk of having a stroke outweighs the GI bleed which he could be transfused as needed. Will restart and trial anticoagulation at this time says for further GI bleed. Will discontinue if any evidence of GI bleed. Patient is to follow-up with cardiology for possible outpatient watchman procedure. Status: Acute Code(s): K92.2 - GASTROINTESTINAL HEMORRHAGE, UNSPECIFIED SNOMED Code(s): 25287241 (3) History of peptic ulcer disease Status: Acute Code(s): Z87.11 - PERSONAL HISTORY OF PEPTIC ULCER DISEASE SNOMED Code(s): 300442081 Plan: Supportive care okay for diet as tolerated Continue to monitor hemoglobin and hematocrit and transfuse as needed Continue monitor CBC, BMP, LFTs NSAID avoidance May restart anticoagulation. Risks and benefits discussed with patient, patient has history of atrial fibrillation with recent TIA. Discussed with patient for outpatient follow-up with gastroenterology, Patient can follow-up for video capsule endoscopy when available in the outpatient setting Thank you for allowing us to participate in the care of the patient on patient may be discharged home from a gastroenterology standpoint. Dr. Gama Pacheco I agree with the dictator's note, documented as a scribe by Negrita Giles.
--- NOTE | 2020-05-24 14:44 | P.DS ---
Providers Date of admission: 05/19/20 15:18 Expected date of discharge: 05/24/20 Attending physician: Tima Betancourt Consults: 05/19/20 15:18 Consult Physician Routine Consulting Provider: Nikhil Crawford Consult Reason/Comments: GI bleed Do you want consulting provider notified?: Yes 05/23/20 10:59 Consult Physician Routine Consulting Provider: Edvin Bose Consult Reason/Comments: anticoagulation Do you want consulting provider notified?: Already Contacted Primary care physician: Silverio Dodd Hospital Course: Final diagnosis Acute Upper gastrointestinal bleeding with acute blood loss anemia possibly from acute gastritis status post EGD Abdominal pain for evaluation History of previous peptic ulcer disease Recently started on Eliquis Possible bronchial asthma acute exacerbation, present on admission History of transient ischemic attack, recent atrial fibrillation, chronic Chronic intermittent bronchial asthma history History of coronary artery disease history of chest pain, angina history of cerebrovascular accident/TIA History of pneumonia History of obstructive sleep apnea History of peptic ulcer disease previously History of pancreatitis history of bronchitis History of prostate cancer with radiation treatment history of degenerative joint disease history of gout History of cardiac ablation history of coronary artery disease/stent history of pacemaker Obesity with body mass index of 37.7 Remote history of nicotine dependence Full code Discharge disposition Patient is being discharged in a stable condition with guarded prognosis to home. Patient will follow-up with Dr. Dodd in the outpatient setting upon discharge. Patient will also follow-up with cardiology and GI in the outpatient setting as scheduled. Patient will continue with Eliquis per GI and etiology recommendations and continue to hold aspirin until cardiology and GI follow-up. Total time taken is greater than 35 minutes. Hospital course This is an 89-year-old male who was recently admitted with acute upper gastrointestinal bleeding and also acute blood loss anemia with melanotic stools and was being closely monitored. Anticoagulation was on hold and recently resumed per GI and patient will continue to hold aspirin until cardiology and GI follow-up. Patient underwent EGD during hospitalization and will follow-up with GI in the outpatient setting in 1-2 weeks as scheduled. Patient instructed to monitor for any bleeding and hold anticoagulant if bleeding is noted and follow- up with primary care provider and GI sooner. Hemoglobin was stable today at 8.2 with no active bleeding noted. Repeat labs recommended and prescription provided. Currently no reports of chest pain, shortness of breath, or palpitations. Patient is afebrile. No reports of nausea or vomiting and patient is tolerating diet. Patient will be discharged home today. On exam vital signs are stable. Temp is 97.6F, pulse is 99, respirations are 16, blood pressure is 108/52, oxygen saturation is 99% on room air. Cardio S1, S2 are muffled. Respiratory system shows diminished breath sounds at the bases with no wheezing or rhonchi noted. Abdomen is soft and nontender. Nervous system shows no focal deficits. Please refer to medication reconciliation sheet for a list of medications. Patient Condition at Discharge: Stable Plan - Discharge Summary Discharge Rx Participant: No New Discharge Prescriptions: New Ipratropium-Albuterol Nebulize [Duoneb 0.5 mg-3 mg/3 ml Soln] 3 ml INHALATION RT-QID ml Acetaminophen Tab [Tylenol] 650 mg PO Q6HR PRN tab PRN Reason: Mild Pain Or Fever > 100.5 Continue Budesonide [Pulmicort] 0.5 mg INHALATION RT-BID Simvastatin [Zocor] 80 mg PO HS Montelukast [Singulair] 10 mg PO DAILY Potassium Chloride ER [K-Dur 10] 10 meq PO DAILY Furosemide [Lasix] 40 mg PO BID #60 tablet Allopurinol [Zyloprim] 100 mg PO DAILY Cholecalciferol (Vitamin D3) [Vitamin D3 (5000 Iu)] 125 mcg PO BID Docusate [Colace] 100 mg PO BID Inulin/Chromium Picolinate [Fiber Gummies Chew] 1 tab PO DAILY Pantoprazole [Protonix] 40 mg PO BID Apixaban [Eliquis] 5 mg PO BID #60 tab Metoprolol Tartrate [Lopressor] 25 mg PO BID tab Cyanocobalamin [Vitamin B-12] 1,000 mcg PO DAILY #30 tab Discontinued Aspirin EC [Ecotrin Low Dose] 162 mg PO DAILY Discharge Medication List Budesonide [Pulmicort] 0.5 mg INHALATION RT-BID 12/08/13 [History] Simvastatin [Zocor] 80 mg PO HS 12/08/13 [History] Montelukast [Singulair] 10 mg PO DAILY 01/24/19 [History] Potassium Chloride ER [K-Dur 10] 10 meq PO DAILY 07/06/19 [History] Furosemide [Lasix] 40 mg PO BID #60 tablet 07/10/19 [Rx] Allopurinol [Zyloprim] 100 mg PO DAILY 05/08/20 [History] Cholecalciferol (Vitamin D3) [Vitamin D3 (5000 Iu)] 125 mcg PO BID 05/08/20 [History] Docusate [Colace] 100 mg PO BID 05/08/20 [History] Inulin/Chromium Picolinate [Fiber Gummies Chew] 1 tab PO DAILY 05/08/20 [History] Pantoprazole [Protonix] 40 mg PO BID 05/08/20 [History] Apixaban [Eliquis] 5 mg PO BID #60 tab 05/09/20 [Rx] Cyanocobalamin [Vitamin B-12] 1,000 mcg PO DAILY #30 tab 05/10/20 [Rx] Metoprolol Tartrate [Lopressor] 25 mg PO BID tab 05/10/20 [Rx] Acetaminophen Tab [Tylenol] 650 mg PO Q6HR PRN tab 05/24/20 [Rx] Ipratropium-Albuterol Nebulize [Duoneb 0.5 mg-3 mg/3 ml Soln] 3 ml INHALATION RT-QID ml 05/24/20 [Rx] Follow up Appointment(s)/Referral(s): Silverio Dodd MD [Primary Care Provider] - 05/26/20 10:00 am Edvin Bose MD [STAFF PHYSICIAN] - 06/07/20 2:15 pm Nikhil Crawford MD [STAFF PHYSICIAN] - 06/02/20 10:30 am (Arrive 20 minutes before appointment and wear mask please.) Ambulatory/Diagnostic Orders: Basic Metabolic Panel [LAB.AMB] Time Frame: 2 Days, Location: None Selected Complete Blood Count w/diff [LAB.AMB] Time Frame: 2 Days, Location: None Selected Patient Instructions/Handouts: Anemia (DC), Melena (GEN) Activity/Diet/Wound Care/Special Instructions: activity limited until follow up follow up with pcp upon discharge follow up with cardio as scheduled repeat labs in a few days continue to hold aspirin until follow up with cardiology if you notice blood in the stool hold Eliquis and follow up with primary care provider follow up GI in the outpatient setting continue current diet Discharge Disposition: HOME SELF-CARE
== END 2020-05-24 13:29 | disposition home or self-care (01) | DRG 378 ==
LOC: EC 13:31 → 5NMEDONC 15:18
PROVIDERS: ADMIT Internal Medicine; ATTEND Internal Medicine
PROC: 0DB78ZX Excision of Stomach, Pylorus, Via Natural or Artificial Opening Endoscopic, Diagnostic (ICD-10-PCS; 2020-05-21)
PROC: 0DB38ZX Excision of Lower Esophagus, Via Natural or Artificial Opening Endoscopic, Diagnostic (ICD-10-PCS; 2020-05-21)
PROC: 0DB98ZX Excision of Duodenum, Via Natural or Artificial Opening Endoscopic, Diagnostic (ICD-10-PCS; principal; 2020-05-21 09:20)
DX: K29.71 Gastritis, unspecified, with bleeding (principal); I48.19 Other persistent atrial fibrillation; J45.21 Mild intermittent asthma with (acute) exacerbation; D62 Acute posthemorrhagic anemia; I50.32 Chronic diastolic (congestive) heart failure; K44.9 Diaphragmatic hernia without obstruction or gangrene; K22.70 Barrett's esophagus without dysplasia; Z20.822 Contact with and (suspected) exposure to COVID-19; I25.10 Atherosclerotic heart disease of native coronary artery without angina pectoris; G47.33 Obstructive sleep apnea (adult) (pediatric); M19.012 Primary osteoarthritis, left shoulder; M19.011 Primary osteoarthritis, right shoulder; M19.042 Primary osteoarthritis, left hand; M19.041 Primary osteoarthritis, right hand; K64.8 Other hemorrhoids; K64.4 Residual hemorrhoidal skin tags; M10.9 Gout, unspecified; H91.90 Unspecified hearing loss, unspecified ear; H54.7 Unspecified visual loss; E66.9 Obesity, unspecified; Z68.37 Body mass index [BMI] 37.0-37.9, adult; Z79.01 Long term (current) use of anticoagulants; Z79.82 Long term (current) use of aspirin; Z79.51 Long term (current) use of inhaled steroids; Z79.899 Other long term (current) drug therapy; Z87.891 Personal history of nicotine dependence; Z86.73 Personal history of transient ischemic attack (TIA), and cerebral infarction without residual deficits; Z87.01 Personal history of pneumonia (recurrent); Z87.19 Personal history of other diseases of the digestive system; Z85.46 Personal history of malignant neoplasm of prostate; Z92.3 Personal history of irradiation; Z87.11 Personal history of peptic ulcer disease; Z90.49 Acquired absence of other specified parts of digestive tract; Z86.010 Personal history of colon polyps; Z95.5 Presence of coronary angioplasty implant and graft; Z96.653 Presence of artificial knee joint, bilateral; Z95.0 Presence of cardiac pacemaker; Z98.890 Other specified postprocedural states; Z88.8 Allergy status to other drugs, medicaments and biological substances; Z80.0 Family history of malignant neoplasm of digestive organs
CPT/HCPCS: 36415; 43239; 71045; 74176; 80048; 80053; 82272; 83605; 83735; 85025; 85610; 85730; 86850; 86900; 86901; 87635; 88305; 93005; 94640; 96374; 99285

== ENCOUNTER → 2020-08-02 | Outpatient (CLI) | payer MEDICARE, BC ==
[2020-08-02 14:10] LABS: HCT 33.6 % (39.0-53.0); HGB 10.1 gm/dL (13.0-17.5); Hypochromasia Slight; MCHC 30.2 g/dL (31.0-37.0); MCV 96.1 fL (80.0-100.0); Mean Platelet Volume 7.6; Platelet Count 197 k/uL (150-450); RDW 14.6 % (11.5-15.5); WBC 5.5 k/uL (3.8-10.6)
[2020-08-02 14:34] LABS: Potassium 4.6 mmol/L (3.5-5.1)
== END | disposition home or self-care (01) ==
LOC: LABPAT 11:32
PROVIDERS: ATTEND Internal Medicine Cardiovascular Disease
DX: Z01.818 Encounter for other preprocedural examination (principal); I48.11 Longstanding persistent atrial fibrillation
CPT/HCPCS: 36415; 80051; 82565; 84520; 85027

== ENCOUNTER → 2020-08-11 | Day surgery (SDC) | payer MEDICARE, BC ==
[2020-08-05 15:58] VITALS: BMI 38.0
[~2020-08-11] MED LIST: MIDAZOLAM 2 MG/2 ML VIAL IV ONE; SODIUM CHLORIDE 0.9% 1,000 ML IV SCH; SODIUM CHLORIDE 0.9% 500 ML 500 ML IV ONE; fentaNYL (PF) 50 MCG/ML 2 ML AMP IV ONE; fentaNYL (PF) 50 MCG/ML 2 ML AMP ONE
[2020-08-11 07:50] VITALS: TEMP 97.9
[2020-08-11 09:09] VITALS: PULSE 60; RESP 16
--- NOTE | 2020-08-11 09:31 | P.TEE ---
Date of Procedure: 08/11/20 Preoperative Diagnosis: assess watchman device, history of atrial fibrillation and GI bleeding Postoperative Diagnosis: Stable watchman device without any flow. No clot noted in the left atrium Procedure(s) Performed: RIDGE examination Description of Procedure(s): INDICATION: This is a 89-year-old gentleman with history of atrial fibrillation with history of recurrent GI bleeding on anticoagulation. Patient underwent watchman procedure about 6 weeks ago. Patient is advised to have RIDGE to assess functioning of the watchman device. CONSENT: , Consent was obtained verbally from the patient PROCEDURE: . Patient was brought to the lab in a fasting state. He was prepped and draped in the usual fashion. Patient was given IV Versed 1 mg and 25 g of fentanyl for sedation. The throat was sprayed with Cetacaine. A lubricated Omni probe was introduced in the oropharynx and was advanced into the esophagus. Multiple views were obtained both from the esophagus and stomach. Patient tolerated procedure well. Color, pulsed and continuous with Doppler studies were done. Saline contrast bubble injections also performed FINDINGS: . The aortic valve is tricuspid and function normally. Mitral valve showed about 2+ central mitral regurgitation. Tricuspid valve is not well visualized. The interatrial septum is intact without any shunt. Saline contrast bubble injection did not reveal any crossing of the. There is a watchman device occluding the left atrial appendage. No flow noted across the device. The noted in the left atrium. There is biatrial enlargement. The aorta appeared to be free of any clot IMPRESSION: Functioning watchman device. 2+ mitral regurgitation. No PFO. Biatrial enlargement. Impaired LV function PLAN: . We'll discontinue Eliquis. Continue rest of the medication. Follow-up in the office in one week
[2020-08-11 14:00] VITALS: BP 123/58
== END ==
LOC: CATHCVL 07:24
PROVIDERS: ATTEND Internal Medicine Cardiovascular Disease
DX: I48.91 Unspecified atrial fibrillation (principal); I34.0 Nonrheumatic mitral (valve) insufficiency; E78.5 Hyperlipidemia, unspecified; I10 Essential (primary) hypertension; E78.00 Pure hypercholesterolemia, unspecified; I48.92 Unspecified atrial flutter; I25.10 Atherosclerotic heart disease of native coronary artery without angina pectoris; I42.9 Cardiomyopathy, unspecified; Z87.891 Personal history of nicotine dependence; Z95.818 Presence of other cardiac implants and grafts; Z79.01 Long term (current) use of anticoagulants; Z79.899 Other long term (current) drug therapy; Z95.0 Presence of cardiac pacemaker; Z95.5 Presence of coronary angioplasty implant and graft
CPT/HCPCS: 93312; 93320; 93325; 87635; J2250; J3010

== ENCOUNTER → 2020-10-07 | Outpatient (CLI) | payer MEDICARE, BC ==
[2020-10-07 13:53] LABS: HCT 35.3 % (39.0-53.0); Hypochromasia Slight; MCH 29.7 pg (25.0-35.0); MCHC 31.1 g/dL (31.0-37.0); MCV 95.5 fL (80.0-100.0); Mean Platelet Volume 7.4; Platelet Count 144 k/uL (150-450); RDW 15.2 % (11.5-15.5); WBC 5.1 k/uL (3.8-10.6)
== END | disposition home or self-care (01) ==
LOC: LABPAT 13:12
PROVIDERS: ATTEND Internal Medicine Cardiovascular Disease
DX: Z01.812 Encounter for preprocedural laboratory examination (principal); I44.2 Atrioventricular block, complete
CPT/HCPCS: 36415; 80051; 82565; 84520; 85027

== ENCOUNTER 2020-10-17 05:36 | Day surgery (SDC) | payer MEDICARE, BC ==
[2020-10-13 09:18] VITALS: BMI 38.2
[2020-10-17] MEDS ORDERED: SODIUM CHLORIDE 0.9% 1,000 ML IV SCH ×2 (05:46)
[2020-10-17 06:37] LABS: Basophils % (A) 0 %; Eosinophils % (A) 0 %; HCT 34.4 % (39.0-53.0); HGB 11.3 gm/dL (13.0-17.5); Lymphocytes # (A) 1.1 k/uL (1.0-4.8); Lymphocytes % (A) 16 %; MCH 30.7 pg (25.0-35.0); MCHC 32.8 g/dL (31.0-37.0); MCV 93.6 fL (80.0-100.0); Mean Platelet Volume 7.5; Monocytes # (A) 0.6 k/uL (0-1.0); Monocytes % (A) 9 %; Neutrophils # (A) 5.2 k/uL (1.3-7.7); Neutrophils % (A) 74 %; Platelet Count 191 k/uL (150-450); RBC 3.67 m/uL (4.30-5.90); RDW 14.6 % (11.5-15.5)
[2020-10-17 06:43] VITALS: RESP 18; TEMP 98.5
[2020-10-17] MEDS ORDERED: ceFAZolin 1 GM in SODIUM CHLORIDE 0.9% 250 ML IRRIGATION PRN (07:00)
[2020-10-17] MEDS ORDERED: LIDOCAINE 1% INJ 10MG/ML (20 ML MDV) ONE ×2 (07:20→07:48)
[2020-10-17] MEDS ORDERED: fentaNYL (PF) 50 MCG/ML 2 ML AMP ONE (07:48)
[2020-10-17] MEDS: fentaNYL (PF) 50 MCG/ML 2 ML AMP IV ONE ×2 (08:06→08:33)
[2020-10-17] MEDS ORDERED: LIDOCAINE 1% INJ 10MG/ML (20 ML MDV) SQ ONE ×2 (08:10→08:29)
[2020-10-17] MEDS ORDERED: ACETAMINOPHEN TAB 325 MG TAB PO PRN (08:48)
--- NOTE | 2020-10-17 09:04 | P.PCN ---
Date of Procedure: 10/17/20 Preoperative Diagnosis: Battery depletion, history of permanent pacemaker implantation Postoperative Diagnosis: The same Procedure(s) Performed: . Temporary pacemaker implantation and change of battery Description of Procedure: HISTORY: This is a 89-year-old gentleman with history of permanent pacemaker implantation ,was found to have the chest JOSH, on recent evaluation. Patient is advised to have battery replacement. Patient is pacemaker dependent. He will also need temporary pacemaker implantation. CONSENT: I have discussed the risks and benefits as related to the above mentioned procedure and both sedation/analgesia as well as necessary blood product administration. The patient has indicated understanding and acceptance of the risks of the procedure discussed. PROCEDURE: Patient was brought to the lab in a fasting state. Patient was given IV Versed and fentanyl for sedation. The skin over the existing pulse generator was infiltrated with lidocaine. An incision was made in the skin and was deepened until the pectoral fascia was exposed. Hemostasis was obtained. The existing pulse generator was pulled out of the pocket. The leads were disconnected and were checked for thresholds. Conscious Sedation: Versed 0mg Fentanyl 25 g Duration 38 minminutes THRESHOLDS: VENTRICULAR: . The minimum pacing t hreshold is 1.3 V at pulse width of 0.4with impedance of 380. The R-wave is 5.5 THE LEADS: VENTRICULAR: This is manufactured by [employer] . Model number is [id number] and the serial number is [id number]. The date of initial implant was 07/21/2005 R-wave:[] THE EXPLANTED DEVICE: this is manufactured by [employer]. Product number is [id number] and serial number is [id number] THE NEW DEVICE:this is manufactured by [employer]. THE MODEL NUMBER IS [id number] and the serial number is [id number]. The leads were then connected to a new pulse generator. Pacemaker seems to function normally. The pocket was irrigated with antibiotics. The pocket was closed in the usual fashion. Pectoral fascia was closed with 2-0 Prolene, the subcutaneous tissue was closed with 3-0 Prolene and the skin was closed with 4-0 Prolene. Patient tolerated the procedure well . Patient will be monitored on the telemetry unit for 2-3 hours. If stable patient be discharged home later today. PLAN: continue prophylactic antibiotics. Patient will be monitored on the telemetry unit for 3 hours. If stable patient be discharged home, follow-up in the office in one week FALLOW UP: with Dr. Bose
[2020-10-17 13:36] VITALS: BP 125/55; PULSE 54
== END 2020-10-17 13:56 | disposition home or self-care (01) ==
LOC: CATHEP 05:36
PROVIDERS: ATTEND Internal Medicine Cardiovascular Disease
DX: Z45.010 Encounter for checking and testing of cardiac pacemaker pulse generator [battery] (principal); I48.21 Permanent atrial fibrillation; I25.10 Atherosclerotic heart disease of native coronary artery without angina pectoris; I11.0 Hypertensive heart disease with heart failure; I50.9 Heart failure, unspecified; Z20.822 Contact with and (suspected) exposure to COVID-19; E78.5 Hyperlipidemia, unspecified; Z87.891 Personal history of nicotine dependence; E78.00 Pure hypercholesterolemia, unspecified; I42.8 Other cardiomyopathies; Z95.5 Presence of coronary angioplasty implant and graft; Z79.52 Long term (current) use of systemic steroids; Z79.899 Other long term (current) drug therapy
CPT/HCPCS: 33227; 85025; 87635; C1894; C1769 ×2; C1786; J0690; J2001; J3010

== ENCOUNTER → 2021-07-03 | Outpatient (CLI) | payer MEDICARE, BC ==
--- NOTE | 2021-07-03 11:01 | XR ---
EXAMINATION TYPE: XR shoulder complete RT DATE OF EXAM: 07/03/2021 CLINICAL HISTORY: pain TECHNIQUE: Three views of the right shoulder are obtained. COMPARISON: None FINDINGS: There is no acute fracture/dislocation evident. The acromioclavicular and glenohumeral shay int spaces appear moderately narrowed.. The visualized ribs are intact and unremarkable. IMPRESSION: 1. There is no acute fracture or dislocation. ICD 10 NO FRACTURE, INITIAL EVALUATION
== END | disposition home or self-care (01) ==
LOC: RADXRMAIN 10:13
PROVIDERS: ATTEND Pediatrics
DX: M25.511 Pain in right shoulder (principal)

== ENCOUNTER 2021-10-31 14:29 | Inpatient (IN) | payer MEDICARE, BC ==
[2021-10-31] MEDS ORDERED: SODIUM CHLORIDE 0.9% 1,000 ML IV STA (14:52)
--- NOTE | 2021-10-31 14:58 | ED ---
General Adult HPI - General Stated complaint: Abd pain/blood in stool Time Seen by Provider: 10/31/21 14:30 Source: patient, RN notes reviewed, old records reviewed - History of Present Illness Initial comments: This is an 89-year-old male who presents emergency Department complaining of diarrhea since last Saturday. Patient states last few days he's had some dark black stool. Patient states in the past he has had a GI bleed. Patient denies being on any blood thinners. Patient does complain of some lower abdominal pain in the suprapubic region. Patient states he hasn't been urinating as much lately he doesn't know if it's because he can't work because he is not drinking enough or he can't go. Family states he is not eating or drinking much. Patient denies any fever chills or cough per patient denies any chest pain difficulty breathing shortness of breath. - Related Data Home Medications Medication Instructions Recorded Confirmed Budesonide [Pulmicort] 0.5 mg INHALATION RT-BID 12/08/13 10/31/21 Simvastatin [Zocor] 80 mg PO HS 12/08/13 10/31/21 Montelukast [Singulair] 10 mg PO DAILY 01/24/19 10/31/21 Cholecalciferol (Vitamin D3) 125 mcg PO BID 05/08/20 10/31/21 [Vitamin D3 (5000 Iu)] Docusate [Colace] 100 mg PO BID PRN 05/08/20 10/31/21 Inulin/Chromium Picolinate [Fiber 2 tab PO DAILY 05/08/20 10/31/21 Gummies Chew] Pantoprazole [Protonix] 40 mg PO DAILY 05/08/20 10/31/21 allopurinoL [Zyloprim] 100 mg PO DAILY 05/08/20 10/31/21 Calcium Carbonate [Calcium] 600 mg PO BID 08/05/20 10/31/21 Ferrous Sulfate [Iron (65 MG 325 mg PO DAILY 08/05/20 10/31/21 Elemental)] Nitroglycerin Sl Tabs [Nitrostat] 0.4 mg SUBLINGUAL Q5M PRN 08/05/20 10/31/21 Ipratropium-Albuterol Nebulize 3 ml INHALATION RT-QID PRN 10/13/20 10/31/21 [Duoneb 0.5 mg-3 mg/3 ml Soln] Baclofen 10 mg PO TID PRN 10/31/21 10/31/21 Cetirizine HCl [Zyrtec] 10 mg PO DAILY PRN 10/31/21 10/31/21 Furosemide [Lasix] 80 mg PO BID 10/31/21 10/31/21 Metoprolol Tartrate [Lopressor] 25 mg PO BID-W/MEALS 10/31/21 10/31/21 Potassium Citrate [Urocit-K ER] 5 meq PO BID-W/MEALS 10/31/21 10/31/21 Triamcinolone 0.1% Cream [Kenalog 1 applicatio TOPICAL BID 10/31/21 10/31/21 0.1% Cream] metOLazone 2.5 mg PO FR 10/31/21 10/31/21 polyethylene glycoL 3350 [Miralax] 17 gm PO DAILY 10/31/21 10/31/21 Previous Rx's Medication Instructions Recorded Cyanocobalamin [Vitamin B-12] 1,000 mcg PO DAILY #30 tab 05/10/20 Allergies Allergy/AdvReac Type Severity Reaction Status Date / Time zolpidem [From Ambien] AdvReac Hallucinati Verified 10/31/21 15:52 ons Review of Systems ROS Statement: Those systems with pertinent positive or pertinent negative responses have been documented in the HPI. ROS Other: All systems not noted in ROS Statement are negative. Past Medical History Past Medical History: Atrial Fibrillation, Asthma, Coronary Artery Disease (CAD), Cancer, Chest Pain / Angina, CVA/TIA, GERD/Reflux, Hearing Disorder / Deafness, Pneumonia, Prostate Disorder, Sleep Apnea/CPAP/BIPAP Additional Past Medical History / Comment(s): PUD, lower GI bleed, anemia, pancreatitis once many years ago, bronchitis, ALPESH does not use device-falls off all the time, prostate cancer with 44 radiation treatments-completed Jan 2018, arthritis bilateral shoulders/arms, finger cramping, Gout, stroke in 2020- no residual effects, see Dr. Bose H & P History of Any Multi-Drug Resistant Organisms: None Reported Past Surgical History: Bladder Surgery, Cardiac Ablation, Cholecystectomy, Heart Catheterization, Heart Catheterization With Stent, Joint Replacement, Orthopedic Surgery, Pacemaker Additional Past Surgical History / Comment(s): 06/18/19 EGD at [facility], colonoscopy last one 2013, bilateral total knee arthroplasties, L rotator cuff surgery, Watchman device implanted 07-10-20 Past Anesthesia/Blood Transfusion Reactions: No Reported Reaction Additional Past Anesthesia/Blood Transfusion Reaction / Comment(s): Pt has re ceived blood in past without reaction. Date of Last Stent Placement:: 2001 Type of Cardiac Device: Unknown Device Placement Date:: 2005 inserted/2013 gen change. Additional Psychological History / Comment(s): Pt resides with his spouse of 60 yrs. Additional Past Alcohol Use History / Comment(s): Pt started smoking in 1951 and quit in the . He drank alcohol socially but quit that in the 1970s too. - Past Family History Mother History Unknown: Yes Family Medical History: Cancer Additional Family Medical History / Comment(s): Family believes liver cancer Father History Unknown: Yes Family Medical History: Cancer Additional Family Medical History / Comment(s): Stomach cancer General Exam - General Exam Comments Initial Comments: GENERAL: Patient is well-developed and well-nourished. Patient is nontoxic and well- hydrated and is in mild distress. ENT: Neck is soft and supple. No significant lymphadenopathy is noted. Oropharynx is clear. Dry membranes. Neck has full range of motion without eliciting any pain. EYES: The sclera were anicteric and conjunctiva were pink and moist. Extraocular movements were intact and pupils were equal round and reactive to light. Eyelids were unremarkable. PULMONARY: Unlabored respirations. Good breath sounds bilaterally. No audible rales rhonchi or wheezing was noted. CARDIOVASCULAR: There is a regular rate and rhythm without any murmurs gallops or rubs. ABDOMEN: Mild tenderness in the suprapubic region. SKIN: Skin is clear with no lesions or rashes and otherwise unremarkable. NEUROLOGIC: Patient is alert and oriented x3. Cranial nerves II through XII are grossly intact. Motor and sensory are also intact. Normal speech, volume and content. Symmetrical smile. MUSCULOSKELETAL: Normal extremities with adequate strength and full range of motion. LYMPHATICS: No significant lymphadenopathy is noted PSYCHIATRIC: Normal psychiatric evaluation. Course Vital Signs 10/31/21 10/31/21 14:42 16:40 Temperature 98.7 F Pulse Rate 72 61 Respiratory 18 16 Rate Blood Pressure 113/45 107/41 O2 Sat by Pulse 95 97 Oximetry Medical Decision Making - Medical Decision Making EKG shows paced rhythm at 60 bpm QRS is 214 QT interval is 489 QTC is 491. - Lab Data Result diagrams: 10/31/21 15:15 10/31/21 15:15 Lab Results 10/31/21 10/31/21 10/31/21 Range/Units 13:20 15:15 15:15 WBC 8.1 (3.8-10.6) k/uL RBC 3.33 L (4.30-5.90) m/uL Hgb 10.9 L (13.0-17.5) gm/dL Hct 32.4 L (39.0-53.0) % MCV 97.3 (80.0-100.0) fL MCH 32.8 (25.0-35.0) pg MCHC 33.7 (31.0-37.0) g/dL RDW 14.1 (11.5-15.5) % Plt Count 242 (150-450) k/uL MPV 8.2 Neutrophils % 79 % Lymphocytes % 10 % Monocytes % 9 % Eosinophils % 0 % Basophils % 1 % Neutrophils # 6.4 (1.3-7.7) k/uL Lymphocytes # 0.8 L (1.0-4.8) k/uL Monocytes # 0.7 (0-1.0) k/uL Eosinophils # 0.0 (0-0.7) k/uL Basophils # 0.0 (0-0.2) k/uL PT 11.8 (9.0-12.0) sec INR 1.1 (<1.2) APTT 26.2 (22.0-30.0) sec Sodium (137-145) mmol/L Potassium (3.5-5.1) mmol/L Chloride (98-107) mmol/L Carbon Dioxide (22-30) mmol/L Anion Gap mmol/L BUN (9-20) mg/dL Creatinine (0.66-1.25) mg/dL Est GFR (CKD-EPI)AfAm (>60 ml/min/1.73 sqM) Est GFR (CKD-EPI)NonAf (>60 ml/min/1.73 sqM) Glucose (74-99) mg/dL Plasma Lactic Acid Jose (0.7-2.0) mmol/L Calcium (8.4-10.2) mg/dL Magnesium (1.6-2.3) mg/dL Total Bilirubin (0.2-1.3) mg/dL AST (17-59) U/L ALT (4-49) U/L Alkaline Phosphatase (38-126) U/L Total Protein (6.3-8.2) g/dL Albumin (3.5-5.0) g/dL Urine Color Yellow Urine Appearance Clear (Clear) Urine pH 6.0 (5.0-8.0) Ur Specific [place] 1.008 (1.001-1.035) Urine Protein Negative (Negative) Urine Glucose (UA) Negative (Negative) Urine Ketones Negative (Negative) Urine Blood Negative (Negative) Urine Nitrite Negative (Negative) Urine Bilirubin Negative (Negative) Urine Urobilinogen <2.0 (<2.0) mg/dL Ur Leukocyte Esterase Negative (Negative) Blood Type Blood Type Recheck Bld Type Recheck Status Antibody Screen Spec Expiration Date 10/31/21 10/31/21 10/31/21 Range/Units 15:15 15:15 15:15 WBC (3.8-10.6) k/uL RBC (4.30-5.90) m/uL Hgb (13.0-17.5) gm/dL Hct (39.0-53.0) % MCV (80.0-100.0) fL MCH (25.0-35.0) pg MCHC (31.0-37.0) g/dL RDW (11.5-15.5) % Plt Count (150-450) k/uL MPV Neutrophils % % Lymphocytes % % Monocytes % % Eosinophils % % Basophils % % Neutrophils # (1.3-7.7) k/uL Lymphocytes # (1.0-4.8) k/uL Monocytes # (0-1.0) k/uL Eosinophils # (0-0.7) k/uL Basophils # (0-0.2) k/uL PT (9.0-12.0) sec INR (<1.2) APTT (22.0-30.0) sec Sodium 134 L (137-145) mmol/L Potassium 2.5 L* (3.5-5.1) mmol/L Chloride 90 L (98-107) mmol/L Carbon Dioxide 38 H (22-30) mmol/L Anion Gap 6 mmol/L BUN 67 H (9-20) mg/dL Creatinine 1.85 H (0.66-1.25) mg/dL Est GFR (CKD-EPI)AfAm 37 (>60 ml/min/1.73 sqM) Est GFR (CKD-EPI)NonAf 32 (>60 ml/min/1.73 sqM) Glucose 137 H (74-99) mg/dL Plasma Lactic Acid Jose 1.2 (0.7-2.0) mmol/L Calcium 8.7 (8.4-10.2) mg/dL Magnesium 1.5 L (1.6-2.3) mg/dL Total Bilirubin 1.2 (0.2-1.3) mg/dL AST 29 (17-59) U/L ALT 11 (4-49) U/L Alkaline Phosphatase 185 H (38-126) U/L Total Protein 6.1 L (6.3-8.2) g/dL Albumin 3.4 L (3.5-5.0) g/dL Urine Color Urine Appearance (Clear) Urine pH (5.0-8.0) Ur Specific [place] (1.001-1.035) Urine Protein (Negative) Urine Glucose (UA) (Negative) Urine Ketones (Negative) Urine Blood (Negative) Urine Nitrite (Negative) Urine Bilirubin (Negative) Urine Urobilinogen (<2.0) mg/dL Ur Leukocyte Esterase (Negative) Blood Type O Positive Blood Type Recheck O Pos Bld Type Recheck Status No Antibody Screen NEGATIVE Spec Expiration Date 11/03/20212314 Disposition Clinical Impression: GI bleed, Anemia, Hypokalemia, Acute on chronic renal failure, Elbow fracture Disposition: ADMITTED IP TO THIS HOSP Is patient prescribed a controlled substance at d/c from ED?: No Referrals: Silverio Dodd MD [Primary Care Provider] - 1-2 days Time of Disposition: 16:48
[2021-10-31 15:24] LABS: Basophils % (A) 1 %; Eosinophils % (A) 0 %; HCT 32.4 % (39.0-53.0); HGB 10.9 gm/dL (13.0-17.5); Lymphocytes # (A) 0.8 k/uL (1.0-4.8); Lymphocytes % (A) 10 %; MCH 32.8 pg (25.0-35.0); MCHC 33.7 g/dL (31.0-37.0); MCV 97.3 fL (80.0-100.0); Mean Platelet Volume 8.2; Monocytes # (A) 0.7 k/uL (0-1.0); Monocytes % (A) 9 %; Neutrophils # (A) 6.4 k/uL (1.3-7.7); Neutrophils % (A) 79 %; Platelet Count 242 k/uL (150-450); RBC 3.33 m/uL (4.30-5.90); RDW 14.1 % (11.5-15.5); WBC 8.1 k/uL (3.8-10.6)
[2021-10-31 15:33] LABS: Albumin 3.4 g/dL (3.5-5.0); Calcium 8.7 mg/dL (8.4-10.2); Magnesium 1.5 mg/dL (1.6-2.3); Total Bilirubin 1.2 mg/dL (0.2-1.3); Total Protein 6.1 g/dL (6.3-8.2)
[2021-10-31 15:34] LABS: INR 1.1 (<1.2); Partial Thromboplastin Time 26.2 sec (22.0-30.0); Prothrombin Time 11.8 sec (9.0-12.0)
[2021-10-31 15:49] LABS: Potassium 2.5 mmol/L (3.5-5.1)
[2021-10-31 15:50] LABS: Appearance,Urine Clear (Clear); Bilirubin,Urine Negative (Negative); Blood,Urine Negative (Negative); Color,Urine Yellow; Glucose,Urine (UA) Negative (Negative); Ketones,Urine Negative (Negative); Leukocyte Esterase,Urine Negative (Negative); Nitrite,Urine Negative (Negative); Protein,Urine Negative (Negative); Specific Gravity,Urine 1.008 (1.001-1.035); Urobilinogen,Urine <2.0 mg/dL (<2.0)
[2021-10-31] MEDS ORDERED: POTASSIUM CHLORIDE ER 20 MEQ TAB.ER PO STA (15:57)
[2021-10-31] MEDS ORDERED: POTASSIUM CHLORIDE 20 MEQ in WATER FOR INJECTION 1 100ML.BAG IVPB STA (15:57)
--- NOTE | 2021-10-31 16:24 | XR ---
Right wrist HISTORY: Trauma and pain 4 views of the right wrist Bone mineralization is reduced. Views appear nonstandard. Superimposition of the scaphoid in relation to the distal carpal row noted, question whether findings may be positional. Scapholunate distance i s increased. Osteoarthritic change present at the carpometacarpal joint of the first digit, there is hypertrophic change, joint space loss, subchondral sclerosis. There are dense vascular calcifications present. Soft tissue swelling is noted. IMPRESSION: Superimposition of carpal bones may be positional, CT scan could be performed for additio nal evaluation. There are changes of osteoarthritis. Scapholunate dissociation, wrist MRI may be of b enefit.
--- NOTE | 2021-10-31 16:25 | XR ---
Right elbow HISTORY: Trauma and pain 3 views of the right elbow Bone mineralization, joint spaces and alignment are maintained. There is an elbow joint effusion pres ent. Views of the elbow are nonstandard. There are dense vascular calcifications present. IMPRESSION: Elbow joint effusion. Difficult to exclude occult fracture.
[2021-10-31] MEDS ORDERED: SODIUM CHLORIDE 0.9% 1,000 ML IV ONE (17:24)
[2021-10-31] MEDS ORDERED: BACLOFEN 10 MG TAB PO PRN (19:35)
--- NOTE | 2021-10-31 19:40 | P.HPIM ---
History of Present Illness H&P Date: 10/31/21 Chief Complaint: Dark stool This is a pleasant 89-year-old patient of follows with Dr. Abhilash Dodd. Chronic stable medical conditions include atrial fibrillation, asthma, CAD with stent, GERD, hard of hearing with aids, BPH, obstructive sleep apnea does not use a device, arthritis, gout,. Patient lives with his . Managed to get around the house and goes to get arch. Sometimes uses a cane and a walker. Has chronic shortness of breath. For about one week patient started having diarrhea. Special after eating. Stools became rather dark since yesterday. Appetite is gone down. Weak and tired. Patient just had a new mattress and has a support to get on the bed. Was to undergo the bathroom missed a step and fell down hitting the nightstand. Does feel tired and rundown. Review of systems: GEN.: Tired, decreased appetite EYES: None HEENT: Hard of hearing with hearing aids NECK: None RESPIRATORY: Baseline some shortness of breath CARDIOVASCULAR: None GASTROINTESTINAL: [Lower abdominal pain GENITOURINARY: None MUSCULOSKELETAL: Joint pains and right arm pain LYMPHATICS: None HEMATOLOGICAL: None PSYCHIATRY: None NEUROLOGICAL: Does use a cane walker sometimes Past medical history to include: Atrial fibrillation, asthma, CAD with stent, GERD, hard of hearing, prostate disorder, sleep apnea does not use BiPAP, peptic ulcer disease, pancreatitis in the remote past prostate cancer with radiation treatment in 2017, arthritis, cardiac ablation watchman device implanted in June 2020 Social history: Lives with his . Patient smoked for about 20 years stopped in 1969. Drank alcohol socially. Retired. Family history: Cancer Physical examination: VITAL SIGNS: 98.7, 72, 18, 107/41, 95% room air GENERAL: BMI 38.9, declining but awake tired. EYES: Pupils equal. Conjunctiva normal. HEENT: External appearance of nose and ears normal, oral cavity grossly normal. Hearing aids NECK: JVD not raised; masses not palpable. HEART: First and second heart sounds are normal; mild edema. LUNGS: Respiratory rate increased; decreased breath sounds. ABDOMEN: Soft, nontender, liver spleen not palpable, no masses palpable. PSYCH: Alert and oriented x3; mood and affect some anxietyl. MUSCULOSKELETAL:No Clubbing/cyanosis;muscles-grossly intact, evidence of OA. Right ominous laying NEUROLOGICAL: Cranial nerves grossly intact; no facial asymmetry, power and sensation grossly intact. LYMPHATICS: No lymph nodes palpable in the axilla and neck INVESTIGATIONS, reviewed in the clinical context: White count 8.1 hemoglobin 10.9 platelets 242 sodium 134 potassium 2.5. 67 creatinine 1.85 bicarb 38 UA: Negative EKG tracing personally reviewed by me-ventricular pacemaker X-ray of the right wrist and elbow: Superimposition of carpal bones maybe positional. Scapholunate dislocation. Right elbow joint effusion. Fracture cannot be ruled out. Previous studies: [2-D echocardiogram: EF 50-55%] April 2020] Assessment and plan: -Acute GI bleed. Patient with having diarrhea for about one week. Noticed black stools since yesterday. Clear liquid diet. Consult GI. PPI -Persistent atrial fibrillation Watchman device.-No anticoagulants -COPD in a previous smoker DuoNeb 4 times a day, Singulair Pulmicort 0.5 mg twice a day -Primary osteoarthritic multiple joints bilateral Tylenol when necessary -Possible right elbow fracture. Secondary to fall Right ominous laying. Orthopedic consulted -CAD with a prior history of stent Lopressor 25 mg twice a day -Hard of hearing, has hearing aids -GERD Protonix 40 mg daily -Vitamin B-12 deficiency Vitamin B12 thousand micrograms Resume home medications. PPI. Cutback on diuretics. Consult GI. Consult orthopedics. Telemetry. Care was discussed with the patient. Questions answered. Past Medical History Past Medical History: Atrial Fibrillation, Asthma, Coronary Artery Disease (CAD), Cancer, Chest Pain / Angina, CVA/TIA, GERD/Reflux, Hearing Disorder / Deafness, Pneumonia, Prostate Disorder, Sleep Apnea/CPAP/BIPAP Additional Past Medical History / Comment(s): PUD, lower GI bleed, anemia, pancreatitis once many years ago, bronchitis, ALPESH does not use device-falls off all the time, prostate cancer with 44 radiation treatments-completed Jan 2018, arthritis bilateral shoulders/arms, finger cramping, Gout, stroke in 2020- no residual effects, see Dr. Bose H & P History of Any Multi-Drug Resistant Organisms: None Reported Past Surgical History: Bladder Surgery, Cardiac Ablation, Cholecystectomy, Heart Catheterization, Heart Catheterization With Stent, Joint Replacement, Orthopedic Surgery, Pacemaker Additional Past Surgical History / Comment(s): 06/18/19 EGD at [facility], colonoscopy last one 2013, bilateral total knee arthroplasties, L rotator cuff surgery, Watchman device implanted 07-10-20 Past Anesthesia/Blood Transfusion Reactions: No Reported Reaction Additional Past Anesthesia/Blood Transfusion Reaction / Comment(s): Pt has received blood in past without reaction. Date of Last Stent Placement:: 2001 Type of Cardiac Device: Unknown Device Placement Date:: 2005 inserted/2013 gen change. Additional Psychological History / Comment(s): Pt resides with his spouse of 60 yrs. Additional Past Alcohol Use History / Comment(s): Pt started smoking in 1951 and quit in the . He drank alcohol socially but quit that in the 1970s too. - Past Family History Mother History Unknown: Yes Family Medical History: Cancer Additional Family Medical History / Comment(s): Family believes liver cancer Father History Unknown: Yes Family Medical History: Cancer Additional Family Medical History / Comment(s): Stomach cancer Medications and Allergies Home Medications Medication Instructions Recorded Confirmed Type Budesonide [Pulmicort] 0.5 mg INHALATION RT-BID 12/08/13 10/31/21 History Simvastatin [Zocor] 80 mg PO HS 12/08/13 10/31/21 History Montelukast [Singulair] 10 mg PO DAILY 01/24/19 10/31/21 History Cholecalciferol (Vitamin D3) 125 mcg PO BID 05/08/20 10/31/21 History [Vitamin D3 (5000 Iu)] Docusate [Colace] 100 mg PO BID PRN 05/08/20 10/31/21 History Inulin/Chromium Picolinate [Fiber 2 tab PO DAILY 05/08/20 10/31/21 History Gummies Chew] Pantoprazole [Protonix] 40 mg PO DAILY 05/08/20 10/31/21 History allopurinoL [Zyloprim] 100 mg PO DAILY 05/08/20 10/31/21 History Cyanocobalamin [Vitamin B-12] 1,000 mcg PO DAILY #30 tab 05/10/20 10/31/21 Rx Calcium Carbonate [Calcium] 600 mg PO BID 08/05/20 10/31/21 History Ferrous Sulfate [Iron (65 MG 325 mg PO DAILY 08/05/20 10/31/21 History Elemental)] Nitroglycerin Sl Tabs [Nitrostat] 0.4 mg SUBLINGUAL Q5M PRN 08/05/20 10/31/21 History Ipratropium-Albuterol Nebulize 3 ml INHALATION RT-QID PRN 10/13/20 10/31/21 History [Duoneb 0.5 mg-3 mg/3 ml Soln] Baclofen 10 mg PO TID PRN 10/31/21 10/31/21 History Cetirizine HCl [Zyrtec] 10 mg PO DAILY PRN 10/31/21 10/31/21 History Furosemide [Lasix] 80 mg PO BID 10/31/21 10/31/21 History Metoprolol Tartrate [Lopressor] 25 mg PO BID-W/MEALS 10/31/21 10/31/21 History Potassium Citrate [Urocit-K ER] 5 meq PO BID-W/MEALS 10/31/21 10/31/21 History Triamcinolone 0.1% Cream [Kenalog 1 applicatio TOPICAL BID 10/31/21 10/31/21 History 0.1% Cream] metOLazone 2.5 mg PO FR 10/31/21 10/31/21 History polyethylene glycoL 3350 [Miralax] 17 gm PO DAILY 10/31/21 10/31/21 History Allergies Allergy/AdvReac Type Severity Reaction Status Date / Time zolpidem [From Ambien] AdvReac Hallucinati Verified 10/31/21 15:52 ons Physical Exam Vitals: Vital Signs Temp Pulse Resp BP Pulse Ox 10/31/21 16:40 61 16 107/41 97 10/31/21 14:42 98.7 F 72 18 113/45 95 Intake and Output 10/31/21 10/31/21 10/31/21 06:59 14:59 22:59 Other: Weight 109.316 kg Results CBC & Chem 7: 10/31/21 15:15 10/31/21 15:15 Labs: Abnormal Lab Results - Last 24 Hours (Table) 10/31/21 10/31/21 Range/Units 15:15 15:15 RBC 3.33 L (4.30-5.90) m/uL Hgb 10.9 L (13.0-17.5) gm/dL Hct 32.4 L (39.0-53.0) % Lymphocytes # 0.8 L (1.0-4.8) k/uL Sodium 134 L (137-145) mmol/L Potassium 2.5 L* (3.5-5.1) mmol/L Chloride 90 L (98-107) mmol/L Carbon Dioxide 38 H (22-30) mmol/L BUN 67 H (9-20) mg/dL Creatinine 1.85 H (0.66-1.25) mg/dL Glucose 137 H (74-99) mg/dL Magnesium 1.5 L (1.6-2.3) mg/dL Alkaline Phosphatase 185 H (38-126) U/L Total Protein 6.1 L (6.3-8.2) g/dL Albumin 3.4 L (3.5-5.0) g/dL
--- NOTE | 2021-10-31 19:59 | XR ---
EXAMINATION TYPE: XR chest 1V portable DATE OF EXAM: 10/31/2021 7:46 PM COMPARISON: Chest radiographs from 05/21/2020 TECHNIQUE: XR chest 1V portable Portable AP radiograph of the chest. CLINICAL INDICATION:Male, 89 years old with history of Short of breath; FINDINGS: Lungs/Pleura: There is no evidence of pleural effusion, focal consolidation, or pneumothorax. Pulmonary vascularity: Unremarkable. Heart/mediastinum: Cardiomediastinal silhouette is enlarged and stable. Two lead cardiac conduction d evice overlying the left hemithorax with lead tips projecting over the right ventricle and right atri um. Musculoskeletal: No acute osseous pathology. IMPRESSION: No acute cardiopulmonary disease/process.
[2021-10-31] MEDS: IPRATROPIUM-ALBUTEROL 3 ML NEB INHALATION SCH (20:32)
[2021-10-31] MEDS: BUDESONIDE 0.5 MG/2 ML NEBU INHALATION SCH (20:32)
[2021-10-31] MEDS: CHOLECALCIFEROL 125 MCG (5000 IU) TABLET PO SCH (21:20)
[2021-10-31] MEDS: PANTOPRAZOLE 40 MG TABLET PO SCH (21:20)
[2021-10-31] MEDS: CALCIUM CARBONATE 500 MG CHEWABLE PO SCH (21:21)
[2021-10-31] MEDS: ATORVASTATIN 40 MG TAB PO SCH (21:21)
[2021-10-31] MEDS: METOPROLOL TARTRATE 25 MG TAB PO SCH (21:21)
[2021-11-01] MEDS: TRIAMCINOLONE 0.1% CREAM 80 GM TUBE TOPICAL SCH ×2 (01:32→09:49)
[2021-11-01 06:24] LABS: Basophils % (A) 0 %; Eosinophils % (A) 0 %; HCT 31.5 % (39.0-53.0); HGB 10.2 gm/dL (13.0-17.5); Lymphocytes # (A) 0.8 k/uL (1.0-4.8); Lymphocytes % (A) 11 %; MCH 31.4 pg (25.0-35.0); MCHC 32.4 g/dL (31.0-37.0); MCV 96.9 fL (80.0-100.0); Mean Platelet Volume 7.4; Monocytes # (A) 0.8 k/uL (0-1.0); Monocytes % (A) 10 %; Neutrophils # (A) 5.7 k/uL (1.3-7.7); Neutrophils % (A) 77 %; Platelet Count 227 k/uL (150-450); RBC 3.25 m/uL (4.30-5.90); RDW 13.7 % (11.5-15.5); WBC 7.4 k/uL (3.8-10.6)
[2021-11-01 06:39] LABS: African American GFR (CKD) 43 (>60 ml/min/1.73 sqM); Anion Gap 9 mmol/L; Blood Urea Nitrogen 62 mg/dL (9-20); Calcium 8.5 mg/dL (8.4-10.2); Carbon Dioxide 28 mmol/L (22-30); Chloride 99 mmol/L (98-107); Glucose 133 mg/dL (74-99); Non-African American GFR(CKD) 37 (>60 ml/min/1.73 sqM); Potassium 2.9 mmol/L (3.5-5.1); Sodium 136 mmol/L (137-145)
[2021-11-01] MEDS ORDERED: PANTOPRAZOLE 40 MG TABLET PO SCH (07:30)
[2021-11-01] MEDS ORDERED: FUROSEMIDE 80 MG TAB PO SCH (09:00)
[2021-11-01] MEDS: IPRATROPIUM-ALBUTEROL 3 ML NEB INHALATION SCH ×4 (09:29→20:15)
[2021-11-01] MEDS: BUDESONIDE 0.5 MG/2 ML NEBU INHALATION SCH ×2 (09:29→20:15)
[2021-11-01] MEDS: CALCIUM CARBONATE 500 MG CHEWABLE PO SCH ×2 (09:48→22:22)
[2021-11-01] MEDS: CHOLECALCIFEROL 125 MCG (5000 IU) TABLET PO SCH ×2 (09:48→22:22)
[2021-11-01] MEDS: CYANOCOBALAMIN 500 MCG TAB PO SCH (09:48)
[2021-11-01] MEDS: PANTOPRAZOLE 40 MG TABLET PO SCH ×2 (09:48→22:22)
[2021-11-01] MEDS: MONTELUKAST 10 MG TAB PO SCH (09:48)
[2021-11-01] MEDS: METOPROLOL TARTRATE 25 MG TAB PO SCH ×2 (09:48→17:40)
[2021-11-01] MEDS: allopurinoL 100 MG TAB PO SCH (09:48)
[2021-11-01] MEDS: LOPERAMIDE 2 MG CAP PO SCH ×3 (12:32→22:24)
[2021-11-01] MEDS: ACETAMINOPHEN TAB 325 MG TAB PO PRN (14:04)
--- NOTE | 2021-11-01 16:12 | P.CONS ---
History of Present Illness - Reason for Consult Consult date: 11/01/21 Diarrhea Requesting physician: Augustin Lezama - Chief Complaint Diarrhea - History of Present Illness There is a pleasant 89-year-old white male who presented to the emergency department yesterday afternoon with complaints of ongoing diarrhea since last week Saturday of with abdominal pain that is mostly in the lower abdomen. He has a past medical history of atrial fibrillation, coronary artery disease, GERD, TIA, sleep apnea, and anemia. He and his state that they had noticed that some of his stool had been dark in color. Patient states he has had a history in the past of GI bleed with peptic ulcer disease. He denies any fevers or chills. He denies any bright red blood. He also states that he had fallen off his bed and hit his elbow on his nightstand and currently is bleeding to be evaluated by orthopedics for fractured elbow. He denies any anticoagulation, NSAIDs, no recent antibiotics or new medications. He previously was on anticoagulation however now has a watchman in place. His last EGD was done at 05/21/[address] River that showed mild gastritis, Cummings's esophagus with a small hiatal hernia but no active bleeding. Prior to that patient had EGD and colonoscopy in June [address] Crawford for positive occult stool in reports of dark stool. He had a small nonbleeding duodenal bulb ulcer, and a colonoscopy showed small colon polyps with low-grade internal hemorrhoids and thrombosed external hemorrhoids. He states he continues to have the diarrhea and can be as many as 10-15 times a day, he states small amounts. He has some incontinence. He denies any bright red blood. Does have some irritation from his hemorrhoids. No nausea or vomiting. Does have lower abdominal cramping associated with it. He's been afebrile. Denies any fevers, states he has a chills. Stool occult blood negative. Stool C. difficile toxin negative. WBC 7.4 hemoglobin 10.2 hematocrit 31 platelet count 227,000 INR 1.1 sodium 136 potassi um 2.9V 162 creatinine 1.63 total bilirubin 1.2 AST 29 ALT 11 alkaline phosphatase 185 Review of Systems REVIEW OF SYSTEMS: CARDIOPULMONARY: No chest pain or shortness of breath. Gastrointestinal: Lower abdominal pain/cramping. No nausea or vomiting. No hematemesis, coffee-ground emesis. Diarrhea 10-13 times a day, reported as dark. GENITOURINARY: No dysuria or hematuria. MUSCULOSKELETAL: Reports normal range of motion., Joint pain. SKIN: No rashes. No jaundice. ENDOCRINE: No chills, fevers. No excessive weight gain or loss. No polydipsia or polyuria. PSYCHIATRIC: Unremarkable. NEUROLOGY: No change in mental status. Denies dizziness, headache. ENT: Vision unremarkable. CONSTITUTIONAL: No recent weight loss. No fever, chills, night sweats. . Recent fall hitting elbow, elbow pain. Past Medical History Past Medical History: Atrial Fibrillation, Asthma, Coronary Artery Disease (CAD), Cancer, Chest Pain / Angina, CVA/TIA, GERD/Reflux, Hearing Disorder / Deafness, Pneumonia, Prostate Disorder, Sleep Apnea/CPAP/BIPAP Additional Past Medical History / Comment(s): PUD, lower GI bleed, anemia, pancreatitis once many years ago, bronchitis, ALPESH does not use device-falls off all the time, prostate cancer with 44 radiation treatments-completed Jan 2018, arthritis bilateral shoulders/arms, finger cramping, Gout, stroke in 2020- no residual effects, see Dr. Bose H & P History of Any Multi-Drug Resistant Organisms: None Reported Past Surgical History: Bladder Surgery, Cardiac Ablation, Cholecystectomy, Heart Catheterization, Heart Catheterization With Stent, Joint Replacement, Orthopedic Surgery, Pacemaker Additional Past Surgical History / Comment(s): 06/18/[address] [facility], colonoscopy last one 2013, bilateral total knee arthroplasties, L rotator cuff surgery, Watchman device implanted 07-10-20 Past Anesthesia/Blood Transfusion Reactions: No Reported Reaction Additional Past Anesthesia/Blood Transfusion Reaction / Comm: Pt has received blood in past without reaction. Date of Last Stent Placement:: 2001 Type of Cardiac Device: Unknown Device Placement Date:: 2005 inserted/2013 gen change. Additional Psychological History / Comment(s): Pt resides with his spouse of 60 yrs. Additional Past Alcohol Use History / Comment(s): Pt started smoking in 1951 and quit in the . He drank alcohol socially but quit that in the 1970s too. - Past Family History Mother History Unknown: Yes Family Medical History: Cancer Additional Family Medical History / Comment(s): Family believes liver cancer Father History Unknown: Yes Family Medical History: Cancer Additional Family Medical History / Comment(s): Stomach cancer Medications and Allergies Home Medications Medication Instructions Recorded Confirmed Type Budesonide [Pulmicort] 0.5 mg INHALATION RT-BID 12/08/13 10/31/21 History Simvastatin [Zocor] 80 mg PO HS 12/08/13 10/31/21 History Montelukast [Singulair] 10 mg PO DAILY 01/24/19 10/31/21 History Cholecalciferol (Vitamin D3) 125 mcg PO BID 05/08/20 10/31/21 History [Vitamin D3 (5000 Iu)] Docusate [Colace] 100 mg PO BID PRN 05/08/20 10/31/21 History Inulin/Chromium Picolinate [Fiber 2 tab PO DAILY 05/08/20 10/31/21 History Gummies Chew] Pantoprazole [Protonix] 40 mg PO DAILY 05/08/20 10/31/21 History allopurinoL [Zyloprim] 100 mg PO DAILY 05/08/20 10/31/21 History Cyanocobalamin [Vitamin B-12] 1,000 mcg PO DAILY #30 tab 05/10/20 10/31/21 Rx Calcium Carbonate [Calcium] 600 mg PO BID 08/05/20 10/31/21 History Ferrous Sulfate [Iron (65 MG 325 mg PO DAILY 08/05/20 10/31/21 History Elemental)] Nitroglycerin Sl Tabs [Nitrostat] 0.4 mg SUBLINGUAL Q5M PRN 08/05/20 10/31/21 History Ipratropium-Albuterol Nebulize 3 ml INHALATION RT-QID PRN 10/13/20 10/31/21 History [Duoneb 0.5 mg-3 mg/3 ml Soln] Baclofen 10 mg PO TID PRN 10/31/21 10/31/21 History Cetirizine HCl [Zyrtec] 10 mg PO DAILY PRN 10/31/21 10/31/21 History Furosemide [Lasix] 80 mg PO BID 10/31/21 10/31/21 History Metoprolol Tartrate [Lopressor] 25 mg PO BID-W/MEALS 10/31/21 10/31/21 History Potassium Citrate [Urocit-K ER] 5 meq PO BID-W/MEALS 10/31/21 10/31/21 History Triamcinolone 0.1% Cream [Kenalog 1 applicatio TOPICAL BID 10/31/21 10/31/21 H istory 0.1% Cream] metOLazone 2.5 mg PO FR 10/31/21 10/31/21 History polyethylene glycoL 3350 [Miralax] 17 gm PO DAILY 10/31/21 10/31/21 History Allergies Allergy/AdvReac Type Severity Reaction Status Date / Time zolpidem [From Ambien] AdvReac Hallucinati Verified 10/31/21 15:52 ons Physical Exam Vitals: Vital Signs Temp Pulse Pulse Resp BP BP Pulse Ox 11/01/21 15:51 62 16 11/01/21 15:41 60 16 11/01/21 14:00 97.8 F 89 17 105/45 96 11/01/21 09:42 60 11/01/21 09:30 60 11/01/21 08:31 95 11/01/21 08:00 98.5 F 66 16 108/67 95 11/01/21 00:45 98.4 F 63 14 104/60 94 L 10/31/21 20:45 65 10/31/21 20:32 62 10/31/21 20:00 18 10/31/21 19:26 98.4 F 65 18 114/53 96 10/31/21 18:43 98.4 F 65 18 114/53 96 10/31/21 16:40 61 16 107/41 97 Intake and Output 11/01/21 11/01/21 11/01/21 06:59 14:59 22:59 Output Total 1 Balance -1 Output: Urine/Stool Mix 1 Other: # Bowel Movements 1 General appearance: The patient is alert, oriented, appears in no acute distress. HET: Head is normocephalic and atraumatic. Conjunctiva pink. Sclera anicteric. Neck: Supple without lymphadenopathy. Trachea midline. Heart: S1 S2. Regular rate and rhythm. Lungs: Clear to auscultation. Abdomen: Soft, lower abdominal tenderness, nondistended with bowel sounds. No guarding or rigidity. Skin: No rashes. No jaundice. Extremities: Normal skin color and turgor. No pedal edema. Right upper extremity splinted and in sling. Neurological: No focal deficits. Alert and oriented x3. Results CBC & Chem 7: 11/01/21 06:01 11/01/21 06:01 Labs: Abnormal Lab Results - Last 24 Hours (Table) 11/01/21 11/01/21 Range/Units 06:01 06:01 RBC 3.25 L (4.30-5.90) m/uL Hgb 10.2 L (13.0-17.5) gm/dL Hct 31.5 L (39.0-53.0) % Lymphocytes # 0.8 L (1.0-4.8) k/uL Sodium 136 L (137-145) mmol/L Potassium 2.9 L (3.5-5.1) mmol/L BUN 62 H (9-20) mg/dL Creatinine 1.63 H (0.66-1.25) mg/dL Glucose 133 H (74-99) mg/dL Assessment and Plan (1) Diarrhea Narrative/Plan: 89-year-old male who presented to the emergency department with complaints of ongoing diarrhea for the last 1 week's duration. States he is having diarrhea up to 10-15 times a day. He denies any recent antibiotic use or new medications. He states that his stool has been dark he believes possibly black at times. He did have a negative stool as well as a negative C. diff. Stool cultures have been ordered and are pending. He has no associated nausea or vomiting and no fevers. He states he has had a history of a GI bleed in the past with ulcer. His last EGD was done 05/21/[address] Crawford that showed mild gastritis and Cummings's esophagus small hiatal hernia but no active bleeding. Prior to that he had an EGD and colonoscopy again for assessment of the GI bleed that showed a small nonbleeding duodenal bulb ulcer, colonoscopy showed small colon polyps low-grade internal hemorrhoids and thrombosed external hemorrhoids. No plans at this time for any endoscopic evaluation. Will treat with Imodium and Questran. Await stool culture results. Current Visit: Yes Status: Acute Code(s): R19.7 - DIARRHEA, UNSPECIFIED SNOMED Code(s): 07846297 (2) Abdominal pain Current Visit: No Status: Acute Code(s): R10.9 - UNSPECIFIED ABDOMINAL PAIN SNOMED Code(s): 62516759 (3) Elbow fracture Narrative/Plan: Orthopedics following Current Visit: Yes Status: Acute Code(s): S42.409A - UNSP FRACTURE OF LOWER END OF UNSP HUMERUS, INIT FOR CLOS FX SNOMED Code(s): 793409006 Plan: 1. Continue symptomatic and supportive care 2. Patient may have a low fat/low fiber diet 3. Imodium added 4. Questran added 5. Stool cultures ordered 6. No plans on endoscopic evaluation at this time. Patient had recent EGD and colonoscopy within the last 1-2 years. Thank you for this consultation, we will continue to follow. Dr. Gama Pacheco I agree with the dictator's note, documented as a scribe by Negrita Giles.
--- NOTE | 2021-11-01 17:28 | P.PN ---
Progress Note - Text Progress Note Date: 11/01/21 Chief Complaint: Dark stool This is a pleasant 89-year-old patient of follows with Dr. Abhilash Dodd. Chronic stable medical conditions include atrial fibrillation, asthma, CAD with stent, GERD, hard of hearing with aids, BPH, obstructive sleep apnea does not use a device, arthritis, gout,. Patient lives with his . Managed to get around the house and goes to get arch. Sometimes uses a cane and a walker. Has chronic shortness of breath. For about one week patient started having diarrhea. Special after eating. Stools became rather dark since yesterday. Appetite is gone down. Weak and tired. Patient just had a new mattress and has a support to get on the bed. Was to undergo the bathroom missed a step and fell down hitting the nightstand. Does feel tired and rundown. His last EGD was done at 05/21/[address] Kamara that showed mild gastritis, Cummnigs's esophagus with a small hiatal hernia but no active bleeding. Prior to that patient had EGD and colonoscopy in June [address] Crawford for positive occult stool in reports of dark stool. He had a small nonbleeding duodenal bulb ulcer, and a colonoscopy showed small colon polyps with low-grade internal hemorrhoids and thrombosed external hemorrhoids. November 01: Still having lower abdominal pain. Tired. Seen by GI. Not very endoscopy currently. Patient was started on Questran. Diet advanced to low fiber. Replace potassium. Start IV lactated Ringer's. Hold Lasix. Repeat labs in the morning. Active Medications Acetaminophen (Acetaminophen Tab 325 Mg Tab) 650 mg PO Q4HR PRN PRN Reason: Fever and/ or Pain Last Admin: 11/01/21 14:04 Dose: 650 mg Albuterol/Ipratropium (Ipratropium-Albuterol 3 Ml Neb) 3 ml INHALATION RT-QID [facility] Last Admin: 11/01/21 15:41 Dose: 3 ml Allopurinol (Allopurinol 100 Mg Tab) 100 mg PO DAILY [facility] Last Admin: 11/01/21 09:48 Dose: 100 mg Atorvastatin Calcium (Atorvastatin 40 Mg Tab) 40 mg PO HS [facility] Last Admin: 10/31/21 21:21 Dose: 40 mg Baclofen (Baclofen 10 Mg Tab) 10 mg PO TID PRN PRN Reason: Pain Budesonide (Budesonide 0.5 Mg/2 Ml Nebu) 0.5 mg INHALATION RT-BID [facility] Last Admin: 11/01/21 09:29 Dose: 0.5 mg Calcium Carbonate/Glycine (Calcium Carbonate 500 Mg Chewable) 500 mg PO BID [facility] Last Admin: 11/01/21 09:48 Dose: 500 mg Cholecalciferol (Cholecalciferol 125 Mcg (5000 Iu) Tablet) 125 mcg PO BID [facility] Last Admin: 11/01/21 09:48 Dose: 125 mcg Cholestyramine Resin (Cholestyramine (With Sugar) 4 Gm Packet) 4 gm PO BID@1000,1800 [facility] Cyanocobalamin (Cyanocobalamin 500 Mcg Tab) 1,000 mcg PO DAILY [facility] Last Admin: 11/01/21 09:48 Dose: 1,000 mcg Hydrocortisone (Hydrocortisone 2.5% Rectal Cream 30 Gm Tube) 1 applic RECTAL BID [facility] Lactated Ringer's (Lactated Ringers) 1,000 mls @ 100 mls/hr IV .Q10H [facility] Loperamide HCl (Loperamide 2 Mg Cap) 2 mg PO QID [facility] Last Admin: 11/01/21 12:32 Dose: 2 mg Metoprolol Tartrate (Metoprolol Tartrate 25 Mg Tab) 25 mg PO BID-W/MEALS [facility] Last Admin: 11/01/21 09:48 Dose: 25 mg Montelukast Sodium (Montelukast 10 Mg Tab) 10 mg PO DAILY [facility] Last Admin: 11/01/21 09:48 Dose: 10 mg Pantoprazole Sodium (Pantoprazole 40 Mg Tablet) 40 mg PO BID [facility] Last Admin: 11/01/21 09:48 Dose: 40 mg Potassium Chloride (Potassium Chloride Er 20 Meq Tab.Er) 40 meq PO Q2HR [facility] Stop: 11/01/21 20:01 Triamcinolone Acetonide (Triamcinolone 0.1% Cream 80 Gm Tube) 1 applic TOPICAL BID [facility]; Protocol Last Admin: 11/01/21 09:49 Dose: Not Given Past medical history to include: Atrial fibrillation, asthma, CAD with stent, GERD, hard of hearing, prostate disorder, sleep apnea does not use BiPAP, peptic ulcer disease, pancreatitis in the remote past prostate cancer with radiation treatment in 2017, arthritis, cardiac ablation watchman device implanted in June 2020 Social history: Lives with his . Patient smoked for about 20 years stopped in 1969. Drank alcohol socially. Retired. Family history: Cancer Physical examination: VITAL SIGNS: 97.8, 89, 17, 105/45, 96% room air GENERAL: reclining awake tired. EYES: Pupils equal. Conjunctiva normal. HEENT: External appearance of nose and ears normal, oral cavity grossly normal. Hearing aids NECK: JVD not raised; masses not palpable. HEART: First and second heart sounds are normal; mild edema. LUNGS: Respiratory rate increased; decreased breath sounds. ABDOMEN: Soft, no abdominal tenderness, liver spleen not palpable, no masses palpable. PSYCH: Alert and oriented x3; mood and affect some anxietyl. MUSCULOSKELETAL:No Clubbing/cyanosis;muscles-grossly intact, evidence of OA. Right ominous laying INVESTIGATIONS, reviewed in the clinical context: November 01: White count 7.4 hemoglobin 10.2 potassium 2.9. 62 creatinine 1.63 White count 8.1 hemoglobin 10.9 platelets 242 sodium 134 potassium 2.5. 67 creatinine 1.85 bicarb 38 UA: Negative EKG tracing personally reviewed by me-ventricular pacemaker X-ray of the right wrist and elbow: Superimposition of carpal bones maybe positional. Scapholunate dislocation. Right elbow joint effusion. Fracture cannot be ruled out. Chest x-ray: Clear Previous studies: [2-D echocardiogram: EF 50-55%] April 2020] Assessment and plan: -Acute diarrhea. Stool negative for occult blood. Questran started. -Severe hypokalemia from Lasix: Uncontrolled Replace potassium -Acute kidney injury, from diuretics diarrhea: Slow to respond Hold Lasix. Lactated Ringer's. -Persistent atrial fibrillation Watchman device.-No anticoagulants -COPD in a previous smoker DuoNeb 4 times a day, Singulair Pulmicort 0.5 mg twice a day -Primary osteoarthritic multiple joints bilateral Tylenol when necessary -Possible right elbow fracture. Secondary to fall Right ominous laying. Orthopedic consulted -CAD with a prior history of stent Lopressor 25 mg twice a day -Hard of hearing, has hearing aids -GERD Protonix 40 mg daily -Vitamin B-12 deficiency Vitamin B12 thousand micrograms DC Lasix. Lactated Ringer's. Replace potassium. Questions started by GI. Stool occult negative. Diet advanced per GI. Discussed with patient. Repeat labs
[2021-11-01] MEDS: POTASSIUM CHLORIDE ER 20 MEQ TAB.ER PO SCH ×2 (17:40→22:21)
[2021-11-01] MEDS: CHOLESTYRAMINE (WITH SUGAR) 4 GM PACKET PO SCH (17:43)
[2021-11-01] MEDS: ATORVASTATIN 40 MG TAB PO SCH (22:22)
[2021-11-01] MEDS: MAGNESIUM OXIDE 400 MG TAB PO SCH (22:22)
[2021-11-01] MEDS: HYDROCORTISONE 2.5% RECTAL CREAM 30 GM TUBE RECTAL SCH (22:22)
--- NOTE | 2021-11-01 22:45 | P.CNOR ---
History of Present Illness - [facility] Consult date: 11/01/21 Consult reason: joint pain History of present illness: Patient is a pleasant 89 yo male seen at bedside in consultation for right elbow and wrist pain. He was admitted 10/31/21 for GI bleed. He states he fell off bed two days ago suffering injury to right elbow and wrist. He had Pain and bruising at right elbow and wrist. He was Placed in long arm splint in sling from ED. He denies numbness or tingling. He has no pain at rest. Review of Systems All systems: negative Constitutional: Denies chills, Denies fever Eyes: denies blurred vision, denies pain Ears, nose, mouth and throat: Denies headache, Denies sore throat Cardiovascular: Denies chest pain, Denies shortness of breath Respiratory: Denies cough Gastrointestinal: Denies abdominal pain, Denies diarrhea, Denies nausea, Denies vomiting Musculoskeletal: Denies myalgias Integumentary: Denies pruritus, Denies rash Neurological: Denies numbness, Denies weakness Psychiatric: Denies anxiety, Denies depression Endocrine: Denies fatigue, Denies weight change Past Medical History Past Medical History: Atrial Fibrillation, Asthma, Coronary Artery Disease (CAD), Cancer, Chest Pain / Angina, CVA/TIA, GERD/Reflux, Hearing Disorder / Deafness, Pneumonia, Prostate Disorder, Sleep Apnea/CPAP/BIPAP Additional Past Medical History / Comment(s): PUD, lower GI bleed, anemia, panc reatitis once many years ago, bronchitis, ALPESH does not use device-falls off all the time, prostate cancer with 44 radiation treatments-completed Jan 2018, arthritis bilateral shoulders/arms, finger cramping, Gout, stroke in 2020- no residual effects, see Dr. Bose H & P History of Any Multi-Drug Resistant Organisms: None Reported Past Surgical History: Bladder Surgery, Cardiac Ablation, Cholecystectomy, Heart Catheterization, Heart Catheterization With Stent, Joint Replacement, Orthopedic Surgery, Pacemaker Additional Past Surgical History / Comment(s): 06/18/19 EGD at [facility], colonoscopy last one 2013, bilateral total knee arthroplasties, L rotator cuff surgery, Watchman device implanted 07-10-20 Past Anesthesia/Blood Transfusion Reactions: No Reported Reaction Additional Past Anesthesia/Blood Transfusion Reaction / Comm: Pt has received blood in past without reaction. Date of Last Stent Placement:: 2001 Type of Cardiac Device: Unknown Device Placement Date:: 2005 inserted gen change. Additional Psychological History / Comment(s): Pt resides with his spouse of 60 yrs. Additional Past Alcohol Use History / Comment(s): Pt started smoking in 1951 and quit in the . He drank alcohol socially but quit that in the too. - Past Family History Mother History Unknown: Yes Family Medical History: Cancer Additional Family Medical History / Comment(s): Family believes liver cancer Father History Unknown: Yes Family Medical History: Cancer Additional Family Medical History / Comment(s): Stomach cancer Medications and Allergies Home Medications Medication Instructions Recorded Confirmed Type Budesonide [Pulmicort] 0.5 mg INHALATION RT-BID 12/08/13 10/31/21 History Simvastatin [Zocor] 80 mg PO HS 12/08/13 10/31/21 History Montelukast [Singulair] 10 mg PO DAILY 01/24/19 10/31/21 History Cholecalciferol (Vitamin D3) 125 mcg PO BID 05/08/20 10/31/21 History [Vitamin D3 (5000 Iu)] Docusate [Colace] 100 mg PO BID PRN 05/08/20 10/31/21 History Inulin/Chromium Picolinate [Fiber 2 tab PO DAILY 05/08/20 10/31/21 History Gummies Chew] Pantoprazole [Protonix] 40 mg PO DAILY 05/08/20 10/31/21 History allopurinoL [Zyloprim] 100 mg PO DAILY 05/08/20 10/31/21 History Cyanocobalamin [Vitamin B-12] 1,000 mcg PO DAILY #30 tab 05/10/20 10/31/21 Rx Calcium Carbonate [Calcium] 600 mg PO BID 08/05/20 10/31/21 History Ferrous Sulfate [Iron (65 MG 325 mg PO DAILY 08/05/20 10/31/21 History Elemental)] Nitroglycerin Sl Tabs [Nitrostat] 0.4 mg SUBLINGUAL Q5M PRN 08/05/20 10/31/21 History Ipratropium-Albuterol Nebulize 3 ml INHALATION RT-QID PRN 10/13/20 10/31/21 History [Duoneb 0.5 mg-3 mg/3 ml Soln] Baclofen 10 mg PO TID PRN 10/31/21 10/31/21 History Cetirizine HCl [Zyrtec] 10 mg PO DAILY PRN 10/31/21 10/31/21 History Furosemide [Lasix] 80 mg PO BID 10/31/21 10/31/21 History Metoprolol Tartrate [Lopressor] 25 mg PO BID-W/MEALS 10/31/21 10/31/21 History Potassium Citrate [Urocit-K ER] 5 meq PO BID-W/MEALS 10/31/21 10/31/21 History Triamcinolone 0.1% Cream [Kenalog 1 applicatio TOPICAL BID 10/31/21 10/31/21 History 0.1% Cream] metOLazone 2.5 mg PO FR 10/31/21 10/31/21 History polyethylene glycoL 3350 [Miralax] 17 gm PO DAILY 10/31/21 10/31/21 History Allergies Allergy/AdvReac Type Severity Reaction Status Date / Time zolpidem [From Ambien] AdvReac Hallucinati Verified 10/31/21 15:52 ons Physical Examination Inspection of right upper extremity shows FAREED and Long arm splint appplied which appears to be too tight as there is swelling at fingers. After removal, the elbow has some mild echymoses posteriorly. There is no effusion. He is mildly tender at post elbow. There is minimal tenderness with ROM of elbow. The wrist shows some bruising at dorsum. There is no swelling. No distal radius tenderness. There is Mild tenderness at thumb and ulnar wrist. Minimal pain with ROM. Neurovascular status is intact Results Xrays negative for definite fracture of elbow/wrist - Labs Labs: Abnormal Lab Results - Last 24 Hours (Table) 11/01/21 11/01/21 Range/Units 06:01 06:01 RBC 3.25 L (4.30-5.90) m/uL Hgb 10.2 L (13.0-17.5) gm/dL Hct 31.5 L (39.0-53.0) % Lymphocytes # 0.8 L (1.0-4.8) k/uL Sodium 136 L (137-145) mmol/L Potassium 2.9 L (3.5-5.1) mmol/L BUN 62 H (9-20) mg/dL Creatinine 1.63 H (0.66-1.25) mg/dL Glucose 133 H (74-99) mg/dL H & H 10/31/21 11/01/21 Range/Units 15:15 06:01 Hgb 10.9 L 10.2 L (13.0-17.5) gm/dL Hct 32.4 L 31.5 L (39.0-53.0) % Coagulation 10/31/21 Range/Units 15:15 INR 1.1 (<1.2) Result Diagrams: 11/01/21 06:01 11/01/21 06:01 Assessment and Plan (1) Contusion of right elbow Narrative/Plan: There are no plans for surgical intervention. He may use sling for comfort as splint is not necessary. Continue ice, rest, elevate and gentle ROM. Will continue to monitor Current Visit: Yes Status: Acute Priority: Medium Code(s): S50.01XA - CONTUSION OF RIGHT ELBOW, INITIAL ENCOUNTER SNOMED Code(s): 23914380 Time with Patient: Less than 30
[2021-11-02] MEDS: TRIAMCINOLONE 0.1% CREAM 80 GM TUBE TOPICAL SCH ×3 (01:06→20:01)
[2021-11-02] MEDS: LACTATED RINGERS 1,000 ML IV SCH ×3 (01:06→20:20)
[2021-11-02] MEDS: METOPROLOL TARTRATE 25 MG TAB PO SCH ×2 (07:30→17:51)
[2021-11-02] MEDS: LOPERAMIDE 2 MG CAP PO SCH (07:30)
[2021-11-02] MEDS: MAGNESIUM OXIDE 400 MG TAB PO SCH ×2 (07:45→20:01)
[2021-11-02] MEDS: allopurinoL 100 MG TAB PO SCH (07:45)
[2021-11-02] MEDS: CYANOCOBALAMIN 500 MCG TAB PO SCH (07:45)
[2021-11-02] MEDS: CALCIUM CARBONATE 500 MG CHEWABLE PO SCH ×2 (07:46→20:00)
[2021-11-02] MEDS: CHOLECALCIFEROL 125 MCG (5000 IU) TABLET PO SCH ×2 (07:46→20:00)
[2021-11-02] MEDS: PANTOPRAZOLE 40 MG TABLET PO SCH ×2 (07:46→20:00)
[2021-11-02] MEDS: MONTELUKAST 10 MG TAB PO SCH (07:46)
[2021-11-02] MEDS: ACETAMINOPHEN TAB 325 MG TAB PO PRN (07:50)
[2021-11-02 08:23] LABS: African American GFR (CKD) 38 (>60 ml/min/1.73 sqM); Anion Gap 6 mmol/L; Blood Urea Nitrogen 58 mg/dL (9-20); Calcium 8.6 mg/dL (8.4-10.2); Carbon Dioxide 27 mmol/L (22-30); Chloride 103 mmol/L (98-107); Glucose 148 mg/dL (74-99); Non-African American GFR(CKD) 33 (>60 ml/min/1.73 sqM); Potassium 3.6 mmol/L (3.5-5.1); Sodium 136 mmol/L (137-145)
[2021-11-02] MEDS: BUDESONIDE 0.5 MG/2 ML NEBU INHALATION SCH ×2 (08:34→20:21)
[2021-11-02] MEDS: IPRATROPIUM-ALBUTEROL 3 ML NEB INHALATION SCH ×4 (08:34→20:21)
[2021-11-02] MEDS ORDERED: LOPERAMIDE 2 MG CAP PO PRN (08:57)
[2021-11-02] MEDS: CHOLESTYRAMINE (WITH SUGAR) 4 GM PACKET PO SCH ×2 (11:56→19:28)
[2021-11-02] MEDS: HYDROCORTISONE 2.5% RECTAL CREAM 30 GM TUBE RECTAL SCH ×2 (11:57→20:02)
[2021-11-02] MEDS ORDERED: IOPAMIDOL CONTRAST (ORAL USE) VIAL PO PRN (12:03)
--- NOTE | 2021-11-02 13:09 | P.PN ---
Subjective Progress Note Date: 11/02/21 Principal diagnosis: Diarrhea 89-year-old male who presented to emergency department with complaints of one week of diarrhea. He states he is having several loose bowel movements he was having up to 10-15 per day. He and his had reported that this will start however a cold stool is negative. They are reporting that the stool is brown. He had a C. diff that was negative stool cultures are currently pending. He states he does have abdominal cramping with the bowel movements. No nausea or vomiting. States he had a large bowel movement this morning that was loose but getting more formed. He is afebrile. Objective - Vital Signs Vital signs: Vital Signs Temp 98.2 F 11/02/21 08:00 Pulse 60 11/02/21 08:45 Resp 18 11/02/21 08:00 BP 106/62 11/02/21 08:00 Pulse Ox 93 L 11/02/21 08:00 FiO2 21 11/01/21 20:15 Intake & Output 11/01/21 11/02/21 11/02/21 18:59 06:59 18:59 Intake Total 540 Output Total 1 Balance -1 540 Intake: Oral 540 Output: Urine/Stool Mix 1 Other: # Voids 2 - Exam General appearance: The patient is alert, oriented, appears in no acute distress. HET: Head is normocephalic and atraumatic. Conjunctiva pink. Sclera anicteric. Neck: Supple without lymphadenopathy. Abdomen: Soft, nontender, nondistended with bowel sounds. No guarding or rigidity. Extremities: Normal skin color and turgor. No pedal edema Skin: No rashes, no jaundice Neurological: No focal deficits. Alert and oriented x 3. - Labs CBC & Chem 7: 11/01/21 06:01 11/02/21 07:26 Labs: Abnormal Lab Results - Last 24 Hours (Table) 11/02/21 Range/Units 07:26 Sodium 136 L (137-145) mmol/L BUN 58 H (9-20) mg/dL Creatinine 1.79 H (0.66-1.25) mg/dL Glucose 148 H (74-99) mg/dL Microbiology - Last 24 Hours (Table) 11/01/21 12:19 Stool Culture - Preliminary Stool Assessment and Plan (1) Diarrhea Narrative/Plan: 89-year-old male who presented to the emergency department with complaints of ongoing diarrhea for the last 1 week's duration. States he is having diarrhea up to 10-15 times a day. He denies any recent antibiotic use or new medications. He states that his stool has been dark he believes possibly black at times. He did have a negative stool as well as a negative C. diff. Stool cultures have been ordered and are pending. He has no associated nausea or vomiting and no fevers. He states he has had a history of a GI bleed in the past with ulcer. His last EGD was done 05/21/[address] Crawford that showed mild gastritis and Cummings's esophagus small hiatal hernia but no active bleeding. Prior to that he had an EGD and colonoscopy again for assessment of the GI bleed that showed a small nonbleeding duodenal bulb ulcer, colonoscopy showed small colon polyps low-grade internal hemorrhoids and thrombosed external hemorrhoids. No plans at this time for any endoscopic evaluation. Will treat with Imodium and Questran. Await stool culture results. Current Visit: Yes Status: Acute Code(s): R19.7 - DIARRHEA, UNSPECIFIED SNOMED Code(s): 69297666 (2) Abdominal pain Current Visit: No Status: Acute Code(s): R10.9 - UNSPECIFIED ABDOMINAL PAIN SNOMED Code(s): 44397689 (3) Elbow fracture Narrative/Plan: Orthopedics following Current Visit: Yes Status: Acute Code(s): S42.409A - UNSP FRACTURE OF LOWER END OF UNSP HUMERUS, INIT FOR CLOS FX SNOMED Code(s): 926053127 Plan: 1. Continue symptomatic and supportive care 2. Patient may have a low fat/low fiber diet 3. Imodium added 4. Questran added 5. Stool cultures pending 6. No plans on endoscopic evaluation at this time. Patient had recent EGD and colonoscopy within the last 1-2 years. Thank you for this consultation, we will continue to follow. Dr. Gama Pacheco I agree with the dictator's note, documented as a scribe by Negrita Giles.
[2021-11-02] MEDS: IOPAMIDOL CONTRAST (ORAL USE) VIAL PO PRN ×2 (13:13→13:14)
--- NOTE | 2021-11-02 15:04 | CT ---
EXAMINATION TYPE: CT abdomen pelvis wo con CT DLP: 1423 mGycm, Automated exposure control for dose reduction was used. DATE OF EXAM: 11/02/2021 2:46 PM COMPARISON: CT abdomen pelvis most recent from 05/22/2020. CLINICAL INDICATION:Male, 89 years old with history of lower abd pain-diarrhea; TECHNIQUE: Standard CT of the abdomen and pelvis following the administration of oral contrast. Cor onal and sagittal reformats were performed. FINDINGS: Limited examination due to motion artifact. LOWER CHEST: Right middle lobe calcified granuloma demonstrated. Enlarged heart. Partial visualizatio n of cardiac pacemaking leads. Coronary artery calcifications and/or stents. ABDOMEN LIVER: Noncirrhotic morphology. No concerning lesion within limitation of noncontrast exam. GALLBLADDER AND BILE DUCTS: Postcholecystectomy. No biliary ductal dilatation. PANCREAS: Fatty atrophy of the pancreas. No ductal dilatation. SPLEEN: Unremarkable noncontrast appearance. ADRENAL GLANDS: Unremarkable noncontrast appearance.. KIDNEYS AND URETERS: No evidence of hydronephrosis or renal calculus. The ureters are unremarkable. PELVIS BLADDER: Unremarkable REPRODUCTIVE: Unremarkable. ABDOMEN & PELVIS STOMACH AND BOWEL: Stomach and duodenum are unremarkable. No focal wall thickening or surrounding inf lammatory changes. The appendix is within normal limits. Scattered colonic diverticulosis without whitney dence for acute diverticulitis. No evidence of bowel obstruction. Enteric contrast reaches the ascend ing colon. PERITONEUM: No evidence of pneumoperitoneum or free fluid. VASCULATURE: Mild atherosclerotic calcifications are present throughout the abdominal aorta and its b ranches. No evidence of aortic aneurysm. MUSCULOSKELETAL: No acute osseous abnormalities. Multilevel degenerative changes of the visualized sp ine. LYMPH NODES: No gross evidence for lymphadenopathy. SOFT TISSUE/ABDOMINAL WALL: Small fat filled bilateral inguinal hernias. IMPRESSION: No acute abdominal/pelvic process. No significant change from prior examination 05/22/2020.
--- NOTE | 2021-11-02 16:21 | P.PN ---
Progress Note - Text Progress Note Date: 11/02/21 Chief Complaint: Dark stool This is a pleasant 89-year-old patient of follows with Dr. Abhilash Dodd. Chronic stable medical conditions include atrial fibrillation, asthma, CAD with stent, GERD, hard of hearing with aids, BPH, obstructive sleep apnea does not use a device, arthritis, gout,. Patient lives with his . Managed to get around the house and goes to get arch. Sometimes uses a cane and a walker. Has chronic shortness of breath. For about one week patient started having diarrhea. Special after eating. Stools became rather dark since yesterday. Appetite is gone down. Weak and tired. Patient just had a new mattress and has a support to get on the bed. Was to undergo the bathroom missed a step and fell down hitting the nightstand. Does feel tired and rundown. His last EGD was done at 05/21/[address] Kamara that showed mild gastritis, Cummings's esophagus with a small hiatal hernia but no active bleeding. Prior to that patient had EGD and colonoscopy in June [address] Crawford for positive occult stool in reports of dark stool. He had a small nonbleeding duodenal bulb ulcer, and a colonoscopy showed small colon polyps with low-grade internal hemorrhoids and thrombosed external hemorrhoids. November 01: Still having lower abdominal pain. Tired. Seen by GI. Not very endoscopy currently. Patient was started on Questran. Diet advanced to low fiber. Replace potassium. Start IV lactated Ringer's. Hold Lasix. Repeat labs in the morning. November 02: Continues to have lower abdominal pain. Multiple bowel movements. Has been on Questran. Computed tomography scan abdomen and pelvis with oral contrast ordered.: Only evidence of diverticulosis found. Admitted Metamucil to help with bulk forming. Not eating much Active Medications Acetaminophen (Acetaminophen Tab 325 Mg Tab) 650 mg PO Q4HR PRN PRN Reason: Fever and/ or Pain Last Admin: 11/02/21 07:50 Dose: 650 mg Albuterol/Ipratropium (Ipratropium-Albuterol 3 Ml Neb) 3 ml INHALATION RT-QID [facility] Last Admin: 11/02/21 16:07 Dose: Not Given Allopurinol (Allopurinol 100 Mg Tab) 100 mg PO DAILY [facility] Last Admin: 11/02/21 07:45 Dose: 100 mg Atorvastatin Calcium (Atorvastatin 40 Mg Tab) 40 mg PO HS [facility] Last Admin: 11/01/21 22:22 Dose: 40 mg Baclofen (Baclofen 10 Mg Tab) 10 mg PO TID PRN PRN Reason: Pain Budesonide (Budesonide 0.5 Mg/2 Ml Nebu) 0.5 mg INHALATION RT-BID [facility] Last Admin: 11/02/21 08:34 Dose: 0.5 mg Calcium Carbonate/Glycine (Calcium Carbonate 500 Mg Chewable) 500 mg PO BID [facility] Last Admin: 11/02/21 07:46 Dose: 500 mg Cholecalciferol (Cholecalciferol 125 Mcg (5000 Iu) Tablet) 125 mcg PO BID [facility] Last Admin: 11/02/21 07:46 Dose: 125 mcg Cholestyramine Resin (Cholestyramine (With Sugar) 4 Gm Packet) 4 gm PO BID@1000,1800 [facility] Last Admin: 11/02/21 11:56 Dose: 4 gm Cyanocobalamin (Cyanocobalamin 500 Mcg Tab) 1,000 mcg PO DAILY [facility] Last Admin: 11/02/21 07:45 Dose: 1,000 mcg Hydrocortisone (Hydrocortisone 2.5% Rectal Cream 30 Gm Tube) 1 applic RECTAL BID [facility] Last Admin: 11/02/21 11:57 Dose: 1 applic Lactated Ringer's (Lactated Ringers) 1,000 mls @ 100 mls/hr IV .Q10H [facility] Last Admin: 11/02/21 05:36 Dose: Not Given Loperamide HCl (Loperamide 2 Mg Cap) 2 mg PO QID PRN PRN Reason: Diarrhea Magnesium Oxide (Magnesium Oxide 400 Mg Tab) 400 mg PO BID [facility] Last Admin: 11/02/21 07:45 Dose: 400 mg Metoprolol Tartrate (Metoprolol Tartrate 25 Mg Tab) 25 mg PO BID-W/MEALS [facility] Last Admin: 11/02/21 07:30 Dose: 25 mg Montelukast Sodium (Montelukast 10 Mg Tab) 10 mg PO DAILY [facility] Last Admin: 11/02/21 07:46 Dose: 10 mg Pantoprazole Sodium (Pantoprazole 40 Mg Tablet) 40 mg PO BID [facility] Last Admin: 11/02/21 07:46 Dose: 40 mg Psyllium Hydrophilic Mucilloid (Psyllium Husk 100% 6 Gm Packet) 6 gm PO BID [facility] Triamcinolone Acetonide (Triamcinolone 0.1% Cream 80 Gm Tube) 1 applic TOPICAL BID [facility]; Protocol Last Admin: 11/02/21 14:51 Dose: 1 applic Past medical history to include: Atrial fibrillation, asthma, CAD with stent, GERD, hard of hearing, prostate disorder, sleep apnea does not use BiPAP, peptic ulcer disease, pancreatitis in the remote past prostate cancer with radiation treatment in 2017, arthritis, cardiac ablation watchman device implanted in June 2020 Social history: Lives with his . Patient smoked for about 20 years stopped in 1969. Drank alcohol socially. Retired. Family history: Cancer Physical examination: VITAL SIGNS: 98.2, 64, 18, 106/62, and 3% room air GENERAL: reclining awake EYES: Pupils equal. Conjunctiva normal. HEENT: External appearance of nose and ears normal, oral cavity grossly normal. Hearing aids NECK: JVD not raised; masses not palpable. HEART: First and second heart sounds are normal; mild edema. LUNGS: Respiratory rate increased; decreased breath sounds. ABDOMEN: Soft, mild lower abdominal tenderness, liver spleen not palpable, no masses palpable. PSYCH: Alert and oriented x3; mood and affect some anxietyl. MUSCULOSKELETAL:No Clubbing/cyanosis;muscles-grossly intact, evidence of OA. Right ominous laying INVESTIGATIONS, reviewed in the clinical context: November 02: Potassium 3.6 BUN 58 creatinine 1.79 Computed tomography scan abdomen and pelvis [November 02]: Diverticulosis. November 01: White count 7.4 hemoglobin 10.2 potassium 2.9. 62 creatinine 1.63 White count 8.1 hemoglobin 10.9 platelets 242 sodium 134 potassium 2.5. 67 creatinine 1.85 bicarb 38 UA: Negative EKG tracing personally reviewed by me-ventricular pacemaker X-ray of the right wrist and elbow: Superimposition of carpal bones maybe positional. Scapholunate dislocation. Right elbow joint effusion. Fracture cannot be ruled out. Chest x-ray: Clear Previous studies: [2-D echocardiogram: EF 50-55%] April 2020] Assessment and plan: -Possibly irritable bowel syndrome. Currently flareup of diarrhea. Uncontrolled Questran . CT abdomen unremarkable. We'll add Metamucil to help bind up bowels. -Severe hypokalemia from Lasix: Better Replace potassium -Acute kidney injury, from diuretics diarrhea: Slow to respond Hold Lasix. Lactated Ringer's. -Persistent atrial fibrillation Watchman device.-No anticoagulants -COPD in a previous smoker DuoNeb 4 times a day, Singulair Pulmicort 0.5 mg twice a day -Primary osteoarthritic multiple joints bilateral Tylenol when necessary -Right elbow blunt injury. No fracture per orthopedics. -CAD with a prior history of stent Lopressor 25 mg twice a day -Hard of hearing, has hearing aids -GERD Protonix 40 mg daily -Vitamin B-12 deficiency Vitamin B12 thousand micrograms Continue Lactated Ringer's. Computed tomography scan abdomen unremarkable. Encourage oral intake. No fracture per orthopedics. Repeat labs. Add Metamucil to help bulk up bowels.
[2021-11-02] MEDS: PSYLLIUM HUSK 100% 6 GM PACKET PO SCH ×2 (17:51→20:07)
[2021-11-02] MEDS: ATORVASTATIN 40 MG TAB PO SCH (20:00)
[2021-11-03] MEDS: LACTATED RINGERS 1,000 ML IV SCH ×2 (02:35→17:40)
[2021-11-03 06:46] LABS: African American GFR (CKD) 41 (>60 ml/min/1.73 sqM); Anion Gap 10 mmol/L; Blood Urea Nitrogen 55 mg/dL (9-20); Calcium 8.5 mg/dL (8.4-10.2); Carbon Dioxide 24 mmol/L (22-30); Chloride 99 mmol/L (98-107); Glucose 147 mg/dL (74-99); Non-African American GFR(CKD) 35 (>60 ml/min/1.73 sqM); Potassium 3.9 mmol/L (3.5-5.1); Sodium 133 mmol/L (137-145)
[2021-11-03] MEDS: BUDESONIDE 0.5 MG/2 ML NEBU INHALATION SCH ×2 (07:43→20:48)
[2021-11-03] MEDS: IPRATROPIUM-ALBUTEROL 3 ML NEB INHALATION SCH ×4 (07:43→20:48)
[2021-11-03] MEDS ORDERED: SODIUM CHLORIDE 0.65% NASAL SPRAY 44 ML BTL NASAL PRN (08:33)
--- NOTE | 2021-11-03 08:33 | P.PN ---
Subjective Progress Note Date: 11/03/21 Principal diagnosis: Diarrhea Patient is seen and examined today as a follow-up for diarrhea. He states that his diarrhea and abdominal cramping have improved. He only had 2 loose bowel movements yesterday 1 this morning. He denies any blood in his stool. He has been afebrile. He's been up and ambulating and states that he is feeling much better today. He states his appetite has improved and he ate most of his breakfast. Objective - Vital Signs Vital signs: Vital Signs Temp 98.6 F 11/03/21 02:00 Pulse 61 11/03/21 02:00 Resp 19 11/03/21 02:00 BP 108/62 11/03/21 02:00 Pulse Ox 94 L 11/03/21 02:00 FiO2 21 11/01/21 20:15 Intake & Output 11/02/21 11/03/21 11/03/21 18:59 06:59 18:59 Output Total 1 Balance -1 Output: Stool 1 Other: # Voids 2 # Bowel Movements 2 - Exam General appearance: The patient is alert, oriented, appears in no acute distress. HET: Head is normocephalic and atraumatic. Conjunctiva pink. Sclera anicteric. Neck: Supple without lymphadenopathy. Abdomen: Soft, nontender, nondistended with bowel sounds. No guarding or rigidity. Extremities: Normal skin color and turgor. Pedal edema. Skin: No rashes, no jaundice Neurological: No focal deficits. Alert and oriented x 3. - Labs CBC & Chem 7: 11/01/21 06:01 11/03/21 06:02 Labs: Abnormal Lab Results - Last 24 Hours (Table) 11/03/21 Range/Units 06:02 Sodium 133 L (137-145) mmol/L BUN 55 H (9-20) mg/dL Creatinine 1.69 H (0.66-1.25) mg/dL Glucose 147 H (74-99) mg/dL Assessment and Plan (1) Diarrhea Narrative/Plan: 89-year-old male who presented to the emergency department with complaints of ongoing diarrhea for the last 1 week's duration. States he is having diarrhea up to 10-15 times a day. He denies any recent antibiotic use or new medications. He states that his stool has been dark he believes possibly black at times. He did have a negative stool as well as a negative C. diff. Stool cultures have been ordered and are pending. He has no associated nausea or vomiting and no fevers. He states he has had a history of a GI bleed in the past with ulcer. His last EGD was done 05/21/[address] Crawford that showed mild gastritis and Cummings's esophagus small hiatal hernia but no active bleeding. Prior to that he had an EGD and colonoscopy again for assessment of the GI bleed that showed a small nonbleeding duodenal bulb ulcer, colonoscopy s howed small colon polyps low-grade internal hemorrhoids and thrombosed external hemorrhoids. No plans at this time for any endoscopic evaluation. Will treat with Imodium and Questran. Await stool culture results. Current Visit: Yes Status: Acute Code(s): R19.7 - DIARRHEA, UNSPECIFIED SNOMED Code(s): 81011450 (2) Abdominal pain Current Visit: No Status: Acute Code(s): R10.9 - UNSPECIFIED ABDOMINAL PAIN SNOMED Code(s): 52878027 (3) Elbow fracture Narrative/Plan: Orthopedics following Current Visit: Yes Status: Acute Code(s): S42.409A - UNSP FRACTURE OF LOWER END OF UNSP HUMERUS, INIT FOR CLOS FX SNOMED Code(s): 016241938 Plan: 1. Continue symptomatic and supportive care 2. Patient may have a low fat/low fiber diet 3. Imodium as needed 4. Questran added 5. Stool cultures pending 6. No plans on endoscopic evaluation at this time. Patient had recent EGD and colonoscopy within the last 1-2 years 7. Patient is cleared for discharge from gastroenterology. Thank you for allowing us to participate in the care of the patient, the GI service will sign off, gastroenterology will not be available at the hospital this weekend. If further evaluation by gastroenterology is required the patient will need transfer as per the primary team's discretion. Dr. Gama Pacheco I agree with the dictator's note, documented as a scribe by Negrita Giles.
[2021-11-03] MEDS: CYANOCOBALAMIN 500 MCG TAB PO SCH (10:14)
[2021-11-03] MEDS: CALCIUM CARBONATE 500 MG CHEWABLE PO SCH ×2 (10:14→21:18)
[2021-11-03] MEDS: MONTELUKAST 10 MG TAB PO SCH (10:14)
[2021-11-03] MEDS: METOPROLOL TARTRATE 25 MG TAB PO SCH ×2 (10:14→17:38)
[2021-11-03] MEDS: CHOLECALCIFEROL 125 MCG (5000 IU) TABLET PO SCH ×2 (10:14→21:19)
[2021-11-03] MEDS: allopurinoL 100 MG TAB PO SCH (10:14)
[2021-11-03] MEDS: MAGNESIUM OXIDE 400 MG TAB PO SCH ×2 (10:14→21:19)
[2021-11-03] MEDS: PSYLLIUM HUSK 100% 6 GM PACKET PO SCH ×2 (10:15→21:21)
[2021-11-03] MEDS: TRIAMCINOLONE 0.1% CREAM 80 GM TUBE TOPICAL SCH ×2 (10:17→21:21)
[2021-11-03] MEDS: HYDROCORTISONE 2.5% RECTAL CREAM 30 GM TUBE RECTAL SCH ×2 (10:17→21:21)
[2021-11-03] MEDS: ACETAMINOPHEN TAB 325 MG TAB PO PRN ×2 (10:19→21:18)
--- NOTE | 2021-11-03 12:51 | P.PN ---
Subjective Progress Note Date: 11/02/21 Principal diagnosis: Right elbow pain, wrist pain, wrist sprain, scapholunate disruption, DJD Patient seen again at bedside this am regarding his right elbow and wrist pain. He has minimal elbow pain today. he complains mostly of pain in right thumb and 1st digit. Mild wrist pain. Xrays were negative for definite fracture. He has no new complaints today Objective - Vital Signs Vital signs: Vital Signs Temp 98.2 F 11/02/21 08:00 Pulse 60 11/02/21 08:45 Resp 18 11/02/21 08:00 BP 106/62 11/02/21 08:00 Pulse Ox 93 L 11/02/21 08:00 FiO2 21 11/01/21 20:15 Intake & Output 11/01/21 11/02/21 11/02/21 18:59 06:59 18:59 Intake Total 540 Output Total 1 Balance -1 540 Intake: Oral 540 Output: Urine/Stool Mix 1 Other: # Voids 2 - Exam mild echymoses at right elbow and wrist resolving. No edema/effusion. No wounds. tender at thumb and index finger. Pain with ROM of these digits. Motor sensation intact. No pain with ROM of elbow. Mild pain with ROM of wrist. pulses and cap refill intact. - Constitutional General appearance: Present: no acute distress - Labs CBC & Chem 7: 11/01/21 06:01 11/03/21 06:02 Labs: Abnormal Lab Results - Last 24 Hours (Table) 11/02/21 Range/Units 07:26 Sodium 136 L (137-145) mmol/L BUN 58 H (9-20) mg/dL Creatinine 1.79 H (0.66-1.25) mg/dL Glucose 148 H (74-99) mg/dL Microbiology - Last 24 Hours (Table) 11/01/21 12:19 Stool Culture - Preliminary Stool Assessment and Plan (1) Contusion of right elbow Narrative/Plan: There are no plans for surgical intervention. We will order thumb spica removeable wrist brace for sprain and scapho-lunate disruption. Continue ice, rest, elevate and gentle ROM. He may f/u as outpatient Current Visit: Yes Status: Acute Priority: Medium Code(s): S50.01XA - CONTUSION OF RIGHT ELBOW, INITIAL ENCOUNTER SNOMED Code(s): 24444118 Time with Patient: Less than 30
[2021-11-03] MEDS: CHOLESTYRAMINE (WITH SUGAR) 4 GM PACKET PO SCH ×2 (14:05→17:38)
[2021-11-03] MEDS: PANTOPRAZOLE 40 MG TABLET PO SCH ×2 (14:05→21:19)
--- NOTE | 2021-11-03 15:31 | P.PN ---
Progress Note - Text Progress Note Date: 11/03/21 Chief Complaint: Dark stool This is a pleasant 89-year-old patient of follows with Dr. Abhilash Dodd. Chronic stable medical conditions include atrial fibrillation, asthma, CAD with stent, GERD, hard of hearing with aids, BPH, obstructive sleep apnea does not use a device, arthritis, gout,. Patient lives with his . Managed to get around the house and goes to get arch. Sometimes uses a cane and a walker. Has chronic shortness of breath. For about one week patient started having diarrhea. Special after eating. Stools became rather dark since yesterday. Appetite is gone down. Weak and tired. Patient just had a new mattress and has a support to get on the bed. Was to undergo the bathroom missed a step and fell down hitting the nightstand. Does feel tired and rundown. His last EGD was done at 05/21/[address] Kamara that showed mild gastritis, Cummings's esophagus with a small hiatal hernia but no active bleeding. Prior to that patient had EGD and colonoscopy in June [address] Crawford for positive occult stool in reports of dark stool. He had a small nonbleeding duodenal bulb ulcer, and a colonoscopy showed small colon polyps with low-grade internal hemorrhoids and thrombosed external hemorrhoids. November 01: Still having lower abdominal pain. Tired. Seen by GI. Not very endoscopy currently. Patient was started on Questran. Diet advanced to low fiber. Replace potassium. Start IV lactated Ringer's. Hold Lasix. Repeat labs in the morning. November 02: Continues to have lower abdominal pain. Multiple bowel movements. Has been on Questran. Computed tomography scan abdomen and pelvis with oral contrast ordered.: Only evidence of diverticulosis found. Admitted Metamucil to help with bulk forming. Not eating much November 03: Patient responded well to Metamucil. No further diarrhea. Abdominal pain much better. DC IV fluids. Resume Lasix from tomorrow. Azam wrap's. Discussed with patient and daughter. Up to the bathroom. Active Medications Acetaminophen (Acetaminophen Tab 325 Mg Tab) 650 mg PO Q4HR PRN PRN Reason: Fever and/ or Pain Last Admin: 11/03/21 10:19 Dose: 650 mg Albuterol/Ipratropium (Ipratropium-Albuterol 3 Ml Neb) 3 ml INHALATION RT-QID [facility] Last Admin: 11/03/21 15:26 Dose: 3 ml Allopurinol (Allopurinol 100 Mg Tab) 100 mg PO DAILY [facility] Last Admin: 11/03/21 10:14 Dose: 100 mg Atorvastatin Calcium (Atorvastatin 40 Mg Tab) 40 mg PO HS [facility] Last Admin: 11/02/21 20:00 Dose: 40 mg Baclofen (Baclofen 10 Mg Tab) 10 mg PO TID PRN PRN Reason: Pain Last Admin: 11/02/21 20:00 Dose: 10 mg Budesonide (Budesonide 0.5 Mg/2 Ml Nebu) 0.5 mg INHALATION RT-BID [facility] Last Admin: 11/03/21 07:43 Dose: Not Given Calcium Carbonate/Glycine (Calcium Carbonate 500 Mg Chewable) 500 mg PO BID [facility] Last Admin: 11/03/21 10:14 Dose: 500 mg Cholecalciferol (Cholecalciferol 125 Mcg (5000 Iu) Tablet) 125 mcg PO BID [facility] Last Admin: 11/03/21 10:14 Dose: 125 mcg Cholestyramine Resin (Cholestyramine (With Sugar) 4 Gm Packet) 4 gm PO BID@1000,1800 [facility] Last Admin: 11/03/21 14:05 Dose: 4 gm Cyanocobalamin (Cyanocobalamin 500 Mcg Tab) 1,000 mcg PO DAILY [facility] Last Admin: 11/03/21 10:14 Dose: 1,000 mcg Furosemide (Furosemide 80 Mg Tab) 80 mg PO DAILY [facility] Hydrocortisone (Hydrocortisone 2.5% Rectal Cream 30 Gm Tube) 1 applic RECTAL BID [facility] Last Admin: 11/03/21 10:17 Dose: 1 applic Loperamide HCl (Loperamide 2 Mg Cap) 2 mg PO QID PRN PRN Reason: Diarrhea Last Admin: 11/02/21 20:00 Dose: 2 mg Magnesium Oxide (Magnesium Oxide 400 Mg Tab) 400 mg PO BID [facility] Last Admin: 11/03/21 10:14 Dose: 400 mg Metoprolol Tartrate (Metoprolol Tartrate 25 Mg Tab) 25 mg PO BID-W/MEALS [facility] Last Admin: 11/03/21 10:14 Dose: 25 mg Montelukast Sodium (Montelukast 10 Mg Tab) 10 mg PO DAILY [facility] Last Admin: 11/03/21 10:14 Dose: 10 mg Pantoprazole Sodium (Pantoprazole 40 Mg Tablet) 40 mg PO BID [facility] Last Admin: 11/03/21 14:05 Dose: 40 mg Psyllium Hydrophilic Mucilloid (Psyllium Husk 100% 6 Gm Packet) 6 gm PO BID [facility] Last Admin: 11/03/21 10:15 Dose: 6 gm Sodium Chloride (Sodium Chloride 0.65% Nasal [place] 44 Ml Btl) 2 spray NASAL QID PRN PRN Reason: Dry Nasal Passages Triamcinolone Acetonide (Triamcinolone 0.1% Cream 80 Gm Tube) 1 applic TOPICAL BID [facility]; Protocol Last Admin: 11/03/21 10:17 Dose: 1 applic Past medical history to include: Atrial fibrillation, asthma, CAD with stent, GERD, hard of hearing, prostate disorder, sleep apnea does not use BiPAP, peptic ulcer disease, pancreatitis in the remote past prostate cancer with radiation treatment in 2017, arthritis, cardiac ablation watchman device implanted in June 2020 Social history: Lives with his . Patient smoked for about 20 years stopped in 1969. Drank alcohol socially. Retired. Family history: Cancer Physical examination: VITAL SIGNS: 97.4, 63, 17, 121/58, 94% room air GENERAL: Comfortable EYES: Pupils equal. Conjunctiva normal. HEENT: External appearance of nose and ears normal, oral cavity grossly normal. Hearing aids NECK: JVD not raised; masses not palpable. HEART: First and second heart sounds are normal; edema. LUNGS: Respiratory rate increased; decreased breath sounds. ABDOMEN: Soft, mild lower abdominal tenderness, liver spleen not palpable, no masses palpable. PSYCH: Alert and oriented x3; mood and affect some anxietyl. MUSCULOSKELETAL:No Clubbing/cyanosis;muscles-grossly intact, evidence of OA. Right ominous laying INVESTIGATIONS, reviewed in the clinical context: November 02: Potassium 3.6 BUN 58 creatinine 1.79 Computed tomography scan abdomen and pelvis [November 02]: Diverticulosis. November 01: White count 7.4 hemoglobin 10.2 potassium 2.9. 62 creatinine 1.63 White count 8.1 hemoglobin 10.9 platelets 242 sodium 134 potassium 2.5. 67 creatinine 1.85 bicarb 38 UA: Negative EKG tracing personally reviewed by me-ventricular pacemaker X-ray of the right wrist and elbow: Superimposition of carpal bones maybe positional. Scapholunate dislocation. Right elbow joint effusion. Fracture cannot be ruled out. Chest x-ray: Clear Previous studies: [2-D echocardiogram: EF 50-55%] April 2020] Assessment and plan: -Possibly irritable bowel syndrome. Currently flareup of diarrhea. Better Questran . CT abdomen unremarkable. Metamucil -Severe hypokalemia from Lasix: Better Replace potassium -Acute kidney injury, from diuretics diarrhea: Some improvement Hold Lasix. Lactated Ringer's. -Persistent atrial fibrillation Watchman device.-No anticoagulants -COPD in a previous smoker DuoNeb 4 times a day, Singulair Pulmicort 0.5 mg twice a day -Primary osteoarthritic multiple joints bilateral Tylenol when necessary -Right elbow blunt injury. No fracture per orthopedics. -CAD with a prior history of stent Lopressor 25 mg twice a day -Hard of hearing, has hearing aids -GERD Protonix 40 mg daily -Vitamin B-12 deficiency Vitamin B12 thousand micrograms DC IV fluids. Azam wrap. Start Lasix from tomorrow. Discussed with the patient and family. Hopefully discharge tomorrow.
[2021-11-03] MEDS: ATORVASTATIN 40 MG TAB PO SCH (21:18)
[2021-11-04] MEDS: CHOLECALCIFEROL 125 MCG (5000 IU) TABLET PO SCH (07:31)
[2021-11-04] MEDS: allopurinoL 100 MG TAB PO SCH (07:31)
[2021-11-04] MEDS: CYANOCOBALAMIN 500 MCG TAB PO SCH (07:31)
[2021-11-04] MEDS: PANTOPRAZOLE 40 MG TABLET PO SCH (07:31)
[2021-11-04] MEDS: CALCIUM CARBONATE 500 MG CHEWABLE PO SCH (07:31)
[2021-11-04] MEDS: MAGNESIUM OXIDE 400 MG TAB PO SCH (07:31)
[2021-11-04] MEDS: METOPROLOL TARTRATE 25 MG TAB PO SCH (07:31)
[2021-11-04] MEDS: MONTELUKAST 10 MG TAB PO SCH (07:31)
[2021-11-04] MEDS: TRIAMCINOLONE 0.1% CREAM 80 GM TUBE TOPICAL SCH (07:32)
[2021-11-04] MEDS: PSYLLIUM HUSK 100% 6 GM PACKET PO SCH (07:32)
[2021-11-04] MEDS: CHOLESTYRAMINE (WITH SUGAR) 4 GM PACKET PO SCH (07:32)
[2021-11-04] MEDS: HYDROCORTISONE 2.5% RECTAL CREAM 30 GM TUBE RECTAL SCH (07:34)
[2021-11-04 07:54] VITALS: BP 122/68; RESP 18; TEMP 98.1
[2021-11-04] MEDS: BUDESONIDE 0.5 MG/2 ML NEBU INHALATION SCH (07:58)
[2021-11-04] MEDS: IPRATROPIUM-ALBUTEROL 3 ML NEB INHALATION SCH ×2 (07:58→11:33)
[2021-11-04] MEDS ORDERED: FUROSEMIDE 80 MG TAB PO SCH (09:00)
[2021-11-04 11:41] VITALS: PULSE 82
--- NOTE | 2021-11-04 15:33 | P.DS ---
Providers Date of admission: 10/31/21 17:19 Expected date of discharge: 11/04/21 Attending physician: Quintin Hall Consults: 10/31/21 17:24 Consult Physician Urgent Consulting Provider: Vazquez Agrawal Consult Reason/Comments: Elbow fracture Do you want consulting provider notified?: Yes Consult Physician Urgent Consulting Provider: Sarita Pacheco Consult Reason/Comments: GI bleed, diarrhea Do you want consulting provider notified?: Yes Primary care physician: Silverio Dodd [facility] Course: Chief Complaint: Dark stool This is a pleasant 89-year-old patient of follows with Dr. Abhilash Dodd. Chronic stable medical conditions include atrial fibrillation, asthma, CAD with stent, GERD, hard of hearing with aids, BPH, obstructive sleep apnea does not use a device, arthritis, gout,. Patient lives with his . Managed to get around the house and goes to get arch. Sometimes uses a cane and a walker. Has chronic shortness of breath. For about one week patient started having diarrhea. Special after eating. Stools became rather dark since yesterday. Appetite is gone down. Weak and tired. Patient just had a new mattress and has a support to get on the bed. Was to undergo the bathroom missed a step and fell down hitting the nightstand. Does feel tired and rundown. His last EGD was done at 05/21/[address] Kamara that showed mild gastritis, Cummings's esophagus with a small hiatal hernia but no active bleeding. Prior to that patient had EGD and colonoscopy in June [address] Crawford for positive occult stool in reports of dark stool. He had a small nonbleeding duodenal bulb ulcer, and a colonoscopy showed small colon polyps with low-grade internal hemorrhoids and thrombosed external hemorrhoids. November 01: Still having lower abdominal pain. Tired. Seen by GI. Not very endoscopy currently. Patient was started on Questran. Diet advanced to low fiber. Replace potassium. Start IV lactated Ringer's. Hold Lasix. Repeat labs in the morning. November 02: Continues to have lower abdominal pain. Multiple bowel movements. Has been on Questran. Computed tomography scan abdomen and pelvis with oral contrast ordered.: Only evidence of diverticulosis found. Admitted Metamucil to help with bulk forming. Not eating much November 03: Patient responded well to Metamucil. No further diarrhea. Abdominal pain much better. DC IV fluids. Resume Lasix from tomorrow. Azam wrap's. Discussed with patient and daughter. Up to the bathroom. November 04: Doing well. Reemphasized about a strep. Fluids restriction 1800 mL a day. Lasix cutback to 80 mg day. Follow-up with nephrology, PCP. Questions answered. Discussion and discharge planning more than 35 minutes Past medical history to include: Atrial fibrillation, asthma, CAD with stent, GERD, hard of hearing, prostate disorder, sleep apnea does not use BiPAP, peptic ulcer disease, pancreatitis in the remote past prostate cancer with radiation treatment in 2017, arthritis, cardiac ablation watchman device implanted in June 2020 Social history: Lives with his . Patient smoked for about 20 years stopped in 1969. Drank alcohol socially. Retired. Family history: Cancer Physical examination: VITAL SIGNS: 98.1, 67, 18, 122/68, 96% room air GENERAL: Comfortable EYES: Pupils equal. Conjunctiva normal. HEENT: External appearance of nose and ears normal, oral cavity grossly normal. Hearing aids NECK: JVD not raised; masses not palpable. HEART: First and second heart sounds are normal; edema. LUNGS: Respiratory rate increased; decreased breath sounds. ABDOMEN: Soft, mild lower abdominal tenderness, liver spleen not palpable, no masses palpable. PSYCH: Alert and oriented x3; mood and affect some anxietyl. MUSCULOSKELETAL:No Clubbing/cyanosis;muscles-grossly intact, evidence of OA. Right ominous laying INVESTIGATIONS, reviewed in the clinical context: November 03: Oh3.9. 55 creatinine 1.69 November 02: Potassium 3.6 BUN 58 creatinine 1.79 Computed tomography scan abdomen and pelvis [November 02]: Diverticulosis. November 01: White count 7.4 hemoglobin 10.2 potassium 2.9. 62 creatinine 1.63 White count 8.1 hemoglobin 10.9 platelets 242 sodium 134 potassium 2.5. 67 creatinine 1.85 bicarb 38 UA: Negative EKG tracing personally reviewed by me-ventricular pacemaker X-ray of the right wrist and elbow: Superimposition of carpal bones maybe positional. Scapholunate dislocation. Right elbow joint effusion. Fracture cannot be ruled out. Chest x-ray: Clear Previous studies: [2-D echocardiogram: EF 50-55%] April 2020] Assessment and plan: -Possibly irritable bowel syndrome. Currently flareup of diarrhea. Better . CT abdomen unremarkable. Metamucil -Severe hypokalemia from Lasix: Better Replace potassium -Acute kidney injury, from diuretics diarrhea: Some improvement Lasix cutback -Persistent atrial fibrillation Watchman device.-No anticoagulants -COPD in a previous smoker DuoNeb 4 times a day, Singulair Pulmicort 0.5 mg twice a day -CK D stage III likely nephrosclerosis Follow labs -Primary osteoarthritic multiple joints bilateral Tylenol when necessary -Right elbow blunt injury. No fracture per orthopedics. -CAD with a prior history of stent Lopressor 25 mg twice a day -Hard of hearing, has hearing aids -GERD Protonix 40 mg daily -Vitamin B-12 deficiency Vitamin B12 thousand micrograms Disposition: Home Plan - Discharge Summary Discharge Rx Participant: No New Discharge Prescriptions: New Atorvastatin [Lipitor] 40 mg PO HS #30 tablet Magnesium Oxide [Mag-Ox] 250 mg PO DAILY #30 tab Hydrocortisone Pr Cream [Proctosol-Hc 2.5%] 1 applic RECTAL BID #28 gm Psyllium Husk 100% [Metamucil Packet] 6 gm PO BID #60 packet Continue Budesonide [Pulmicort] 0.5 mg INHALATION RT-BID Montelukast [Singulair] 10 mg PO DAILY allopurinoL [Zyloprim] 100 mg PO DAILY Cholecalciferol (Vitamin D3) [Vitamin D3 (5000 Iu)] 125 mcg PO BID Inulin/Chromium Picolinate [Fiber Gummies Chew] 2 tab PO DAILY Pantoprazole [Protonix] 40 mg PO DAILY Cyanocobalamin [Vitamin B-12] 1,000 mcg PO DAILY #30 tab Ferrous Sulfate [Iron (65 MG Elemental)] 325 mg PO DAILY Calcium Carbonate [Calcium] 600 mg PO BID Baclofen 10 mg PO TID PRN PRN Reason: Pain Triamcinolone 0.1% Cream [Kenalog 0.1% Cream] 1 applicatio TOPICAL BID Nitroglycerin Sl Tabs [Nitrostat] 0.4 mg SUBLINGUAL Q5M PRN PRN Reason: Chest Pain Ipratropium-Albuterol Nebulize [Duoneb 0.5 mg-3 mg/3 ml Soln] 3 ml INHALATION RT-QID PRN PRN Reason: Shortness Of Breath Potassium Citrate [Urocit-K ER] 5 meq PO BID-W/MEALS Metoprolol Tartrate [Lopressor] 25 mg PO BID-W/MEALS Changed Furosemide [Lasix] 80 mg PO DAILY #0 Discontinued Simvastatin [Zocor] 80 mg PO HS Docusate [Colace] 100 mg PO BID PRN PRN Reason: Constipation metOLazone 2.5 mg PO FR Cetirizine HCl [Zyrtec] 10 mg PO DAILY PRN PRN Reason: Allergy Symptoms polyethylene glycoL 3350 [Miralax] 17 gm PO DAILY Discharge Medication List Budesonide [Pulmicort] 0.5 mg INHALATION RT-BID 12/08/13 [History] Montelukast [Singulair] 10 mg PO DAILY 01/24/19 [History] Cholecalciferol (Vitamin D3) [Vitamin D3 (5000 Iu)] 125 mcg PO BID 05/08/20 [History] Inulin/Chromium Picolinate [Fiber Gummies Chew] 2 tab PO DAILY 05/08/20 [History] Pantoprazole [Protonix] 40 mg PO DAILY 05/08/20 [History] allopurinoL [Zyloprim] 100 mg PO DAILY 05/08/20 [History] Cyanocobalamin [Vitamin B-12] 1,000 mcg PO DAILY #30 tab 05/10/20 [Rx] Calcium Carbonate [Calcium] 600 mg PO BID 08/05/20 [History] Ferrous Sulfate [Iron (65 MG Elemental)] 325 mg PO DAILY 08/05/20 [History] Nitroglycerin Sl Tabs [Nitrostat] 0.4 mg SUBLINGUAL Q5M PRN 08/05/20 [History] Ipratropium-Albuterol Nebulize [Duoneb 0.5 mg-3 mg/3 ml Soln] 3 ml INHALATION RT-QID PRN 10/13/20 [History] Baclofen 10 mg PO TID PRN 10/31/21 [History] Metoprolol Tartrate [Lopressor] 25 mg PO BID-W/MEALS 10/31/21 [History] Potassium Citrate [Urocit-K ER] 5 meq PO BID-W/MEALS 10/31/21 [History] Triamcinolone 0.1% Cream [Kenalog 0.1% Cream] 1 applicatio TOPICAL BID 10/31/21 [History] Atorvastatin [Lipitor] 40 mg PO HS #30 tablet 11/04/21 [Rx] Furosemide [Lasix] 80 mg PO DAILY #0 11/04/21 [Rx] Hydrocortisone Pr Cream [Proctosol-Hc 2.5%] 1 applic RECTAL BID #28 gm 11/04/21 [Rx] Magnesium Oxide [Mag-Ox] 250 mg PO DAILY #30 tab 11/04/21 [Rx] Psyllium Husk 100% [Metamucil Packet] 6 gm PO BID #60 packet 11/04/21 [Rx] Follow up Appointment(s)/Referral(s): My Pearson MD [STAFF PHYSICIAN] - 2 Weeks (office closed at time of discharge. Please call Saturday to schedule appointment ) [facility], [NON-STAFF] - 1 Week Silverio Dodd MD [Primary Care Provider] - 1-2 days (office closed at time of discharge. Please call to schedule appointment ) Vazquez Agrawal MD [STAFF PHYSICIAN] - 1 Week (office closed at time of discharge. Please call to schedule appointment ) Patient Instructions/Handouts: Fall Prevention for Older Adults (DC), Anemia (DC), Impaired Kidney Function (DC) Activity/Diet/Wound Care/Special Instructions: Thumb spica brace as needed for comfort rest, ice, elevate fluid restrict 1800 cc/day daily azam wraps to both legs from toes to knees Discharge Disposition: HOME WITH HOME HEALTH SERVICES
== END 2021-11-04 14:02 | disposition home health service (06) | DRG 392 ==
LOC: EC 14:29 → 4SSUR 17:19
PROVIDERS: ADMIT Hospitalist; ATTEND Hospitalist
DX: K58.0 Irritable bowel syndrome with diarrhea (principal); N17.9 Acute kidney failure, unspecified; I48.19 Other persistent atrial fibrillation; E87.6 Hypokalemia; T50.1X5A Adverse effect of loop [high-ceiling] diuretics, initial encounter; I12.9 Hypertensive chronic kidney disease with stage 1 through stage 4 chronic kidney disease, or unspecified chronic kidney disease; N18.30 Chronic kidney disease, stage 3 unspecified; J44.9 Chronic obstructive pulmonary disease, unspecified; D63.1 Anemia in chronic kidney disease; Z87.891 Personal history of nicotine dependence; E53.8 Deficiency of other specified B group vitamins; G47.33 Obstructive sleep apnea (adult) (pediatric); H91.93 Unspecified hearing loss, bilateral; Z97.4 Presence of external hearing-aid; M19.012 Primary osteoarthritis, left shoulder; M19.011 Primary osteoarthritis, right shoulder; N40.0 Benign prostatic hyperplasia without lower urinary tract symptoms; R32 Unspecified urinary incontinence; I25.10 Atherosclerotic heart disease of native coronary artery without angina pectoris; K21.9 Gastro-esophageal reflux disease without esophagitis; M10.9 Gout, unspecified; Z95.0 Presence of cardiac pacemaker; K22.70 Barrett's esophagus without dysplasia; Z87.11 Personal history of peptic ulcer disease; Z95.818 Presence of other cardiac implants and grafts; K57.90 Diverticulosis of intestine, part unspecified, without perforation or abscess without bleeding; Z86.010 Personal history of colon polyps; S50.01XA Contusion of right elbow, initial encounter; S63.509A Unspecified sprain of unspecified wrist, initial encounter; W10.9XXA Fall (on) (from) unspecified stairs and steps, initial encounter; Z79.51 Long term (current) use of inhaled steroids; Z79.899 Other long term (current) drug therapy; Z80.0 Family history of malignant neoplasm of digestive organs; Z86.73 Personal history of transient ischemic attack (TIA), and cerebral infarction without residual deficits; Z87.19 Personal history of other diseases of the digestive system; Z95.5 Presence of coronary angioplasty implant and graft; Z92.3 Personal history of irradiation
CPT/HCPCS: 29515; 36415; 71045; 74176; 80048; 80053; 81003; 82272; 83605; 83735; 85025; 85610; 85730; 86850; 86900; 86901; 87045; 87046; 87324; 93005; 94640; 94760; 96361; 96365; 96366; 99285